=== PATIENT | male | born 1940 | race Caucasian/White ===

== ENCOUNTER → 2017-09-02 07:25 | Outpatient (CLI) | payer MEDICARE, BC, SELFPAY ==
[2017-09-02 09:20] LABS: Alanine Aminotransferase 19 U/L (12-78); Albumin Level 3.9 gm/dL (3.4-5.0); Albumin/Globulin Ratio 1.2 (1.1-1.8); Alkaline Phosphatase 86 U/L (46-116); Anion Gap 12.3 mEq/L (5-15); Aspartate Amino Transferase 23 U/L (15-37); Bilirubin,Total 0.6 mg/dL (0.2-1.0); Blood Urea Nitrogen 23 mg/dL (7-18); Calcium 9.6 mg/dL (8.5-10.1); Carbon Dioxide 28 mmol/L (21.0-32.0); Chloride 103 mmol/L (98-107); Chol/HDL Ratio 2.6 (1-3.5); Cholesterol 169 mg/dL (140-200); Creatinine,Serum 1.19 mg/dL (0.70-1.30); Estimated Glomerular Filt Rate 59 ml/min (>60); GFR (African American) 72 ML/MIN (>60); Globulin 3.2 gm/dl (1.3-3.2); Glucose 103 mg/dL (74-106); HDL Cholesterol 65 mg/dL (27-67); LDL Cholesterol 93 mg/dL (0-130); Potassium 4.3 mmoL/L (3.5-5.1); Prostate Specific Ag, Diagnost 3.02 ng/mL (0.0-4.0); Sodium 139 mmol/L (136-145); Thyroid Stimulating Hormone 2.19 uIU/ml (0.358-3.740); Total Protein,Serum 7.1 gm/dL (6.4-8.2); Triglycerides 56 mg/dL (30-200); VLDL Cholesterol 11 mg/dL (0-40)
== END ==
PROVIDERS: Visit Provider Family Medicine
DX: I10 Essential (primary) hypertension (principal); N40.0 Benign prostatic hyperplasia without lower urinary tract symptoms; E03.9 Hypothyroidism, unspecified; E78.2 Mixed hyperlipidemia; R97.20 Elevated prostate specific antigen [PSA]; Z86.79 Personal history of other diseases of the circulatory system
CPT/HCPCS: 36415; 80053; 80061; 84153; 84443

== ENCOUNTER → 2018-05-23 07:12 | Outpatient (CLI) | payer MEDICARE, BC, SELFPAY ==
--- NOTE | 2018-05-23 07:16 | NM_ITS ---
SPECT MYOCARDIAL PERFUSION SCAN, REST AND STRESS: EXERCISE STRESS: [facility] REVIEW QGS EF AND WALL MOTION EVALUATION: QPS - PERFUSION EVALUATION: HISTORY: Chest pain, HTN, CAD PROCEDURE: Rest imaging performed after administration of10.64 millicuries Tc MIBI. Dose administered at7:25 a.m., with imaging thereafter. Stress imaging was then performed following6 minutes of exercise stress. The patient achieved a heart ofav467 with projected heart rate of120 . Resting BP184/95 with stress 150/92. At maximum exercise stress,32.5 millicuries Tc MIBI administered at8:50 a.m. with [id number] minutes thereafter. FINDINGS: Perfusion Evaluation: The single slice spect images as well as the [facility] bull's-eye data summary were reviewed. Wall Motion and Ejection Fraction Evaluation: Gated SPECT review and analysis used to evaluate these features. There is a 46 % left ventricular ejection fraction. Stress test reveals decreased activity in the anterior apical wall while rest images reveal uniform myocardial activity. Gated images calculated ejection fraction of 46% with anterior apical hypokinesis. IMPRESSION: High risk abnormal stress test with severe reversible ischemia in the anterior wall accompanied by regional wall motion abnormality and reduced ejection fraction.
--- NOTE | 2018-05-23 08:18 | HMH.ITSHM ---
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 []ROSUVASTATIN FLUTICASONE OMEPRAZOLE LOSARTAN RESTASIS TAMSULOSIN LEVOTHYROXINE SILDENAFIL ASA NITRO FOLIC ACID NIACIN OMEGA 3 MULTIVITAMIN VITAMIN C
[2018-05-23 11:30] LABS: Alanine Aminotransferase 27 U/L (12-78); Albumin Level 4.1 gm/dL (3.4-5.0); Albumin/Globulin Ratio 1.2 (1.1-1.8); Alkaline Phosphatase 94 U/L (46-116); Anion Gap 13.3 mEq/L (5-15); Aspartate Amino Transferase 16 U/L (15-37); Bilirubin,Total 0.6 mg/dL (0.2-1.0); Blood Urea Nitrogen 18 mg/dL (7-18); Calcium 9.6 mg/dL (8.5-10.1); Carbon Dioxide 27 mmol/L (21.0-32.0); Chloride 98 mmol/L (98-107); Chol/HDL Ratio 2.6 (1-3.5); Cholesterol 178 mg/dL (140-200); Creatinine,Serum 1.33 mg/dL (0.70-1.30); Estimated Glomerular Filt Rate 52 ml/min (>60); GFR (African American) 63 ML/MIN (>60); Globulin 3.4 gm/dl (1.3-3.2); Glucose 108 mg/dL (74-106); HDL Cholesterol 69 mg/dL (27-67); LDL Cholesterol 92 mg/dL (0-130); Potassium 4.3 mmoL/L (3.5-5.1); Sodium 134 mmol/L (136-145); Thyroid Stimulating Hormone 1.55 uIU/ml (0.358-3.740); Total Protein,Serum 7.5 gm/dL (6.4-8.2); Triglycerides 83 mg/dL (30-200); VLDL Cholesterol 17 mg/dL (0-40)
== END ==
PROVIDERS: PCP Family Medicine; Visit Provider Family Medicine
DX: R07.2 Precordial pain (principal); E03.9 Hypothyroidism, unspecified; I10 Essential (primary) hypertension; E78.5 Hyperlipidemia, unspecified; Z86.79 Personal history of other diseases of the circulatory system
CPT/HCPCS: 36415; 78451; 80053; 80061; 84443; 93017; A9502

== ENCOUNTER 2018-07-18 08:21 | Outpatient (RCR) | payer MEDICARE, BC, SELFPAY | END 2018-09-27 15:45 | disposition home or self-care (01) | LOC: CR 08:21 | PROVIDERS: Referring Provider Urology; Visit Provider Urology | DX: Z95.1 Presence of aortocoronary bypass graft (principal); I11.9 Hypertensive heart disease without heart failure; E78.5 Hyperlipidemia, unspecified | CPT/HCPCS: 93798 ==

== ENCOUNTER → 2018-07-18 09:31 | Outpatient (CLI) | payer MEDICARE, BC, SELFPAY ==
--- NOTE | 2018-07-18 09:32 | CA_ITS ---
PROCEDURE: 2-D M-mode and color Doppler study INDICATIONS FOR THE TEST: Chest pain COPD Heart Murmur Tobacco Smoking Palpitations Fatigue Syncope Edema Hypertension+Diabetes Mellitus Rheumatic Fever SOB [place]OTT Obesity Hyperlipidemia+ Family History HD Additional History CABG PATIENT INFORMATION HEIGHT:71 WEIGHT:180 GENDER: Male B/P:127/63 2-D/M-MODE INTERPRETATION: 2-D MEASUREMENTS OBSERVED VALUES IN CMS Right Ventricular Dimension (RVDd) 2.8 Interventricular Septum (Thickness)(IVsd) 1.6 Left Ventricular Internal Dimensions(LVIDd) 5.3 Left Ventricular Posterior Wall (Thickness)(LVPWd) 1.0 Aortic Root 3.3 Aortic Cusp Separation 2.0 Left Atrial Dimensions (LAD) 4.4 2D 1. Technically difficult study because of the patient's factor and poor acoustic windows, repeat study with definitely contrast is recommended. 2. Left atrium is moderately enlarged, left ventricle is normal size, there is mild concentric left ventricular hypertrophy, visually estimated ejection fraction approximately 40%, inferior inferobasal wall appears to be moderately hypokinetic, endocardial surface of poorly visualized, a repeat study with Definity contrast is recommended. 3. The right atrium and right ventricle are mildly enlarged with normal contractility. 4. The aortic valve is thickened and calcified leaflet continue to display good mobility. 5. The mitral and tricuspid valve leaflets are minimally thickened . 6. The pulmonic valve is poorly visualized. 7. No significant pericardial effusion noted. DOPPLER INTERROGATION: Doppler interrogation of the aortic, mitral and tricuspid presence of moderate mitral and mild tricuspid regurgitation, tricuspid regurgitation jet velocity is inadequate for calculation of the right ventricular systolic pressure, diastolic parameters are inconclusive. Tissue Doppler was not obtained. CONCLUSION: 1. Moderately enlarged left atrium, normal left ventricular size, mild concentric left ventricular hypertrophy, visually estimated ejection fraction of 40%, with segmental wall motion abnormality described above, repeat study with Definity contrast is recommended as endocardial surface of very poorly visualized. 2. Mildly enlarged right atrium and right ventricle, contractility of the right ventricle is normal. 3. Thickened and calcified aortic valve without Doppler evidence of aortic stenosis or aortic insufficiency. 4. Moderate mitral and mild tricuspid regurgitation 5. No significant pericardial effusion.
== END ==
PROVIDERS: PCP Family Medicine; Visit Provider Urology
DX: I25.10 Atherosclerotic heart disease of native coronary artery without angina pectoris (principal)
CPT/HCPCS: 93306

== ENCOUNTER → 2018-07-31 13:31 | Outpatient (CLI) | payer MEDICARE, BC, SELFPAY ==
--- NOTE | 2018-07-31 13:32 | CA_ITS ---
PROCEDURE: Definitely contrast study INDICATIONS FOR THE TEST: Chest pain COPD Heart Murmur Tobacco Smoking Palpitations Fatigue Syncope Edema Hypertension+Diabetes Mellitus Rheumatic Fever SOB PRESCOTT Obesity Hyperlipidemia+ Family History HD Additional History cabg DEFINITY ONLY PATIENT INFORMATION HEIGHT: 71 WEIGHT:180 GENDER: Male B/P:127/63 2-D/M-MODE INTERPRETATION: 2-D MEASUREMENTS OBSERVED VALUES IN CMS Right Ventricular Dimension (RVDd) Interventricular Septum (Thickness)(IVsd) Left Ventricular Internal Dimensions(LVIDd) Left Ventricular Posterior Wall (Thickness)(LVPWd) Aortic Root Aortic Cusp Separation Left Atrial Dimensions (LAD) 2D DOPPLER INTERROGATION: CONCLUSION: Doppler contrast was utilized to delineate endocardial surfaces, visually estimated ejection fraction approximately 45% with no regional wall motion abnormality.
== END ==
PROVIDERS: PCP Family Medicine; Visit Provider Internal Medicine
DX: E78.5 Hyperlipidemia, unspecified (principal); I11.9 Hypertensive heart disease without heart failure; I25.10 Atherosclerotic heart disease of native coronary artery without angina pectoris; R06.02 Shortness of breath
CPT/HCPCS: 93306

== ENCOUNTER → 2018-08-20 16:17 | Outpatient (CLI) | payer MEDICARE, BC, SELFPAY ==
--- NOTE | 2018-08-20 16:20 | XR_ITS ---
XR knee LT 3V Ordering Physician: Dale Pisano MD Patient Age: 78 years: Male HISTORY: . LEFT KNEE PAINpatient developed Knee pain 2 weeks ago after push mower yaRD TECHNIQUE: 3 views left knee nonweightbearing. COMPARISON :Right knee radiograph March 2013 FINDINGS . No fracture or acute findings. Mild narrowing medial compartment on this nonweightbearing film. Reflecting developing arthritic changes medial compartment. Sharpening early marginal osteophytes margins of medial and lateral compartment Marginal osteophytes are most evident about the margin of patella. I suspect a fragmented marginal osteophyte accounts appearance at the superior most margin of patella.. Noting a lucent line passes to the base of this marginal osteophyte. Tend to favor older feature rather than acute fracture but if point tenderness at superior margin patella this may require follow-up and further consideration. Upper normal slight increased joint effusion suprapatella bursa but not no prominent increase fluid up to support support acute fracture.. Hypertrophic features, bone at at superior patella from the quadriceps insertion noted. Similar appearance seen at the opposite knee back IN 2013. Prominent atherosclerotic calcification is seen at the SFA and popliteal artery. Also noted here on the left and previously seen on right 2013 radiograph IMPRESSION: . 1. Developing arthritic changes knee-most evident at medial compartment and patellofemoral joint. 2. Slight narrowing of the medial compartment.. . 3. Fragmented Marginal osteophytes at superior patella: . A lucent line passes through base the marginal osteophytes extending from the superior aspect patella. I suspect this may reflect a long-standing fragmented marginal osteophyte. More likely old feature but if point tenderness at the superior patellofemoral joint, cannot totally exclude a recent injury, or recent fracture at this marginal osteophyte. Clinical correlation required (Note. Would expect more prominent joint fluid at suprapatellar bursa if this was a recent fracture.)
== END ==
PROVIDERS: PCP Family Medicine; Visit Provider Family Medicine
DX: M25.562 Pain in left knee (principal)
CPT/HCPCS: 73562

== ENCOUNTER → 2018-09-07 13:03 | Outpatient (CLI) | payer MEDICARE, BC, SELFPAY ==
--- NOTE | 2018-09-07 13:08 | XR_ITS ---
XR knee LT 4V HISTORY: Chronic knee pain ITS.REASON: 4 VIEWS WB ORDERING PHYSICIAN: Senait Ma MD PATIENT AGE: 78 years COMPARISON: 08/20/2018 FINDINGS: Mild osteoarthritic changes involve all 3 compartments. No fracture or dislocation. No lytic or blastic change. There are vascular calcifications. A calcific density is present along the superior patella posteriorly unchanged and may be due to a fragmented osteophyte IMPRESSION: Osteoarthritis, no change with no acute finding
== END ==
PROVIDERS: PCP Family Medicine; Visit Provider Orthopaedic Surgery
DX: M25.562 Pain in left knee (principal)
CPT/HCPCS: 73564

== ENCOUNTER → 2018-09-28 10:11 | Outpatient (CLI) | payer MEDICARE, BC, SELFPAY ==
[2018-09-28 12:45] LABS: Prostate Specific Ag Screen 2.5 ng/mL (0.0-4.0)
== END ==
PROVIDERS: Visit Provider Urology
DX: R97.20 Elevated prostate specific antigen [PSA] (principal); Z12.5 Encounter for screening for malignant neoplasm of prostate
CPT/HCPCS: 36415; G0103

== ENCOUNTER 2018-09-29 09:00 | Emergency (ER) | payer MEDICARE, BC, SELFPAY ==
[2018-09-29 09:21] VITALS: BP 139/87; PULSE 65; RESP 18; TEMP 37; O2SAT 98; BMI 24.4
--- NOTE | 2018-09-29 09:33 | HMH.EDUTC ---
[facility] [place] Disposition Clinical Impression: Vomiting and diarrhea Disposition: Home, Self-Care Condition on Discharge: Good Instructions: Diarrhea (Alternative Therapy), Diarrhea (Alternative Therapy), Diarrhea, Norovirus Infection, DI for Vomiting -- Adult, Nausea and Vomiting-Adult Additional Instructions: ? Drink extra fluids with and between meals. If you have difficulty drinking, try very small amounts of water or suck on ice chips. You can drink things like gatoraid, pedialyte or oral replacement solutions, if you have problems finding them ask the pharmacy and they may be able to tell you what they have available ? Avoid fruit juices, as these do not replace minerals and can actually increase diarrhea. ? Children and adults can use sports drinks to replenish electrolytes. Younger children and infants should use products formulated for children, like oral rehydration solutions pedialyte. ? Eat food in small amounts and let your stomach recover. ? Get lots of rest. You may feel tired or weak. ? No greasy or fried foods for the next 24-48 hours BRAT diet Bananas Rice Apples and [place] ? Make sure to drink plenty of liquids ? Return if needed ? Straight to ER if any life threatening symptoms or signs and symptoms of dehydration such as dry skin, dry mucous membranes, Not peeing or having very dark yellow pee. Very dry skin. Feeling dizzy. Rapid heartbeat. Rapid breathing. Sunken eyes. Sleepiness, lack of energy, confusion or irritability. Fainting. ? Zofran as prescribed You was given order for diarrhea panel, collect specimen and bring back to outpatient lab, it takes several hours for this test, follow up with family doctor or [facility] Prescriptions: Ondansetron [Zofran 4mg ODT] 4 mg PO Q8HP PRN #20 tab.rapdis PRN Reason: Nausea Referrals: Dale Pisano MD [Primary Care Provider] - As needed Time of Disposition: 10:30 Medical Decision Making - Lopez Inquiry Pt receiving controlled substance: No Lopez was queried for this patient: No Vital Signs: 09/29/18 09:21 Temperature 98.6 F Temperature Source Oral Pulse Rate [Right Brachial] 65 Respiratory Rate 18 Blood Pressure [Right Arm] 139/87 Blood Pressure Mean [Right Arm] 104 Blood Pressure Source [Right Arm] Automatic Cuff Blood Pressure Position [Right Arm] Sitting 02 Sat by Pulse Oximetry 98 Oxygen Delivery Method Room Air Orders (Tests/Meds): ED MEDICATIONS Generic Name Dose Route Start Last Admin Trade Name Freq PRN Reason Stop Dose Admin Sodium Chloride 500 mls @ 999 mls/hr 09/29/18 10:00 Sod Chlor 0.9% 1000ml Bag IV 09/29/18 10:30 .Q31M ALICIA Discontinued Medications Generic Name Dose Route Start Last Admin Trade Name Freq PRN Reason Stop Dose Admin Sodium Chloride 1,000 mls @ 999 mls/hr 09/29/18 10:00 09/29/18 09:53 Sod Chlor 0.9% 1000ml Bag IV 09/29/18 11:00 999 mls/hr .Q1H1M ALICIA Administration Ondansetron HCl 4 mg 09/29/18 09:49 09/29/18 09:53 Zofran 4mg/2ml Vial IV 09/29/18 09:50 4 mg ONCE ONE Administration - Reevaluation(s) Time: 10:29 Reevaluation #1: Patient fluid bolus almost complete patient state that his mouth no longer feels dry and he is feeling better after zofran no longer having nausea Patient to be dc'd home and advised to make sure that he is drinking plenty of fluids and collect diarrhea specimen and bring back to lab for testing [facility] [place] HPI - General Stated complaint: mehran Virus Time Seen by Provider: 09/29/18 09:33 Mode of Arrival: Family Vehicle Source of Information: Patient Limitations: No Limitations Description of Symptoms (Recalled from Triage Doc. by RN): c/o possible norovirus. spent 3 days in [facility] with norovirus and was released yesterday. c/o vomiting and diarrhea since last pm. Recently traveled to [place] HEENT Symptoms (Recalled from RN notes): No Resp Symptoms (Recalled from RN notes): No Skin Symptoms (Recalled from RN notes): No MS
--- NOTE | 2018-09-29 09:36 | ED_ITS ---
[facility] [place] Clinical Impression: Vomiting and diarrhea Disposition: Home, Self-Care Condition on Discharge: Good Instructions: Diarrhea (Alternative Therapy), Diarrhea (Alternative Therapy), Diarrhea, Norovirus Infection, DI for Vomiting -- Adult, Nausea and Vomiting- Adult Additional Instructions: ? Drink extra fluids with and between meals. If you have difficulty drinking, try very small amounts of water or suck on ice chips. You can drink things like gatoraid, pedialyte or oral replacement solutions, if you have problems finding them ask the pharmacy and they may be able to tell you what they have available ? Avoid fruit juices, as these do not replace minerals and can actually increase diarrhea. ? Children and adults can use sports drinks to replenish electrolytes. Younger children and infants should use products formulated for children, like oral rehydration solutions pedialyte. ? Eat food in small amounts and let your stomach recover. ? Get lots of rest. You may feel tired or weak. ? No greasy or fried foods for the next 24-48 hours BRAT diet Bananas Rice Apples and [place] ? Make sure to drink plenty of liquids ? Return if needed ? Straight to ER if any life threatening symptoms or signs and symptoms of de hydration such as dry skin, dry mucous membranes, Not peeing or having very dark yellow pee. Very dry skin. Feeling dizzy. Rapid heartbeat. Rapid breathing. Sunken eyes. Sleepiness, lack of energy, confusion or irritability. Fainting. ? Zofran as prescribed You was given order for diarrhea panel, collect specimen and bring back to outpatient lab, it takes several hours for this test, follow up with family doctor or call back to [facility] for results Prescriptions: Ondansetron [Zofran 4mg ODT] 4 mg PO Q8HP PRN #20 tab.rapdis PRN Reason: Nausea Referrals: Dale Pisano MD [Primary Care Provider] - As needed Time of Disposition: 10:30 Medical Decision Making - Lopez Inquiry Pt receiving controlled substance: No Lopez was queried for this patient: No Vital Signs: 09/29/18 09:21 Temperature 98.6 F Temperature Source Oral Pulse Rate [Right Brachial] 65 Respiratory Rate 18 Blood Pressure [Right Arm] 139/87 Blood Pressure Mean [Right Arm] 104 Blood Pressure Source [Right Arm] Automatic Cuff Blood Pressure Position [Right Arm] Sitting 02 Sat by Pulse Oximetry 98 Oxygen Delivery Method Room Air Orders (Tests/Meds): ED MEDICATIONS Generic Name Dose Route Start Last Admin Trade Name Freq PRN Reason Stop Dose Admin Sodium Chloride 500 mls @ 999 mls/hr 09/29/18 10:00 Sod Chlor 0.9% 1000ml Bag IV 09/29/18 10:30 .Q31M ALICIA Discontinued Medications Generic Name Dose Route Start Last Admin Trade Name Freq PRN Reason Stop Dose Admin Sodium Chloride 1,000 mls @ 999 mls/hr 09/29/18 10:00 09/29/18 09:53 Sod Chlor 0.9% 1000ml Bag IV 09/29/18 11:00 999 mls/hr .Q1H1M ALICIA Administration Ondansetron HCl 4 mg 09/29/18 09:49 09/29/18 09:53 Zofran 4mg/2ml Vial IV 09/29/18 09:50 4 mg ONCE ONE Administration - Reevaluation(s) Time: 10:29 Reevaluation #1: Patient fluid bolus almost complete patient state that his mouth no longer feels dry and he is feeling better after zofran no longer having nausea Patient to be dc'd home and advised
[2018-09-29 10:43] VITALS: BP 139/87; PULSE 65; RESP 18; TEMP 37; O2SAT 98
== END 2018-09-29 10:45 | disposition home or self-care (01) ==
PROVIDERS: Emergency Provider Nurse Practitioner; PCP Family Medicine
DX: R11.2 Nausea with vomiting, unspecified (principal); R19.7 Diarrhea, unspecified; A08.11 Acute gastroenteropathy due to Norwalk agent; I25.10 Atherosclerotic heart disease of native coronary artery without angina pectoris; E78.5 Hyperlipidemia, unspecified; I10 Essential (primary) hypertension; E03.9 Hypothyroidism, unspecified; D64.9 Anemia, unspecified; Z87.891 Personal history of nicotine dependence; Z79.899 Other long term (current) drug therapy
CPT/HCPCS: G0463; 87506; 87507; 96365; 96375; 99201; J2405

== ENCOUNTER → 2018-09-29 19:15 | Outpatient (CLI) | payer MEDICARE, BC, SELFPAY ==
[2018-09-29 20:20] LABS: Adenovirus F 40/41, stool Not Detected (NotDetected); Astrovirus Not Detected (NotDetected); Campylobacter Not Detected (NotDetected); Clostridium Difficile A/B, PCR Not Detected (NotDetected); Cryptosporidium Not Detected (NotDetected); Cyclospora Cayetanesis Not Detected (NotDetected); Entamoeba histolytica Not Detected (NotDetected); Enteroaggregative E coli Not Detected (NotDetected); Enteropathogenic E coli Not Detected (NotDetected); Enterotoxigenic E coli Not Detected (NotDetected); Giardia lamblia Not Detected (NotDetected); Plesimonas Shigalloides, PCR Not Detected (NotDetected); Rotavirus A Not Detected (NotDetected); Salmonella, PCR Not Detected (NotDetected); Sapovirus Not Detected (NotDetected); Shiga-like toxin E coli Not Detected (NotDetected); Shigella Enterovasive E coli Not Detected (NotDetected); Vibrio Cholerae Not Detected (NotDetected); Vibrio, PCR Not Detected (NotDetected); Yersinia Entercolitica, PCR Not Detected (NotDetected)
[2018-09-29 22:44] LABS: Norovirus Detected (NotDetected)
== END ==
PROVIDERS: PCP Family Medicine; Visit Provider Nurse Practitioner
DX: R19.7 Diarrhea, unspecified (principal)
CPT/HCPCS: 87506; 87507; 96365; 96375; 99201; J2405

== ENCOUNTER 2019-04-17 11:45 | Observation (INO) ==
--- NOTE | 2019-04-17 12:26 | History & Physical Report ---
*Admission Date: 04/17/19 *Chief complaint: Syncope *History of present illness: Mr. Loomis is 79-year-old white male who presented to the office of [facility] today after having 2 syncopal episodes. His is with him and contributes to the history. He states that while at a republican breakfast this morning when eating he actually passed out. Friends and family were able to get him to a chair. They state he was out for about 2 minutes. He then relayed that he felt fine after which he again passed out for about a minute. He had no loss of bowel or bladder function. EMS was called. They did physically assess him and vital signs were stable. Patient denies having chest pain, palpitati ons, nausea, and shortness of breath,. He does state that about 20 minutes prior to the first episode that he felt a little drunk. His then brought him to the office of [facility] for evaluation. They did climb 4 flights of stairs without any incident. With assessment in the office he again denied chest pain and shortness of breath, palpitations, nausea, dizziness, and neuro deficits. He did have cardiac pass surgery in May 2018 and has a history of hyperlipidemia, hypertension, esophageal reflux, BPH, laryngeal cancer, hypothyroid, ASCVD status post stents and CABG. [facility]. He was told that he had a bradycardia at that time. He is followed by his geoscience technician Dr. Boogie. Consulted with Dr. Jovel who advised admission to [facility] for monitoring and cardiac work-up. Thus he was admitted [facility] History Medical History: Reports:: Atherosclerotic Heart Disease, Cancer, Coronary Artery Disease, Dementia, Gastroesophageal Reflux Disease(GERD), Hiatal Hernia, Hyperlipidemia, Hypertension, Myocardial Infarction *Have you ever received a pneumonia vaccine?: Yes *Have you received a flu vaccine this season?: Yes Other Medical History: Reports: Anemia, Hoarseness, Hypothyroidism, Radiation Therapy, Thyroid Disease Comment:: BPH Laterality Cases: Bilateral: Arthroscopy Knee, Tonsillectomy Other Surgeries: Yes: No Previous Surgery, Angioplasty, CABG, Cancer Surgery, Colonoscopy, Coronary Stent, Hernia Repair, Open Heart Surgery Amputation: No Fractures: No - *Social History Educational Level: Completed College Smoking Status: Former smoker #Yrs smoked (if former smoker): 30 Alcohol Intake: never Substance Use Type: denies use *Occupational Status:: retired Housing: house Household Members: spouse *Travel in the last 8 weeks: None Family Hx:: Coronary Artery Disease, Heart Attack, Hypertension Review of Systems - Constitutional Denies fatigue, Denies fever(s) - Eyes Denies change in vision - ENT Denies ear pain, Denies headache(s), Denies sore throat - *Cardiovascular Reports lightheadedness, Denies chest pain, Denies shortness of breath, Denies irregular heart rhythm, Denies leg swelling - *Respiratory Denies chest congestion, Denies cough, Denies shortness of breath - *Gastrointestinal Denies abdominal pain, Denies change in bowel habits, Denies heartburn, Denies nausea, Denies vomiting - *Genitourinary Denies difficulty urinating - *Musculoskeletal Denies abnormal walking, Denies muscle weakness, Denies body aches - *Neurologic Reports fainting, Denies abnormal walking, Denies abnormal movements, Denies abnormal speech, Denies behavioral changes, Denies confusion, Denies seizure- like activity, Denies unsteadiness, Denies dizziness, Denies lack of coordination, Denies seizure-like activity Meds Home Medications Medication Instructions Recorded Confirmed Type aspirin 81 mg tablet,delayed 81 mg PO ONCE 09/12/17 10/30/18 History release fluticasone propionate 50 1 spray INTRANASAL BID PRN 09/12/17 10/30/18 History mcg/actuation nasal spray,suspension folic acid 800 mcg tablet 0.8 mg PO ONCE 09/12/17 10/30/18 History levothyroxine 88 mcg capsule 88 mcg PO ONCE 09/12/17 10/30/18 History multivitamin,ho-iwva-lbpsquuc 1 tab PO QAM 09/12/17 10/30/18 History nitroglycerin 0.4 mg sublingual 0.4 mg SUBLINGUAL Q5M PRN 09/12/17 10/30/18 History tablet omega-3 fatty acids 1,000 mg 1,000 mg PO ONCE 09/12/17 04/17/19 History capsule rosuvastatin 20 mg tablet 20 mg PO ONCE 09/12/17 04/17/19 History sildenafil 100 mg tablet 100 mg PO ONCE PRN 09/12/17 04/17/19 History tamsulosin 0.4 mg capsule 0.4 mg PO ONCE 09/12/17 04/17/19 History ascorbic acid (vitamin C) 1,000 mg 1 g PO DAILY tab 05/23/18 10/30/18 History tablet cyclosporine 0.05 % eye drops in a 1 drp OPHTHALMIC Q12H 05/23/18 10/30/18 History dropperette omeprazole 20 mg capsule,delayed 20 mg PO DAILY 09/10/18 04/17/19 History release losartan 25 mg tablet 25 mg PO DAILY #30 tab 10/16/18 10/30/18 Rx metoprolol succinate 25 mg 25 mg PO DAILY #30 tab 10/16/18 10/30/18 Rx tablet,extended release 24 hr niacin 500 mg tablet 500 mg PO DAILY tab 01/29/19 History Allergies Allergy/AdvReac Type Severity Reaction Status Date / Time codeine [CODEINE] Allergy Mild NA-NAUSEA/V Verified 01/29/19 08:49 OMITING Exam Vital signs and Labs for Last 24 Hours: Temp Pulse Resp BP Pulse Ox 97.7 F 61 20 160/76 H 97 04/17/19 12:13 04/17/19 12:13 04/17/19 12:13 04/17/19 12:13 04/17/19 12:13 I & O for Last 24 hours: Intake & Output 04/15/19 04/16/19 04/17/19 04/18/19 11:59 11:59 11:59 11:59 Weight 175 lb 5 oz - Constitutional no acute distress Comments: walked up 4 flight of stairs without difficulty to office appt - *Routine HEENT Exam Head: Present: normocephalic, atraumatic Eye: Present: EOMI, PERRL. Absent: conjunctival icterus, scleral injection ENT: Present: mucous membranes moist, oropharynx clear, TM's clear bilaterally - *Routine Neck Exam Present: supple. Absent: carotid bruit, lymphadenopathy, thyromegaly - *Routine Respiratory Exam Present: CTA bilaterally (A&P) - *Routine Cardiovascular Exam Present: RRR (no ectopy noted) - *Routine Abdominal Exam Present: soft, normoactive bowel sounds. Absent: tenderness - *Routine Extremities Exam Absent: edema Comments: diminished right radial pulse - *Routine Neurological Exam Present: alert, oriented X3, CN II-XII intact, moving all extremities. Absent: sensory deficit, motor deficit, altered mental status Assessment and Plan (1) Syncope Current visit: Yes Status: Acute Category: Medical Code(s): R55 - Syncope and collapse (2) H/O coronary artery bypass surgery Current visit: No Status: Chronic Category: Surgical Code(s): Z95.1 - Presence of aortocoronary bypass graft (3) HHD (hypertensive heart disease) Current visit: No Status: Chronic Qualifiers: Heart failure presence: without heart failure Qualified Code(s): I11.9 - Hypertensive heart disease without heart failure Category: Medical Code(s): I11.9 - Hypertensive heart disease without heart failure (4) HLD (hyperlipidemia) Current visit: No Status: Chronic Qualifiers: Hyperlipidemia type: mixed hyperlipidemia Qualified Code(s): E78.2 - Mixed hyperlipidemia Category: Medical Code(s): E78.5 - Hyperlipidemia, unspecified - Assessment and plan all Dx Assessment and Plan for all problems:: Admitted for cardiac work-up. Will have a cardiology consult. Also will have echocardiogram and carotid ultrasound. Will be on the environmental monitoring specialist. Will restart most of home meds to include metoprolol while monitoring his rhythm.
[2019-04-17 12:49] LABS: Basophils % 0.3 % (0.1-2.0); Eosinophils # 0.2 K/mm3 (0.0-0.4); Eosinophils % 1.9 % (0.1-12.0); Hematocrit 41.1 % (42.0-52.0); Hemoglobin 13.2 g/dL (14.1-18.0); Lymphocytes # 1.4 K/mm3 (0.7-4.5); Mean Corpuscular HGB Conc 32.2 g/dL (31.8-35.4); Mean Corpuscular Volume 97.1 fl (80-94); Monocytes # 0.5 K/mm3 (0.1-1.0); Monocytes % 4.3 % (1.7-9.3); Neutrophils # 8.5 K/mm3 (1.8-7.8); Neutrophils % 80.6 % (37.0-80.0); Platelet Count 233 K/mm3 (142-424); Red Blood Count 4.24 M/mm3 (4.60-6.20); White Blood Count 10.5 K/mm3 (4.8-10.8)
[2019-04-17 12:56] LABS: Albumin Level 4.1 gm/dL (3.4-5.0); Albumin/Globulin Ratio 1.1 (1.1-1.8); Anion Gap 12.4 mEq/L (5-15); Bilirubin,Total 0.5 mg/dL (0.2-1.0); Calcium 9.2 mg/dL (8.5-10.1); Globulin 3.7 gm/dl (1.3-3.2); Total Protein,Serum 7.8 gm/dL (6.4-8.2)
--- NOTE | 2019-04-17 13:14 | Consult Report ---
History of Present Illness Consult date: 04/17/19 Requesting physician: Jeremias Jovel Chief complaint: syncope Additional Medical History:: 1. Coronary artery disease status post one-vessel CABG 2. Hypertension 3. Hyperlipidemia 4. Sinus bradycardia 5. History of syncope History of present illness: This is an 79-year-old white male who presented to his primary care provider's office today after 2 episodes of syncope. The patient and his were at a friend's house having breakfast this morning when he had his first syncopal episode. The patient states that he had drank some orange juice about 30 minutes prior to this happening. He states that he started to feel sluggish and as if someone spiked his orange juice. The patient states that he was sitting when he had a sudden episode of syncope. His friends and are able to get him up to a chair. He had passed out for about 2 minutes. Following this episode he felt fine and then he passed out again a few minutes later and this time the patient was passed out for about a minute. The patient does not recall these episodes but his is able to give the history on his syncopal episodes. He had no loss of bowel or bladder control. EMS was called and the patient was assessed and everything was normal. The patient then went to see his primary care provider and was subsequently admitted to the hospital due to his 2 syncopal episodes. He denies any chest pain, pressure, shortness of breath or edema. He denies any fever, chills, nausea, vomiting, diarrhea, PND or orthopnea. The patient does have a history of coronary artery disease and is status post coronary artery bypass grafting x1 vessel in May 2018. Earlier this year he did have an episode of syncope at [facility] and Dr. Haque was present. The patient was bradycardic and his metoprolol was decreased. He was also bradycardic in the outpatient cardiology office following this and his metoprolol was decreased once again. The patient states since that time he has been fine up until today. He states following the syncope today he wanted to go home but his family encouraged him to go to to Dr. Jovel's office. [facility] History I have reviewed the patient's past medical history: Yes Medical History: Reports:: Atherosclerotic Heart Disease, Cancer, Coronary Artery Disease, Dementia, Gastroesophageal Reflux Disease(GERD), Hiatal Hernia, Hyperlipidemia, Hypertension, Myocardial Infarction *Have you ever received a pneumonia vaccine?: Yes *Have you received a flu vaccine this season?: Yes Other Medical History: Reports: Anemia, Hoarseness, Hypothyroidism, Radiation Therapy, Thyroid Disease Laterality Cases: Bilateral: Arthroscopy Knee, Tonsillectomy Other Surgeries: Yes: No Previous Surgery, Angioplasty, CABG, Cancer Surgery, Colonoscopy, Coronary Stent, Hernia Repair, Open Heart Surgery Amputation: No Fractures: No - *Social History Educational Level: Completed College Smoking Status: Former smoker #Yrs smoked (if former smoker): 30 Alcohol Intake: current Alcohol Intake Frequency:: holidays/special occasions only Substance Use Type: denies use *Occupational Status:: retired Housing: house Household Members: spouse *Travel in the last 8 weeks: None Family Hx:: Coronary Artery Disease, Heart Attack, Hypertension Meds Home Medications Medication Instructions Recorded Confirmed Type aspirin 81 mg tablet,delayed 81 mg PO ONCE 09/12/17 04/17/19 History release fluticasone propionate 50 1 spray INTRANASAL BID PRN 09/12/17 10/30/18 History mcg/actuation nasal spray,suspension folic acid 800 mcg tablet 0.8 mg PO ONCE 09/12/17 10/30/18 History levothyroxine 88 mcg capsule 88 mcg PO DAILY 09/12/17 04/17/19 History multivitamin,gs-ywak-wnexzpkh 1 tab PO QAM 09/12/17 10/30/18 History nitroglycerin 0.4 mg sublingual 0.4 mg SUBLINGUAL Q5M PRN 09/12/17 10/30/18 History tablet omega-3 fatty acids 1,000 mg 1,000 mg PO ONCE 09/12/17 04/17/19 History capsule rosuvastatin 20 mg tablet 20 mg PO ONCE 09/12/17 04/17/19 History tamsulosin 0.4 mg capsule 0.4 mg PO ONCE 09/12/17 04/17/19 History ascorbic acid (vitamin C) 1,000 mg 1 g PO DAILY tab 05/23/18 10/30/18 History tablet cyclosporine 0.05 % eye drops in a 1 drp OPHTHALMIC Q12H 05/23/18 04/17/19 History dropperette omeprazole 20 mg capsule,delayed 20 mg PO DAILY 09/10/18 04/17/19 History release losartan 25 mg tablet 25 mg PO DAILY #30 tab 10/16/18 04/17/19 Rx niacin 500 mg tablet 500 mg PO DAILY tab 01/29/19 04/17/19 History Metoprolol Tartrate [Lopressor 25 mg PO DAILY 04/17/19 04/17/19 History 25mg tablet] Sildenafil Citrate [Sildenafil] 20 mg PO DIRECTED 04/17/19 04/17/19 History Allergies Allergy/AdvReac Type Severity Reaction Status Date / Time codeine [CODEINE] Allergy Mild NA-NAUSEA/V Verified 01/29/19 08:49 OMITING Review of Systems - Review of Systems Review of systems:: pertinent systems reviewed and negative unless documented be low - Constitutional Reports fatigue - *Cardiovascular Denies chest pain, Denies shortness of breath - *Respiratory Denies shortness of breath - *Neurologic Reports fainting, Denies abnormal walking, Denies abnormal movements, Denies abnormal speech, Denies behavioral changes, Denies confusion, Denies seizure- like activity, Denies unsteadiness, Denies dizziness, Denies headache(s), Denies lack of coordination, Denies seizure-like activity Exam Vital signs and Labs for Last 24 Hours: Temp Pulse Resp BP Pulse Ox 97.7 F 61 20 160/76 H 97 04/17/19 12:13 04/17/19 12:13 04/17/19 12:13 04/17/19 12:13 04/17/19 12:13 Laboratory Results - last 24 hr 04/17/19 12:30: WBC 10.5, RBC 4.24 L, Hgb 13.2 L, Hct 41.1 L, MCV 97.1 H, MCH 31.3 H, MCHC 32.2, RDW 13.0, Plt Count 233, MPV 9.0, Neut % (Auto) 80.6 H, Lymph % (Auto) 13.0, [place] % (Auto) 4.3, Eos % (Auto) 1.9, Baso % (Auto) 0.3, Neut # (Auto) 8.5 H, Lymph # (Auto) 1.4, [place] # (Auto) 0.5, Eos # (Auto) 0.2, Baso # (Auto) 0.0 04/17/19 12:30: Sodium 138, Potassium 4.4, Chloride 101, Carbon Dioxide 29, Anion Gap 12.4, BUN 20 H, Creatinine 1.49 H, Estimated Creat Clear 44, Estimated GFR 45 L, Est GFR ( Amer) 55 L, Glucose 87, Calcium 9.2, Magnesium 1.9, Total Bilirubin 0.5, AST 19, ALT 19, Alkaline Phosphatase 93, Total Protein 7.8, Albumin 4.1, Globulin 3.7 H, Albumin/Globulin Ratio 1.1 04/17/19 12:30: Troponin I < 0.02 I & O for Last 24 hours: Intake & Output 04/14/19 04/15/19 04/16/19 04/17/19 23:59 23:59 23:59 23:59 Weight 175 lb 5 oz - Constitutional no acute distress, average body habitus - *Routine HEENT Exam Head: Present: normocephalic, atraumatic Eye: Present: EOMI, PERRL ENT: Present: mucous membranes moist - *Routine Neck Exam Present: supple, full ROM, normal carotid upstroke. Absent: JVD, carotid bruit, lymphadenopathy - *Routine Respiratory Exam Present: CTA bilaterally - *Routine Cardiovascular Exam Present: RRR, Normal S1, Normal S2. Absent: murmur - *Routine Abdominal Exam Present: soft, normoactive bowel sounds. Absent: tenderness, distended - *Routine Extremities Exam Present: full ROM, pulses intact, normal capillary refill. Absent: cyanosis, clubbing, edema - *Routine Skin Exam Present: intact, warm. Absent: erythema, rash - *Routine Neurological Exam Present: alert, oriented X3, CN II-XII intact. Absent: sensory deficit, motor deficit - Routine Psychiatric Exam Present: normal affect, normal thought process - Detailed Eye Exam Eyelids: Left normal inspection Assessment and Plan (1) Syncope Current visit: Yes Status: Acute Category: Medical Code(s): R55 - Syncope and collapse (2) H/O coronary artery bypass surgery Current visit: No Status: Chronic Category: Surgical Code(s): Z95.1 - Presence of aortocoronary bypass graft (3) HHD (hypertensive heart disease) Current visit: No Status: Chronic Qualifiers: Heart failure presence: without heart failure Qualified Code(s): I11.9 - Hypertensive heart disease without heart failure Category: Medical Code(s): I11.9 - Hypertensive heart disease without heart failure (4) HLD (hyperlipidemia) Current visit: No Status: Chronic Qualifiers: Hyperlipidemia type: mixed hyperlipidemia Qualified Code(s): E78.2 - Mixed hyperlipidemia Category: Medical Code(s): E78.5 - Hyperlipidemia, unspecified (5) CAD (coronary artery disease) Current visit: No Status: Chronic Qualifiers: Coronary Disease-Associated Artery/Lesion type: bypass graft [place] vs. transplanted heart: [place] heart Associated angina: without angina Qualified Code(s): I25.810 - Atherosclerosis of coronary artery bypass graft(s) without angina pectoris Category: Medical Code(s): I25.10 - Atherosclerotic heart disease of [place] coronary artery without angina pectoris - Assessment and plan all Dx Assessment and Plan for all problems:: Plan: 1. The patient was admitted to the hospital after 2 episodes of syncope today. The patient has had syncope in the past at which time he was bradycardic. The patient did pass out in [facility] once and Dr. Haque was present and palpated the patient's pulse in the 40s and his metoprolol was decreased. Following this episode he was bradycardic in the office but was asymptomatic and his metoprolol was then further decreased at that time. The patient had 2 syncopal episodes today. There are no reports that the patient was bradycardic at that time per the patient's report. However given his history of bradycardia we will go ahead and stop his metoprolol at this time. 2. We will get an echocardiogram to evaluate his LV function. He is status post coronary artery bypass grafting in May and has not had a repeat echo cardiogram at this time. We need to reevaluate his LV function. 3. We will get a carotid ultrasound to rule out carotid artery stenosis as the cause of his syncope. 4. His blood pressure is a little elevated. We will continue to follow this and make adjustments to his blood pressure medications if needed. 5. The patient denies any chest pain or pressure. We will get a troponin. No plans for invasive cardiac testing at this time. 6. His LDL goal is less than 55. 7. EKG now. 8. 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 9. Obtain TSH and free t4. 10. If no significant bradycardiac over night, proceed with loop recorder placement tomorrow. However, if pt does have symptomatic bradycardia on telemetry, consider PPM placement tomorrow. 11. Further recommendations will be made pending the patient's response to treatment and the results of his echocardiogram and carotid ultrasound today. Thank you for the opportunity to help participate in the care of this patient.
--- NOTE | 2019-04-17 13:32 | Pharmacy Consult Notes ---
[facility] Pharmacy VTE Monitoring - Patient Demographics Admission date: 04/17/19 Report Date: 04/17/19 Time: 13:32 Allergies/Adverse Reactions: Patient Allergies codeine [CODEINE] Allergy (Mild, Verified 01/29/19 08:49) NA-NAUSEA/VOMITING Height: 1.8 m Weight: 79.52 kg Patient Problems: Current Active Problems Syncope (Acute) - VTE Risk Labs: VTE Related Lab Results Hgb 13.2 g/dL (14.1-18.0) L 04/17/19 12:30 Hct 41.1 % (42.0-52.0) L 04/17/19 12:30 Plt Count 233 K/mm3 (142-424) 04/17/19 12:30 BUN 20 mg/dL (7-18) H 04/17/19 12:30 Creatinine 1.49 mg/dL (0.70-1.30) H 04/17/19 12:30 Estimated Creat Clear 44 mL/min (50-200) 04/17/19 12:30 VTE Score: 2 - Prophylaxis VTE Prophylaxis Ordered?: Yes Types of VTE Prophylaxis: TEDS Knee High Location of Applied Device: Bilateral Lower Extremeties - VTE Diagnosis Confirmed Treatment or plan recommended: Continue Current Treatment
[2019-04-17 15:41] LABS: Free T4 (Free Thyroxine) 1.21 ng/dl (0.76-1.46); Thyroid Stimulating Hormone 1.48 uIU/ml (0.358-3.740)
--- NOTE | 2019-04-17 18:57 | Progress Note ---
Internal Medicine - PN: Subj *Date: 04/17/19 *Time: 18:53 Interval history: Mr. Loomis has remained quite stable during hospitalization today. The cardiology note is reviewed. It seems very reasonable to discontinue metoprolol which could be contributing to bradycardia. The patient states that he has a past tendency toward syncope anyway. The monitor has shown some mild sinus dysrhythmia but nothing dramatic as far as sustained pauses. A loop recorder seems a likely option. Exam Vital signs and Labs for Last 24 Hours: Temp Pulse Resp BP Pulse Ox 97.8 F 57 L 18 163/68 H 100 04/17/19 16:00 04/17/19 16:00 04/17/19 16:00 04/17/19 16:00 04/17/19 16:00 Laboratory Results - last 24 hr 04/17/19 12:30: WBC 10.5, RBC 4.24 L, Hgb 13.2 L, Hct 41.1 L, MCV 97.1 H, MCH 31.3 H, MCHC 32.2, RDW 13.0, Plt Count 233, MPV 9.0, Neut % (Auto) 80.6 H, Lymph % (Auto) 13.0, [place] % (Auto) 4.3, Eos % (Auto) 1.9, Baso % (Auto) 0.3, Neut # (Auto) 8.5 H, Lymph # (Auto) 1.4, [place] # (Auto) 0.5, Eos # (Auto) 0.2, Baso # (Auto) 0.0 04/17/19 12:30: Sodium 138, Potassium 4.4, Chloride 101, Carbon Dioxide 29, Anion Gap 12.4, BUN 20 H, Creatinine 1.49 H, Estimated Creat Clear 44, Estimated GFR 45 L, Est GFR ( Amer) 55 L, Glucose 87, Calcium 9.2, Magnesium 1.9, Total Bilirubin 0.5, AST 19, ALT 19, Alkaline Phosphatase 93, Total Protein 7.8, Albumin 4.1, Globulin 3.7 H, Albumin/Globulin Ratio 1.1 04/17/19 12:30: Troponin I < 0.02 04/17/19 12:30: TSH 1.48, Free T4 1.21 I & O for Last 24 hours: Intake & Output 12/1604/16/19 04/17/19 04/18/19 11:59 11:59 11:59 11:59 Intake Total 480 / 480 Balance 480 / 480 Weight 175 lb 5 oz - Constitutional no acute distress - *Routine Respiratory Exam Present: wheezes (Some wheezes on the right.) - *Routine Cardiovascular Exam Present: bradycardia (Sinus at 50) - *Routine Extremities Exam Absent: edema Assessment and Plan (1) Syncope Current visit: Yes Status: Acute Category: Medical Code(s): R55 - Syncope and collapse (2) Sinus bradycardia Current visit: Yes Status: Acute Category: Medical Code(s): R00.1 - Bradycardia, unspecified (3) H/O coronary artery bypass surgery Current visit: No Status: Chronic Category: Surgical Code(s): Z95.1 - Presence of aortocoronary bypass graft (4) HHD (hypertensive heart disease) Current visit: No Status: Chronic Qualifiers: Heart failure presence: without heart failure Qualified Code(s): I11.9 - Hypertensive heart disease without heart failure Category: Medical Code(s): I11.9 - Hypertensive heart disease without heart failure (5) HLD (hyperlipidemia) Current visit: No Status: Chronic Qualifiers: Hyperlipidemia type: mixed hyperlipidemia Qualified Code(s): E78.2 - Mixed hyperlipidemia Category: Medical Code(s): E78.5 - Hyperlipidemia, unspecified (6) CAD (coronary artery disease) Current visit: No Status: Chronic Qualifiers: Coronary Disease-Associated Artery/Lesion type: bypass graft [place] vs. transplanted heart: [place] heart Associated angina: without angina Qualified Code(s): I25.810 - Atherosclerosis of coronary artery bypass graft(s) without angina pectoris Category: Medical Code(s): I25.10 - Atherosclerotic heart disease of [place] coronary artery without angina pectoris - Assessment and plan all Dx Assessment and Plan for all problems:: Cardiology decision making will determine disposition.
--- NOTE | 2019-04-18 08:28 | Progress Note ---
<Jerilyn Rg - Last Filed: 04/18/19 08:27> Internal Medicine - PN: Subj *Date: 04/18/19 *Time: 08:27 Interval history: Patient states he is feeling well this morning. He has had no further syncopal episodes. He denies any chest pain or shortness of breath. He slept well and ate well this morning and is anxious to go home. Exam Vital signs and Labs for Last 24 Hours: Temp Pulse Resp BP Pulse Ox 97.9 F 60 18 143/81 H 98 04/18/19 08:00 04/18/19 08:00 04/18/19 08:00 04/18/19 08:00 04/18/19 08:00 Laboratory Results - last 24 hr 04/17/19 12:30: WBC 10.5, RBC 4.24 L, Hgb 13.2 L, Hct 41.1 L, MCV 97.1 H, MCH 31.3 H, MCHC 32.2, RDW 13.0, Plt Count 233, MPV 9.0, Neut % (Auto) 80.6 H, Lymph % (Auto) 13.0, [place] % (Auto) 4.3, Eos % (Auto) 1.9, Baso % (Auto) 0.3, Neut # (Auto) 8.5 H, Lymph # (Auto) 1.4, [place] # (Auto) 0.5, Eos # (Auto) 0.2, Baso # (Auto) 0.0 04/17/19 12:30: Sodium 138, Potassium 4.4, Chloride 101, Carbon Dioxide 29, Anion Gap 12.4, BUN 20 H, Creatinine 1.49 H, Estimated Creat Clear 44, Estimated GFR 45 L, Est GFR ( Amer) 55 L, Glucose 87, Calcium 9.2, Magnesium 1.9, Total Bilirubin 0.5, AST 19, ALT 19, Alkaline Phosphatase 93, Total Protein 7.8, Albumin 4.1, Globulin 3.7 H, Albumin/Globulin Ratio 1.1 04/17/19 12:30: Troponin I < 0.02 04/17/19 12:30: TSH 1.48, Free T4 1.21 I & O for Last 24 hours: Intake & Output 04/15/19 04/16/19 04/17/19 04/18/19 11:59 11:59 11:59 11:59 Intake Total 960 / 960 Balance 960 / 960 Weight 174 lb 4 oz - Constitutional no acute distress - *Routine Respiratory Exam Present: CTA bilaterally - *Routine Cardiovascular Exam Present: bradycardia - *Routine Abdominal Exam Present: soft, normoactive bowel sounds. Absent: tenderness - *Routine Extremities Exam Absent: cyanosis, clubbing, edema - *Routine Skin Exam Present: warm. Absent: rash - *Routine Neurological Exam Present: alert, oriented X3 Assessment and Plan (1) Syncope Status: Acute Category: Medical Code(s): R55 - Syncope and collapse (2) Sinus bradycardia Status: Acute Category: Medical Code(s): R00.1 - Bradycardia, unspecified (3) H/O coronary artery bypass surgery Status: Chronic Category: Surgical Code(s): Z95.1 - Presence of aortocoronary bypass graft (4) HHD (hypertensive heart disease) Status: Chronic Qualifiers: Heart failure presence: without heart failure Qualified Code(s): I11.9 - Hypertensive heart disease without heart failure Category: Medical Code(s): I11.9 - Hypertensive heart disease without heart failure (5) HLD (hyperlipidemia) Status: Chronic Qualifiers: Hyperlipidemia type: mixed hyperlipidemia Qualified Code(s): E78.2 - Mixed hyperlipidemia Category: Medical Code(s): E78.5 - Hyperlipidemia, unspecified (6) CAD (coronary artery disease) Status: Chronic Qualifiers: Coronary Disease-Associated Artery/Lesion type: bypass graft [place] vs. transplanted heart: [place] heart Associated angina: without angina Qualified Code(s): I25.810 - Atherosclerosis of coronary artery bypass graft(s) without angina pectoris Category: Medical Code(s): I25.10 - Atherosclerotic heart disease of [place] coronary artery without angina pectoris - Assessment and plan all Dx Assessment and Plan for all problems:: Cardiology will see patient today. Will await echo and carotid ultrasound. <Dale Pisano - Last Filed: 04/20/19 08:53> Internal Medicine - PN: Subj *Date: 04/20/19 *Time: 08:52 Exam Vital signs and Labs for Last 24 Hours: Temp Pulse Resp BP Pulse Ox 97.7 F 62 17 166/79 H 99 04/18/19 15:10 04/18/19 18:30 04/18/19 18:30 04/18/19 18:30 04/18/19 18:30 I & O for Last 24 hours: Intake & Output 04/17/19 04/18/19 04/19/19 04/20/19 11:59 11:59 11:59 11:59 Intake Total 960 / 960 0 / 0 Balance 960 / 960 0 / 0 Weight 174 lb 4 oz Assessment and Plan (1) Syncope Status: Acute Category: Medical Code(s): R55 - Syncope and collapse (2) Sinus bradycardia Status: Acute Category: Medical Code(s): R00.1 - Bradycardia, unspecified (3) H/O coronary artery bypass surgery Status: Chronic Category: Surgical Code(s): Z95.1 - Presence of aortocoronary bypass graft (4) HHD (hypertensive heart disease) Status: Chronic Qualifiers: Heart failure presence: without heart failure Qualified Code(s): I11.9 - Hypertensive heart disease without heart failure Category: Medical Code(s): I11.9 - Hypertensive heart disease without heart failure (5) HLD (hyperlipidemia) Status: Chronic Qualifiers: Hyperlipidemia type: mixed hyperlipidemia Qualified Code(s): E78.2 - Mixed hyperlipidemia Category: Medical Code(s): E78.5 - Hyperlipidemia, unspecified (6) CAD (coronary artery disease) Status: Chronic Qualifiers: Coronary Disease-Associated Artery/Lesion type: bypass graft [place] vs. transplanted heart: [place] heart Associated angina: without angina Qualified Code(s): I25.810 - Atherosclerosis of coronary artery bypass graft(s) without angina pectoris Category: Medical Code(s): I25.10 - Atherosclerotic heart disease of [place] coronary artery without angina pectoris - Assessment and plan all Dx Assessment and Plan for all problems:: Patient seen and examined this AM. Concur with plan as outlined above.
--- NOTE | 2019-04-18 08:45 | Progress Note ---
Subjective Date: 04/18/19 Time: 08:43 Principal diagnosis: syncope Interval history: 79-year-old white male in bed in no acute distress. No further episodes of syncope since admission. Telemetry shows sinus rhythm to sinus bradycardia with no high-grade arrhythmias. Echo shows normal LVEF. Dr. SAMUELS talked with patient and feels he needs cardiac cath to rule out CAD as source of syncope. Pt understands and is agreeable to proceed. Exam Vital signs and Labs for Last 24 Hours: Temp Pulse Resp BP Pulse Ox 97.9 F 60 18 143/81 H 98 04/18/19 08:00 04/18/19 08:00 04/18/19 08:00 04/18/19 08:00 04/18/19 08:00 Laboratory Results - last 24 hr 04/17/19 12:30: WBC 10.5, RBC 4.24 L, Hgb 13.2 L, Hct 41.1 L, MCV 97.1 H, MCH 31.3 H, MCHC 32.2, RDW 13.0, Plt Count 233, MPV 9.0, Neut % (Auto) 80.6 H, Lymph % (Auto) 13.0, [place] % (Auto) 4.3, Eos % (Auto) 1.9, Baso % (Auto) 0.3, Neut # (Auto) 8.5 H, Lymph # (Auto) 1.4, [place] # (Auto) 0.5, Eos # (Auto) 0.2, Baso # (Auto) 0.0 04/17/19 12:30: Sodium 138, Potassium 4.4, Chloride 101, Carbon Dioxide 29, Anion Gap 12.4, BUN 20 H, Creatinine 1.49 H, Estimated Creat Clear 44, Estimated GFR 45 L, Est GFR ( Amer) 55 L, Glucose 87, Calcium 9.2, Magnesium 1.9, Total Bilirubin 0.5, AST 19, ALT 19, Alkaline Phosphatase 93, Total Protein 7.8, Albumin 4.1, Globulin 3.7 H, Albumin/Globulin Ratio 1.1 04/17/19 12:30: Troponin I < 0.02 04/17/19 12:30: TSH 1.48, Free T4 1.21 I & O for Last 24 hours: Intake & Output 04/15/19 04/16/19 04/17/19 04/18/19 11:59 11:59 11:59 11:59 Intake Total 960 / 960 Balance 960 / 960 Weight 174 lb 4 oz - *Routine Respiratory Exam Present: CTA bilaterally. Absent: accessory muscle use, rales, rhonchi, wheezes - *Routine Cardiovascular Exam Present: RRR. Absent: murmur, gallop, rubs - *Routine Extremities Exam Absent: edema, calf tenderness Progress Note: A&P (1) Syncope Status: Acute Current Visit: Yes (2) Sinus bradycardia Status: Acute Current Visit: Yes (3) H/O coronary artery bypass surgery Status: Chronic Current Visit: No (4) HHD (hypertensive heart disease) Status: Chronic Current Visit: No (5) HLD (hyperlipidemia) Status: Chronic Current Visit: No (6) CAD (coronary artery disease) Status: Chronic Current Visit: No Assessment and Plan for All Diagnoses:: 1. With recurrent syncope in a patient with known coronary artery disease and sinus bradycardia with no high-grade arrhythmias, would recommend proceeding with cardiac cath and if no reason for syncope then place implantable loop recorder. Procedure discussed with the patient including risk and benefits and he agrees to proceed. We will plan to do this prior to discharge today. 2. Continue to hold metoprolol. 3. Likely home this PM after above [facility] +/- ILR.
--- NOTE | 2019-04-18 09:16 | Electrocardiograph Report ---
APPROVED REPORT Exam: Resting ECG HR:57 bpm ECG Measurements Heart Rate 57 AXES AL 174 P 51 QRSd 92 QRS -14 QT 436 T33 QTc 424 <Conclusion> Sinus bradycardia Otherwise normal ECG Electronically signed by : Wilfred Ramirez, 04/18/2019 09:16:02
--- NOTE | 2019-04-18 12:49 | Cardiology Report ---
APPROVED REPORT EXAM: Comprehensive 2D, Doppler, and color-flow Echocardiogram Respiratory Therapy Assistant: Myranda Gross RVT Ht: 5 ft 11 in Wt: 175lbs BSA: 1.99 BP: 129/58 mmHg Indications: Syncope, CAD, Hyperlipidemia, Hypertension,Ex smoker,CABG, EF of 45% on07/31/18 2D Dimensions LVOT 1.94 cm (M/F) 1.5-2.5 M-Mode Dimensions RVDd 2.74 cm (0.9-2.6)LA Diam 4.30 cm (1.9-4.0) LVDd 3.85 cm (3.5-5.7)Ao Diam 2.90 cm (2.0-3.7) LVDs 2.55 cm (3.5-5.7)AV Cusp 2.20 cm (1.5-2.6) IVSd 1.72 cm (0.6-1.1)PWd 1.37 cm (0.6-1.1) EF (Teich) 63.40% FS 33.80% EDV (Teich) 63.90 mLESV (Teich) 23.40 mL LV Diastology E/A Ratio 1.00 Mitral Valve MV A Velocity 51.00 (40-130 cm/s) Left Ventricle Left atrium is mildly enlarged, left ventricle is normal size, mild concentric left ventricular hypertrophy visually estimated ejection fraction 55% with no regional wall motion abnormality, grade 1 diastolic dysfunction seen without tissue Doppler evidence of raise left atrial pressure. Right Ventricle Right atrium and right ventricular mildly enlarged with normal contractility. Aortic Valve Aortic valve is thickened and calcified leaflet continue to display good mobility, there is no aortic stenosis or aortic insufficiency. Mitral Valve Mild mitral valve is minimally thickened, there is no mitral stenosis, there is mild mitral regurgitation. Tricuspid Valve Tricuspid valve is grossly normal, there is mild tricuspid regurgitation, tricuspid regurgitation jet velocity is inadequate for calculation of the right ventricular systolic pressure. Pulmonic Valve Pulmonic valve is poorly visualized. Great Vessels Aortic root is normal size. Pericardium No significant pericardial effusion noted. Conclusion 1. Mild biatrial enlargement, normal left ventricular size, mild concentric left ventricular hypertrophy, visually estimated ejection fraction 55% with no regional wall motion abnormality, grade 1 diastolic dysfunction seen without tissue Doppler evidence of raise left atrial pressure. 2. Mildly enlarged right ventricle with normal contractility 3. Mild mitral and tricuspid regurgitation. 4. No significant pericardial effusion noted. Electronically signed by : Reji Salazar, 04/18/2019 12:49:28
--- NOTE | 2019-04-18 15:26 | Procedure Note ---
[facility] Loop Recorder Date: 04/18/19 Time: 15:25 Procedure Performed:: Implantable loop recorder Indication:: Recurrent syncope Technique:: Patient was brought to the cardiac Hr Representative. After informed consent obtained, 1% lidocaine with epinephrine was used to anesthetize the site along the left anterior aspect of the chest near the sternal border. Using the preformed scalpel, an incision was made and using the supplied preloaded apparatus, the loop recorder was placed subcutaneously without difficulty. Following the deployment of the loop recorder interrogation of the device was performed to ensure appropriate voltage was being detected. Once this was verified, Steri- Strips were placed over the incision and the patient was prepped to discharge home. Patient tolerated the procedure well with minimal discomfort. Impression:: Successful implantation of loop recorder Serial Number:: [id number] Plan:: Routine postop care
--- NOTE | 2019-04-19 17:14 | Cardiology Report ---
APPROVED REPORT Hand Inspector: Myranda Gross RVT Laterality: Bilateral Study Quality: Good Indications: syncope Risk Factors Hypertension: Hyperlipidemia Doppler Spectral Velocity Analysis ECA (R) 157.70/13.70 cm/sECA (L) 122.60/12.50 cm/s dICA (R) 83.20/19.20 cm/sdICA (L) 69.40/18.30 cm/s Shantanu (R) 80.60/18.10 cm/smICA (L) 72.60/18.70 cm/s pICA (R) 97.00/24.40 cm/spICA (L) 81.50/20.50 cm/s dCCA (R) 91.80/13.50 cm/sdCCA (L) 106.30/19.30 cm/s pCCA (R) 107.20/14.80 cm/spCCA (L) 107.70/15.00 cm/s Vert (R) 44.90/7.00 cm/sVert (L) 60.40/12.10 cm/s ICA/CCA 1.06 ICA/CCA 0.77 Findings Study suggests no evidence of stenosis in the right internal cartoid artery. Study suggests less than 20% stenosis of the left internal cartoid artery. Antegrade flow seen bilateral vertebral arteries. Conclusion No increased velocities to suggest hemodynamically significant stenosis in either internal carotid artery. Electronically signed by : Sanford Love MD 04/19/2019 17:13:58
--- NOTE | 2019-04-23 10:40 | Discharge Summary ---
General - General Admission date:: 04/17/19 Discharge date: 04/18/19 HPI HPI: Mr. Loomis is 79-year-old white male who presented to the office of [facility] after having 2 syncopal episodes. His was with him and contributed to the history. He stated that while at a constitution party breakfast, when eating, he actually passed out. Friends and family were able to get him to a chair. They stated he was out for about 2 minutes. He then relayed that he felt fine after which he again passed out for about a minute. He had no loss of bowel or bladder function. EMS was called. They did physically assess him and vital signs were stable. Patient denied having chest pain, palpitations, nausea, and shortness of breath. He did state that about 20 minutes prior to the first episode that he felt a little drunk. His then brought him to the office of [facility] for evaluation. They did climb 4 flights of stairs without any incident. With assessment in the office he again denied chest pain and shortness of breath, palpitations, nausea, dizziness, and neuro deficits. He did have cardiac bypass surgery in May 2018 and has a history of hyperlipidemia, hypertension, esophageal reflux, BPH, laryngeal cancer, hypothyr oid, ASCVD status post stents and CABG. He had a syncopal episode last winter at [employer] with a physician present. He was told that he had a bradycardia at that time. He is followed by his washcloth folder Dr. Boogie. Consulted with Dr. Jovel who advised admission to [facility] for monitoring and cardiac work-up. Thus he was admitted. Hospital Course Hospital Course: The patient had a chest x-ray showing COPD but nothing acute. He had an echo showing mild left ventricular hypertrophy with an EF of 55% and grade 1 diastolic dysfunction. He had a carotid duplex showing no evidence of stenosis in the right internal carotid artery and less than 20% in the left. He was kept on telemetry and most of his home medications were restarted. Cardiology did see the patient and, due to his history of bradycardia, they stopped his metoprolol. Cardiac enzymes were ordered and he was kept on telemetry. They felt if there was no significant bradycardia overnight, they would proceed with loop recorder placement. The patient felt much better after admission and had no further syncopal episodes. His monitor did show some mild sinus dysrhythmia but nothing dramatic as far as sustained pauses. Dr. Jovel was in agreement with loop recorder placement. Cardiology did want to do a cardiac cath to rule out a coronary artery disease as the source of his syncope. The patient was in agreement. He had a heart cath and it showed adequate revascularization and a normal LVEF. A loop recorder was placed and the patient tolerated the procedure well. He was stable to be discharged home and will follow-up on an outpatient basis with both cardiology and Dr. Pisano. Objective Vital signs: Temp Pulse Resp BP Pulse Ox 97.7 F 62 17 166/79 H 99 04/18/19 15:10 04/18/19 18:30 04/18/19 18:30 04/18/19 18:30 04/18/19 18:30 Narrative: - Constitutional no acute distress - *Routine Respiratory Exam Present: CTA bilaterally - *Routine Cardiovascular Exam Present: bradycardia - *Routine Abdominal Exam Present: soft, normoactive bowel sounds. Absent: tenderness - *Routine Extremities Exam Absent: cyanosis, clubbing, edema - *Routine Skin Exam Present: warm. Absent: rash - *Routine Neurological Exam Present: alert, oriented X3 DS: Diagnosis - Discharge Diagnosis (1) Syncope Status: Acute (2) Sinus bradycardia Status: Acute (3) H/O coronary artery bypass surgery Status: Chronic (4) HHD (hypertensive heart disease) Status: Chronic (5) HLD (hyperlipidemia) Status: Chronic (6) CAD (coronary artery disease) Status: Chronic Discharge Plan - Patient Discharge Instructions ACTIVITY: Continue current activity DIET: continue same diet Patient Instructions: DI for Syncope in Adults (Fainting), Hypertension (Alternative Therapy) - Follow up Plan Follow up with: Dale Pisano MD [Primary Care Provider] - 04/22/19 2:00 pm Sven Boogie MD [Staff Physician] - 05/03/19 11:40 am Disposition: Home, Self-Retirement Medications: Home Medications Medication Instructions Recorded Confirmed Type aspirin 81 mg tablet,delayed 81 mg PO DAILY 09/12/17 04/18/19 History release fluticasone propionate 50 1 spray INTRANASAL BID PRN 09/12/17 04/17/19 History mcg/actuation nasal spray,suspension folic acid 800 mcg tablet 800 mcg PO DAILY 09/12/17 04/18/19 History levothyroxine 88 mcg capsule 88 mcg PO DAILY 09/12/17 04/17/19 History multivitamin,na-xjud-azfjstph 1 tab PO DAILY 09/12/17 04/17/19 History omega-3 fatty acids 1,000 mg 1,000 mg PO DAILY 09/12/17 04/18/19 History capsule ascorbic acid (vitamin C) 1,000 mg 1,000 mg PO DAILY tab 05/23/18 04/18/19 History tablet cyclosporine 0.05 % eye drops in a 1 drp OPHTHALMIC Q12H 05/23/18 04/17/19 History dropperette omeprazole 20 mg capsule,delayed 20 mg PO DAILY 09/10/18 04/17/19 History release losartan 25 mg tablet 25 mg PO DAILY #30 tab 10/16/18 04/17/19 Rx niacin 500 mg tablet 500 mg PO DAILY tab 01/29/19 04/17/19 History Sildenafil Citrate 20 mg PO DIRECTED 04/17/19 04/17/19 History Rosuvastatin Calcium 20 mg PO HS 04/18/19 04/18/19 History Tamsulosin HCl 0.4 mg PO DAILY 04/18/19 04/18/19 History Prescriptions/Medication Reconciliation: Continued fluticasone propionate 50 mcg/actuation nasal spray,suspension 1 spray INTRANASAL BID PRN PRN Reason: allergies multivitamin,is-hoda-shuioaro 1 tab PO DAILY aspirin 81 mg tablet,delayed release 81 mg PO DAILY folic acid 800 mcg tablet 800 mcg PO DAILY omega-3 fatty acids 1,000 mg capsule 1,000 mg PO DAILY ascorbic acid (vitamin C) 1,000 mg tablet 1,000 mg PO DAILY tab cyclosporine 0.05 % eye drops in a dropperette 1 drp OPHTHALMIC Q12H losartan 25 mg tablet 25 mg PO DAILY #30 tab niacin 500 mg tablet 500 mg PO DAILY tab levothyroxine 88 mcg capsule 88 mcg PO DAILY omeprazole 20 mg capsule,delayed release 20 mg PO DAILY Sildenafil Citrate 20 mg PO DIRECTED Rosuvastatin Calcium 20 mg PO HS Tamsulosin HCl 0.4 mg PO DAILY Discontinued Metoprolol Tartrate [Lopressor 25mg tablet] 25 mg PO DAILY - Problem Reconciliation Problems Reviewed?: Yes
== END 2019-04-18 18:35 | disposition home or self-care (01) ==
LOC: 2ND
PROVIDERS: ADMIT Family Medicine; ATTEND Family Medicine
CPT/HCPCS: 33282; 33285; 71020; 71046; 80053; 83735; 84439; 84443; 84484; 85025; 93005; 93306; 93459; 93880; 99152; 99153; C1725; C1764; C1769; C1894; G0168; G0378; J1644

== ENCOUNTER → 2019-07-08 09:27 | Outpatient (CLI) | payer MEDICARE, BC, SELFPAY ==
[2019-07-08 12:44] LABS: Alanine Aminotransferase 12 U/L (12-78); Albumin Level 4.3 g/dl (3.5-5.0); Alkaline Phosphatase 67 U/L (38-126); Aspartate Amino Transferase 26 U/L (17-59); Bilirubin,Indirect 0.6 mg/dL (0.0-0.9); Bilirubin,Total 0.6 mg/dl (0.2-1.3); Bilirubin,Unconjugated 0.6 mg/dL (0.0-1.1); Chol/HDL Ratio 3.5 (1-3.5); Cholesterol 204 mg/dl (140-200); Creatine Kinase 55 U/L (55-170); HDL Cholesterol 58 mg/dl (40-60); Triglycerides 83 mg/dl (30-150); VLDL Cholesterol 17 mg/dL (0-40)
[2019-07-08 12:56] LABS: Direct LDL Cholesterol 115.46 mg/dL (100-129)
== END ==
PROVIDERS: Visit Provider Physician Assistant
DX: E78.2 Mixed hyperlipidemia (principal); I25.10 Atherosclerotic heart disease of native coronary artery without angina pectoris; M62.81 Muscle weakness (generalized)
CPT/HCPCS: 36415; 80061; 80076; 82550

== ENCOUNTER → 2019-12-26 08:06 | Outpatient (CLI) | payer MEDICARE, BC, SELFPAY ==
[2019-12-26 09:18] LABS: Alanine Aminotransferase 15 U/L (12-78); Albumin Level 4.3 g/dl (3.5-5.0); Albumin/Globulin Ratio 1.5 (1.1-1.8); Alkaline Phosphatase 88 U/L (38-126); Anion Gap 11.8 mEq/L (5-15); Aspartate Amino Transferase 29 U/L (17-59); Bilirubin,Total 0.8 mg/dl (0.2-1.3); Blood Urea Nitrogen 24 mg/dl (9-20); Calcium 9.6 mg/dl (8.4-10.2); Carbon Dioxide 31 mmol/L (22.0-30.0); Chloride 98 mmol/L (98-107); Chol/HDL Ratio 2.5 (1-3.5); Cholesterol 165 mg/dl (140-200); Estimated Glomerular Filt Rate 58 ml/min (>60); GFR (African American) 70 ML/MIN (>60); Globulin 2.8 g/dL (1.3-3.2); Glucose 112 mg/dl (74-100); HDL Cholesterol 67 mg/dl (40-60); Potassium 4.8 mmoL/L (3.5-5.1); Sodium 136 mmol/L (136-145); Total Protein,Serum 7.1 g/dl (6.3-8.2); Triglycerides 79 mg/dl (30-150); VLDL Cholesterol 16 mg/dL (0-40)
[2019-12-26 09:29] LABS: Direct LDL Cholesterol 75.11 mg/dL (100-129)
[2019-12-26 09:48] LABS: Thyroid Stimulating Hormone 2.33 uIU/mL (0.465-4.68)
== END ==
PROVIDERS: Visit Provider Family Medicine
DX: E78.5 Hyperlipidemia, unspecified (principal); E03.9 Hypothyroidism, unspecified; I10 Essential (primary) hypertension
CPT/HCPCS: 36415; 80053; 80061; 84436; 84443

== ENCOUNTER → 2020-02-27 07:44 | Outpatient (CLI) | payer MEDICARE, BC, SELFPAY ==
[2020-02-27 08:46] LABS: Basophils # 0.1 K/mm3 (0-0.2); Basophils % 0.7 % (0.1-2.0); Eosinophils # 0.5 K/mm3 (0.0-0.4); Eosinophils % 6.9 % (0.1-12.0); Hemoglobin 13.2 g/dL (14.1-18.0); Lymphocytes % 29.3 % (10-50); Mean Corpuscular HGB Conc 33.8 g/dL (31.8-35.4); Mean Corpuscular Hemoglobin 31.8 pg (27.0-31.2); Mean Corpuscular Volume 94.1 fl (80-94); Mean Platelet Volume 8.4 fl (7.4-10.4); Monocytes # 0.4 K/mm3 (0.1-1.0); Monocytes % 6.1 % (1.7-9.3); Platelet Count 226 K/mm3 (142-424); Red Blood Count 4.15 M/mm3 (4.60-6.20); Red Cell Distribution Width 13.3 % (11.5-17.5); White Blood Count 6.9 K/mm3 (4.8-10.8)
[2020-02-27 11:00] LABS: Alanine Aminotransferase 16 U/L (12-78); Albumin Level 4.2 g/dl (3.5-5.0); Alkaline Phosphatase 82 U/L (38-126); Anion Gap 10.2 mEq/L (5-15); Aspartate Amino Transferase 28 U/L (17-59); Bilirubin,Direct 0.2 mg/dl (0.0-0.4); Bilirubin,Indirect 0.4 mg/dL (0.0-0.9); Bilirubin,Total 0.6 mg/dl (0.2-1.3); Bilirubin,Unconjugated 0.4 mg/dL (0.0-1.1); Blood Urea Nitrogen 18 mg/dl (9-20); Calcium 9.6 mg/dl (8.4-10.2); Carbon Dioxide 31 mmol/L (22.0-30.0); Chloride 100 mmol/L (98-107); Chol/HDL Ratio 2.5 (1-3.5); Cholesterol 166 mg/dl (140-200); Estimated Glomerular Filt Rate 58 ml/min (>60); GFR (African American) 70 ML/MIN (>60); Glucose 107 mg/dl (74-100); HDL Cholesterol 66 mg/dl (40-60); Potassium 4.2 mmoL/L (3.5-5.1); Sodium 137 mmol/L (136-145); Total Protein,Serum 6.9 g/dl (6.3-8.2); Triglycerides 84 mg/dl (30-150); VLDL Cholesterol 17 mg/dL (0-40)
[2020-02-27 11:10] LABS: Direct LDL Cholesterol 76.78 mg/dL (100-129)
[2020-02-27 11:16] LABS: Free T4 (Free Thyroxine) 1.46 ng/dl (0.78-2.19)
[2020-02-27 11:30] LABS: Prostate Specific Ag Screen 2.8 ng/ml (0.0-4.0)
== END ==
PROVIDERS: Visit Provider Internal Medicine
DX: E78.2 Mixed hyperlipidemia (principal); I11.9 Hypertensive heart disease without heart failure; I25.10 Atherosclerotic heart disease of native coronary artery without angina pectoris; R00.1 Bradycardia, unspecified; R42 Dizziness and giddiness; R55 Syncope and collapse; Z95.1 Presence of aortocoronary bypass graft; N42.9 Disorder of prostate, unspecified; Z12.5 Encounter for screening for malignant neoplasm of prostate
CPT/HCPCS: 36415; 80048; 80061; 80076; 84439; 84443; 85025; G0103

== ENCOUNTER → 2020-03-02 12:43 | Outpatient (CLI) | payer MEDICARE, BC, SELFPAY ==
--- NOTE | 2020-03-02 12:43 | US_ITS ---
PROCEDURE: US URINARY BLADDER CLINICAL INDICATION: VASOVAGAL SYNCOPE/PROSTATE Evaluate postvoid residual the full bladder COMPARISON: None FINDINGS: Full bladder volume is calculated to be 322 mL. Large amount of postvoid residual urine is noted at 312 mL. There is nodularity at the base of the bladder which may be related to enlarged prostate. Please correlate with physical exam. Cannot exclude a nodule within the bladder. Cystoscopy may provide further evaluation. IMPRESSION: 1. Large amount of postvoid residual urine 2. Nodularity at the base of the bladder possibly due to enlarged prostate versus intrinsic bladder nodule. Cystoscopy may provide further evaluation. Dictated by: Sanford Love MD 03/02/2020 18:16 Sanford Love MD in [place] 03/02/2020 18:16
--- NOTE | 2020-03-02 12:43 | US_ITS ---
PROCEDURE: US KIDNEY CLINICAL INDICATION: I25.10 - Atherosclerotic heart disease of [place] coronary artery without angina pectoris Vasovagal response, evaluate postvoid residual COMPARISON: No exams were available for comparison FINDINGS: The right kidney is [id number]. No hydronephrosis, cortical thinning, or renal mass or perinephric fluid collection is evident. The left kidney is [id number]. No hydronephrosis, cortical thinning, or renal mass or perinephric fluid collection is evident. IMPRESSION: Unremarkable bilateral renal ultrasound Dictated by: Sanford Love MD 03/02/2020 18:15 Sanford Love MD in [place] 03/02/2020 18:15
== END ==
PROVIDERS: PCP Family Medicine; Visit Provider Internal Medicine
DX: E78.2 Mixed hyperlipidemia (principal); I11.9 Hypertensive heart disease without heart failure; I25.10 Atherosclerotic heart disease of native coronary artery without angina pectoris; R00.1 Bradycardia, unspecified; R42 Dizziness and giddiness; R55 Syncope and collapse; Z95.1 Presence of aortocoronary bypass graft; N42.9 Disorder of prostate, unspecified
CPT/HCPCS: 76770; 76857

== ENCOUNTER → 2020-06-22 09:33 | Outpatient (CLI) | payer MEDICARE, BC, SELFPAY ==
[2020-06-22 10:20] LABS: Chloride 100 mmol/L (98-107); Potassium 4.5 mmoL/L (3.5-5.1); Sodium 135 mmol/L (136-145)
[2020-06-22 10:22] LABS: Basophils # 0.1 K/mm3 (0-0.2); Basophils % 0.7 % (0.1-2.0); Eosinophils # 0.4 K/mm3 (0.0-0.4); Eosinophils % 5.6 % (0.1-12.0); Hematocrit 38.3 % (42.0-52.0); Hemoglobin 12.5 g/dL (14.1-18.0); Lymphocytes # 1.7 K/mm3 (0.7-4.5); Lymphocytes % 26.4 % (10-50); Mean Corpuscular HGB Conc 32.6 g/dL (31.8-35.4); Mean Corpuscular Hemoglobin 31.3 pg (27.0-31.2); Mean Corpuscular Volume 96.1 fl (80-94); Mean Platelet Volume 8.4 fl (7.4-10.4); Monocytes # 0.4 K/mm3 (0.1-1.0); Monocytes % 6.6 % (1.7-9.3); Neutrophils % 60.6 % (37.0-80.0); Platelet Count 229 K/mm3 (142-424); Red Blood Count 3.99 M/mm3 (4.60-6.20); Red Cell Distribution Width 13.1 % (11.5-17.5); White Blood Count 6.5 K/mm3 (4.8-10.8)
[2020-06-22 10:23] LABS: Blood Urea Nitrogen 22 mg/dl (9-20); Estimated Glomerular Filt Rate 45 ml/min (>60); GFR (African American) 54 ML/MIN (>60)
[2020-06-22 10:24] LABS: Anion Gap 10.5 mEq/L (5-15); Calcium 9.9 mg/dl (8.4-10.2); Carbon Dioxide 29 mmol/L (22.0-30.0); Glucose 99 mg/dl (74-100)
[2020-06-22 10:37] LABS: Coronavirus 19 IgG Antibody Positive (Negative); Coronavirus 19 IgM Antibody Negative (Negative)
== END ==
PROVIDERS: Visit Provider Physician Assistant
DX: E78.2 Mixed hyperlipidemia (principal); I11.9 Hypertensive heart disease without heart failure; I25.10 Atherosclerotic heart disease of native coronary artery without angina pectoris; R00.1 Bradycardia, unspecified; R42 Dizziness and giddiness; R55 Syncope and collapse; Z95.1 Presence of aortocoronary bypass graft; Z01.818 Encounter for other preprocedural examination; Z20.822 Contact with and (suspected) exposure to COVID-19; Z86.16 Personal history of COVID-19
CPT/HCPCS: 36415; 80048; 85025; 86328

== ENCOUNTER 2020-06-24 09:49 | Day surgery (SDC) | payer MEDICARE, BC, SELFPAY ==
[2020-06-24] VITALS (9 sets, daily range): BP systolic 168–194; BP diastolic 65–93; PULSE 63–83; RESP 17–20; O2SAT 95–98; BMI 24.5
--- NOTE | 2020-06-24 | IR_ITS ---
APPROVED REPORT Patient Location: Outpatient Steam Setter: MARILYN Espino RT (R) PROCEDURES 1. Pocket formation for AICD. 2. Placement of atrial sensing and pacing coil into the right atrial appendage. 3. Placement of a ventricular sensing, pacing and shocking coil in the right ventricular apex. 4. Permanent AICD placement. INDICATION Monomorphic VT, Syncope, Presumed symptomatic ventricular tachycardia accompanied by syncope, Informed consent was obtained prior to the procedure. COMPLICATIONS None Estimated Blood Loss: Less than 10 mls TECHNIQUE 1% Lidocaine with epinephrine used to anesthetized the left anterior aspect of the chest. Scalpel was used to make the initial cutaneous incision while electrocautery was used to dissect down tinto the fascia. The fascia was lifted off the pectoralis muscle and digitally manipulated creating a pocket for the defibrillator. The patient was then placed in Trendelenburg position and the subclavian vein was accessed 3 times via the Selinger technique. A 8 [place] sheath was placed under fluoroscopic guidance into the subclavian vein. The dilator was removed from the sheath. Using fluoroscopic guidance, the ventricular lead was placed into the right ventricular apex, screwed and secured into place. Electronic interrogation proved acceptable thresholds and voltage within the lead. Using 3-0 silk, the ventricular lead was then secured into place and sheath peeled away. A 6 [place] danish sheath and dilator was placed over the existing wire. Using fluoroscopic guidance, the atrial lead was then placed into the right atrial appendage and screwed and secured in place. Electrical interrogation demonstrated acceptable thresholds and voltage number. The atrial lead was then secured into place using 3-0 silk and sheath peeled away. 1 gram of Ancef was used to flush the pocket. Leads were connected to generator and tested via computer. The defibrillator then secured to the fascia. Monocryl was used to close the subcutaneous layers while radha were used to close the cutaneous layer. A pressure dressing was placed and the patient was transferred to the postop holding area in stable condition for postoperative care. INTERROGATION Generator Model number: LEXKERA ICD DF4-DR, D233 Generator Serial number: [id number] Atrial lead model number: INGEVITY+ IS-1, 7841 Atrial lead serial number: [id number] P-wave: 6.0mV Impedence: 500 ohms Threshold: 1.0V@0.4ms Right Ventricular lead model number: NIDA 4-FRONT, 0675 Right Ventricular lead serial number: [id number] R-wave: 8.5mV Impedence: 550 ohms Threshold: 1.0V@0.4ms Pacing Parameters: Mode: DDD Base/Max Track: 55/130PPM ICD Rate Cutoffs: VF: 220 bpm VT: 170 bpm VT-1: 160 bpm No diaphragmatic stimulation at 10 volts. IMPRESSION 1. Successful Pocket formation for AICD. 2. Successful Placement of atrial sensing and pacing coil into the right atrial appendage. 3. Successful Placement of a ventricular sensing, pacing and shocking coil in the right ventricular apex. 4. Successful Permanent AICD placement. PLAN 1. Follow up office visit, post op wound care. Electronically signed by : Sven Boogie, 06/26/2020 10:27:39
--- NOTE | 2020-06-24 10:06 | XR_ITS ---
PROCEDURE: XR CHEST PORTABLE CLINICAL HISTORY: Confirm pacemaker/AID placement COMPARISON: CR XR CHEST 2V from 04/17/2019 CR XR CHEST PORTABLE from 05/25/2019 FINDINGS: S/p bipolar pacemaker present from left subclavian approach. Right atrial and right ventricular leads are present and appear to be in good position. There is no evidence of pneumothorax. No lobar consolidation or collapse. Faint increased density is present in the right lower lung zone centrally nonspecific and may be due to overlying soft tissue attenuation. IMPRESSION: Status post pacemaker insertion as described above Dictated by: Sanford Love MD 06/24/2020 15:49 Sanford Love MD in [place] 06/24/2020 15:49
== END 2020-06-24 15:55 | disposition home or self-care (01) ==
LOC: CATHLAB 09:52
PROVIDERS: PCP Family Medicine; Visit Provider Internal Medicine
PROC: 0JH608Z Insertion of Defibrillator Generator into Chest Subcutaneous Tissue and Fascia, Open Approach (ICD-10-PCS; CPT 33249; principal; 2020-06-24 09:00)
DX: I47.2 Ventricular tachycardia (principal); I25.10 Atherosclerotic heart disease of native coronary artery without angina pectoris; I10 Essential (primary) hypertension; I25.2 Old myocardial infarction; Z87.891 Personal history of nicotine dependence; Z79.899 Other long term (current) drug therapy
CPT/HCPCS: 33249; 71045; C1721; C1895; C1898

== ENCOUNTER 2021-01-21 08:35 | Emergency (ER) | payer MEDICARE, BC, SELFPAY ==
--- NOTE | 2021-01-21 08:31 | ECG_ITS ---
APPROVED REPORT Exam: Resting ECG HR:55 bpm ECG Measurements Heart Rate 55 AXES IL 184 P 46 QRSd 104 QRS 2 QT 482 T 53 QTc 461 Conclusion Electronic atrial pacemaker Electronically signed by : Wilfred Ramirez MD 01/22/2021 17:39:42
[2021-01-21 08:33] VITALS: BP 150/64; PULSE 55; RESP 16; TEMP 36.4; O2SAT 97; BMI 24.4
[2021-01-21 08:38] VITALS: BMI 24.4
[2021-01-21 08:46] LABS: Basophils % 0.3 % (0.1-2.0); Eosinophils # 0.2 K/mm3 (0.0-0.4); Eosinophils % 1.4 % (0.1-12.0); Hematocrit 35.7 % (42.0-52.0); Hemoglobin 11.6 g/dL (14.1-18.0); Lymphocytes # 1.6 K/mm3 (0.7-4.5); Lymphocytes % 14.6 % (10-50); Mean Corpuscular HGB Conc 32.5 g/dL (31.8-35.4); Mean Corpuscular Hemoglobin 31.7 pg (27.0-31.2); Mean Corpuscular Volume 97.8 fl (80-94); Mean Platelet Volume 8.4 fl (7.4-10.4); Monocytes # 0.4 K/mm3 (0.1-1.0); Monocytes % 3.8 % (1.7-9.3); Platelet Count 261 K/mm3 (142-424); Red Blood Count 3.65 M/mm3 (4.60-6.20); Red Cell Distribution Width 13.7 % (11.5-17.5); White Blood Count 11.3 K/mm3 (4.8-10.8)
[2021-01-21 08:48] LABS: Chloride 100 mmol/L (98-107); Potassium 3.9 mmoL/L (3.5-5.1); Sodium 134 mmol/L (136-145)
[2021-01-21 08:51] LABS: Alanine Aminotransferase 16 U/L (12-78); Albumin Level 3.6 g/dl (3.5-5.0); Albumin/Globulin Ratio 1.2 (1.1-1.8); Alkaline Phosphatase 95 U/L (38-126); Anion Gap 12.9 mEq/L (5-15); Aspartate Amino Transferase 29 U/L (17-59); Bilirubin,Total 0.7 mg/dl (0.2-1.3); Blood Urea Nitrogen 17 mg/dl (9-20); Carbon Dioxide 25 mmol/L (22.0-30.0); Creatinine Clearance Estimated 53 mL/min (50-200); Estimated Glomerular Filt Rate 58 ml/min (>60); GFR (African American) 70 ML/MIN (>60); Globulin 2.9 g/dL (1.3-3.2); Total Protein,Serum 6.5 g/dl (6.3-8.2)
[2021-01-21 08:52] LABS: Calcium 8.7 mg/dl (8.4-10.2); Glucose 154 mg/dl (74-100)
--- NOTE | 2021-01-21 09:02 | INFXCTL.NOTE ---
RT AT BEDSIDE WITH BIPAP. PT CURRENTLY 83% ON NRB @ 15L
[2021-01-21 09:03] LABS: Troponin I < 0.01 ng/ml (0.00-0.034)
--- NOTE | 2021-01-21 09:18 | HMH.EDGENADL ---
ED Disposition Clinical Impression: Syncope and collapse Disposition: Home, Self-Care Condition on Discharge: Good Instructions: DI for Syncope in Adults (Fainting) Additional Instructions: Rest and drink plenty of fluids today. Tylenol or ibuprofen as needed for soreness. Follow-up with primary care doctor tomorrow if symptoms return. Referrals: Dale Pisano MD [Primary Care Provider] - - Critical Care Critical Care Time: No Attestation: On 01/21/21, the high probability of a clinically significant, sudden or life threatening deterioration of the following system(s) required my full and direct attention, intervention and personal management. The time I documented below is in addition to time spent performing reported procedures but includes the following listed in this critical care notation. Medical Decision Making - Lopez Inquiry Pt receiving controlled substance: No Vital Signs: 01/21/21 08:33 Temperature 97.5 F L Temperature Source Oral Pulse Rate [Right] 55 L Respiratory Rate 16 Blood Pressure [Right Arm] 150/64 H Blood Pressure Mean [Right Arm] 92 02 Sat by Pulse Oximetry 97 Oxygen Delivery Method Room Air - Lab Data Lab Results 01/21/21 08:30: WBC 11.3 H, RBC 3.65 L, Hgb 11.6 L, Hct 35.7 L, MCV 97.8 H, MCH 31.7 H, MCHC 32.5, RDW 13.7, Plt Count 261, MPV 8.4, Neut % (Auto) 80.0, Lymph % (Auto) 14.6, [place] % (Auto) 3.8, Eos % (Auto) 1.4, Baso % (Auto) 0.3, Neut # (Auto) 9.0 H, Lymph # (Auto) 1.6, [place] # (Auto) 0.4, Eos # (Auto) 0.2, Baso # (Auto) 0.0 01/21/21 08:30: Sodium 134 L, Potassium 3.9, Chloride 100, Carbon Dioxide 25, Anion Gap 12.9, BUN 17, Creatinine 1.20, Estimated Creat Clear 53, Estimated GFR 58 L, Est GFR ( Amer) 70, Glucose 154 H, Calcium 8.7, Total Bilirubin 0.7, AST 29, ALT 16, Alkaline Phosphatase 95, Troponin I < 0.01, Total Protein 6.5, Albumin 3.6, Globulin 2.9, Albumin/Globulin Ratio 1.2 Result diagrams: 01/21/21 08:30 01/21/21 08:30 Orders (Tests/Meds): ED MEDICATIONS Discontinued Medications Generic Name Dose Route Start Last Admin Trade Name Keron PRN Reason Stop Dose Admin Sodium Chloride 1,000 mls @ 999 mls/hr 01/21/21 09:15 01/21/21 09:15 Sod Chlor 0.9% 1000ml Bag IV 01/21/21 10:15 999 mls/hr .Q1H1M ALICIA Administration ORDERS Category Date Time Status Troponin I Q3H Lab 01/21/21 11:45 Ordered Troponin I Q3H Lab 01/21/21 14:45 Ordered - ECG Data Tracing #1 EKG interpreted by Donnell Senior MD: Rhythm: Electronic atrial pacemaker Rate: 55 [place]: normal Ectopy: none Conduction: normal ST Segment Changes: none T Wave Changes: none Q Waves: none No evidence of acute ischemia or injury - Reevaluation(s) Time: 11:12 Reevaluation #1: Nurse reports patient did well ambulating, stated that he felt well. Medical Decision Narrative: Low risk per Penrose syncope rule. Symptoms likely secondary to side effect of Covid vaccine. General Adult HPI - General Chief complaint: Weakness Stated complaint: weakness Time Seen by Provider: 01/21/21 09:19 Mode of Arrival: EMS Limitations: No Limitations Description of Symptoms (Recalled from ER Triage Doc. by RN): PT VIA [facility] FROM HOME. PT RECEIVED MODERNA BOOSTER SHOT YESTERDAY, WOKE UP THIS MORNING WITH EXTREME WEAKNESS & HAD A SYNCOPAL EPISODE. DENIES HEADSTRIKE/INJURY FROM FALL. - History of Present Illness HPI narrative: Arrives by ambulance. States that he got a Moderna booster vaccine [facility] 9 [facility] He felt fine all day. This morning he says that he felt weak and lightheaded and he thinks he might of passed out. Denies injury. He says that he has some retching and dry heaves but no vomiting or diarrhea. No chest pain or shortness of breath. No headache. No fever or chills. He has some soreness in his right deltoid area where he received his vaccine, denying pain otherwise. States he has
--- NOTE | 2021-01-21 11:11 | PC.NURSE ---
PT AMBULATORY AROUND ROOM WITHOUT DIFFICULTIES, DENIES DIZZINESS. STATES HE FEELS MUCH BETTER. DR MILAN NOTIFIED.
[2021-01-21 11:15] VITALS: BP 167/81; PULSE 57; RESP 20; TEMP 36.8; O2SAT 99
== END 2021-01-21 11:15 | disposition home or self-care (01) ==
PROVIDERS: Emergency Provider Emergency Medicine; PCP Family Medicine
DX: R55 Syncope and collapse (principal)
CPT/HCPCS: 80053; 84484; 85025; 93005; 99283

== ENCOUNTER → 2021-04-14 11:30 | Outpatient (CLI) | payer MEDICARE, BC, SELFPAY ==
[2021-04-14 11:35] LABS: Adenovirus F 40/41, stool Not Detected (NotDetected); Astrovirus Not Detected (NotDetected); Campylobacter Not Detected (NotDetected); Clostridium Difficile A/B, PCR Not Detected (NotDetected); Cryptosporidium Not Detected (NotDetected); Cyclospora Cayetanesis Not Detected (NotDetected); Entamoeba histolytica Not Detected (NotDetected); Enteroaggregative E coli Not Detected (NotDetected); Enteropathogenic E coli Not Detected (NotDetected); Enterotoxigenic E coli Not Detected (NotDetected); Giardia lamblia Not Detected (NotDetected); Norovirus Not Detected (NotDetected); Plesimonas Shigalloides, PCR Not Detected (NotDetected); Rotavirus A Not Detected (NotDetected); Salmonella, PCR Not Detected (NotDetected); Sapovirus Not Detected (NotDetected); Shiga-like toxin E coli Not Detected (NotDetected); Shigella Enterovasive E coli Not Detected (NotDetected); Vibrio Cholerae Not Detected (NotDetected); Vibrio, PCR Not Detected (NotDetected); Yersinia Entercolitica, PCR Not Detected (NotDetected)
== END ==
PROVIDERS: Visit Provider Nurse Practitioner Family
DX: R19.7 Diarrhea, unspecified (principal)
CPT/HCPCS: 87506

== ENCOUNTER → 2021-05-01 08:21 | Outpatient (CLI) | payer MEDICARE, BC, SELFPAY ==
[2021-05-01 09:59] LABS: Alanine Aminotransferase 19 U/L (12-78); Albumin Level 3.9 g/dl (3.5-5.0); Albumin/Globulin Ratio 1.5 (1.1-1.8); Alkaline Phosphatase 78 U/L (38-126); Anion Gap 10.1 mEq/L (5-15); Aspartate Amino Transferase 43 U/L (17-59); Bilirubin,Total 0.4 mg/dl (0.2-1.3); Blood Urea Nitrogen 20 mg/dl (9-20); Calcium 9.3 mg/dl (8.4-10.2); Carbon Dioxide 28 mmol/L (22.0-30.0); Chloride 100 mmol/L (98-107); Chol/HDL Ratio 2.5 (1-3.5); Cholesterol 142 mg/dl (140-200); Estimated Glomerular Filt Rate 53 ml/min (>60); GFR (African American) 64 ML/MIN (>60); Globulin 2.6 g/dL (1.3-3.2); Glucose 105 mg/dl (74-100); HDL Cholesterol 56 mg/dl (40-60); Potassium 4.1 mmoL/L (3.5-5.1); Sodium 134 mmol/L (136-145); Total Protein,Serum 6.5 g/dl (6.3-8.2); Triglycerides 64 mg/dl (30-150); VLDL Cholesterol 13 mg/dL (0-40)
[2021-05-01 10:11] LABS: Direct LDL Cholesterol 59.19 mg/dL (100-129)
[2021-05-01 10:16] LABS: Free T4 (Free Thyroxine) 1.44 ng/dl (0.78-2.19)
[2021-05-01 10:28] LABS: Thyroid Stimulating Hormone 1.24 uIU/mL (0.465-4.68)
== END ==
PROVIDERS: Visit Provider Nurse Practitioner Family
DX: R79.89 Other specified abnormal findings of blood chemistry (principal); Z79.899 Other long term (current) drug therapy
CPT/HCPCS: 36415; 80053; 80061; 84439; 84443

== ENCOUNTER → 2021-10-12 07:44 | Outpatient (CLI) | payer MEDICARE, BC, SELFPAY ==
--- NOTE | 2021-10-12 07:46 | CA_ITS ---
APPROVED REPORT EXAM: Comprehensive 2D, Doppler, and color-flow Echocardiogram Surgeon/President: RITA Ceja, RVS Ht: 5 ft 11 in Wt: 180lbs BSA: 2.02 BP: 142/65 mmHg Indications: cad, cabg, aicd, htn,hld 2D Dimensions IVSd 1.29 cm LVEF (Visual) 47.30 % PWd 0.97 cm LA Volume 76.80 mL LVDd 5.08 cm LA Volume Index 38.00 mL/m2 (M/F) 16-34 LVDs 3.87 cm Aortic Root 3.10 cm Left Atrium 3.32 cm LVOT 1.86 cm (M/F) 1.5-2.5 M-Mode Dimensions RVDd 3.42 cm (0.9-2.6) LA Diam 3.91 cm (1.9-4.0) LVDd 4.78 cm (3.5-5.7) Ao Diam 3.49 cm (2.0-3.7) LVDs 3.42 cm (3.5-5.7) IVSd 1.37 cm (0.6-1.1) PWd 1.02 cm (0.6-1.1) EF (Teich) 54.80% EPSs 0.76 cm FS 28.50% EDV (Teich) 106.50 mL TAPSE 1.45 (<1.7) ESV (Teich) 48.10 mL LV Diastology E Decel Time 300.00 (160-240 msec) E/A Ratio 0.82 MED E' 7.50 (< 7 cm/sec) MED A' 11.00 cm/s E'/MED E' Ratio 7.77 (>14) LAT E' 11.40 (<10 cm/sec) LAT A' 8.40 cm/s E/LAT E' Ratio 5.11 (>14) Pulm Vein s 36.00 cm/sec Aortic Valve LVOT Max 79.00 (70-110 cm/s) LVOT VTI 16.27 cm AO Peak GR. 8.00 mmHg Mitral Valve MV A Velocity 72.00 (40-130 cm/s) E/A Ratio 0.82 MV Decel. Time 300.00 (160-240 ms) MV PHT 80.00 ms Pulmonary Valve PV Peak Velocity 123.00 (50-150 cm/s) VT End VMAX 191.00 cm/s Tricuspid Valve TR P. Velocity 291.00 cm/s RAP Estimate 10.00 mmHg RVSP 43.80 mmHg Left Ventricle Left atrium is mildly enlarged, left ventricle is normal size, mild concentric left hypertrophy, estimated ejection fraction 55% with no regional wall motion abnormality, grade 1 diastolic dysfunction seen without tissue Doppler evidence of raise left atrial pressure. Right Ventricle Right atrium and right ventricle are mildly enlarged with normal contractility, pacemaker lead seen in right ventricle. Aortic Valve Aortic valve is minimally thickened and fibrosed there is no aortic stenosis or aortic insufficiency. Mitral Valve Mitral valve leaflets are minimally thickened, there is mild mitral regurgitation. Tricuspid Valve Tricuspid grossly normal, there is mild tricuspid regurgitation, calculated right ventricular systolic pressure is 44 mmHg. Pulmonic Valve Pulmonic valve is poorly visualized. Great Vessels Aortic root is normal size. Inferior vena cava normal size with normal inspiratory collapse. Pericardium No significant pericardial effusion noted. Conclusion 1. Mild biatrial enlargement, normal left ventricular size, mild concentric left ventricular hypertrophy, estimated ejection fraction 55% with no regional wall motion abnormality, grade 1 diastolic dysfunction seen without tissue Doppler evidence of left atrial pressure. 2. Mildly enlarged right ventricle with normal contractility. 3. Mild mitral and tricuspid regurgitation, calculated right ventricular systolic pressure is 44 mmHg. 4. Inferior vena cava normal size and normal inspiratory collapse. 5. No significant pericardial effusion noted. Electronically signed by : Reji Salazar MD 10/12/2021 19:42:00
== END ==
PROVIDERS: PCP Family Medicine; Visit Provider Nurse Practitioner Family
DX: E78.2 Mixed hyperlipidemia (principal); I11.9 Hypertensive heart disease without heart failure; I25.10 Atherosclerotic heart disease of native coronary artery without angina pectoris; R42 Dizziness and giddiness; R55 Syncope and collapse; Z95.0 Presence of cardiac pacemaker; Z95.1 Presence of aortocoronary bypass graft
CPT/HCPCS: 93306

== ENCOUNTER → 2022-05-26 16:27 | Outpatient (CLI) | payer MEDICARE, BC, SELFPAY ==
--- NOTE | 2022-05-26 | XR_ITS ---
PROCEDURE INFORMATION: Exam: XR Right Knee Exam date and time: 05/26/2022 4:43 PM Age: 82 years old Clinical indication: Pain; Knee; Right; Additional info: Right knee pain - to injury TECHNIQUE: Imaging protocol: Radiologic exam of the Right knee. Views: 3 views. COMPARISON: CR (KNEE LAT STANDING, KNEE, KNEE LAT STANDING) 09/07/2018 1:09 PM FINDINGS: Bones/joints: There are mild degenerative changes involving the medial knee compartment with mild joint space narrowing and subchondral sclerosis. Remaining joint surfaces are preserved. There is a small traction spur arising from the superior pole of patella. There is no fracture or malalignment. Soft tissues: Vascular calcifications above the knee joint. There is no joint effusion. IMPRESSION: Mild degenerative changes medial knee compartment. No acute bony abnormalities.
== END ==
PROVIDERS: PCP Family Medicine; Visit Provider Family Medicine
DX: M25.561 Pain in right knee (principal)
CPT/HCPCS: 73562

== ENCOUNTER 2022-07-24 20:17 | Emergency (ER) | payer MEDICARE, BC, SELFPAY ==
[2022-07-24 20:17] VITALS: BP 190/89; PULSE 62; RESP 18; TEMP 36.8; O2SAT 98; BMI 23.7
[2022-07-24 20:30] VITALS: BP 161/79; PULSE 61; O2SAT 96
--- NOTE | 2022-07-24 20:41 | CT_ITS ---
PROCEDURE INFORMATION: Exam: CT Head Without Contrast Exam date and time: 07/24/2022 8:51 PM Age: 82 years old Clinical indication: Pain; Other: Lac to back of head; Additional info: Fall TECHNIQUE: Imaging protocol: Computed tomography of the head without contrast. Radiation optimization: All CT scans at this facility use at least one of these dose optimization techniques: automated exposure control; mA and/or kV adjustment per patient size (includes targeted exams where dose is matched to clinical indication); or iterative reconstruction. REPORTING DATA: Count of CT and Cardiac NM exams in prior 12 months: This patient has received [address] and 0 known cardiac nuclear medicine studies in the 12 months prior to the current study. COMPARISON: US CA CAROTID DUPLEX BI 17/04/2019 13:21 FINDINGS: Brain: Moderate chronic brain volume loss and chronic small vessel ischemic changes. Cerebral ventricles: No ventriculomegaly. Paranasal sinuses: Mild mucosal thickening in the paranasal sinuses. Mastoid air cells: Small right mastoid effusion. Bones/joints: Unremarkable. No acute fracture. Soft tissues: Mild scalp edema overlying the left parietal bone. IMPRESSION: No acute intracranial findings.
--- NOTE | 2022-07-24 20:41 | CT_ITS ---
PROCEDURE INFORMATION: Exam: CT Cervical Spine Without Contrast Exam date and time: 07/24/2022 8:53 PM Age: 82 years old Clinical indication: Pain; Additional info: Fall TECHNIQUE: Imaging protocol: Computed tomography of the cervical spine without contrast. Radiation optimization: All CT scans at this facility use at least one of these dose optimization techniques: automated exposure control; mA and/or kV adjustment per patient size (includes targeted exams where dose is matched to clinical indication); or iterative reconstruction. REPORTING DATA: Count of CT and Cardiac NM exams in prior 12 months: This patient has received [address] and 0 known cardiac nuclear medicine studies in the 12 months prior to the current study. COMPARISON: CT HEAD/BRAIN WO CON 24/07/2022 20:51 FINDINGS: Bones/joints: No acute fracture. Normal alignment. No significant disc bulge or herniation. No severe spinal canal stenosis. No significant neural foraminal narrowing. Lungs: Bilateral apical scarring. Soft tissues: Unremarkable. IMPRESSION: No acute fracture or malalignment of the cervical spine.
--- NOTE | 2022-07-24 20:48 | HMH.EDWNDL ---
Discharge Plan Disposition Patient Disposition: Home, Self-Care Chief Complaint: Wound/Laceration Prescriptions Prescriptions: No Action fluticasone propionate [Flonase Allergy Relief] 50 mcg/actuation spray,suspension 1 spray INTRANASAL BID PRN (Reason: allergies) multivitamin,[id number] [Complete Multivitamin] tablet 1 tab PO DAILY aspirin 81 mg tablet,delayed release (DR/EC) 81 mg PO DAILY omega-3 fatty acids 1,000 mg capsule 1,000 mg PO DAILY levothyroxine 88 mcg capsule 88 mcg PO DAILY ascorbic acid (vitamin C) 1,000 mg tablet 1,000 mg PO DAILY Restasis 0.05 % dropperette 1 drp OPHTHALMIC Q12H omeprazole 20 mg capsule,delayed release(DR/EC) 20 mg PO DAILY coenzyme Q10 [Co Q-10] 100 mg capsule 100 mg PO DAILY niacin 500 mg tablet 500 mg PO DAILY docusate sodium 100 mg capsule 100 mg PO BID diphenhydramine HCl [Benadryl] 25 mg capsule 25 mg PO HS furosemide [Lasix] 20 mg tablet 20 mg PO DAILY PRN (Reason: weight gain) Qty: 30 5RF losartan 25 mg tablet See Rx Instructions .ROUTE .COMPLEX Qty: 90 3RF Dose Instruction: TAKE ONE TABLET BY MOUTH EVERY DAY Rx Instructions: TAKE ONE TABLET BY MOUTH EVERY DAY sertraline 25 mg tablet See Rx Instructions .ROUTE .COMPLEX Qty: 90 3RF Dose Instruction: TAKE ONE TABLET BY MOUTH EVERY DAY FOR vasovagal passing OUT Rx Instructions: TAKE ONE TABLET BY MOUTH EVERY DAY FOR vasovagal passing OUT sildenafil (pulm.hypertension) 20 MG tablet 20 mg PO DIRECTED tamsulosin 0.4 MG capsule 0.4 mg PO DAILY Label Comments: TAKE ONE CAPSULE BY MOUTH EVERY DAY rosuvastatin 20 MG tablet 20 mg PO HS Label Comments: TAKE ONE TABLET BY MOUTH EVERY DAY AT BEDTIME Referrals Follow up/Referrals: Provider,Referral, MD [Primary Care Provider] - See instructions Clinical Impressions Clinical Impression: Fall, Laceration of scalp, Contusion of head Instructions Patient Instructions: DI for Laceration Repair Discharge ED Provider: Anisha (ED)Vel Wound/Laceration HPI General Chief Complaint: Wound/Laceration Stated Complaint: fall Time Seen by Provider: 07/24/22 20:35 Mode of Arrival: Ambulatory Source of Information: Patient, Spouse and Medical Record Limitations: No Limitations Description of Symptoms (Recalled from ER Triage Doc. by RN): pt states was putting foot in trash can to push down trash and lost footing. pt has laceration to back of head History of Present Illness HPI narrative: trip type fall with head lac but no loc Onset (ago): hour(s) Location: scalp Place: home Patient tetanus UTD: Yes Context: fall Associated symptoms: none Related Data Home Medications Medication Instructions Recorded Confirmed aspirin 81 mg tablet,delayed 81 mg PO DAILY HEART HEALTH 09/12/17 06/21/22 release fluticasone propionate 50 1 spray intranasal BID PRN 09/12/17 06/21/22 mcg/actuation nasal allergies spray,suspension (Flonase Allergy Relief) levothyroxine 88 mcg capsule 88 mcg PO DAILY THYROID 09/12/17 06/21/22 multivitamin,qv-jysm-akhxlbxe 1 tab PO DAILY Supplement 09/12/17 06/21/22 (Complete Multivitamin tablet) omega-3 fatty acids 1,000 mg 1,000 mg PO DAILY Supplement 09/12/17 06/21/22 capsule ascorbic acid (vitamin C) 1,000 mg 1,000 mg PO DAILY supplement 05/23/18 06/21/22 tablet cyclosporine 0.05 % eye drops in a 1 drp ophthalmic (eye) Q12H dry 05/23/18 06/21/22 dropperette (Restasis) eyes omeprazole 20 mg capsule,delayed 20 mg PO DAILY Heartburn 09/10/18 06/21/22 release sildenafil (pulm.hypertension) 20 20 mg PO DIRECTED ED 04/17/19 06/21/22 mg tablet rosuvastatin 20 mg tablet 20 mg PO HS Cholesterol 04/18/19 06/21/22 tamsulosin 0.4 mg capsule 0.4 mg PO DAILY BLADDER 04/18/19 06/21/22 coenzyme Q10 100 mg capsule (Co 100 mg PO DAILY Supplement 09/09/19 06/21/22 Q-10) diphenhy
[2022-07-24 21:00] VITALS: BP 153/82; PULSE 60; O2SAT 98
[2022-07-24 21:30] VITALS: BP 159/89; PULSE 58; O2SAT 98
[2022-07-24 21:48] VITALS: BP 159/89; PULSE 69; RESP 18; TEMP 36.8; O2SAT 98
== END 2022-07-24 21:52 | disposition home or self-care (01) ==
PROVIDERS: Emergency Provider Emergency Medicine
DX: S01.01XA Laceration without foreign body of scalp, initial encounter (principal); S00.93XA Contusion of unspecified part of head, initial encounter; W19.XXXA Unspecified fall, initial encounter
CPT/HCPCS: 12002; 70450; 72125; 99283

== ENCOUNTER → 2022-10-10 12:21 | Outpatient (CLI) | payer MEDICARE, BC, SELFPAY ==
--- NOTE | 2022-10-10 12:27 | XR_ITS ---
FINAL REPORT CLINICAL HISTORY: LET LEG PAIN x 3 weeks FINDINGS: LEFT HIP: Two views of the left hip demonstrate no acute fracture or dislocation. Moderate degenerative changes are present The visualized bony structures are well aligned. Vascular calcifications are noted. IMPRESSION: No acute bony abnormality. Reviewed, Interpreted and Dictated by Jensen Ring III, MD Transcribed by Karen Sands Authenticated and [facility]
== END ==
PROVIDERS: PCP Family Medicine; Visit Provider Nurse Practitioner Family
DX: M25.552 Pain in left hip (principal); M79.605 Pain in left leg
CPT/HCPCS: 73502

== ENCOUNTER 2022-10-16 09:46 | Observation (INO) | payer MEDICARE, BC, SELFPAY ==
[2022-10-16] VITALS (14 sets, daily range): BP systolic 153–192; BP diastolic 77–113; PULSE 60–67; RESP 16–18; TEMP 36.4–37; O2SAT 96–100; BMI 24.4; BMI 24.5
--- NOTE | 2022-10-16 09:51 | XR_ITS ---
PROCEDURE INFORMATION: Exam: XR Chest Exam date and time: 10/16/2022 10:21 AM Age: 82 years old Clinical indication: Other: Rapid palpitations TECHNIQUE: Imaging protocol: Radiologic exam of the chest. Views: 1 view. COMPARISON: CR XR CHEST PORTABLE 06/24/2020 2:47 PM FINDINGS: Lungs: Small indistinct retrocardiac density projecting over the left lung base on the current study likely representing either subsegmental atelectasis or small infiltrate. Remaining lung horner are clear. Pleural spaces: Unremarkable. No pleural effusion. No pneumothorax. Heart/Mediastinum: Heart appears borderline enlarged on this portable chest. There is a dual electrode pacemaker projecting within the right atrium and right ventricle unchanged. Bones/joints: Evidence of prior median sternotomy. IMPRESSION: Borderline cardiomegaly with small consolidation left lung base as discussed above.
--- NOTE | 2022-10-16 09:51 | HMH.EDGENADL ---
Discharge Plan Disposition Patient Disposition: Admitted Condition: Fair Chief Complaint: Syncope Clinical Impressions Clinical Impression: Syncope, Pacemaker, Cardiomyopathy Discharge ED Provider: Diane Olmstead Adult HPI General Chief complaint: Syncope Stated complaint: syncope Time Seen by Provider: 10/16/22 09:51 Mode of Arrival: Ambulatory Source of Information: Patient Limitations: No Limitations History of Present Illness HPI narrative: 82-year-old male presenting to the emergency department after a near syncopal episode. He arrives with EMS. Patient members being at [facility]. He does not member exactly what happened. His says that he was complaining of being lightheaded, weak. She was able to get him to sit down and into a wheelchair. He seemed confused. Someone at [facility] took his blood pressure and said it was 90 systolic. He had a second episode with EMS. Said he started to feel unwell, sweaty. They noticed tremor of his arms. Lasted for less than a minute and then resolved. He has had episodes like this before, before having his pacemaker 3 years ago. Says he had a normal day yesterday, slept overnight, ate breakfast this morning. He does not exactly recall the events. No postictal phase. Currently denies headache, chest pain, palpitations. No numbness, weakness, tingling in his arms or legs. Related Data Home Medications Medication Instructions Recorded Confirmed aspirin 81 mg tablet,delayed 81 mg PO DAILY HEART HEALTH 09/12/17 10/16/22 release fluticasone propionate 50 1 spray intranasal BID PRN 09/12/17 10/16/22 mcg/actuation nasal allergies spray,suspension (Flonase Allergy Relief) levothyroxine 88 mcg capsule 88 mcg PO DAILY THYROID 09/12/17 10/16/22 multivitamin,er-fall-cetjeqeq 1 tab PO DAILY Supplement 09/12/17 10/16/22 (Complete Multivitamin tablet) omega-3 fatty acids 1,000 mg 1,000 mg PO DAILY Supplement 09/12/17 10/16/22 capsule ascorbic acid (vitamin C) 1,000 mg 1,000 mg PO DAILY supplement 05/23/18 10/16/22 tablet omeprazole 20 mg capsule,delayed 20 mg PO DAILY Heartburn 09/10/18 10/16/22 release sildenafil (pulm.hypertension) 20 20 mg PO DIRECTED ED 04/17/19 10/16/22 mg tablet rosuvastatin 20 mg tablet 20 mg PO HS Cholesterol 04/18/19 10/16/22 tamsulosin 0.4 mg capsule 0.4 mg PO DAILY BLADDER 04/18/19 10/16/22 coenzyme Q10 100 mg capsule (Co 100 mg PO DAILY Supplement 09/09/19 10/16/22 Q-10) diphenhydramine HCl 25 mg capsule 25 mg PO HS Allergy symptoms 02/26/20 10/16/22 (Benadryl) docusate sodium 100 mg capsule 100 mg PO BID Supplement 02/26/20 10/16/22 niacin 500 mg tablet 500 mg PO DAILY CAD 02/26/20 10/16/22 cyclosporine 0.05 % eye drops in a 2 drp ophthalmic (eye) Q12H dry 08/29/22 10/16/22 dropperette (Restasis) eyes levothyroxine 88 mcg tablet 88 mcg PO DAILY THYROID 08/29/22 10/16/22 losartan 25 mg tablet See Rx Instructions .Route 10/16/22 10/16/22 .COMPLEX High blood pressure memantine 5 mg tablet (Namenda) 5 mg PO BID MEMORY 10/16/22 10/16/22 sertraline 25 mg tablet See Rx Instructions .Route .COMPLEX 10/16/22 10/16/22 Allergies Allergy/AdvReac Type Severity Reaction Status Date / Time codeine [CODEINE] Allergy Mild NA-NAUSEA/V Verified 08/29/22 13:02 OMITING PFSH PFSH Disclaimer: The information contained in this section may have been updated after the patient was seen, as this information can be updated by other users. Medical History Bradycardia CAD (coronary artery disease) Cardiac pacemaker in situ Dizziness HHD (hypertensive heart disease) HLD (hyperlipidemia) Near syncope Symptomatic bradycardia Throat cancer Surgical History H/O coronary artery bypass surgery Family History (Updated 10/16/22 @ 11:59 by Carolyne Greer RN) Other No significant family history Social History
[2022-10-16 10:04] LABS: Basophils % 0.3 % (0.1-2.0); Eosinophils # 0.1 K/mm3 (0.0-0.4); Eosinophils % 2.3 % (0.1-12.0); Hematocrit 36.3 % (42.0-52.0); Lymphocytes # 1.7 K/mm3 (0.7-4.5); Lymphocytes % 29.9 % (10-50); Mean Corpuscular Hemoglobin 31.5 pg (27.0-31.2); Mean Corpuscular Volume 95.3 fl (80-94); Mean Platelet Volume 8.4 fl (7.4-10.4); Monocytes # 0.4 K/mm3 (0.1-1.0); Monocytes % 6.6 % (1.7-9.3); Neutrophils # 3.4 K/mm3 (1.8-7.8); Neutrophils % 60.8 % (37.0-80.0); Platelet Count 229 K/mm3 (142-424); Red Blood Count 3.81 M/mm3 (4.60-6.20); Red Cell Distribution Width 13.6 % (11.5-17.5); White Blood Count 5.6 K/mm3 (4.8-10.8)
--- NOTE | 2022-10-16 10:10 | ECG_ITS ---
APPROVED REPORT Exam: Resting ECG HR:60 bpm ECG Measurements Heart Rate 60 AXES WA 211 P 112 QRSd 101 QRS 3 QT 429 T 55 QTc 429 Conclusion ELECTRONIC ATRIAL PACEMAKER POSSIBLE RIGHT VENTRICULAR CONDUCTION DELAY [RSR (QR) IN V1/V2] ABNORMAL RHYTHM ECG UNCONFIRMED REPORT Electronically signed by : Wilfred Ramirez MD 10/16/2022 13:50:44
[2022-10-16 10:12] LABS: Alanine Aminotransferase 21 U/L (12-78); Albumin Level 3.9 g/dl (3.5-5.0); Albumin/Globulin Ratio 1.3 (1.1-1.8); Alkaline Phosphatase 63 U/L (38-126); Anion Gap 12.3 mEq/L (5-15); Aspartate Amino Transferase 30 U/L (17-59); Bilirubin,Total 0.4 mg/dl (0.2-1.3); Blood Urea Nitrogen 24 mg/dl (9-20); Calcium 9.1 mg/dl (8.4-10.2); Carbon Dioxide 29 mmol/L (22.0-30.0); Chloride 97 mmol/L (98-107); Estimated Glomerular Filt Rate 58 ml/min (>60); GFR (African American) 70 ML/MIN (>60); Globulin 2.9 g/dL (1.3-3.2); Glucose 113 mg/dl (74-100); Magnesium 1.9 mg/dl (1.6-2.3); Potassium 4.3 mmoL/L (3.5-5.1); Sodium 134 mmol/L (136-145); Total Protein,Serum 6.8 g/dl (6.3-8.2)
[2022-10-16 10:27] LABS: Troponin I < 0.01 ng/ml (0.00-0.034)
--- NOTE | 2022-10-16 10:59 | PC.NURSE ---
ROUNDED ON PT, RESTING. NO NEEDS AT THIS TIME. AT BEDSIDE
--- NOTE | 2022-10-16 11:03 | PC.NURSE ---
patient resting, at bedside, no needs at this time
--- NOTE | 2022-10-16 11:45 | PC.NURSE ---
patient assisted with urinal, urine collected sent to lab
--- NOTE | 2022-10-16 11:52 | PC.NURSE ---
ED MD AT BEDSIDE TO UPDATE PT AND FAMILY ON POC
[2022-10-16 11:53] LABS: Microscopic, Urine URINE MICROSCOPIC (MICROSCOPIC)
--- NOTE | 2022-10-16 11:58 | PC.NURSE ---
MICHELLE CHOW SPEAKING WITH DR ARAGON
[2022-10-16 11:59] LABS: Appearance,Urine CLEAR (Clear); Bilirubin,Urine Negative (Negative); Blood, Urine Negative (Negative); Color,Urine YELLOW (Yellow); Glucose,Urine (UA) Negative (Negative); Ketones,Urine Negative (Negative); Leukocyte Esterase,Urine Negative (Negative); Nitrate,Urine Negative (Negative); Protein,Urine Negative (Negative); Specific Gravity, Urine 1.015 (1.005-1.030)
[2022-10-16 12:07] LABS: Coronavirus 19, PCR Not Detected (NotDetected); Influenza A, PCR Not Detected (NotDetected); Influenza B, PCR Not Detected (NotDetected)
[2022-10-16 12:10] LABS: Bacteria,Urine Trace /lpf; Squamous Epithelial Cell,Urine Occasional #/hpf (0-5)
--- NOTE | 2022-10-16 12:13 | PC.NURSE ---
REPORT GIVEN TO ECONN, RN
--- NOTE | 2022-10-16 13:40 | PC.NURSE ---
I spoke with pt and his regarding his admission. Pt was sitting down during the service this morning @ [facility] when his looked over at him and he was slumped over. she said he was able to be arroused but shortly after that lost consciousness again. Members of the [facility] assisted pt and he was brought to [facility]. pt has a history of memory issues and was a fairly poor historian regarding medical issues or history. I spoke with his who was able to give more detailed information. She states he normally walks daily but for the last three weeks has had increasing weakness,dizziness, and been requiring the use of a cane for balance. Denies any actual falls. States he has been to the doctor 2-3 times over the last few weeks but he continues to worsen. pt placed on telemetry. Bed alarm in place for pt safety. lungs are cta. HR was regular. no edema.
[2022-10-16 13:44] LABS: Troponin I < 0.01 ng/ml (0.00-0.034)
--- NOTE | 2022-10-16 14:06 | EXP.HP ---
History of Present Illness *History of present illness: 82-year-old male presented to the emergency department after a near syncopal episode at [facility].? He arrives with EMS.? Patient members being at [facility].? He does not remember exactly what happened.? According to his he complained of being lightheaded, weak.? She was able to get him to sit down and into a wheelchair.? He seemed confused.? Someone at [facility] took his blood pressure and said it was 90 systolic.? He had a second episode in the presence of EMS.? Said he started to feel unwell, sweaty.? EMS noticed tremor of his arms.? Lasted for less than a minute and then resolved.? He had a pacemaker placed in 2020 for sick sinus syndrome, with episodic syncope. He reports that he had a normal day yesterday, slept overnight, ate breakfast this morning.? He does not exactly recall the events that led to today's presentation.? No definite postictal phase.? Currently denies headache, chest pain, palpitations.? No numbness, weakness, tingling in his arms or legs. Meds noted pertinent to history of syncope: Losartan, niacin, sildenafil, tamsulosin, and Benadryl. [facility] Disclaimer: The information contained in this section may have been updated after the patient was seen, as this information can be updated by other users. Medical History Bradycardia CAD (coronary artery disease) Cardiac pacemaker in situ Dizziness HHD (hypertensive heart disease) HLD (hyperlipidemia) Near syncope Symptomatic bradycardia Throat cancer Surgical History H/O coronary artery bypass surgery Family History No significant family history Social History (Updated 10/16/22 @ 13:39 by Radha Martinez RN) Smoking Status: Former smoker pack-years: 30 alcohol intake: never substance use type: denies use current occupational status: retired Travel in the last 8 weeks: Inside the [place] household members: spouse housing: house current occupational exposures/hazards: No caffeine: Yes physical activity: walking frequency: 5-6 times per week duration: 45-60 minutes/day Review of Systems Constitutional Constitutional: Reports system reviewed and no additional complaints, except as documented, Denies fever(s), Denies headache(s) and Denies poor appetite Eyes Eyes: Denies loss of vision ENT Ears, Nose, Mouth, and Throat: Reports dizziness and Denies headache(s) *Cardiovascular Cardiovascular: Reports as per HPI, Denies chest pain and Denies dyspnea *Respiratory Respiratory: Denies dyspnea *Gastrointestinal Gastrointestinal: Reports system reviewed and no additional complaints, except as documented, Denies bloating and Denies change in bowel habits *Genitourinary Genitourinary: Reports system reviewed and no additional complaints, except as documented *Musculoskeletal Musculoskeletal: Reports system reviewed and no additional complaints, except as documented and Denies numbness Integumentary/Breasts Skin/Breast: Reports system reviewed and no additional complaints, except as documented *Neurologic Neurologic: Denies abnormal speech, Reports confusion, Reports dizziness, Denies headache(s), Denies loss of vision, Reports memory loss, Denies numbness and Reports tremor(s) Psychiatric Psychiatric: Reports confusion and Reports memory loss Endocrine Endocrine: Reports system reviewed and no additional complaints, except as documented and Denies flushing Hematologic/Lymphatic Hematologic/Lymphatic: Reports system reviewed and no additional complaints, except as documented Allergic/Immunologic Allergic/Immunologic: Reports system reviewed and no additional complaints, except as documented Meds Home Medications and Allergies Home Medications Medication Instructions Recorded Confirmed Type aspirin 81 mg tablet,delayed 81 mg PO DAILY HEART HE
[2022-10-16 16:47] LABS: Troponin I < 0.01 ng/ml (0.00-0.034)
--- NOTE | 2022-10-16 20:53 | PC.NURSE ---
2049 DR ARAGON PAGED RE HIGH BP.
--- NOTE | 2022-10-16 20:58 | PC.NURSE ---
2054 DR ARAGON RETURNED PAGE. TO ORDER MEDICINR FOR BP.
--- NOTE | 2022-10-16 22:43 | PC.NURSE ---
patient received avapro 75 mg po at 2130. bp at 2230 is 202/90. has come down some. dr rosas notified at 2240. order to monitor.
[2022-10-17] VITALS (16 sets, daily range): BP systolic 138–188; BP diastolic 69–97; PULSE 56–79; RESP 16–20; TEMP 36.4–36.6; O2SAT 96–100; BMI 24.5
[2022-10-17 06:19] LABS: Basophils % 0.2 % (0.1-2.0); Eosinophils # 0.2 K/mm3 (0.0-0.4); Eosinophils % 2.9 % (0.1-12.0); Hematocrit 36.4 % (42.0-52.0); Hemoglobin 12.1 g/dL (14.1-18.0); Lymphocytes # 1.5 K/mm3 (0.7-4.5); Lymphocytes % 23.3 % (10-50); Mean Corpuscular HGB Conc 33.1 g/dL (31.8-35.4); Mean Corpuscular Volume 93.7 fl (80-94); Mean Platelet Volume 8.7 fl (7.4-10.4); Monocytes # 0.4 K/mm3 (0.1-1.0); Monocytes % 5.6 % (1.7-9.3); Neutrophils # 4.5 K/mm3 (1.8-7.8); Platelet Count 211 K/mm3 (142-424); Red Blood Count 3.89 M/mm3 (4.60-6.20); Red Cell Distribution Width 13.5 % (11.5-17.5); White Blood Count 6.6 K/mm3 (4.8-10.8)
[2022-10-17 06:20] LABS: Chloride 98 mmol/L (98-107); Potassium 3.9 mmoL/L (3.5-5.1); Sodium 135 mmol/L (136-145)
[2022-10-17 06:23] LABS: Anion Gap 12.9 mEq/L (5-15); Blood Urea Nitrogen 20 mg/dl (9-20); Calcium 8.7 mg/dl (8.4-10.2); Carbon Dioxide 28 mmol/L (22.0-30.0); Creatinine Clearance Estimated 63 mL/min (50-200); Estimated Glomerular Filt Rate 71 ml/min (>60); GFR (African American) 86 ML/MIN (>60); Glucose 101 mg/dl (74-100)
--- NOTE | 2022-10-17 07:42 | HMH.PHAINT1 ---
Pharmacy Intervention Comments: MEDICATION RECONCILIATION COMPLETED ON PATIENT USING EXTERNAL FILL HISTORY FROM PHARMACY. -ELI LITTLEJOHN, KARAND
--- NOTE | 2022-10-17 08:19 | EXP.ACUTE.PN ---
Subjective *Date: 10/17/22 *Time: 08:45 Interval history: Patient states he feels fine. He went to sleep about 2 AM. He has been able to eat and drink without difficulty. He has not been out of bed. He denies chest pain, shortness of breath, and palpitations. He does remember some of yesterday. Blood pressure has been elevated since admission. Monitor has shown sinus rhythm with some paced beats. Medical Exam Vital signs and Labs for Last 24 Hours: Vital Signs Temp Pulse Pulse Resp BP BP Pulse Ox 10/17/22 04:00 97.7 F 63 20 159/93 H 97 10/17/22 04:00 60 10/17/22 00:00 97.8 F 63 18 158/86 H 96 10/17/22 00:00 62 10/16/22 20:00 97.9 F 60 18 188/93 H 97 10/16/22 20:00 97 10/16/22 20:00 60 10/16/22 16:00 66 10/16/22 14:56 97.6 F 60 16 173/80 H 98 10/16/22 13:45 67 10/16/22 12:59 98.6 F 60 16 186/97 H 96 10/16/22 12:45 97.8 F 60 16 186/97 H 10/16/22 12:00 63 18 190/94 H 96 10/16/22 11:55 60 192/98 H 98 10/16/22 11:44 61 192/101 H 96 10/16/22 11:42 60 179/113 H 98 10/16/22 11:00 60 18 183/93 H 100 10/16/22 10:31 60 18 169/86 H 98 10/16/22 10:00 61 18 153/82 H 98 10/16/22 09:47 97.9 F 60 17 154/77 H 97 Intake and Output 10/16/22 10/17/22 10/17/22 19:59 03:59 11:59 Intake Total 360 / 360 240 / 600 200 / 800 Output Total 1200 / 1200 1000 / 2200 600 / 2800 Balance -840 / -840 -760 / -1600 -400 / -2000 Intake: Intake, Oral Amount 360 / 360 240 / 600 200 / 800 Output: Output, Urine Amount 1200 / 1200 1000 / 2200 600 / 2800 Other: Number of Unmeasured Voids 0 0 0 Weight 175 lb 8 oz 175 lb 7 oz Patient Weight 10/17/22 11:59 Weight 175 lb 7 oz Laboratory Results - last 24 hr 10/16/22 09:54: WBC 5.6, RBC 3.81 L, Hgb 12.0 L, Hct 36.3 L, MCV 95.3 H, MCH 31.5 H, MCHC 33.0, RDW 13.6, Plt Count 229, MPV 8.4, Neut % (Auto) 60.8, Lymph % (Auto) 29.9, [place] % (Auto) 6.6, Eos % (Auto) 2.3, Baso % (Auto) 0.3, Neut # (Auto) 3.4, Lymph # (Auto) 1.7, [place] # (Auto) 0.4, Eos # (Auto) 0.1, Baso # (Auto) 0.0 10/16/22 09:54: Sodium 134 L, Potassium 4.3, Chloride 97 L, Carbon Dioxide 29, Anion Gap 12.3, BUN 24 H, Creatinine 1.20, Estimated GFR 58 L, Est GFR ( Amer) 70, Glucose 113 H, Calcium 9.1, Magnesium 1.9, Total Bilirubin 0.4, AST 30, ALT 21, Alkaline Phosphatase 63, Troponin I < 0.01, Total Protein 6.8, Albumin 3.9, Globulin 2.9, Albumin/Globulin Ratio 1.3 10/16/22 11:40: Urine Color Yellow, Urine Appearance Clear, Urine pH 7.0, Ur Specific [place] 1.015, Urine Protein Negative, Urine Glucose (UA) Negative, Urine Ketones Negative, Urine Blood Negative, Urine Nitrate Negative, Urine Bilirubin Negative, Urine Urobilinogen 1.0, Ur Leukocyte Esterase Negative, Urine RBC None, Urine WBC None, Ur Squamous Epith Cells Occasional, Urine Bacteria Trace 10/16/22 11:50: SARS-CoV-2 (PCR) Not detected, Influenza A Untype (PCR) Not detected, Influenza Type B (PCR) Not detected 10/16/22 13:03: Troponin I < 0.01 10/16/22 15:50: Troponin I < 0.01 10/17/22 05:45: WBC 6.6, RBC 3.89 L, Hgb 12.1 L, Hct 36.4 L, MCV 93.7, MCH 31.0, MCHC 33.1, RDW 13.5, Plt Count 211, MPV 8.7, Neut % (Auto) 68.0, Lymph % (Auto) 23.3, [place] % (Auto) 5.6, Eos % (Auto) 2.9, Baso % (Auto) 0.2, Neut # (Auto) 4.5, Lymph # (Auto) 1.5, [place] # (Auto) 0.4, Eos # (Auto) 0.2, Baso # (Auto) 0.0 10/17/22 05:45: Sodium 135 L, Potassium 3.9, Chloride 98, Carbon Dioxide 28, Anion Gap 12.9, BUN 20, Creatinine 1.00, Estimated Creat Clear 63, Estimated GFR 71, Est GFR ( Amer) 86 D, Glucose 101 H, Calcium 8.7 I & O for Labs for Last 24 Hours: Intake & Output 10/14/22 10/15/22 10/16/22 10/17/22 11:59 11:59 11:59 11:59 Intake Total 800 / 800 Output Total 2800 / 2800 Balance -1999 / Weight 175 lb 175 lb 7 oz Constitutional: Present no acute distress Comment:: Sitting up in bed laughing and talking
--- NOTE | 2022-10-17 08:23 | EXP.CARD.CON ---
History of Present Illness History of Present Illness Consult date: 10/17/22 Requesting physician: Dave Medley Chief complaint: Syncope Additional Medical History:: 1.? Coronary artery disease, status post one-vessel CABG (NANCE to LAD) A. [facility], 2018, Patent NANCE to LAD, mild to moderate nonflow limiting disease in RCA, mild nonflow limiting disease and large circumflex. Normal EF, normal LVEDP. 2.? Hypertension A. Echocardiogram, 10/12/2021, mild biatrial enlargement, normal LV size, mild concentric LVH, EF 55% with no regional WMA. Grade 1 DD. Mild RV enlargement with normal contractility. Mild MR/TR. RVSP 44 mmHg. 3.? Hyperlipidemia 4.? History of fall with head trauma A. Head CT, 07/24/2022, no acute findings. Moderate chronic brain volume loss and chronic small vessel ischemic changes noted. 5.? History of syncope A. Symptomatic bradycardia with monomorphic VT noted on loop recorder, 06/13/2020 B. [employer] dual-chamber AICD implanted 06/24/2020 C. EEG, 09/20, borderline abnormal with presence of intermittent bihemispheric slowing seen throughout the recording suggesting of global cerebral dysfunction or mild encephalopathy. No evidence of significant focal slowing or true epileptiform activity seen during the recording 6. Carotid ultrasound, 03/2019, no stenosis of R ICA, less than 20% stenosis of LICA. History of present illness: 82-year-old white male admitted through the ER for recurrent syncope. Patient was [facility] yesterday sitting he suddenly was noted to be slumped over. His and members of the worship were able to get him to a wheelchair and check his blood pressure with systolic reading reportedly of 90 mmHg. Patient did apparently wake back up and was able to converse briefly before passing out 2 more times per the . There was some notice of shaking of an arm and eyes rolling back. Patient denies any presyncopal symptoms of palpitations, nausea, vomiting or diaphoresis. Telemetry shows no arrhythmias overnight. Troponins have been normal overnight. The EKG shows no acute ST segment changes. Preliminary echocardiogram this morning shows preserved ejection fraction around 50% which is consistent with prior tracings. Patient denies any chest pain, pressure or tightness and states he has felt well even since being in the ER. No recent fever, chills or illness. Despite having a pacemaker implanted 2 years ago, patient has had recurrent episodes of syncope without etiology. His mild anemia and hyponatremia are stable. No significant evidence of dehydration and no evidence of UTI. He is negative for influenza a, B and COVID. Recent EEG last month is borderline abnormal with presence of intermittent bihemispheric slowing seen throughout the recording suggestive of global cerebral dysfunction or mild encephalopathy. No evidence of significant focal slowing or truly epileptiform activity seen during the recording. [facility] Disclaimer: The information contained in this section may have been updated after the patient was seen, as this information can be updated by other users. Medical History (Updated 10/17/22 @ 08:26 by Ketty Michelle APRN) Bradycardia CAD (coronary artery disease) Cardiac pacemaker in situ Dizziness HHD (hypertensive heart disease) HLD (hyperlipidemia) Near syncope Symptomatic bradycardia Throat cancer Surgical History (Updated 10/17/22 @ 08:48 by MARYA Aguilera) H/O coronary artery bypass surgery Family History No significant family history Social History (Updated 10/16/22 @ 13:39 by Radha Martinez RN) Smoking Status: Former smoker pack-years: 30 alcohol intake: never substance use type: denies use current occupational status: retired Travel in the last 8 weeks: Inside the [place] household members: spouse housing: house current occupational exposures/hazards: No caffeine: Yes physical activity:
--- NOTE | 2022-10-17 11:26 | IR_ITS ---
APPROVED REPORT Patient Location: Inpatient Pipe Processor: MARILYN Van RT (R) PROCEDURES Left heart catheterization Left ventriculogram Selective coronary angiogram Selective engagement left internal mammary artery Drug-eluting stent deployment to the left internal mammary artery anastomosing into the LAD Drug-eluting stent deployment to the proximal mid and distal right coronary artery Bilateral selective renal angiography INDICATION Coronary artery disease, Recurrent syncope, History of coronary bypass surgery, Malignant hypertension Informed consent was obtained prior to the procedure. COMPLICATIONS None Estimated Blood Loss: Less than 10 mls TECHNIQUE One percent lidocaine used to anesthetize the right groin. The right femoral artery was accessed via the Seldinger technique and a 5 Stateless sheath was placed in the right femoral artery. A JL 4, JR4 catheter were used to perform left heart catheterization, left ventriculogram selective coronary angiography as well as selective engagement of the left internal mammary artery. The left subclavian artery was difficult to cannulate therefore an exchange length wire was placed in the left subclavian artery and it was decided to not lose left subclavian access given intervention of the NANCE to the LAD anastomosis was required. At this point the 5 Stateless sheath and JR4 catheter were exchanged for a 6 Stateless sheath and a 6 Stateless left internal mammary artery catheter. Therapeutic heparin was administered given therapeutic ACT and the guide catheter was placed in the left internal mammary artery followed by Choice PT extra-support wire being placed distally. A 2.5 x 12 mm Marcus frontier stent was deployed in the distal left internal mammary graft extending beyond the anastomosis and into the LAD and deployed at 20 mann. Excellent angiographic results were obtained with ANNETTE-3 flow being present before and after the procedure. Following this the NANCE catheter was used to perform left heart catheterization left ventriculogram as well as selective engagement of the right internal mammary artery. A Choice PT wire was placed distally into the right coronary artery and a 2 mm balloon was used to predilate the stenosis after primary stenting could not be performed. Following this a 2.25 x 38 mm [place] frontier stent was placed distally and deployed at 20 mann. An additional 2.75 x 22 mm Marcus frontier stent was placed proximal to the for stent yet still overlapping it and deployed at 20 mann. The balloon was advanced on 2 occasions and deployed at 20 and then 18 mann to post dilate. ANNETTE-3 flow was present before and after the procedure. Following this the catheter was used to perform bilateral selective renal angiography. At the end of the procedure the apparatus was removed the groin was reprepped gloves were changed sheath was removed hemostasis was attempted using Perclose device however due to the calcification the device would not capture therefore good hemostasis was achieved using Angio-Seal device and the patient was transferred to the postop putting in stable condition ANGIOGRAPHIC RESULTS The left main artery Normal The left anterior descending artery Has proximal 70 and mid vessel 70% stenoses and then subtotally occluded at midportion with evidence of competitive flow from the left internal mammary artery graft. A small to medium sized first diagonal artery has an ostial 80% stenosis The circumflex artery Is a dominant vessel and has proximal 40% stenosis with mid vessel 50% stenoses with additional 50% stenosis in a large second obtuse marginal artery. The right coronary artery Is a nondominant yet still large vessel and has mid vessel and dist
--- NOTE | 2022-10-17 11:33 | PC.NURSE ---
COURTESY ROUND PATIENT AWAKE AND SITTING UP IN BED . ICE WATER REFILLED AND TRASH EMPTIED. PATIENT HAS NO REQUEST OR NEEDS AT THIS TIME. CALL LIGHT WITHIN REACH.
[2022-10-17 14:05] LABS: CATHL Activated Clotting Time 272 SEC (74-125)
--- NOTE | 2022-10-17 16:50 | PC.NURSE ---
A&OX4. PT HAS TOLERATED RA WELL THROUGHOUT SHIFT. RESPIRATIONS REGULAR AND UNLABORED. LUNG SOUNDS CLEAR THROUGHOUT. NO COUGH NOTED. NO EDEMA NOTED. +2 PULSES NOTED THROUGHOUT. HAND TOE FORMER EQUAL. ACTIVE BOWEL SOUNDS HEARD IN ALL 4 QUADRANS. SOFT AND NONTENDER. NO BM REPORTED THUS FAR. VOIDS PER BATHROOM INDEPENDENTLY WITH STEADY GAIT NOTED. HAS VISITED THROUGHOUT SHIFT. PT RECEIVED HEART CATH THIS SHIFT AND TOLERATED WELL. R FEMORAL CATH SITE NOTED WITH DRESSING CDI. NO REPORTS OF NAUSEA OR PAIN THUS FAR. PT HAS REMAINED ON TELE THROUGHOUT SHIFT. NO REPORTS OF CHEST PAIN OR SOB THUS FAR. BED IN LOWEST POSITION. CALL LIGHT WITHIN REACH. VSS. WILL CONTINUE TO MONITOR.
--- NOTE | 2022-10-17 21:18 | PC.NURSE ---
courtesy note: asked pt about bath, requested to take one in the morning, he just wanted to rest tonight. Nurse is aware.
[2022-10-18] VITALS: PULSE 70
[2022-10-18 04:00] VITALS: BP 141/77; PULSE 81; PULSE 90; RESP 18; TEMP 36.9; O2SAT 96; BMI 25.0
[2022-10-18 08:00] VITALS: BP 119/50; PULSE 77; RESP 18; TEMP 36.4; O2SAT 96
--- NOTE | 2022-10-18 08:32 | EXP.ACUTE.PN ---
Subjective *Date: 10/18/22 *Time: 08:47 Interval history: Upon entering patient's room he is have sitting in the bed and a half out of the bed and states he is going home. He is fully dressed and is taking his monitoring leads off. He states Berta is picking them up at 9 AM. After speaking with him and discussing visits by his physicians he agreed to get back in the bed and try some breakfast. He denies any chest pain, dizziness and shortness of breath. He feels he slept well. Patient did have a cardiac cath yesterday with multiple findings below is the report. IMPRESSION Severe disease in the NANCE graft anastomosing into the LAD as described above Successful stenting of the NANCE graft into the LAD severe disease reduced to 0% 1 drug-eluting stent Severe to critical disease throughout the right coronary as described above Successful reconstruction of the proximal mid and distal right coronary severe disease reduced to 0% with 2 contiguous drug-eluting stents Persistent severe stenosis in a 2.25 mm posterior lateral branch Hyperdynamic ventricle Low LVEDP Nonflow limiting renal artery stenosis PLAN 1. Patient's syncope may be secondary to the hyperdynamic ventricle and intravascular depletion.? Recommend avoiding afterload reducing medicines at this time and maximize diltiazem and beta-blockers 2. Avoid diuretics 3. Better control of hypertension 4. LDL less than 55 to be achieved with high intensity statin 5. Avoidance of tobacco products Medical Exam Vital signs and Labs for Last 24 Hours: Vital Signs Temp Pulse Pulse Resp BP Pulse Ox 10/18/22 08:00 97.6 F 77 18 119/50 L 96 10/18/22 04:00 90 10/18/22 00:00 70 10/17/22 20:00 60 10/18/22 04:00 98.5 F 81 18 141/77 H 96 10/17/22 23:48 97.8 F 56 L 20 144/69 H 98 10/17/22 19:00 64 18 169/77 H 100 10/17/22 18:00 63 18 141/83 H 100 10/17/22 17:00 60 16 181/97 H 99 10/17/22 16:00 60 10/17/22 12:00 61 10/17/22 16:30 62 18 186/97 H 100 10/17/22 16:00 59 L 18 188/92 H 100 10/17/22 15:30 66 18 175/86 H 98 10/17/22 15:00 63 16 180/78 H 99 10/17/22 14:45 71 16 164/92 H 96 10/17/22 14:30 70 16 172/73 H 99 10/17/22 14:15 97.6 F 79 18 168/85 H 97 10/17/22 12:00 97.8 F 60 18 166/79 H 99 Intake and Output 10/17/22 10/18/22 10/18/22 19:59 03:59 11:59 Intake Total 120 / 120 0 / 120 Output Total 400 / 400 500 / 900 150 / 1050 Balance -280 / -280 -500 / -780 -150 / -930 Intake: Intake, Oral Amount 120 / 120 0 / 120 Output: Output, Urine Amount 400 / 400 500 / 900 150 / 1050 Other: Number of Unmeasured Voids 2 1 Number of Bowel Movements 1 Weight 178 lb 14.4 oz Patient Weight 10/18/22 11:59 Weight 178 lb 14.4 oz Laboratory Results - last 24 hr 10/17/22 13:23: Activated Clotting Time 272 H* I & O for Labs for Last 24 Hours: Intake & Output 10/15/22 10/16/22 10/17/22 10/18/22 11:59 11:59 11:59 11:59 Intake Total 1160 / 1160 120 / 120 Output Total 3250 / 3250 1050 / 1050 Balance -2090 / -2090 -930 / -930 Weight 175 lb 175 lb 4.28 oz 178 lb 14.4 oz Constitutional: Present no acute distress Comment:: Appears comfortable Respiratory: Present CTA bilaterally (Anteriorly and posteriorly) Cardiac: Present Reg Rate and Rhythm GI: Present soft and normal bowel sounds; Absent distention or tenderness Extremities: Absent edema Neuro: Present alert; Absent oriented x 3 Assessment and Plan *Assessment and plan (1) Syncope: Status: Chronic Category: Medical Code(s): R55 - Syncope and collapse (2) CAD (coronary artery disease): Status: Chronic Qualifiers: Associated angina: without angina Coronary Disease-Associated Artery/Lesion type: [place] artery [place] vs. transplanted heart: [place] heart Qualified Code(s): I25.10 - Atherosclerotic heart disease of [place]
--- NOTE | 2022-10-18 08:46 | EXP.CARD.PN ---
Subjective Subjective Date: 10/18/22 Time: 08:47 Principal diagnosis: Syncope Interval history: 82-year-old white male in bed eating breakfast in no acute distress. Some confusion noted during conversation regarding the procedure yesterday but patient reorients quickly. Exam Data for Last 24 hours Vital signs and Labs for Last 24 Hours: Temp Pulse Resp BP Pulse Ox 97.6 F 77 18 119/50 L 96 10/18/22 08:00 10/18/22 08:00 10/18/22 08:00 10/18/22 08:00 10/18/22 08:00 Laboratory Results - last 24 hr 10/17/22 13:23: Activated Clotting Time 272 H* I & O for Last 24 hours: Intake & Output 10/15/22 10/16/22 10/17/22 10/18/22 11:59 11:59 11:59 11:59 Intake Total 1160 / 1160 120 / 120 Output Total 3250 / 3250 1050 / 1050 Balance -2090 / -2090 -930 / -930 Weight 175 lb 175 lb 4.28 oz 178 lb 14.4 oz Constitutional Constitutional: no acute distress *Routine Respiratory Exam Respiratory: Present CTA bilaterally *Routine Cardiovascular Exam Cardiovascular: Present RRR *Routine Extremities Exam Extremities: Absent edema Progress Note: A&P Assessment and plan (1) Syncope: Status: Chronic (2) CAD (coronary artery disease): Status: Chronic (3) HHD (hypertensive heart disease): Status: Chronic (4) HLD (hyperlipidemia): Status: Chronic (5) H/O coronary artery bypass surgery: Status: Chronic (6) AICD (automatic cardioverter/defibrillator) present: Status: Acute (7) Disorientation: Status: Acute Assessment and Plan Assessment and Plan for All Diagnoses:: 1.? Recurrent syncope Troponins normal x3 AICD interrogated, no arrhythmias noted to account for syncope.? Battery life 12 years.? No evidence of CHF. Preliminary echocardiogram unchanged from previous tracing LESLI to NANCE graft and [place] RCA. DAPT therapy with aspirin and Brilinta 2.? Coronary artery disease with history of single-vessel bypass Troponins normal x3 3.? Labile blood pressure No significant renal artery stenosis by angiogram yesterday Irbesartan discontinued Diltiazem 180 mg daily started Encouraged patient to increase fluid intake 4.? History of monomorphic VT and bradycardia, status post [employer] AICD implantation, 2020 Device interrogated. Last arrhythmias noted in June of this year (atrial tachycardia) Stable from a cardiac standpoint for discharge home. Follow-up in our office in 1 to 2 weeks. Home medication recommendations Aspirin 81 mg daily Atorvastatin 40 mg daily Brilinta 90 mg twice daily Diltiazem 180 mg extended release daily Discontinue irbesartan
--- NOTE | 2022-10-18 10:24 | HMH.PHACL ---
PHA Lead Clinical Research Coordinator Discharge Med Hot Head Machine Operator: Jensen Loomis has received discharge medication counseling on the following medications: ASPIRIN 81 MG DAILY DILTIAZEM 180 MG DAILY ROSUVASTATIN 20 MG HS BRILINTA 90 MG BID HOLDING OFF ON STARTING BETA SANDRA UNTIL SEEN IN OFFICE AND STOPPING LOSARTAN AT THIS TIME UNTIL AT LEAST FOLLOW UP POST STENTING.
--- NOTE | 2022-10-20 13:11 | CARE MANAGER ---
Contacted patient related to hospital discharge. He feels foggy headed but has had no passing out episodes . He has medications and is aware of follow up appointments. ABIGAIL Harris
--- NOTE | 2022-10-24 23:10 | EXP.DC.SUM ---
General Admission date:: 10/16/22 Discharge date: 10/18/22 HPI HPI HPI: 82-year-old male presented to the emergency department after a near syncopal episode at [facility].? He arrives with EMS.? Patient members being at [facility].? He does not remember exactly what happened.? According to his he complained of being lightheaded, weak.? She was able to get him to sit down and into a wheelchair.? He seemed confused.? Someone at [facility] took his blood pressure and said it was 90 systolic.? He had a second episode in the presence of EMS.? Said he started to feel unwell, sweaty.? EMS noticed tremor of his arms.? Lasted for less than a minute and then resolved.? ?He had a pacemaker placed in 2020 for sick sinus syndrome, with episodic syncope.? He reports that he had a normal day yesterday, slept overnight, ate breakfast this morning.? He does not exactly recall the events that led to today's presentation.? No definite postictal phase.? Currently denies headache, chest pain, palpitations.? No numbness, weakness, tingling in his arms or legs. Meds noted pertinent to history of syncope: Losartan, niacin, sildenafil, tamsulosin, and Benadryl. Hospital Course Hospital Course Hospital Course: The patient was admitted for overnight observation and monitoring. By 10/17/2022, he was feeling better. He was able to eat and drink without difficulty and denied any chest pain, shortness of breath, or palpitations. He did remember some of the previous day. His blood pressure had been elevated and his monitor showed sinus rhythm with some paced beats. His blood pressure did normalize and he was evaluated by cardiology. His AICD was interrogated and showed no arrhythmias to account for his syncope. They wanted to proceed with a left heart cath and renal angiogram in light of his labile blood pressure. His heart cath showed severe disease in the NANCE graft anastomosing into the LAD. This was successfully stented. He also had severe to critical disease throughout the right coronary and this was stented with 2 drug-eluting stents. He had persistent severe stenosis in a 2.25 mm posterior lateral branch, a hyperdynamic left ventricle, low LVEDP, and nonflow limiting renal artery stenosis. It was felt his syncope was secondary to the hyperdynamic ventricle and intravascular depletion. Cardiology recommended avoiding afterload reducing medicines and maximizing diltiazem and beta-blockers. They also recommended avoiding diuretics. By 10/18/2022 the patient was getting out of the bed and stated he was going home. He was fully dressed and taking off his monitor leads. After speaking with him and discussing visits by his physicians, he agreed to get back in the bed and try some breakfast. He denied any chest pain, dizziness, or shortness of breath. He did reorient easily and it was felt he was stable to be discharged home and would need to follow-up with cardiology. Exam Data for Last 24 hours Vital signs and Labs for Last 24 Hours: Temp Pulse Resp BP Pulse Ox 97.6 F 77 18 119/50 L 96 10/18/22 08:00 10/18/22 08:00 10/18/22 08:00 10/18/22 08:00 10/18/22 08:00 Narrative: Constitutional Constitutional: no acute distress *Routine HEENT Exam Head: Present normocephalic Eye: Present EOMI and PERRL ENT: Present mucous membranes moist *Routine Neck Exam Neck: Present supple and full ROM; Absent carotid bruit Routine Chest/Breast/Axilla Exam Chest wall: Present pacemaker; Absent tenderness *Routine Respiratory Exam Respiratory: Present CTA bilaterally and rales (Few bibasilar fibrotic) *Routine Cardiovascular Exam Cardiovascular: Present RRR (60) and S4; Absent ectopic *Routine Abdominal Exam Abdominal: Present soft; Absent tenderness or distended *Routine Rectal Exam Rectal:: deferred *Routine Genitalia Exam Genitalia:: deferred *Routine Extremities Exam Extremities: Present full ROM; Absent cyanosis, clubbing or edema Routine Back/Spine/Pelvis Exam Annia
== END 2022-10-18 10:34 | disposition home or self-care (01) ==
LOC: ER 11:43 → 2ND 12:19
PROVIDERS: Internal Medicine; Admitting Provider Family Medicine; Emergency Provider Emergency Medicine; PCP Family Medicine; Visit Provider Family Medicine
DX: R55 Syncope and collapse (principal); Z95.1 Presence of aortocoronary bypass graft; I95.9 Hypotension, unspecified; I11.9 Hypertensive heart disease without heart failure; I25.10 Atherosclerotic heart disease of native coronary artery without angina pectoris; E78.2 Mixed hyperlipidemia; Z95.810 Presence of automatic (implantable) cardiac defibrillator; Z95.5 Presence of coronary angioplasty implant and graft; Z79.899 Other long term (current) drug therapy; I49.5 Sick sinus syndrome; E03.9 Hypothyroidism, unspecified; I70.1 Atherosclerosis of renal artery
CPT/HCPCS: G0378; 36252; 36415; 71045; 80048; 80053; 81001; 83735; 84484; 85025; 85347; 87635; 87636; 92928; 92937; 93005; 93306; 93459; 99152; 99153; 99285; C1725; C1760; C1769; C1876; C1894; C9600; C9604; C9803; J1644; Q9967; U0003; U0005

== ENCOUNTER → 2022-10-21 12:48 | Outpatient (CLI) | payer MEDICARE, BC, SELFPAY | PROVIDERS: PCP Family Medicine; Visit Provider Specialist | DX: C14.0 Malignant neoplasm of pharynx, unspecified (principal); G93.40 Encephalopathy, unspecified; R41.3 Other amnesia | CPT/HCPCS: 94762 ==

== ENCOUNTER 2022-10-26 10:14 | Emergency (ER) | payer MEDICARE, BC, SELFPAY ==
[2022-10-26] VITALS (10 sets, daily range): BP systolic 128–212; BP diastolic 61–134; PULSE 60–73; RESP 20; TEMP 36.4–36.5; O2SAT 96–100; BMI 24.4
--- NOTE | 2022-10-26 10:35 | EXP.UTC ---
Discharge Plan Disposition Patient Disposition: Still a Patient Condition: Fair Prescriptions Prescriptions: New diltiazem HCl [DILT-XR] 180 mg capsule,ext.rel 24h degradable 180 mg PO BID 30 Days Qty: 60 0RF bisoprolol fumarate 5 mg tablet 5 mg PO DAILY 30 Days Qty: 30 0RF No Action fluticasone propionate [Flonase Allergy Relief] 50 mcg/actuation spray,suspension 1 spray INTRANASAL BIDP PRN (Reason: allergies) aspirin 81 mg tablet,delayed release (DR/EC) 81 mg PO DAILY omega-3 fatty acids 1,000 mg capsule 1,000 mg PO DAILY ascorbic acid (vitamin C) 1,000 mg tablet 1,000 mg PO DAILY Restasis 0.05 % dropperette 2 drp OPHTHALMIC Q12H omeprazole 20 mg capsule,delayed release(DR/EC) 20 mg PO DAILY coenzyme Q10 [Co Q-10] 100 mg capsule 100 mg PO DAILY docusate sodium 100 mg capsule 100 mg PO BID levothyroxine 88 mcg tablet 88 mcg PO DAILY Label Comments: TAKE ONE TABLET BY MOUTH EVERY DAY tamsulosin 0.4 MG capsule 0.4 mg PO DAILY Label Comments: TAKE ONE CAPSULE BY MOUTH EVERY DAY rosuvastatin 20 MG tablet 20 mg PO HS Label Comments: TAKE ONE TABLET BY MOUTH EVERY DAY AT BEDTIME sertraline 25 mg tablet 25 mg PO DAILY memantine [Namenda] 5 mg tablet 5 mg PO BID diltiazem HCl 180 mg Capsule,Extended Release 24hr 180 mg PO DAILY Qty: 30 0RF Brilinta 90 mg Tablet 90 mg PO BID Qty: 60 0RF Referrals Follow up/Referrals: Dave Medley MD [Primary Care Provider] - See instructions Activity Restrictions/Add. Instructions Additional Instructions/Restrictions: Lease follow-up with Dr. Boogie on Monday as instructed by him. Clinical Impressions Clinical Impression: Syncope Instructions Patient Instructions: DI for Syncope in Adults (Fainting), DI for Syncope in Children (Fainting) Discharge ED Provider: Abdias Aldrich [facility] General Chief complaint: Syncope Stated complaint: Lightheaded, vomiting Time Seen by Provider: 10/26/22 11:16 History of Present Illness Provider Complaint: Patient states was recently discharged from hospital after he had 3 stents placed last week and had been doing ok states that he was getting around well yesterday but today when he woke up he was feeling weak, dizzy and light headed States that he had finished his yogurt and was sitting in chair and thinks he may have passed out States that he woke up to vomit all over his shirt but doesnt recall vomiting so he yelled for his States that he feels foggy and just doesnt feel well Related Data Home Medications Medication Instructions Recorded Confirmed aspirin 81 mg tablet,delayed 81 mg PO DAILY HEART HEALTH 09/12/17 10/16/22 release fluticasone propionate 50 1 spray intranasal BIDP PRN 09/12/17 10/17/22 mcg/actuation nasal allergies spray,suspension (Flonase Allergy Relief) omega-3 fatty acids 1,000 mg 1,000 mg PO DAILY Supplement 09/12/17 10/16/22 capsule ascorbic acid (vitamin C) 1,000 mg 1,000 mg PO DAILY supplement 05/23/18 10/16/22 tablet omeprazole 20 mg capsule,delayed 20 mg PO DAILY Acid reflux 09/10/18 10/16/22 release rosuvastatin 20 mg tablet 20 mg PO HS Cholesterol 04/18/19 10/16/22 tamsulosin 0.4 mg capsule 0.4 mg PO DAILY PROSTATE 04/18/19 10/16/22 coenzyme Q10 100 mg capsule (Co 100 mg PO DAILY Supplement 09/09/19 10/16/22 Q-10) docusate sodium 100 mg capsule 100 mg PO BID CONSTIPATION 02/26/20 10/16/22 cyclosporine 0.05 % eye drops in a 2 drp ophthalmic (eye) Q12H dry 08/29/22 10/16/22 dropperette (Restasis) eyes levothyroxine 88 mcg tablet 88 mcg PO DAILY THYROID 08/29/22 10/16/22 memantine 5 mg tablet (Namenda) 5 mg PO BID MEMORY 10/16/22 10/16/22 sertraline 25 mg tablet 25 mg PO DAILY VASOVAGAL PASSING 10/16/22 10/16/22 OUT Previous Rx's Medication Instructions Recorded diltiazem HCl 180 mg 180 mg PO DAILY #30 caps 10/18/22 capsule,ex
--- NOTE | 2022-10-26 10:43 | ECG_ITS ---
APPROVED REPORT Exam: Resting ECG HR:63 bpm ECG Measurements Heart Rate 63 AXES HI 184 P 90 QRSd 110 QRS 33 QT 415 T 64 QTc 422 Conclusion ELECTRONIC ATRIAL PACEMAKER INCOMPLETE RIGHT BUNDLE BRANCH BLOCK [90+ ms QRS DURATION, TERMINAL R IN V1/V2, 40+ ms S IN I/aVL/V4/V5/V6] ABNORMAL RHYTHM ECG UNCONFIRMED REPORT Electronically signed by : Wilfred Ramirez MD 10/27/2022 09:50:55
--- NOTE | 2022-10-26 11:15 | HMH.EDGENADL ---
Discharge Plan Disposition Patient Disposition: Still a Patient Condition: Fair Prescriptions Prescriptions: New diltiazem HCl [DILT-XR] 180 mg capsule,ext.rel 24h degradable 180 mg PO BID 30 Days Qty: 60 0RF bisoprolol fumarate 5 mg tablet 5 mg PO DAILY 30 Days Qty: 30 0RF No Action fluticasone propionate [Flonase Allergy Relief] 50 mcg/actuation spray,suspension 1 spray INTRANASAL BIDP PRN (Reason: allergies) aspirin 81 mg tablet,delayed release (DR/EC) 81 mg PO DAILY omega-3 fatty acids 1,000 mg capsule 1,000 mg PO DAILY ascorbic acid (vitamin C) 1,000 mg tablet 1,000 mg PO DAILY Restasis 0.05 % dropperette 2 drp OPHTHALMIC Q12H omeprazole 20 mg capsule,delayed release(DR/EC) 20 mg PO DAILY coenzyme Q10 [Co Q-10] 100 mg capsule 100 mg PO DAILY docusate sodium 100 mg capsule 100 mg PO BID levothyroxine 88 mcg tablet 88 mcg PO DAILY Label Comments: TAKE ONE TABLET BY MOUTH EVERY DAY tamsulosin 0.4 MG capsule 0.4 mg PO DAILY Label Comments: TAKE ONE CAPSULE BY MOUTH EVERY DAY rosuvastatin 20 MG tablet 20 mg PO HS Label Comments: TAKE ONE TABLET BY MOUTH EVERY DAY AT BEDTIME sertraline 25 mg tablet 25 mg PO DAILY memantine [Namenda] 5 mg tablet 5 mg PO BID diltiazem HCl 180 mg Capsule,Extended Release 24hr 180 mg PO DAILY Qty: 30 0RF Brilinta 90 mg Tablet 90 mg PO BID Qty: 60 0RF Referrals Follow up/Referrals: Dave Medley MD [Primary Care Provider] - See instructions Activity Restrictions/Add. Instructions Additional Instructions/Restrictions: Lease follow-up with Dr. Boogie on Monday as instructed by him. Clinical Impressions Clinical Impression: Syncope Instructions Patient Instructions: DI for Syncope in Adults (Fainting), DI for Syncope in Children (Fainting) Discharge ED Provider: Abdias Aldrich General Adult HPI General Chief complaint: Syncope Stated complaint: Lightheaded, vomiting Time Seen by Provider: 10/26/22 11:16 Mode of Arrival: Wheelchair Source of Information: Patient and Spouse Limitations: No Limitations Description of Symptoms (Recalled from ER Triage Doc. by RN): pt to ed c/o near syncope/vomiting. pt's at the bedside states he was eating breakfast, nodded off and vomited all over himself. reports pt was recently d/c from [facility] last monday after receiving 2 stents. pt denies and cp or SOA today. History of Present Illness HPI narrative: Patient is an 82-year-old male with a history of coronary disease, one-vessel CABG, recently admitted for syncope where he had a left heart cath demonstrating multiple vessel disease receiving 3 stents is currently on dual antiplatelet therapy he presented today with feeling like shit . He states that this morning he woke up and just felt foggy and that he lost consciousness. States this happened a week ago at [facility] and has had similar symptoms today. His work-up at that time including an echo was unremarkable no abnormalities were found for his coronary vessels. He states he never had any chest pain or any shortness of breath or any chest pressure. No exertional symptoms preceding this. He does have a [employer] defibrillator in place since 2020 and this was interrogated on recent admission which did not show any abnormalities. He states he has not been shocked today that he is aware. He denies any chest pain shortness of breath fevers chills abdominal pain or any other symptoms. He has been compliant with his medications. Related Data Home Medications Medication Instructions Recorded Confirmed aspirin 81 mg tablet,delayed 81 mg PO DAILY [facility] 09/12/17 10/16/22 release fluticasone propionate 50 1 spray intranasal BIDP PRN 09/12/17 10/17/22 mcg/actuation nasal allergies spray,suspension (Flonase Allergy Relief) omega-3 fatty acids 1,000 mg 1,000 mg PO DAILY Supplement
--- NOTE | 2022-10-26 11:16 | PC.NURSE ---
TIESHA CHOW at for patient eval
--- NOTE | 2022-10-26 11:25 | XR_ITS ---
FINAL REPORT CLINICAL HISTORY: syncope COMPARISON: 10/16/2022 FINDINGS: TWO-VIEW CHEST The heart size is normal. The patient is status post median sternotomy. Left subclavian ICD is present. There are right base opacities, may represent atelectasis or pneumonia. There is no pneumothorax. IMPRESSION: Right base atelectasis or pneumonia. Reviewed, Interpreted and Dictated by Jensen Ring III, MD Transcribed by Ketty Rosario Authenticated and [facility]
[2022-10-26 11:36] LABS: Basophils % 0.2 % (0.1-2.0); Eosinophils # 0.1 K/mm3 (0.0-0.4); Eosinophils % 0.9 % (0.1-12.0); Hematocrit 36.8 % (42.0-52.0); Hemoglobin 11.9 g/dL (14.1-18.0); Lymphocytes # 0.9 K/mm3 (0.7-4.5); Mean Corpuscular HGB Conc 32.4 g/dL (31.8-35.4); Mean Corpuscular Hemoglobin 31.5 pg (27.0-31.2); Mean Corpuscular Volume 97.4 fl (80-94); Mean Platelet Volume 8.6 fl (7.4-10.4); Monocytes # 0.4 K/mm3 (0.1-1.0); Monocytes % 4.7 % (1.7-9.3); Neutrophils # 6.8 K/mm3 (1.8-7.8); Neutrophils % 83.1 % (37.0-80.0); Platelet Count 300 K/mm3 (142-424); Red Blood Count 3.78 M/mm3 (4.60-6.20); Red Cell Distribution Width 13.6 % (11.5-17.5); White Blood Count 8.2 K/mm3 (4.8-10.8)
[2022-10-26 11:41] LABS: Blood Urea Nitrogen 19 mg/dl (9-20); Calcium 9.3 mg/dl (8.4-10.2); Carbon Dioxide 28 mmol/L (22.0-30.0); Chloride 96 mmol/L (98-107); Creatinine Clearance Estimated 57 mL/min (50-200); Estimated Glomerular Filt Rate 64 ml/min (>60); GFR (African American) 77 ML/MIN (>60); Glucose 118 mg/dl (74-100); Sodium 135 mmol/L (136-145)
--- NOTE | 2022-10-26 11:48 | PC.NURSE ---
cardiology at the bedside to interrogate pacemaker
[2022-10-26 11:54] LABS: Troponin I < 0.01 ng/ml (0.00-0.034)
[2022-10-26 11:58] LABS: Magnesium 1.8 mg/dl (1.6-2.3)
--- NOTE | 2022-10-26 12:25 | PC.NURSE ---
paging supervisor [employer] services to speak with
--- NOTE | 2022-10-26 12:27 | PC.NURSE ---
DR. HODGES AT BS
--- NOTE | 2022-10-26 12:32 | PC.NURSE ---
spoke with kei in pharmacy who states he will change mag order to 1G and mix medication.
--- NOTE | 2022-10-26 12:48 | PC.NURSE ---
ROUNDED ON PT HE RECEIVED A GLASS OF WATER, RENA CALLED AND ORDERED A CARDIAC TRAY FOR PT AND A GUEST TRAY FOR , NURSE GAVE THE OKAY TO EAT CALL LIGHT AT BS
--- NOTE | 2022-10-26 13:05 | PC.NURSE ---
Dr. Boogei at BS for patient eval
[2022-10-26 13:32] LABS: Thyroid Stimulating Hormone 1.38 uIU/mL (0.465-4.68)
--- NOTE | 2022-10-26 14:34 | EXP.CARD.CON ---
History of Present Illness History of Present Illness Consult date: 10/26/22 Requesting physician: Abdias Aldrich Chief complaint: near synope, vomiting History of present illness: 82-year-old white male with past medical history of coronary artery disease status post CABG, monomorphic VT status post AICD placement, hypertension and hyperlipidemia presented to emergency department this morning for evaluation of near syncope and vomiting. ER physician note: History of Present Illness HPI narrative: Patient is an 82-year-old male with a history of coronary disease, one-vessel CABG, recently admitted for syncope where he had a left heart cath demonstrating multiple vessel disease receiving 3 stents is currently on dual antiplatelet therapy he presented today with feeling like shit .? He states that this morning he woke up and just felt foggy and that he lost consciousness.? States this happened a week ago at [facility] and has had similar symptoms today.? His work-up at that time including an echo was unremarkable no abnormalities were found for his coronary vessels.? He states he never had any chest pain or any shortness of breath or any chest pressure.? No exertional symptoms preceding this.? He does have a [employer] defibrillator in place since 2020 and this was interrogated on recent admission which did not show any abnormalities.? He states he has not been shocked today that he is aware.? He denies any chest pain shortness of breath fevers chills abdominal pain or any other symptoms.? He has been compliant with his medications Cardiology note Patient and endorse the above story. Of note blood pressure was 145 systolic upon arrival to ED and trending up to 200 systolic. Patient denies chest pain or shortness of breath. EKG on arrival to ED showed an atrial pacemaker with a rate of 60, incomplete right bundle branch block. Labs reviewed and are as follow: WBC 8.2, hemoglobin 11.9, sodium 135, potassium 4.0, creatinine 1.10, magnesium 1.8, troponin negative, TSH 1.38. Chest x-ray showed a right base atelectasis versus pneumonia. ICD was evaluated in department and was negative for any acute events. Of note patient underwent left heart catheterization 09/2022 resulting in stenting of the NANCE and reconstruction and stenting of the RCA. LHC also showed patient to have a hyperdynamic ventricle which may be contributing to syncope. See left heart cath assessment below: Left heart cath 09/2022 IMPRESSION Severe disease in the NANCE graft anastomosing into the LAD as described above Successful stenting of the NANCE graft into the LAD severe disease reduced to 0% 1 drug-eluting stent Severe to critical disease throughout the right coronary as described above Successful reconstruction of the proximal mid and distal right coronary severe disease reduced to 0% with 2 contiguous drug-eluting stents Persistent severe stenosis in a 2.25 mm posterior lateral branch Hyperdynamic ventricle Low LVEDP Nonflow limiting renal artery stenosis PLAN 1. Patient's syncope may be secondary to the hyperdynamic ventricle and intravascular depletion.? Recommend avoiding afterload reducing medicines at this time and maximize diltiazem and beta-blockers 2. Avoid diuretics 3. Better control of hypertension 4. LDL less than 55 to be achieved with high intensity statin 5. Avoidance of tobacco products [facility] Disclaimer: The information contained in this section may have been updated after the patient was seen, as this information can be updated by other users. Medical History (Updated 10/26/22 @ 15:08 by Mary Gandara APRN) Bradycardia CAD (coronary artery disease) Cardiac pacemaker in situ Dizziness HHD (hypertensive heart disease) HLD (hyperlipidemia) Near syncope Symptomatic bradycardia Throat cancer Surgical History (Updated 10/18/22 @ 08:48 by Dave Medley MD) H/O coronary artery bypass surgery Family History (Reviewed 10/16/22 @
== END 2022-10-26 13:46 | disposition still patient (30) ==
LOC: UTC 10:17 → ER 10:39
PROVIDERS: Emergency Provider Student in an Organized Health Care Education/Training Program; PCP Family Medicine
DX: R55 Syncope and collapse (principal); R11.2 Nausea with vomiting, unspecified; I25.10 Atherosclerotic heart disease of native coronary artery without angina pectoris; I11.9 Hypertensive heart disease without heart failure; E78.2 Mixed hyperlipidemia; I47.20 Ventricular tachycardia, unspecified; Z95.1 Presence of aortocoronary bypass graft; Z95.810 Presence of automatic (implantable) cardiac defibrillator
CPT/HCPCS: 71046; 80048; 83735; 84443; 84484; 85025; 93005; 96365; 99285

== ENCOUNTER → 2022-11-07 13:39 | Outpatient (CLI) | payer MEDICARE, BC, SELFPAY ==
[2022-11-07 15:03] LABS: Alanine Aminotransferase 26 U/L (12-78); Albumin Level 3.8 g/dl (3.5-5.0); Albumin/Globulin Ratio 1.5 (1.1-1.8); Alkaline Phosphatase 88 U/L (38-126); Aspartate Amino Transferase 31 U/L (17-59); Bilirubin,Total 0.4 mg/dl (0.2-1.3); Blood Urea Nitrogen 24 mg/dl (9-20); Calcium 9.1 mg/dl (8.4-10.2); Carbon Dioxide 26 mmol/L (22.0-30.0); Estimated Glomerular Filt Rate 53 ml/min (>60); GFR (African American) 64 ML/MIN (>60); Globulin 2.6 g/dL (1.3-3.2); Glucose 218 mg/dl (74-100); Potassium 3.9 mmoL/L (3.5-5.1); Sodium 134 mmol/L (136-145); Total Protein,Serum 6.4 g/dl (6.3-8.2)
[2022-11-07 15:08] LABS: Erythrocyte Sedimentation Rate 17 mm/hr (0-20)
[2022-11-07 15:09] LABS: C-Reactive Protein 1.6 mg/L (0-4)
[2022-11-07 16:09] LABS: Vitamin B12 939 pg/mL (239-931)
[2022-11-07 16:22] LABS: Folate > 20.00 ng/mL
[2022-11-07 16:51] LABS: Anion Gap 13.9 mEq/L (5-15); Chloride 98 mmol/L (98-107)
[2022-11-09 11:17] LABS: Rapid Plasma Reagin Ab Titer Non Reactive (NonRea<1:1)
[2022-12-14 08:03] LABS: Antinuclear Antibodies (ANA) Negative
== END ==
PROVIDERS: PCP Family Medicine; Visit Provider Specialist
DX: G93.40 Encephalopathy, unspecified (principal); R41.3 Other amnesia
CPT/HCPCS: 36415; 80053; 82607; 82746; 85651; 86038; 86140; 86225; 86235; 86593

== ENCOUNTER → 2022-11-10 12:40 | Outpatient (CLI) | payer MEDICARE, BC, SELFPAY ==
[2022-11-11 12:13] LABS: Rapid Plasma Reagin Ab Titer Non Reactive (NonRea<1:1)
[2022-12-10 11:06] LABS: Antinuclear Antibodies (ANA) NEGATIVE
== END ==
PROVIDERS: PCP Family Medicine; Visit Provider Specialist
DX: G93.40 Encephalopathy, unspecified (principal); R41.3 Other amnesia
CPT/HCPCS: 36415; 86038; 86225; 86235; 86593

== ENCOUNTER → 2022-11-28 15:09 | Outpatient (CLI) | payer MEDICARE, BC, SELFPAY ==
[2022-11-28 16:31] LABS: Alanine Aminotransferase 26 U/L (12-78); Albumin Level 4.1 g/dl (3.5-5.0); Alkaline Phosphatase 93 U/L (38-126); Anion Gap 9.8 mEq/L (5-15); Aspartate Amino Transferase 30 U/L (17-59); Bilirubin,Indirect 0.3 mg/dL (0.0-0.9); Bilirubin,Total 0.3 mg/dl (0.2-1.3); Bilirubin,Unconjugated 0.5 mg/dL (0.0-1.1); Blood Urea Nitrogen 20 mg/dl (9-20); Calcium 9.1 mg/dl (8.4-10.2); Carbon Dioxide 29 mmol/L (22.0-30.0); Chloride 99 mmol/L (98-107); Cholesterol 153 mg/dl (140-200); Estimated Glomerular Filt Rate 53 ml/min (>60); GFR (African American) 64 ML/MIN (>60); Glucose 100 mg/dl (74-100); HDL Cholesterol 75 mg/dl (40-60); Potassium 3.8 mmoL/L (3.5-5.1); Sodium 134 mmol/L (136-145); Total Protein,Serum 6.7 g/dl (6.3-8.2); Triglycerides 117 mg/dl (30-150); VLDL Cholesterol 23 mg/dL (0-40)
[2022-11-28 16:42] LABS: Direct LDL Cholesterol 50.67 mg/dL (100-129)
== END ==
PROVIDERS: PCP Family Medicine; Visit Provider Internal Medicine
DX: E11.9 Type 2 diabetes mellitus without complications (principal); E78.5 Hyperlipidemia, unspecified; I11.9 Hypertensive heart disease without heart failure; I25.10 Atherosclerotic heart disease of native coronary artery without angina pectoris; Z95.1 Presence of aortocoronary bypass graft; Z95.5 Presence of coronary angioplasty implant and graft; Z95.810 Presence of automatic (implantable) cardiac defibrillator; I42.8 Other cardiomyopathies
CPT/HCPCS: 80048; 80061; 80076

== ENCOUNTER 2022-11-29 10:00 | Outpatient (RCR) | payer MEDICARE, BC, SELFPAY ==
--- NOTE | 2022-11-08 17:27 | HMH.PTOPEV ---
PT Outpatient Evaluation Rehab PT Outpatient Evaluation Start: 11/08/22 15:06 Freq: Status: Active Protocol: Document 11/08/22 15:06 HALNeda (Rec: 11/08/22 17:27 EN [id number]) E-signed By Shana Gaston, PT Outpatient Therapy Subjective History Subjective History Pt is an 82 y/o male who reports 5-6 weeks ago he woke up one morning and had pain in his left posterolateral hip. Pt denies falls or trauma. Pt reports he walked 45 minutes the day before the injury but had been doing this 3x/week until the injury. Pt reports he was having a constant dull pain unchanged with activities or rest; however, this improved ~1 week ago. Pt reports he has intermittent dull aches of the hip now. Pt denies further comorbidities to report. Chief Complaint Pain Symptom Type Ache,Dull Prior Functional Limitations None Current Functional Limitations Walking Symptom Description Constant but Variable Level of pain today (0-10) 1 Pain scale - at its best (0-10) 1 Pain scale - at its worst (0-10) 3 Hip/Knee Eval Gait Observation General Gait Pattern Observation Shuffling Step Assistive Device Assistive Devices None / NA Palpation Tenderness left Knee Palpation Overall Comment Piriformis and glute med/min Hip Palpation Findings Tenderness ROM right Hip Flexion w/Knee Flexed Active Range 110 of Motion (degrees) Hip External Rotation Active Range of 35 Motion (degrees) Hip Internal Rotation Active Range of 35 Motion (degrees) left Hip Flexion w/Knee Flexed Active Range 110 of Motion (degrees) Hip External Rotation Active Range of 35 Motion (degrees) Hip Internal Rotation Active Range of 35 Motion (degrees) Outpatient Therapy Assessment Impairments Problems/Impairmments Palpation Tenderness,Impaired Strength,Impaired Walking, Subjective C/O Pain,Impaired Self Care/Self Management Prognosis Rehab Potential Good Clinical Impression Consistent with Diagnosis Yes Physicist Nuclear Goals Number of Weeks 3-4 Decreased Palpation Tenderness Yes: Mild-no TTP of L piriformis and gluteal mm
== END 2022-11-29 11:00 | disposition home or self-care (01) ==
LOC: PT 10:00
PROVIDERS: PCP Family Medicine; Visit Provider Orthopaedic Surgery
DX: M76.02 Gluteal tendinitis, left hip (principal)
CPT/HCPCS: 97110; 97163; 97535

== ENCOUNTER 2023-03-15 12:07 | Observation (INO) | payer MEDICARE, BC, SELFPAY ==
[2023-03-15] VITALS (21 sets, daily range): BP systolic 142–201; BP diastolic 52–108; PULSE 60–66; RESP 16–20; TEMP 36.6–37; O2SAT 92–98; BMI 25.7; BMI 25.5
--- NOTE | 2023-03-15 07:09 | IR_ITS ---
APPROVED REPORT Patient Location: Outpatient Riding Teacher: AMRILYN Van RT (R) PROCEDURES Left heart catheterization Left ventriculogram Selective coronary angiogram Selective engagement of the left internal mammary artery to the LAD Intra vascular/coronary lithotripsy to the posterior lateral ventricular branch Drug-eluting stent deployment to the posterior lateral ventricular branch INDICATION Coronary artery disease, History of coronary artery bypass surgery, Syncope Informed consent was obtained prior to the procedure. COMPLICATIONS None Estimated Blood Loss: Less than 10 ML TECHNIQUE One percent lidocaine used to anesthetize the right groin. The right femoral artery was accessed via the Seldinger technique and a 5 [place] sheath was placed in the right femoral artery. A JL 4, JR4 catheter were used to perform left heart catheterization, left ventriculogram selective coronary angiography and selective engagement of the left internal mammary artery. At the end the diagnostic angiogram therapeutic heparin was administered giving a therapeutic ACT 5 [place] sheath was exchanged for a 6 [place] sheath and a NANCE guide catheter was used to perform left internal mammary angiography. The guide catheter was then placed into the right coronary artery where a Choice PT extra-support wire was placed into the posterolateral ventricular branch. A 2.5 x 12 mm shockwave balloon was deployed at 4 mann and 80 pulsations were delivered which significantly reduced the extensive and severe calcification of the vessel. Following this a 2.5 x 26 mm [place] frontier stent was deployed at 18 mann reducing the critical stenosis to 0%. ANNETTE-3 flow was present before and after the procedure. At the end the procedure the apparatus was removed the groin was reprepped gloves were changed sheath was removed and hemostasis was achieved using Perclose device patient was transferred to the postop holding in stable condition ANGIOGRAPHIC RESULTS The left main artery Has an ostial 10 to 20% stenosis and normal distally The left anterior descending artery Has proximal 60% calcified stenoses with proximal to mid vessel calcified 70% stenosis with additional mid vessel 60 and 70% stenoses. There is competitive flow from the left internal mammary artery distally The circumflex artery Is a large vessel giving rise to multiple medium sized obtuse marginal arteries. Proximally there is a concentric 40 to 50% smooth calcified stenosis. All of the obtuse marginal arteries are patent with ANNETTE-3 flow The right coronary artery Is a dominant vessel and has stents in the proximal to mid segment which are all widely patent. A large posterior lateral ventricular branch has a mid vessel concentric heavily calcified 90% stenosis. Distally in the vessels less than 1 mm there is 70% stenosis The MANUEL ventriculogram reveals Normal 60% The left ventricular end-diastolic pressure 10 mmHg NANCE to LAD is widely patent. There is a stent at the anastomosis which is widely patent distally as the LAD wraps the apex there is a concentric 70 to 80% stenosis however the vessel was less than 1 mm in diameter IMPRESSION Coronary disease as described above most notably with a severe calcified stenosis in a large posterior lateral ventricular branch Successful intravascular lithotripsy to the posterior lateral ventricular branch followed by drug-eluting stent deployment reducing the critical disease to 0% Patent NANCE to LAD Persistent moderate stenosis in a large proximal circumflex artery which is unlikely to be flow-limiting Normal ejection fraction Normal left ventricular end-diastolic pressure PLAN 1. Dual antiplatelet therapy 2. LDL less than 55 to be achieved with high intensity statin 3. Avoidance of tobacco
[2023-03-15 08:57] LABS: Hemoglobin 12.4 g/dL (14.1-18.0); Red Blood Count 3.65 M/mm3 (4.60-6.20); White Blood Count 7.6 K/mm3 (4.8-10.8)
[2023-03-15 08:58] LABS: Basophils % 0.4 % (0.1-2.0); Eosinophils # 0.4 K/mm3 (0.0-0.4); Eosinophils % 4.6 % (0.1-12.0); Lymphocytes # 1.6 K/mm3 (0.7-4.5); Lymphocytes % 20.8 % (10-50); Mean Corpuscular HGB Conc 35.4 g/dL (31.8-35.4); Mean Corpuscular Volume 95.9 fl (80-94); Mean Platelet Volume 8.7 fl (7.4-10.4); Monocytes # 0.5 K/mm3 (0.1-1.0); Monocytes % 6.3 % (1.7-9.3); Neutrophils # 5.2 K/mm3 (1.8-7.8); Neutrophils % 67.9 % (37.0-80.0); Platelet Count 235 K/mm3 (142-424); Red Cell Distribution Width 13.3 % (11.5-17.5)
[2023-03-15 09:08] LABS: Anion Gap 10.9 mEq/L (5-15); Blood Urea Nitrogen 24 mg/dl (9-20); Calcium 9.3 mg/dl (8.4-10.2); Carbon Dioxide 28 mmol/L (22.0-30.0); Chloride 99 mmol/L (98-107); Creatinine Clearance Estimated 47 mL/min (50-200); Estimated Glomerular Filt Rate 48 ml/min (>60); GFR (African American) 58 ML/MIN (>60); Glucose 106 mg/dl (74-100); Potassium 3.9 mmoL/L (3.5-5.1); Sodium 134 mmol/L (136-145)
--- NOTE | 2023-03-15 11:17 | HMH.PHAINT1 ---
Pharmacy Intervention Comments: Med reconciliation completed using external fill history
[2023-03-15 11:28] LABS: CATHL Activated Clotting Time 303 SEC (74-125)
--- NOTE | 2023-03-15 12:40 | PC.NURSE ---
arrived by brandier from [facility]
--- NOTE | 2023-03-15 13:06 | EXP.HP ---
History of Present Illness *Admission Date: 03/15/23 *Reason for visit:: S/P stent placement *History of present illness: Mr. Loomis is an 83-year-old male who had a heart cath this morning. 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 Cardiology felt due to his renal insufficiency, the amount of contrast he had to receive, and poorly controlled hypertension, it would be beneficial to keep him for IV fluids and hypertension control as he is at risk for contrast nephropathy. The patient denies any pain at this time. [facility] Disclaimer: The information contained in this section may have been updated after the patient was seen, as this information can be updated by other users. Medical History (Updated 03/15/23 @ 18:19 by Dave Medley MD) Atypical angina Bradycardia CAD (coronary artery disease) Cardiac pacemaker in situ Cardiomyopathy Dizziness HHD (hypertensive heart disease) HLD (hyperlipidemia) Near syncope Osteoarthritis of right knee Renal insufficiency Short-term memory loss Status post placement of implantable loop recorder Symptomatic bradycardia Syncope Tear of meniscus of knee Throat cancer Surgical History (Updated 03/15/23 @ 13:42 by MARYA Burns) AICD (automatic cardioverter/defibrillator) present H/O coronary artery bypass surgery History of colonoscopy History of hernia repair History of tonsillectomy Family History (Updated 03/15/23 @ 13:38 by MARYA Burns) Coronary artery disease Hypertension Social History Smoking Status: Never smoker alcohol intake: never substance use type: denies use current occupational status: retired Travel in the last 8 weeks: Inside the [place] household members: spouse housing: house current occupational exposures/hazards: No caffeine: Yes physical activity: walking frequency: 5-6 times per week duration: 45-60 minutes/day Review of Systems Constitutional Constitutional: Denies body ache(s), Denies chills, Denies fatigue, Denies fever(s), Reports frequent falls, Denies headache(s) and Reports weakness Eyes Eyes: Denies blurry vision and Denies diplopia ENT Ears, Nose, Mouth, and Throat: Denies headache(s) and Reports vertigo *Cardiovascular Cardiovascular: Denies chest pain, Denies dyspnea and Denies leg edema *Respiratory Respiratory: Denies cough and Denies dyspnea *Gastrointestinal Gastrointestinal: Denies abdominal pain, Denies loose stools, Denies nausea and Denies vomiting *Genitourinary Genitourinary: Denies difficulty urinating and Denies dysuria *Musculoskeletal Musculoskeletal: Denies arthralgias and Denies myalgias *Neurologic Neurologic: Reports frequent falls, Denies headache(s), Reports vertigo and Reports weakness Endocrine Endocrine: Denies fatigue Meds Home Medications and Allergies Home Medications Medication Instructions Recorded Confirmed Type aspirin 81 mg tablet,delayed 81 mg PO DAILY HEART HEALTH 09/12/17 03/15/23 History release fluticasone propionate 50 1 spray intranasal BIDP PRN 09/12/17 03/15/23 History mcg/actuation nasal allergies spray,suspension (Flonase Allergy Relief) omega-3 fatty acids 1,000 mg 1,000 mg PO DAILY Supplement 09/12/17 03/15/23 History capsule ascorbic acid (vitamin C) 1,000 mg 1,000 mg PO DAILY supplement 05/23/18 03/15/23 History tablet omeprazole 20 mg capsule,delayed 20 mg PO DAILY Acid reflux 09/10/18 03/15/23 History release rosuvastatin 20 mg tablet 20 mg PO HS Cholesterol 04/18/19 03/15/23 History tamsulosin 0.4 mg capsule 0.4 mg PO DAILY PROSTATE 04/18/19 03/15/23 History coenzyme Q10 100 mg capsule (Co 100 mg PO DAILY Supplement 09/09/19 03/15/23 History Q-10) docusate sodium 100 mg capsule 100 mg PO BID
--- NOTE | 2023-03-15 19:02 | PC.NURSE ---
A&OX4. TOLERATING RA WELL. PT HAS HAD NO NEEDS OR C/O SINCE ARRIVAL TO FLOOR. R GROIN ACCESS SITE CDI. PT UP WITH STANDBY ASSIST TO BATHROOM. NO NEEDS OR C/O, BP IS BETTER CONTROLLED. VSS.
[2023-03-16 04:00] VITALS: BP 145/79; PULSE 60; RESP 15; TEMP 36.8; O2SAT 96; BMI 25.2
[2023-03-16 05:52] LABS: Basophils % 0.3 % (0.1-2.0); Eosinophils # 0.4 K/mm3 (0.0-0.4); Eosinophils % 4.2 % (0.1-12.0); Hematocrit 32.7 % (42.0-52.0); Hemoglobin 11.4 g/dL (14.1-18.0); Lymphocytes # 1.6 K/mm3 (0.7-4.5); Lymphocytes % 18.7 % (10-50); Mean Corpuscular HGB Conc 34.8 g/dL (31.8-35.4); Mean Corpuscular Hemoglobin 33.3 pg (27.0-31.2); Mean Corpuscular Volume 95.7 fl (80-94); Mean Platelet Volume 8.6 fl (7.4-10.4); Monocytes # 0.6 K/mm3 (0.1-1.0); Monocytes % 7.4 % (1.7-9.3); Neutrophils # 5.9 K/mm3 (1.8-7.8); Neutrophils % 69.4 % (37.0-80.0); Platelet Count 199 K/mm3 (142-424); Red Blood Count 3.42 M/mm3 (4.60-6.20); Red Cell Distribution Width 13.4 % (11.5-17.5); White Blood Count 8.5 K/mm3 (4.8-10.8)
[2023-03-16 06:01] LABS: Blood Urea Nitrogen 23 mg/dl (9-20); Calcium 8.8 mg/dl (8.4-10.2); Carbon Dioxide 25 mmol/L (22.0-30.0); Chloride 100 mmol/L (98-107); Creatinine Clearance Estimated 58 mL/min (50-200); Estimated Glomerular Filt Rate 64 ml/min (>60); GFR (African American) 77 ML/MIN (>60); Glucose 110 mg/dl (74-100); Sodium 132 mmol/L (136-145)
--- NOTE | 2023-03-16 06:43 | PC.NURSE ---
Patient LCTA, VSS, Cath site in groin dressing c/d/i. Patient rested most of shift; recvd 600mL fluids. Call light within reach; bed at lowest level for safety.
[2023-03-16 08:00] VITALS: BP 129/67; PULSE 60; RESP 17; TEMP 36.8; O2SAT 96; O2SAT 98
--- NOTE | 2023-03-16 08:25 | EXP.ACUTE.PN ---
Subjective *Date: 03/16/23 *Time: 08:57 Interval history: Patient is feeling well this am. He denies any chest pain or SOA. He slept well and ate a small amount of breakfast this am. Medical Exam Vital signs and Labs for Last 24 Hours: Vital Signs Temp Pulse Pulse Resp BP BP Pulse Ox 03/16/23 08:00 98.2 F 60 17 129/67 96 03/16/23 06:38 03/16/23 05:00 03/16/23 04:00 98.2 F 60 15 145/79 H 96 03/16/23 03:00 03/16/23 01:00 03/15/23 23:00 03/15/23 21:00 03/15/23 20:00 95 03/15/23 20:00 97.9 F 60 17 142/75 H 96 03/15/23 18:49 03/15/23 18:05 63 17 159/62 H 97 03/15/23 17:05 63 17 159/52 H 96 03/15/23 16:39 03/15/23 16:05 60 16 155/81 H 98 03/15/23 15:05 61 16 144/75 H 96 03/15/23 15:00 03/15/23 14:05 60 17 191/97 H 97 03/15/23 13:35 60 17 185/100 H 96 03/15/23 13:05 60 17 193/97 H 95 03/15/23 12:35 60 17 190/98 H 96 03/15/23 13:00 03/15/23 12:48 185/100 H 03/15/23 13:16 03/15/23 11:35 61 20 196/108 H 92 L 03/15/23 11:50 66 20 198/95 H 93 L 03/15/23 12:00 60 20 196/100 H 92 L 03/15/23 12:18 190/100 H 03/15/23 11:20 60 18 201/98 H 92 L 03/15/23 11:05 60 17 195/95 H 95 03/15/23 11:00 63 18 191/85 H 95 03/15/23 10:55 60 03/15/23 10:53 60 18 192/93 H 98 03/15/23 08:55 98.6 F 60 18 193/96 H 96 03/15/23 08:52 60 O2 Del Method O2 Del Method 03/16/23 08:00 Room Air 03/16/23 06:38 Room Air 03/16/23 05:00 Room Air 03/16/23 04:00 03/16/23 03:00 Room Air 03/16/23 01:00 Room Air 03/15/23 23:00 Room Air 03/15/23 21:00 Room Air 03/15/23 20:00 Room Air 03/15/23 20:00 Room Air 03/15/23 18:49 Room Air 03/15/23 18:05 Room Air 03/15/23 17:05 Room Air 03/15/23 16:39 Room Air 03/15/23 16:05 Room Air 03/15/23 15:05 Room Air 03/15/23 15:00 Room Air 03/15/23 14:05 Room Air 03/15/23 13:35 Room Air 03/15/23 13:05 Room Air 03/15/23 12:35 Room Air 03/15/23 13:00 Room Air 03/15/23 12:48 03/15/23 13:16 Room Air 03/15/23 11:35 Room Air 03/15/23 11:50 Room Air 03/15/23 12:00 Room Air 03/15/23 12:18 03/15/23 11:20 Room Air 03/15/23 11:05 03/15/23 11:00 03/15/23 10:55 03/15/23 10:53 Room Air 03/15/23 08:55 Room Air Room Air 03/15/23 08:52 Intake and Output 03/15/23 03/16/23 03/16/23 19:59 03:59 11:59 Intake Total 1123 / 2193 1070 / 2193 Output Total 0 / 0 Balance 1123 / 2193 1070 / 2193 Intake: Intake, Oral Amount 510 / 980 470 / 980 Intake, Total IV Amount 613 / 1213 600 / 1213 0.9 % Sodium Chloride 1000ML 1, 613 / 1213 600 / 1213 000 ml @ 150 mls/hr IV .Q6H40M [facility] Rx#:[id number] Output: Output, Urine Amount 0 / 0 Other: Number of Unmeasured Voids 1 2 Number of Bowel Movements 1 Weight 183 lb 2 oz 180 lb 4 oz Patient Weight 03/16/23 11:59 Weight 180 lb 4 oz Laboratory Results - last 24 hr 03/15/23 08:40: WBC 7.6, RBC 3.65 L, Hgb 12.4 L, Hct 35.0 L, MCV 95.9 H, MCH 34.0 H, MCHC 35.4, RDW 13.3, Plt Count 235, MPV 8.7, Neut % (Auto) 67.9, Lymph % (Auto) 20.8, [place] % (Auto) 6.3, Eos % (Auto) 4.6, Baso % (Auto) 0.4, Neut # (Auto) 5.2, Lymph # (Auto) 1.6, [place] # (Auto) 0.5, Eos # (Auto) 0.4, Baso # (Auto) 0.0, Sodium 134 L, Potassium 3.9, Chloride 99, Carbon Dioxide 28, Anion Gap 10.9, BUN 24 H, Creatinine 1.40 H, Estimated Creat Clear 47, Estimated GFR 48 L, Est GFR ( Amer) 58 L, Glucose 106 H, Calcium 9.3 03/15/23 11:25: Activated Clotting Time 303 H* 03/16/23 05:36: WBC 8.5, RBC 3.42 L, Hgb 11.4 L, Hct 32.7 L, MCV 95.7 H, MCH 33.3 H, MCHC 34.8, RDW 13.4, Plt Count 199, MPV 8.6, Neut % (Auto) 69.4, Lymph % (Auto) 18.7, [place] % (Auto) 7.4, Eos % (Auto) 4.2, Baso % (Auto) 0.3, Neut # (Auto) 5.9, Lymph # (Auto) 1.6, [place] # (Auto) 0
--- NOTE | 2023-03-17 16:12 | CARE MANAGER ---
Called and spoke with patient's regarding recent discharge. She stated that he is doing well, no concerns at time of call. Aware of scheduled f/u appts.
--- NOTE | 2023-03-21 14:00 | EXP.DC.SUM ---
General Admission date:: 03/15/23 Discharge date: 03/16/23 HPI HPI HPI: Mr. Loomis is an 83-year-old male who had a heart cath this morning. 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 Cardiology felt due to his renal insufficiency, the amount of contrast he had to receive, and poorly controlled hypertension, it would be beneficial to keep him for IV fluids and hypertension control as he is at risk for contrast nephropathy. The patient denies any pain at this time. Hospital Course Hospital Course Hospital Course: The patient was started on dual antiplatelet therapy and was kept overnight for monitoring due to the copious amounts of contrast he received and the risk for contrast nephropathy. He was started on IV fluids and blood pressure medication as his blood pressure was elevated. By 03/16/2023, he was feeling well and denied any chest pain or shortness of air. He was able to eat. His kidney function was normal and his blood pressure improved. He was stable to be discharged home. Exam Data for Last 24 hours Vital signs and Labs for Last 24 Hours: Temp Pulse Resp BP Pulse Ox O2 Del Method 98.2 F 60 17 129/67 98 Room Air 03/16/23 08:00 03/16/23 08:00 03/16/23 08:00 03/16/23 08:00 03/16/23 08:00 03/16/23 09:00 Narrative: Constitutional Constitutional: no acute distress *Routine HEENT Exam Head: Present normocephalic and atraumatic Eye: Present EOMI and PERRL ENT: Present mucous membranes moist *Routine Neck Exam Neck: Present supple and full ROM *Routine Respiratory Exam Respiratory: Present CTA bilaterally *Routine Cardiovascular Exam Cardiovascular: Present RRR *Routine Abdominal Exam Abdominal: Present soft and normoactive bowel sounds; Absent tenderness *Routine Rectal Exam Rectal:: deferred *Routine Genitalia Exam Genitalia:: deferred *Routine Extremities Exam Extremities: Absent cyanosis, clubbing or edema *Routine Skin Exam Skin: Present intact (dressing in the right groin clean and dry); Absent erythema *Routine Neurological Exam Neurological: Present alert and oriented X3 DS: Diagnosis Discharge Diagnosis (1) Stented coronary artery: Status: Acute Code(s): Z95.5 - Presence of coronary angioplasty implant and graft (2) Syncope: Status: Chronic Code(s): R55 - Syncope and collapse Qualifiers: Encounter type: sequela (3) 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 Code(s): Z95.810 - Presence of automatic (implantable) cardiac defibrillator (4) Cardiomyopathy: Status: Chronic Code(s): I42.9 - Cardiomyopathy, unspecified Qualifiers: Cardiomyopathy type: unspecified Qualified Code(s): I42.9 - Cardiomyopathy, unspecified (5) Short-term memory loss: Status: Chronic Code(s): R41.3 - Other amnesia Problem details: Short-term memory impairment associated with cognitive decline. 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 Neurocognitive testing inconsistent with clinical correlation. He has multiple risk factors for cardiovascular events therefore vascular dementia is high on the differential diagnosis. (6) Hypertension: Status: Chronic Code(s): I10 - Essential (primary) hypertension Qualifiers: Hypertension type: unspecified Qualified Code(s): I10 - Essential (primary) hypertension (7) Throat cancer: Status: Chronic Code(s): C14.0 - Malignant neoplasm of pharynx, unspecified (8) H/O coronary artery bypass surgery: Status: Chronic Code(s): Z95.1 - Presence of aortocoronary bypass graft (9) HLD (hyperlipidemia): Status: Chronic Code(s): E78.5 - Hyperlipi
== END 2023-03-16 11:32 | disposition home or self-care (01) ==
LOC: 2ND 12:08
PROVIDERS: Internal Medicine; Admitting Provider Family Medicine; PCP Family Medicine; Visit Provider Family Medicine
DX: I25.10 Atherosclerotic heart disease of native coronary artery without angina pectoris; I42.9 Cardiomyopathy, unspecified; Z95.5 Presence of coronary angioplasty implant and graft; R55 Syncope and collapse; Z95.810 Presence of automatic (implantable) cardiac defibrillator; R41.3 Other amnesia; C14.0 Malignant neoplasm of pharynx, unspecified; Z95.1 Presence of aortocoronary bypass graft; E78.2 Mixed hyperlipidemia; I11.9 Hypertensive heart disease without heart failure; N28.9 Disorder of kidney and ureter, unspecified
CPT/HCPCS: 0715T; 36415; 80048; 85025; 85347; 92928; 93459; 99152; 99153; C1725; C1760; C1761; C1769; C1876; C1894; C9600; G0378; J1644; Q9967

== ENCOUNTER 2023-05-02 16:08 | Outpatient (CLI) | payer MEDICARE, BC, SELFPAY ==
[2023-05-02 17:04] LABS: Basophils % 0.4 % (0.1-2.0); Eosinophils # 0.2 K/mm3 (0.0-0.4); Eosinophils % 1.9 % (0.1-12.0); Hematocrit 37.3 % (42.0-52.0); Hemoglobin 12.1 g/dL (14.1-18.0); Lymphocytes # 2.1 K/mm3 (0.7-4.5); Lymphocytes % 24.5 % (10-50); Mean Corpuscular HGB Conc 32.3 g/dL (31.8-35.4); Mean Corpuscular Hemoglobin 31.8 pg (27.0-31.2); Mean Corpuscular Volume 98.5 fl (80-94); Mean Platelet Volume 8.4 fl (7.4-10.4); Monocytes # 0.5 K/mm3 (0.1-1.0); Monocytes % 5.3 % (1.7-9.3); Neutrophils # 5.8 K/mm3 (1.8-7.8); Neutrophils % 67.8 % (37.0-80.0); Platelet Count 231 K/mm3 (142-424); Red Blood Count 3.79 M/mm3 (4.60-6.20); Red Cell Distribution Width 13.7 % (11.5-17.5); White Blood Count 8.6 K/mm3 (4.8-10.8)
[2023-05-02 17:29] LABS: Alanine Aminotransferase 17 U/L (12-78); Albumin Level 4.3 g/dl (3.5-5.0); Alkaline Phosphatase 85 U/L (38-126); Anion Gap 11.5 mEq/L (5-15); Aspartate Amino Transferase 38 U/L (17-59); Bilirubin,Direct 0.2 mg/dl (0.0-0.4); Bilirubin,Indirect 0.4 mg/dL (0.0-0.9); Bilirubin,Total 0.6 mg/dl (0.2-1.3); Bilirubin,Unconjugated 0.4 mg/dL (0.0-1.1); Blood Urea Nitrogen 26 mg/dl (9-20); Calcium 8.8 mg/dl (8.4-10.2); Carbon Dioxide 23 mmol/L (22.0-30.0); Chloride 102 mmol/L (98-107); Chol/HDL Ratio 3.6 (1-3.5); Cholesterol 193 mg/dl (140-200); Estimated Glomerular Filt Rate 48 ml/min (>60); GFR (African American) 58 ML/MIN (>60); Glucose 164 mg/dl (74-100); HDL Cholesterol 53 mg/dl (40-60); Magnesium 1.9 mg/dl (1.6-2.3); Potassium 4.5 mmoL/L (3.5-5.1); Sodium 132 mmol/L (136-145); Triglycerides 99 mg/dl (30-150); VLDL Cholesterol 20 mg/dL (0-40)
[2023-05-02 17:42] LABS: Direct LDL Cholesterol 103.79 mg/dL (100-129)
[2023-05-02 17:43] LABS: Troponin I < 0.01 ng/ml (0.00-0.034)
[2023-05-02 17:48] LABS: Free T4 (Free Thyroxine) 1.59 ng/dl (0.78-2.19)
[2023-05-02 18:00] LABS: Thyroid Stimulating Hormone 2.08 uIU/mL (0.465-4.68)
== END 2023-05-02 23:59 ==
PROVIDERS: PCP Family Medicine; Visit Provider Internal Medicine
DX: E78.5 Hyperlipidemia, unspecified (principal); I11.9 Hypertensive heart disease without heart failure; I25.10 Atherosclerotic heart disease of native coronary artery without angina pectoris; R55 Syncope and collapse; I42.9 Cardiomyopathy, unspecified; Z95.1 Presence of aortocoronary bypass graft; Z95.5 Presence of coronary angioplasty implant and graft
CPT/HCPCS: 36415; 80048; 80061; 80076; 83735; 84439; 84443; 84484; 85025

== ENCOUNTER 2023-05-08 11:02 | Outpatient (CLI) | payer MEDICARE, BC, SELFPAY ==
--- NOTE | 2023-05-08 11:09 | XR_ITS ---
FINAL REPORT CLINICAL HISTORY: RT KNEE PAIN COMPARISON: None FINDINGS: Three views of the right knee reveal no evidence of fracture or dislocation. The bony alignment is normal. There is moderate degenerative change. A moderate joint effusion is noted. There are vascular calcifications. IMPRESSION: Moderate degenerative changes with moderate joint effusion, but no acute abnormality identified. Reviewed, Interpreted and Dictated by Jensen Ring III, MD Transcribed by Destini Stroud Authenticated and [facility]
== END 2023-05-08 23:59 ==
LOC: RAD 11:04
PROVIDERS: PCP Family Medicine; Visit Provider Family Medicine
DX: M17.11 Unilateral primary osteoarthritis, right knee (principal); M25.561 Pain in right knee
CPT/HCPCS: 73562

== ENCOUNTER 2023-05-10 10:00 | Outpatient (RCR) | payer MEDICARE, BC, SELFPAY ==
--- NOTE | 2023-03-09 10:57 | HMH.PTOPEV ---
PT Outpatient Evaluation Rehab PT Outpatient Evaluation Start: 03/09/23 10:08 Freq: Status: Active Protocol: Document 03/09/23 10:46 ALIDA (Rec: 03/09/23 10:57 KEIRADANYELL [id number]) E-signed By Wesley Vega, PT Outpatient Therapy Subjective History Subjective History Patient is an 83 year old male presenting to outpatient PT with reports of R knee pain of insidious onset starting approx 1 month ago. Main complaint is pain with end range knee flexion. No recent imaging to report Comorbidities include hx of HTN and OA. New diagnosis of cancer in past 12 No months? Chief Complaint Pain,Stiff,Gives out/Unstable, Weakness Symptom Type Ache,Dull Symptoms Relieved By Rest/Positioning Symptoms Aggravated By Standing,Physical Activity, Walking Prior Functional Limitations None Current Functional Limitations Housework,Standing,Recreation Activity,Walking,Stairs, Balance Symptom Description Intermittent Level of pain today (0-10) 0 Pain scale - at its best (0-10) 0 Pain scale - at its worst (0-10) 3 Hip/Knee Eval Gait Observation General Gait Pattern Observation Antalgic Gait,Decrease Weight Bear (R) Palpation Tenderness right Knee Palpation Finding Tenderness Knee Palpation Overall Comment lateral joint line 2/4, patellar tendon 2/4 MMT Hip Flexion Strength Grade 4- Good- Hip Abduction Strength Grade 4- Good- Hip Adduction Strength Grade 4- Good- Hip Extension Strength Grade 3+ Fair+ Hip External Rotation Strength Grade 4- Good- Hip Internal Rotation Strength Grade 3+ Fair+ Knee Extension Strength Grade 3+ Fair+ Knee Flexion Strength Grade 4- Good- ROM Hip ROM Reason Not Measured Within Functional Limits Knee Extension Active Range of Motion ( 114 degrees) Knee Flexion Active Range of Motion ( -4 degrees) Special Tests Knee Anterior Vladimir Test Negative Right Knee Valgus Stress Test Negative Right Knee Varus Stress Test Negative Right Knee Basil Test Negative Right Lower Extremity Functional Index Activities Today, do you or would you have any difficulty at all with: a.Any of your usual work, housework or Moderate difficulty school activities b. Your usual hobbies, recreational or Moderate difficulty sporting activities c. Getting into or out of the bath Moderate difficulty d. Walking between rooms A little bit of difficulty e. Putting on your shoes or socks No difficulty f. Squatting A little bit of difficulty g. Lifting an object, like a bag of A little bit of difficulty groceries from the floor h. Performing light activities around A little bit of difficulty your home i. Performing heavy activities around Quite a bit of difficulty your home j. Getting into or out of a car A little bit of difficulty k. Walking 2 blocks Moderate difficulty l. Walking a mile Extreme difficulty or unable to perform activity m. Going up or down 10 stairs (about 1 Quite a bit of difficulty flight of stairs) n. Standing for 1 hour Quite a bit of difficulty o. Sitting for 1 hour A little bit of difficulty p. Running on even ground Extreme difficulty or unable to perform activity q. Running on uneven ground Extreme difficulty or unable to perform activity r. Making sharp turns while running fast Extreme difficulty or unable to perform activity s. Hopping Extreme difficulty or unable to perform activity t. Rolling over in bed No difficulty LEFI Score Lower Extremity Functional Index Score 37 Outpatient Therapy Assessment Impairments Problems/Impairmments Palpation Tenderness,Impaired Range of Motion,Impaired Strength,Impaired Walking, Impaired Standing,Impaired Household Care,Impaired Stair Climbing,Impaired Incline Stepping,Impaired Stepping on Uneven Surface,Impaired Squatting,Impaired Recreational Activities, Impaired Balance,Subjective C/ O Pain Prognosis Rehab Potential Good Clinical Impression Consistent with Diagnosis Yes Short Term Goals Number of Weeks 2 Decrease Subjective C/O Pain Yes: 2/10 at worst Patient to be Ind w/ HEP Yes Environmental Associate Goals Number of Weeks 4-6 Decreased Palpation Tenderness Yes: 1/4 Increase Range of Motion Yes: 0-120 Increase Strength Yes: RLE 5/5 Increase Ability to Walk Yes: 30 min without difficulty Increase Ability to Stand Yes: Improve Ability For Household Care Yes Improve Ability to Climb Stairs Yes: 1 flight without difficulty Improve LEFI Score Yes: 50+ Outpatient Therapy Plan of Care Treatment Plan May Include Therapeutic Exercise Including Home Yes Exercise Program Manual Therapy Techniques Yes Neuromuscular Re-education Yes Therapeutic Activities to Return to Yes Previous Functional/Work Level Gait Training Yes ADL/Self Care Education Yes Dry Needling Yes Thermal Modalities Yes Electrical Stimulation Yes Ultrasound/Phonophoresis Yes Iontophoresis Yes Orthotics/Bracing/Splinting Yes Vasopneumatic Compression Pump Yes Massage Yes Manual Lymphatic Drainage Yes Eval/Re-Eval Yes Frequency Times per week 2 Duration Number of Weeks 4-6 Addendums This patient is a candidate for social No or vocational rehab? Patient/Guardian verbally acknowledges Yes understanding of treatment program and consents to further treatment? Patient/Guardian verbally acknowledges Yes understanding of diagnosis, prognosis and goals for treatment? Eval Complexity PT Charges 15002 - Moderate Complexity Shoulder/Elbow Eval Shoulder Objective Measurements Elbow Objective Measurements PHYSICIAN CERTIFICATION: I certify the specified therapy services for Jensen Loomis are required, authorized, and reviewed every 30 days.
--- NOTE | 2023-04-06 10:01 | HMH.RHREAS ---
Rehab Reassessment Rehab OP Re-assessment Start: 03/09/23 10:08 Freq: Status: Active Protocol: Document 04/06/23 09:33 ALIDA (Rec: 04/06/23 09:59 ALIDA [id number]) E-signed By Wesley Vega, PT Lower Extremity Functional Index Activities Today, do you or would you have any difficulty at all with: a.Any of your usual work, housework or Quite a bit of difficulty school activities b. Your usual hobbies, recreational or Quite a bit of difficulty sporting activities c. Getting into or out of the bath Moderate difficulty d. Walking between rooms Moderate difficulty e. Putting on your shoes or socks No difficulty f. Squatting Extreme difficulty or unable to perform activity g. Lifting an object, like a bag of Quite a bit of difficulty groceries from the floor h. Performing light activities around Extreme difficulty or unable your home to perform activity i. Performing heavy activities around Moderate difficulty your home j. Getting into or out of a car Moderate difficulty k. Walking 2 blocks Extreme difficulty or unable to perform activity l. Walking a mile Extreme difficulty or unable to perform activity m. Going up or down 10 stairs (about 1 A little bit of difficulty flight of stairs) n. Standing for 1 hour Quite a bit of difficulty o. Sitting for 1 hour No difficulty p. Running on even ground Extreme difficulty or unable to perform activity q. Running on uneven ground Extreme difficulty or unable to perform activity r. Making sharp turns while running fast Extreme difficulty or unable to perform activity s. Hopping Extreme difficulty or unable to perform activity t. Rolling over in bed No difficulty LEFI Score Lower Extremity Functional Index Score 27 Rehab Re-assessment Subjective Subjective Patient reports 30% improvement since start of care. Objective Objective Notes R knee AROM: -3-121 MMT: 4+/5 grossly R hip/thigh mm Neuro: WNL TTP: lateral joint line 2/4 Assessment Progress Assessment Progressing as Expected Assessment Notes Introduced neuro re-ed activities for safety today. Patient would benefit from continuing with skilled PT interventions in order to address functional limitations with all standing/ambulatory activities. Patient goals met STG 2 Goals Not Met All others Revised Goals NA Plan Plan Continue with current POC. Frequency of Therapy 2x/week Duration of therapy 4 weeks Time and Billing Re-Eval Time 14 Re-Eval Billing Units 1 PHYSICIAN CERTIFICATION: I certify the specified therapy services for Jensen Loomis are required, authorized, and reviewed every 30 days.
== END 2023-05-10 11:00 | disposition home or self-care (01) ==
LOC: PT 10:00
PROVIDERS: PCP Family Medicine; Visit Provider Family Medicine
DX: M79.604 Pain in right leg (principal)
CPT/HCPCS: 97110; 97112; 97116; 97163; 97164; 97530; 97535

== ENCOUNTER 2023-05-22 12:32 | Emergency (ER) | payer MEDICARE, BC, SELFPAY ==
[2023-05-22] VITALS (10 sets, daily range): BP systolic 90–143; BP diastolic 44–70; PULSE 60–63; RESP 11–21; TEMP 36.7–36.8; O2SAT 96–100; BMI 25.7
--- NOTE | 2023-05-22 12:36 | PC.NURSE ---
Dr. Camarena at BS
--- NOTE | 2023-05-22 12:40 | ECG_ITS ---
APPROVED REPORT Exam: Resting ECG HR:60 bpm ECG Measurements Heart Rate 60 AXES RI 200 P 106 QRSd 109 QRS 8 QT 442 T 55 QTc 442 Conclusion ELECTRONIC ATRIAL PACEMAKER INCOMPLETE RIGHT BUNDLE BRANCH BLOCK [90+ ms QRS DURATION, TERMINAL R IN V1/V2, 40+ ms S IN I/aVL/V4/V5/V6] ABNORMAL RHYTHM ECG UNCONFIRMED REPORT Electronically signed by : Wilfred Ramirez MD 05/26/2023 14:50:36
--- NOTE | 2023-05-22 12:41 | XR_ITS ---
FINAL REPORT CLINICAL HISTORY: syncope, pacer in place COMPARISON: 10/16/2022 FINDINGS: A single portable view of the chest was obtained. A left subclavian pacemaker remains present. The patient has undergone a prior midline sternotomy. There are chronic changes in the lung horner bilaterally that are stable when compared to the prior film of 2022. No evidence of pneumothorax is seen. The heart size and pulmonary vascularity are within normal limits. The mediastinum is within normal limits. No acute pulmonary abnormality is identified. The bony thorax is intact. IMPRESSION: Prior midline sternotomy, left subclavian pacemaker remains present. Stable chest x-ray when compared to the prior exam of 2022. Reviewed, Interpreted and Dictated by Davey Casillas MD Transcribed by Karen Sands Authenticated and [facility]
--- NOTE | 2023-05-22 12:42 | CA_ITS ---
APPROVED REPORT EXAM: Comprehensive 2D, Doppler, and color-flow Echocardiogram Transmitter Engineer In Charge: Myranda Gross RVT Ht: 5 ft 10 in Wt: 184lbs BSA: 2.02 BP: 130/62 mmHg Indications: SYNCOPE,AICD,BRADYCARDIA,CAD,CM,CABG,HTN,HLD M-Mode Dimensions RVDd 2.93 cm (0.9-2.6) LA Diam 2.47 cm (1.9-4.0) LVDd 4.03 cm (3.5-5.7) LVDs 2.63 cm (3.5-5.7) IVSd 1.40 cm (0.6-1.1) PWd 0.64 cm (0.6-1.1) EF (Teich) 64.50% FS 34.70% EDV (Teich) 71.30 mL ESV (Teich) 25.30 mL LV Diastology E Decel Time 173 (160-240 msec) E/A Ratio 0.9 Aortic Valve BAO Index 1.52 cm2/m2 AoV Peak Ricardo. 134.0 (50-130 cm/s) AO Peak GR. 7.20 mmHg AO Mean GR. 3.60 (<5 mmHg) AO VTI 30.0 (18-25 cm) BAO (VTI) 3.13 (2.5-4.5 cm2) Mitral Valve MV E Max Ricardo. 58.0 (40-130 cm/s) MV A Velocity 63.0 (40-130 cm/s) E/A Ratio 0.91 MV PHT 51.0 ms Pulmonary Valve PV Peak Velocity 89.0 (50-150 cm/s) Tricuspid Valve TR P. Velocity 298.00 cm/s RAP Estimate 10.00 mmHg RVSP 45.50 mmHg Left Ventricle The left ventricle is normal size. The left ventricular systolic function is normal. The left ventricular ejection fraction is within the normal range. There is increased LV wall thickness. There is moderate hypokinesis of the inferolateral LV wall. The left ventricular diastolic function is normal. LVEF is 55%. Right Ventricle The right ventricle is normal size. The right ventricular systolic function is normal. There is a device lead present in the right ventricle. Atria The left atrium size is normal. The right atrium size is normal. There is no Doppler evidence of interatrial shunt. Aortic Valve The aortic valve is mildly thickened. There is no aortic valvular stenosis. No aortic regurgitation is present. Mitral Valve The mitral valve leaflets are mildly thickened. No evidence of mitral valve stenosis. Trace mitral valve regurgitation. Tricuspid Valve The tricuspid valve leaflets are thin and pliable. Mild tricuspid regurgitation. RVSP is 30-35 mmHg. Pulmonic Valve The pulmonary valve is normal in structure. Mild pulmonic regurgitation. Great Vessels The aortic root is normal in size. The ascending aorta is normal in size. IVC is normal in size and collapses >50% with inspiration. Pericardium There is no pericardial effusion. Other Information Study Quality: Fair Conclusion Normal biventricular systolic function. Moderate hypokinesis of the inferolateral LV wall. Mild TR, mild PI. Electronically signed by : Poly Moore MD 05/23/2023 11:54:21
--- NOTE | 2023-05-22 12:43 | PC.NURSE ---
Called cardiology for consult at this time.
--- NOTE | 2023-05-22 12:45 | PC.NURSE ---
Dr. Plummer speaking with Priya Acosta.
[2023-05-22 12:55] LABS: Basophils % 0.2 % (0.1-2.0); Eosinophils # 0.2 K/mm3 (0.0-0.4); Eosinophils % 1.4 % (0.1-12.0); Hematocrit 35.8 % (42.0-52.0); Lymphocytes # 2.7 K/mm3 (0.7-4.5); Mean Corpuscular HGB Conc 33.7 g/dL (31.8-35.4); Mean Corpuscular Hemoglobin 32.1 pg (27.0-31.2); Mean Corpuscular Volume 95.4 fl (80-94); Mean Platelet Volume 8.6 fl (7.4-10.4); Monocytes # 0.7 K/mm3 (0.1-1.0); Neutrophils # 8.2 K/mm3 (1.8-7.8); Neutrophils % 69.3 % (37.0-80.0); Platelet Count 262 K/mm3 (142-424); Red Blood Count 3.75 M/mm3 (4.60-6.20); Red Cell Distribution Width 13.7 % (11.5-17.5); White Blood Count 11.8 K/mm3 (4.8-10.8)
--- NOTE | 2023-05-22 12:55 | ED_ITS ---
Discharge Plan Disposition Patient Disposition: Home, Self-Care Condition: Fair Prescriptions Prescriptions: New diltiazem HCl 90 mg capsule,extended release 12 hr 90 mg PO BID Qty: 60 0RF Discontinued diltiazem HCl 90 mg Capsule,Extended Release 12 Hr 90 mg PO BID No Action memantine [Namenda] 10 mg tablet 10 mg PO BID Qty: 60 11RF fluticasone propionate [Flonase Allergy Relief] 50 mcg/actuation spray,suspension 1 spray INTRANASAL BIDP PRN (Reason: allergies) aspirin 81 mg tablet,delayed release (DR/EC) 81 mg PO DAILY omega-3 fatty acids 1,000 mg capsule 1,000 mg PO DAILY ascorbic acid (vitamin C) 1,000 mg tablet 1,000 mg PO DAILY Restasis 0.05 % dropperette 1 drp Eye-Both Q12H omeprazole 20 mg capsule,delayed release(DR/EC) 20 mg PO DAILY coenzyme Q10 [Co Q-10] 100 mg capsule 100 mg PO DAILY levothyroxine 88 mcg tablet 88 mcg PO DAILY Patient Comments: TAKE ONE TABLET BY MOUTH EVERY DAY donepezil 5 mg tablet 5 mg PO HS Patient Comments: TAKE ONE TABLET BY MOUTH EVERY DAY AT BEDTIME clopidogrel 75 mg tablet 75 mg PO DAILY Patient Comments: TAKE ONE TABLET BY MOUTH ONCE DAILY sertraline 25 mg tablet 25 mg PO DAILY Patient Comments: TAKE ONE TABLET BY MOUTH EVERY DAY FOR vasovagal passing OUT bisoprolol fumarate 5 mg tablet 5 mg PO DAILY tamsulosin 0.4 MG capsule 0.4 mg PO DAILY Patient Comments: TAKE ONE CAPSULE BY MOUTH EVERY DAY rosuvastatin 20 MG tablet 20 mg PO HS Patient Comments: TAKE ONE TABLET BY MOUTH EVERY DAY AT BEDTIME Activity Restrictions/Add. Instructions Additional Instructions/Restrictions: You were evaluated in the emergency department today. Per cardiology recommendations, we are decreasing your blood pressure medications. Based on your medication list that we have, it looks like you take bisoprolol 5 mg daily as well as diltiazem 180 mg twice a day. We would recommend decreasing the di ltiazem to 90 mg twice a day. We sent in a prescription for this. Please follow up with cardiology as well as your primary care provider over the next 3 days. Make sure you are staying hydrated. Return to the Emergency Department for new or worsening symptoms. Clinical Impressions Clinical Impression: Syncope, Orthostatic hypotension Instructions Patient Instructions: DI for Syncope in Adults (Fainting) Discharge ED Provider: Shana Plummer General Adult HPI <Shana Plummer DO - Last Filed: 05/22/23 16:25> General Chief complaint: Syncope Stated complaint: Syncope Time Seen by Provider: 05/22/23 12:38 Mode of Arrival: EMS Source of Information: Patient and Spouse Limitations: No Limitations Description of Symptoms (Recalled from ER Triage Doc. by RN): Pt. arrived via EMS after a syncopal episode at [employer]. Pts spouse states he passed out while they were eating. He was unconscious for approx 1 min. She states he has had 5-6 episodes recently. He is currently alert and oriented and has no complaints. Pt. does have a pacemaker/ defibrillator. History of Present Illness HPI narrative: This patient is an 83-year-old male with extensive cardiac history including advanced heart failure with AICD in place, hypertension, hyperlipidemia, CAD status post stenting and CABG, hypertensive heart disease, and memory loss with multiple episodes of syncope in the past presenting to the emergency department following a syncopal episode. According to the patient and his , he was at [employer] eating. He had different his food when he passed out. He states that the episode came on very suddenly and he was feeling fine prior to this. He was unconscious for approximately 1 minute. He quickly returned to neurologic baseline upon waking, but he states that he feels generally weak. EMS brought the patient in, who noted that he was hemodynamically stable en route with a normal fingerstick blood glucose. According to the patient and his , he has had multiple syncopal episodes over the last several months. He had an AICD imp lanted in March, which is [employer]. He was admitted to an outside hospital May 01 for syncope, and he was subsequently seen in cardiology clinic. He notes he had extensive workup while admitted, but they could not find anything. He is awaiting an echocardiogram but has not gotten this yet because they are awaiting insurance approval. Patient states that he has been feeling fine as of late with no headaches, dizziness, chest pain, shortness of breath, abdominal pain, nausea, vomiting, fevers, cough, congestion, or other concerns. Related Data Home Medications Medication Instructions Recorded Confirmed aspirin 81 mg tablet,delayed 81 mg PO DAILY [facility] 09/12/17 05/22/23 release fluticasone propionate 50 1 spray intranasal BIDP PRN 09/12/17 05/22/23 mcg/actuation nasal allergies spray,suspension (Flonase Allergy Relief) omega-3 fatty acids 1,000 mg 1,000 mg PO DAILY Supplement 09/12/17 05/22/23 capsule ascorbic acid (vitamin C) 1,000 mg 1,000 mg PO DAILY supplement 05/23/18 05/22/23 tablet omeprazole 20 mg capsule,delayed 20 mg PO DAILY Acid reflux 09/10/18 05/22/23 release rosuvastatin 20 mg tablet 20 mg PO HS Cholesterol 04/18/19 05/22/23 tamsulosin 0.4 mg capsule 0.4 mg PO DAILY PROSTATE 04/18/19 05/22/23 coenzyme Q10 100 mg capsule (Co 100 mg PO DAILY Supplement 09/09/19 05/22/23 Q-10) cyclosporine 0.05 % eye drops in a 1 drp Eye-Both Q12H dry eyes 08/29/22 05/22/23 dropperette (Restasis) levothyroxine 88 mcg tablet 88 mcg PO DAILY 08/29/22 05/22/23 clopidogrel 75 mg tablet 75 mg PO DAILY 11/28/22 05/22/23 donepezil 5 mg tablet 5 mg PO HS 11/28/22 05/22/23 bisoprolol fumarate 5 mg tablet 5 mg PO DAILY High Blood Pressure 03/15/23 05/22/23 sertraline 25 mg tablet 25 mg PO DAILY 03/15/23 05/22/23 Previous Rx's Medication Instructions Recorded memantine 10 mg tablet (Namenda) 10 mg PO BID Memory loss #60 tabs 11/07/22 diltiazem HCl 90 mg 90 mg PO BID #60 caps 05/22/23 capsule,extended release 12 hr Allergies Allergy/AdvReac Type Severity Reaction Status Date / Time codeine [CODEINE] Allergy Mild NA-NAUSEA/V Verified 05/22/23 12:39 OMITING [facility] <Shana Plummer DO - Last Filed: 05/22/23 16:25> [facility] Disclaimer: The information contained in this section may have been updated after the patient was seen, as this information can be updated by other users. Medical History Atypical angina Bradycardia CAD (coronary artery disease) Cardiac pacemaker in situ Cardiomyopathy Dizziness HHD (hypertensive heart disease) HLD (hyperlipidemia) Near syncope Osteoarthritis of right knee Renal insufficiency Short-term memory loss Status post placement of implantable loop recorder Symptomatic bradycardia Syncope Tear of meniscus of knee Throat cancer Surgical History AICD (automatic cardioverter/defibrillator) present H/O coronary artery bypass surgery History of colonoscopy History of hernia repair History of tonsillectomy Family History Other Coronary artery disease Hypertension Social History Smoking Status: Never smoker alcohol intake: never substance use type: denies use current occupational status: retired Travel in the last 8 weeks: Inside the [place] household members: spouse housing: house current occupational exposures/hazards: No caffeine: Yes physical activity: walking frequency: 5-6 times per week duration: 45-60 minutes/day <Shana Plummer DO - Last Filed: 05/22/23 16:25> ROS Obtained: Yes All systems reviewed & no additional complaints except as documented Physical Exam <Shana Plummer DO - Last Filed: 05/22/23 16:25> General General appearance: alert and in no apparent distress Head Head exam: atraumatic and normocephalic Eye Eye exam: Present normal appearance, PERRL and EOMI ENT ENT exam: Present normal exam, normal oropharynx, mucous membranes moist and normal external ear exam Neck Neck exam: Present normal inspection, full ROM and trachea midline; Absent tenderness Chest Chest inspection: Present normal inspection and symmetric chest wall rise; Absent tenderness Respiratory Respiratory exam: Present normal lung sounds bilaterally; Absent respiratory distress, wheezes, stridor or accessory muscle use Cardiovascular Cardiovascular exam: Present regular rate and normal rhythm Abdominal Exam Abdominal exam: Present soft; Absent distention, tenderness or guarding Extremities Exam Extremities exam: Present normal inspection, full ROM and normal capillary refill; Absent tenderness or edema Back Exam Back exam: Present normal inspection and full ROM; Absent tenderness Neurological Exam Neurological exam: Present alert, oriented X3, CN II-XII intact and normal gait; Absent motor sensory deficit Psychiatric Psychiatric exam: Present normal affect and normal mood Skin Skin exam: Present warm and dry Medical Decision Making <Shana Plummer, DO - Last Filed: 05/22/23 16:25> Medical Records Medical records reviewed: Yes I reviewed the patient's medical records. Lopez Inquiry Pt receiving controlled substance: No Vital Signs: 05/22/23 12:40 05/22/23 12:41 05/22/23 13:34 Temperature 98.2 F Temperature Source Oral Pulse Rate Pulse Rate [Orthostatic Lying Left Brachial] 60 60 Pulse Rate [Orthostatic Sitting Left Brachial] 60 Pulse Rate [Orthostatic Standing Left Brachial] 60 Pulse Rate [Right Brachial] 60 Respiratory Rate 16 Blood Pressure Blood Pressure [Orthostatic Lying Left Arm] 127/55 L 127/55 L Blood Pressure [Orthostatic Sitting Left Arm] 115/54 L Blood Pressure [Orthostatic Standing Left Arm] 90/44 L Blood Pressure [Right Arm] 119/61 Blood Pressure Mean [Right Arm] 80 Blood Pressure Source Blood Pressure Source [Right Arm] Automatic Cuff Blood Pressure Position Blood Pressure Position [Right Arm] Sitting 02 Sat by Pulse Oximetry 98 Oxygen Delivery Method 05/22/23 12:42 05/22/23 13:28 05/22/23 14:01 Temperature Temperature Source Pulse Rate 63 60 60 Pulse Rate [Orthostatic Lying Left Brachial] Pulse Rate [Orthostatic Sitting Left Brachial] Pulse Rate [Orthostatic Standing Left Brachial] Pulse Rate [Right Brachial] Respiratory Rate 16 21 15 Blood Pressure 119/61 127/55 L 114/57 L Blood Pressure [Orthostatic Lying Left Arm] Blood Pressure [Orthostatic Sitting Left Arm] Blood Pressure [Orthostatic Standing Left Arm] Blood Pressure [Right Arm] Blood Pressure Mean [Right Arm] Blood Pressure Source Blood Pressure Source [Right Arm] Blood Pressure Position Blood Pressure Position [Right Arm] 02 Sat by Pulse Oximetry 98 99 100 Oxygen Delivery Method Room Air Room Air Room Air 05/22/23 14:43 05/22/23 14:31 05/22/23 15:00 Temperature Temperature Source Pulse Rate 60 60 60 Pulse Rate [Orthostatic Lying Left Brachial] Pulse Rate [Orthostatic Sitting Left Brachial] Pulse Rate [Orthostatic Standing Left Brachial] Pulse Rate [Right Brachial] Respiratory Rate 18 17 11 L Blood Pressure 135/64 135/64 143/62 H Blood Pressure [Orthostatic Lying Left Arm] Blood Pressure [Orthostatic Sitting Left Arm] Blood Pressure [Orthostatic Standing Left Arm] Blood Pressure [Right Arm] Blood Pressure Mean [Right Arm] Blood Pressure Source Automatic Cuff Blood Pressure Source [Right Arm] Blood Pressure Position Sitting Blood Pressure Position [Right Arm] 02 Sat by Pulse Oximetry 99 97 96 Oxygen Delivery Method Room Air Room Air Room Air 05/22/23 16:01 Temperature 98.0 F Temperature Source Oral Pulse Rate 60 Pulse Rate [Orthostatic Lying Left Brachial] Pulse Rate [Orthostatic Sitting Left Brachial] Pulse Rate [Orthostatic Standing Left Brachial] Pulse Rate [Right Brachial] Respiratory Rate 16 Blood Pressure 126/70 Blood Pressure [Orthostatic Lying Left Arm] Blood Pressure [Orthostatic Sitting Left Arm] Blood Pressure [Orthostatic Standing Left Arm] Blood Pressure [Right Arm] Blood Pressure Mean [Right Arm] Blood Pressure Source Automatic Cuff Blood Pressure Source [Right Arm] Blood Pressure Position Sitting Blood Pressure Position [Right Arm] 02 Sat by Pulse Oximetry Oxygen Delivery Method Room Air Lab Data Lab results reviewed: Yes I reviewed the patient's lab results. Lab Results 05/22/23 12:40: WBC 11.8 H, RBC 3.75 L, Hgb 12.0 L, Hct 35.8 L, MCV 95.4 H, MCH 32.1 H, MCHC 33.7, RDW 13.7, Plt Count 262, MPV 8.6, Neut % (Auto) 69.3, Lymph % (Auto) 23.0, Newberry % (Auto) 6.0, Eos % (Auto) 1.4, Baso % (Auto) 0.2, Neut # (Auto) 8.2 H, Lymph # (Auto) 2.7, Newberry # (Auto) 0.7, Eos # (Auto) 0.2, Baso # (Auto) 0.0, Sodium 131 L, Potassium 4.2, Chloride 98, Carbon Dioxide 26, Anion Gap 11.2, BUN 26 H, Creatinine 1.30 H, Estimated Creat Clear 50, Estimated GFR 53 L, Est GFR ( Amer) 64, Glucose 154 H, Calcium 8.5, Total Bilirubin 0.7, AST 31, ALT 33, Alkaline Phosphatase 102, Total Protein 6.5, Albumin 3.8, Globulin 2.7, Albumin/Globulin Ratio 1.4 05/22/23 12:40 05/22/23 12:40 Orders (Tests/Meds): ED MEDICATIONS Discontinued Medications Generic Name Dose Route Start Last Admin Trade Name Freq PRN Reason Stop Dose Admin Lactated Ringer's 1,000 mls @ 999 mls/hr 05/22/23 13:43 05/22/23 13:47 Lactated Ringer's 1000 Ml Bag IV 05/22/23 14:43 999 mls/hr .Q1H1M ONE Administration Sodium Chloride 10 ml 05/22/23 12:56 Sodium Chloride 0.9% 10ml Flush Syringe IV 06/21/23 12:55 NEEDED PRN Maintain IV Site ORDERS Category Date Time Status XR chest portable Stat Exams 05/22/23 12:41 Completed Complete Blood Count Auto Diff Stat Lab 05/22/23 12:40 Completed Comprehensive Metabolic Panel Stat Lab 05/22/23 12:40 Results T4 (Thyroxine) Stat Lab 05/22/23 12:40 Results Thyroid Stimulating Hormone Stat Lab 05/22/23 12:40 Results Troponin I Stat Lab 05/22/23 12:40 Results CA echo doppler complete Stat Y 05/22/23 12:42 Completed ECG Data Tracing #1: I reviewed this ECG and interpreted as documented below: Paced rhythm at [address] changes concerning for ischemia. Incomplete right bundle branch block noted. ECG initial impression date: 05/22/23 ECG initial impression time: 12:42 Medical Decision Narrative: In summary, this patient is a 83-year-old male presenting to the Emergency Department for evaluation of syncope. Differential diagnoses considered include but are not limited to cardiac dysrhythmia, ACS, vasovagal syncope, orthostatic hypotension. Ruling out the most morbid conditions drove assessment. It should be noted patient's history includes extensive cardiac history as per HPI which may or may not be at goal therapy. This complicates all aspects of care by increasing patient's risk for morbidity. I reviewed patient's past medical records and noted previous evaluations by cardiology, previous catheterization, and AICD implantation as per HPI. On exam, the patient is alert and neurologically intact. His vitals are reassuring on cardiac telemetry. Workup included CBC, CMP, troponin, TSH, T4, chest x-ray, EKG, and echocardiogram. I called and had an interactive discussion with cardiology given that they have been working him up for this as an outpatient. They would like to come see the patient. [employer] device interrogated without obvious event. I considered obtaining CT head without contrast to further assess, however I do not feel this is indicated given patie nt has had no associated neurologic symptoms and is currently neurologically intact. Orthostatic vital signs were obtained and did demonstrate that the patient is orthostatic with a drop in his systolics from the 120s while lying down to 90s while standing. He did not acutely become symptomatic with this, however. I had an interactive discussion with cardiology after their consultation, and they recommended having his medication for blood pressure. It appears that he is on 5 mg of bisoprolol daily as well as 180 mg of diltiazem twice a day. Given this, will decrease his diltiazem to 90 mg twice a day. Prescription for this was sent in. They did not advise admission for this as long as his workup comes back reassuring, as it has been ongoing, his ICD appears to be functioning normally per inquiry with no events, and he is currently asymptomatic with reassuring vital signs on cardiac telemetry. They did advise fluid resuscitation given his orthostatic hypotension. He was given a liter bolus of IV fluids. I independently interpreted XR and echo prior to the radiologist read and noted no acute focal consolidation, no pericardial effusion, and no other acute concerns at this time. Please see their read for final interpretation. Initial labs are reassuring with kidney function around the patient's baseline. He has mild leukocytosis, which is nonspecific. Troponin machines are malfunctioning, delaying workup. Otherwise, workup has been reassuring. Patient was placed in ED observation status at 1400 pending serial troponins and determination whether he would be appropriate for admission or discharge. <Rufino Camarena MD - Last Filed: 05/22/23 15:51> Vital Signs: 05/22/23 12:40 05/22/23 12:41 05/22/23 13:34 Temperature 98.2 F Temperature Source Oral Pulse Rate Pulse Rate [Orthostatic Lying Left Brachial] 60 60 Pulse Rate [Orthostatic Sitting Left Brachial] 60 Pulse Rate [Orthostatic Standing Left Brachial] 60 Pulse Rate [Right Brachial] 60 Respiratory Rate 16 Blood Pressure Blood Pressure [Orthostatic Lying Left Arm] 127/55 L 127/55 L Blood Pressure [Orthostatic Sitting Left Arm] 115/54 L Blood Pressure [Orthostatic Standing Left Arm] 90/44 L Blood Pressure [Right Arm] 119/61 Blood Pressure Mean [Right Arm] 80 Blood Pressure Source Blood Pressure Source [Right Arm] Automatic Cuff Blood Pressure Position Blood Pressure Position [Right Arm] Sitting 02 Sat by Pulse Oximetry 98 Oxygen Delivery Method 05/22/23 12:42 05/22/23 13:28 05/22/23 14:01 Temperature Temperature Source Pulse Rate 63 60 60 Pulse Rate [Orthostatic Lying Left Brachial] Pulse Rate [Orthostatic Sitting Left Brachial] Pulse Rate [Orthostatic Standing Left Brachial] Pulse Rate [Right Brachial] Respiratory Rate 16 21 15 Blood Pressure 119/61 127/55 L 114/57 L Blood Pressure [Orthostatic Lying Left Arm] Blood Pressure [Orthostatic Sitting Left Arm] Blood Pressure [Orthostatic Standing Left Arm] Blood Pressure [Right Arm] Blood Pressure Mean [Right Arm] Blood Pressure Source Blood Pressure Source [Right Arm] Blood Pressure Position Blood Pressure Position [Right Arm] 02 Sat by Pulse Oximetry 98 99 100 Oxygen Delivery Method Room Air Room Air Room Air 05/22/23 14:43 05/22/23 14:31 05/22/23 15:00 Temperature Temperature Source Pulse Rate 60 60 60 Pulse Rate [Orthostatic Lying Left Brachial] Pulse Rate [Orthostatic Sitting Left Brachial] Pulse Rate [Orthostatic Standing Left Brachial] Pulse Rate [Right Brachial] Respiratory Rate 18 17 11 L Blood Pressure 135/64 135/64 143/62 H Blood Pressure [Orthostatic Lying Left Arm] Blood Pressure [Orthostatic Sitting Left Arm] Blood Pressure [Orthostatic Standing Left Arm] Blood Pressure [Right Arm] Blood Pressure Mean [Right Arm] Blood Pressure Source Automatic Cuff Blood Pressure Source [Right Arm] Blood Pressure Position Sitting Blood Pressure Position [Right Arm] 02 Sat by Pulse Oximetry 99 97 96 Oxygen Delivery Method Room Air Room Air Room Air 05/22/23 16:01 Temperature 98.0 F Temperature Source Oral Pulse Rate 60 Pulse Rate [Orthostatic Lying Left Brachial] Pulse Rate [Orthostatic Sitting Left Brachial] Pulse Rate [Orthostatic Standing Left Brachial] Pulse Rate [Right Brachial] Respiratory Rate 16 Blood Pressure 126/70 Blood Pressure [Orthostatic Lying Left Arm] Blood Pressure [Orthostatic Sitting Left Arm] Blood Pressure [Orthostatic Standing Left Arm] Blood Pressure [Right Arm] Blood Pressure Mean [Right Arm] Blood Pressure Source Automatic Cuff Blood Pressure Source [Right Arm] Blood Pressure Position Sitting Blood Pressure Position [Right Arm] 02 Sat by Pulse Oximetry Oxygen Delivery Method Room Air Lab Data Lab Results 05/22/23 12:40: WBC 11.8 H, RBC 3.75 L, Hgb 12.0 L, Hct 35.8 L, MCV 95.4 H, MCH 32.1 H, MCHC 33.7, RDW 13.7, Plt Count 262, MPV 8.6, Neut % (Auto) 69.3, Lymph % (Auto) 23.0, Newberry % (Auto) 6.0, Eos % (Auto) 1.4, Baso % (Auto) 0.2, Neut # (Auto) 8.2 H, Lymph # (Auto) 2.7, [place] # (Auto) 0.7, Eos # (Auto) 0.2, Baso # (Auto) 0.0, Sodium 131 L, Potassium 4.2, Chloride 98, Carbon Dioxide 26, Anion Gap 11.2, BUN 26 H, Creatinine 1.30 H, Estimated Creat Clear 50, Estimated GFR 53 L, Est GFR ( Amer) 64, Glucose 154 H, Calcium 8.5, Total Bilirubin 0.7, AST 31, ALT 33, Alkaline Phosphatase 102, Total Protein 6.5, Albumin 3.8, Globulin 2.7, Albumin/Globulin Ratio 1.4 Orders (Tests/Meds): ED MEDICATIONS Discontinued Medications Generic Name Dose Route Start Last Admin Trade Name Freq PRN Reason Stop Dose Admin Lactated Ringer's 1,000 mls @ 999 mls/hr 05/22/23 13:43 05/22/23 13:47 Lactated Ringer's 1000 Ml Bag IV 05/22/23 14:43 999 mls/hr .Q1H1M ONE Administration Sodium Chloride 10 ml 05/22/23 12:56 Sodium Chloride 0.9% 10ml Flush Syringe IV 06/21/23 12:55 NEEDED PRN Maintain IV Site ORDERS Category Date Time Status XR chest portable Stat Exams 05/22/23 12:41 Completed Complete Blood Count Auto Diff Stat Lab 05/22/23 12:40 Completed Comprehensive Metabolic Panel Stat Lab 05/22/23 12:40 Results T4 (Thyroxine) Stat Lab 05/22/23 12:40 Results Thyroid Stimulating Hormone Stat Lab 05/22/23 12:40 Results Troponin I Stat Lab 05/22/23 12:40 Results CA echo doppler complete Stat Y 05/22/23 12:42 Completed Medical Decision Narrative: In summary, this patient is a 83-year-old male presenting to the Emergency Department for evaluation of syncope. Differential diagnoses considered include but are not limited to cardiac dysrhythmia, ACS, vasovagal syncope, orthostatic hypotension. Ruling out the most morbid conditions drove assessment. It should be noted patient's history includes extensive cardiac history as per HPI which may or may not be at goal therapy. This complicates all aspects of care by increasing patient's risk for morbidity. I reviewed patient's past medical records and noted previous evaluations by cardiology, previous catheterization, and AICD implantation as per HPI. On exam, the patient is alert and neurologically intact. His vitals are reassuring on cardiac telemetry. Workup included CBC, CMP, troponin, TSH, T4, chest x-ray, EKG, and echocardiogram. I called and had an interactive discussio n with cardiology given that they have been working him up for this as an outpatient. They would like to come see the patient. [employer] device interrogated without obvious event. I considered obtaining CT head without contrast to further assess, however I do not feel this is indicated given patient has had no associated neurologic symptoms and is currently neurologically intact. Orthostatic vital signs were obtained and did demonstrate that the patient is orthostatic with a drop in his systolics from the 120s while lying down to 90s while standing. He did not acutely become symptomatic with this, however. I had an interactive discussion with cardiology after their consultation, and they recommended having his medication for blood pressure. It appears that he is on 5 mg of bisoprolol daily as well as 180 mg of diltiazem twice a day. Given this, will decrease his diltiazem to 90 mg twice a day. Prescription for this was sent in. They did not advise admission for this as long as his workup comes back reassuring, as it has been ongoing, his ICD appears to be functioning normally per inquiry with no events, and he is currently asymptomatic with reassuring vital signs on cardiac telemetry. They did advise fluid resuscitation given his orthostatic hypotension. He was given a liter bolus of IV fluids. I independently interpreted XR and echo prior to the radiologist read and noted no acute focal consolidation, no pericardial effusion, and no other acute concerns at this time. Please see their read for final interpretation. Initial labs are reassuring with kidney function around the patient's baseline. He has mild leukocytosis, which is nonspecific. Troponin machines are malfunctioning, delaying workup. Otherwise, workup has been reassuring. Patient was placed in ED observation status at 1400 pending serial troponins and determination whether he would be appropriate for admission or discharge. Rufino Camarena: Upon assumption of care patient was hemodynamically stable. Workup thus far is reviewed by me, hematologic labs are nonactionable, chest x- ray informally interpreted by me, no acute lobar opacities or large pneumothorax. Upon my evaluation patient has no chest pain, has not had chest pain in the emergency department. Single troponin is pending at this time in the setting of machine malfunctioning however patient wishes to leave, I feel that this is reasonable and we will follow-up on single troponin and patient agrees to return if it is abnormal. Patient was ambulatory at bedside. Patient has been evaluated by cardiology prior to my assumption of care, medication adjustment has been conducted prior to my associated care patient will be discharged with a modified prescription. <Rufino Camarena MD - Last Filed: 05/22/23 15:51> Critical Care Time Critical Care Time: No
--- NOTE | 2023-05-22 13:01 | PC.NURSE ---
[employer] pacemaker interrogated, spoke with rep and report to come in 15 mins.
[2023-05-22 13:03] LABS: Alanine Aminotransferase 33 U/L (12-78); Albumin Level 3.8 g/dl (3.5-5.0); Albumin/Globulin Ratio 1.4 (1.1-1.8); Alkaline Phosphatase 102 U/L (38-126); Anion Gap 11.2 mEq/L (5-15); Aspartate Amino Transferase 31 U/L (17-59); Bilirubin,Total 0.7 mg/dl (0.2-1.3); Blood Urea Nitrogen 26 mg/dl (9-20); Calcium 8.5 mg/dl (8.4-10.2); Carbon Dioxide 26 mmol/L (22.0-30.0); Chloride 98 mmol/L (98-107); Creatinine Clearance Estimated 50 mL/min (50-200); Estimated Glomerular Filt Rate 53 ml/min (>60); GFR (African American) 64 ML/MIN (>60); Globulin 2.7 g/dL (1.3-3.2); Glucose 154 mg/dl (74-100); Potassium 4.2 mmoL/L (3.5-5.1); Sodium 131 mmol/L (136-145); Total Protein,Serum 6.5 g/dl (6.3-8.2)
--- NOTE | 2023-05-22 13:17 | PC.NURSE ---
pacemaker report given to Dr. Plummer.
--- NOTE | 2023-05-22 13:31 | PC.NURSE ---
Priya Acosta at bedside.
--- NOTE | 2023-05-22 13:46 | PC.NURSE ---
RAD at BS
[2023-05-22] MEDS: LACTATED RINGERS 1000ML 1,000 ML 999 ML IV (13:47)
--- NOTE | 2023-05-22 14:09 | EXP.CARD.CON ---
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 He has history of CAD status post CABG and PCI as well as ischemic cardiomyopathy with recovered EF status post ICD. Last seen in our office in March following stenting. He had been having episodes of syncope which resolved following stent placement. During the last office visit his mentioned his memory has been worsening recently and was due to follow-up with neurology for this. I am seeing patient in the ER today after patient presented with an additional episode of syncope. states they were seated and having lunch at [employer]. Patient put his head in his hands, said that he was sleepy, and then slowly lost consciousness and slipped under the table. Symptoms eventually resolved spontaneously, EMS was called and transported him here. She states he has had several episodes of sudden loss of consciousness which occur while seated in a resting position. Patient has no memory of the event and his memory overall has declind greatly in the past 6 motns. states he is very sleepy and has trouble remembering basic events. Pt has the same thing for breakfast daily but cannot recall for me what this is. During his episodes of transient LOC there is no witnessed tremor, no loss of bowel or bladder function, no tongue biting. They are unsure whether he had prior EEG. Orthostatic vital signs in the ER positive with 40 point drop in supine to standing. Pacemaker interrogation shows no events at the time of symptoms today. He is currently asymptomatic and has no complaints. [facility] Disclaimer: The information contained in this section may have been updated after the patient was seen, as this information can be updated by other users. Medical History Atypical angina Bradycardia CAD (coronary artery disease) Cardiac pacemaker in situ Cardiomyopathy Dizziness HHD (hypertensive heart disease) HLD (hyperlipidemia) Near syncope Osteoarthritis of right knee Renal insufficiency Short-term memory loss Status post placement of implantable loop recorder Symptomatic bradycardia Syncope Tear of meniscus of knee Throat cancer Surgical History AICD (automatic cardioverter/defibrillator) present H/O coronary artery bypass surgery History of colonoscopy History of hernia repair History of tonsillectomy Family History Other Coronary artery disease Hypertension Social History Smoking Status: Never smoker alcohol intake: never substance use type: denies use current occupational status: retired Travel in the last 8 weeks: Inside the [place] household members: spouse housing: house current occupational exposures/hazards: No caffeine: Yes physical activity: walking frequency: 5-6 times per week duration: 45-60 minutes/day Review of Systems Constitutional Constitutional: Denies fatigue and Reports weakness Eyes Eyes: Denies loss of vision ENT Ears, Nose, Mouth, and Throat: Denies hearing loss and Denies vertigo *Cardiovascular Cardiovascular: Denies chest pain, Denies dyspnea and Reports syncope *Respiratory Respiratory: Denies cough and Denies dyspnea *Gastrointestinal Gastrointestinal: Denies change in stool character, Denies nausea and Denies vomiting *Genitourinary Genitourinary: Denies difficulty urinating *Musculoskeletal Musculoskeletal: Denies muscle weakness Integumentary/Breasts Skin/Breast: Denies changing lesions *Neurologic Neurologic: Denies loss of vision, Reports syncope, Denies vertigo and Reports weakness Endocrine Endocrine: Denies fatigue Exam Data for Last 24 hours Vital signs and Labs for Last 24 Hours: Temp Pulse Resp BP Pulse Ox 98.2 F 60 16 127/55 L 98 05/22/23 12:40 05/22/23 13:34 05/22/23 12:40 05/22/23 13:34 05/22/23 12:40 Laboratory Results - last 24 hr 05/22/23 12:40: WBC 11.8 H, RBC 3.75 L, Hgb 12.0 L, Hct 35.8 L, MCV 95.4 H, MCH 32.1 H, MCHC 33.7, RDW 13.7, Plt Count 262, MPV 8.6, Neut % (Auto) 69.3, Lymph % (Auto) 23.0, [place] % (Auto) 6.0, Eos % (Auto) 1.4, Baso % (Auto) 0.2, Neut # (Auto) 8.2 H, Lymph # (Auto) 2.7, [place] # (Auto) 0.7, Eos # (Auto) 0.2, Baso # (Auto) 0.0, Sodium 131 L, Potassium 4.2, Chloride 98, Carbon Dioxide 26, Anion Gap 11.2, BUN 26 H, Creatinine 1.30 H, Estimated Creat Clear 50, Estimated GFR 53 L, Est GFR ( Amer) 64, Glucose 154 H, Calcium 8.5, Total Bilirubin 0.7, AST 31, ALT 33, Alkaline Phosphatase 102, Total Protein 6.5, Albumin 3.8, Globulin 2.7, Albumin/Globulin Ratio 1.4 I & O for Last 24 hours: Intake & Output 05/19/23 05/20/23 05/21/23 05/22/23 23:59 23:59 23:59 23:59 Weight 185 lb Constitutional Constitutional: no acute distress and cooperative *Routine HEENT Exam Eye: Present PERRL *Routine Respiratory Exam Respiratory: Present CTA bilaterally; Absent accessory muscle use, wheezes or crackles *Routine Cardiovascular Exam Cardiovascular: Present RRR, Normal S1 and Normal S2; Absent murmur, gallop or rubs *Routine Abdominal Exam Abdominal: Present soft; Absent tenderness *Routine Extremities Exam Extremities: Present pulses intact; Absent cyanosis or edema *Routine Skin Exam Skin: Present intact; Absent erythema or wounds *Routine Neurological Exam Neurological: Present alert and oriented X3 Comments: pleasant but poor historian Routine Psychiatric Exam Psychiatric: Present cooperative Meds Home Medications and Allergies Home Medications Medication Instructions Recorded Confirmed Type aspirin 81 mg tablet,delayed 81 mg PO DAILY Heart health 09/12/17 05/22/23 History release fluticasone propionate 50 1 spray intranasal BIDP PRN 09/12/17 05/22/23 History mcg/actuation nasal allergies spray,suspension (Flonase Allergy Relief) omega-3 fatty acids 1,000 mg 1,000 mg PO DAILY Supplement 09/12/17 05/22/23 History capsule ascorbic acid (vitamin C) 1,000 mg 1,000 mg PO DAILY supplement 05/23/18 05/22/23 History tablet omeprazole 20 mg capsule,delayed 20 mg PO DAILY Acid reflux 09/10/18 05/22/23 History release rosuvastatin 20 mg tablet 20 mg PO HS Cholesterol 04/18/19 05/22/23 History tamsulosin 0.4 mg capsule 0.4 mg PO DAILY PROSTATE 04/18/19 05/22/23 History coenzyme Q10 100 mg capsule (Co 100 mg PO DAILY Supplement 09/09/19 05/22/23 History Q-10) cyclosporine 0.05 % eye drops in a 1 drp Eye-Both Q12H dry eyes 08/29/22 05/22/23 History dropperette (Restasis) levothyroxine 88 mcg tablet 88 mcg PO DAILY 08/29/22 05/22/23 History memantine 10 mg tablet (Namenda) 10 mg PO BID Memory loss #60 tabs 11/07/22 05/22/23 Rx clopidogrel 75 mg tablet 75 mg PO DAILY 11/28/22 05/22/23 History donepezil 5 mg tablet 5 mg PO HS 11/28/22 05/22/23 History bisoprolol fumarate 5 mg tablet 5 mg PO DAILY High Blood Pressure 03/15/23 05/22/23 History sertraline 25 mg tablet 25 mg PO DAILY 03/15/23 05/22/23 History diltiazem HCl 90 mg 90 mg PO BID #60 caps 05/22/23 Rx capsule,extended release 12 hr New Prescriptions to Start Prescriptions: diltiazem HCl Shana Plummer Allergies Allergy/AdvReac Type Severity Reaction Status Date / Time codeine [CODEINE] Allergy Mild NA-NAUSEA/V Verified 05/22/23 12:39 OMITING Assessment and Plan *Assessment and plan (1) Recurrent syncope: Status: Acute Category: Medical Code(s): R55 - Syncope and collapse (2) Orthostatic hypotension: Status: Acute Category: Medical Code(s): I95.1 - Orthostatic hypotension (3) 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 Category: Surgical Code(s): Z95.810 - Presence of automatic (implantable) cardiac defibrillator (4) Cardiomyopathy: Status: Chronic Qualifiers: Cardiomyopathy type: unspecified Qualified Code(s): I42.9 - Cardiomyopathy, unspecified Category: Medical Code(s): I42.9 - Cardiomyopathy, unspecified Plan Recurrent Syncope - pt has transient episodes of LOC which occur at rest and are associated with worsening cognition and sleepiness - his symptoms are not exertional and not associated with positional change - his PPM check today shows no events - strongly suggestive of Neurologic etiology - from CV standpoint would recommend reduction of BB due to hypotension but again his symptoms are not associated with position change so I suspect are not the primary etiology of his LOC - recommend Neuro evaluation Orthostatic Hypotension - increase fluids (500mL NS bolus in ED and increased PO at home) - reduce Bisoprolol dose by half - discussed fall precaution and PO intake MV-CAD s/p CABG and PCI - CCS = 0 - Cont DAPT, BB, Statin HFimpEF s/p Bi-V ICD - NYHA = 2 baseline - no evidence of vol overload at this time - OP ECHO pending - meds limited due to hypotension Dementia - rapidly declining memory for >6 months per pt/ history - following with Neuro, Dr. Ferrara outpatient CV Summary 05/22: Pt's episodic LOC and memory loss are occuring >1 year. Strongly suspect Neuro etiology and recommend close f/u with them. No indication for further inpatient CV workup at this time. Recommend f/u in clinic 1-2 weeks.
--- NOTE | 2023-05-22 14:28 | PC.NURSE ---
Dr. Plummer at BS to update pt
--- NOTE | 2023-05-22 15:47 | PC.NURSE ---
Ambulated pt in the [facility]. Pt. denied weakness or dizziness.
[2023-05-22 17:56] LABS: T4 (Thyroxine) 9.8 ug/dl (5.53-11.0)
[2023-05-22 17:57] LABS: Thyroid Stimulating Hormone 5.04 uIU/mL (0.465-4.68)
== END 2023-05-22 16:03 | disposition home or self-care (01) ==
PROVIDERS: Emergency Provider Emergency Medicine; PCP Family Medicine
DX: R55 Syncope and collapse (principal); I95.1 Orthostatic hypotension; Z95.810 Presence of automatic (implantable) cardiac defibrillator; I42.9 Cardiomyopathy, unspecified; I11.0 Hypertensive heart disease with heart failure; I50.9 Heart failure, unspecified; I25.118 Atherosclerotic heart disease of native coronary artery with other forms of angina pectoris; E78.5 Hyperlipidemia, unspecified; I45.19 Other right bundle-branch block
CPT/HCPCS: 71045; 80053; 84436; 84443; 84484; 85025; 93005; 93306; 96360; 99285

== ENCOUNTER 2024-01-12 14:51 | Inpatient (IN) | payer MEDICARE, BC, SELFPAY ==
[2024-01-12] VITALS (8 sets, daily range): BP systolic 125–141; BP diastolic 64–76; PULSE 60–62; RESP 18–19; TEMP 36.7; O2SAT 96–99; BMI 24.4; BMI 25.4
--- NOTE | 2024-01-12 15:18 | XR_ITS ---
FINAL REPORT CLINICAL HISTORY: hip p ain, shortened, rotation COMPARISON: None FINDINGS: RIGHT HIP: Two views of the right hip demonstrate a new comminuted fracture of the proximal femoral intertrochanteric region, with a resultant coxa vara deformity. Moderate degenerative change of the hip is present. There are separate lesser and greater trochanteric fractures as well. No soft tissue abnormality is seen. IMPRESSION: New comminuted proximal femoral intertrochanteric fracture with resultant coxa vara deformity as described. Reviewed, Interpreted and Dictated by Jensen Ring III, MD Transcribed by Karen Sands Authenticated and [facility]
[2024-01-12 15:28] LABS: Albumin Level 3.7 g/dl (3.5-5.0); Chloride 103 mmol/L (98-107); Potassium 4.5 mmoL/L (3.5-5.1); Sodium 134 mmol/L (136-145)
[2024-01-12 15:30] LABS: Basophils % 0.5 % (0.1-2.0); Eosinophils # 0.2 K/mm3 (0.0-0.4); Eosinophils % 2.4 % (0.1-12.0); Hematocrit 36.5 % (42.0-52.0); Hemoglobin 11.8 g/dL (14.1-18.0); Lymphocytes # 1.3 K/mm3 (0.7-4.5); Lymphocytes % 18.5 % (10-50); Mean Corpuscular HGB Conc 32.2 g/dL (31.8-35.4); Mean Corpuscular Hemoglobin 32.9 pg (27.0-31.2); Mean Platelet Volume 8.7 fl (7.4-10.4); Monocytes # 0.4 K/mm3 (0.1-1.0); Monocytes % 5.3 % (1.7-9.3); Neutrophils # 5.3 K/mm3 (1.8-7.8); Neutrophils % 73.4 % (37.0-80.0); Platelet Count 223 K/mm3 (142-424); Red Blood Count 3.58 M/mm3 (4.60-6.20); Red Cell Distribution Width 13.5 % (11.5-17.5); White Blood Count 7.2 K/mm3 (4.8-10.8)
[2024-01-12 15:31] LABS: Alanine Aminotransferase 21 U/L (12-78); Albumin/Globulin Ratio 1.4 (1.1-1.8); Alkaline Phosphatase 86 U/L (38-126); Anion Gap 6.5 mEq/L (5-15); Aspartate Amino Transferase 31 U/L (17-59); Bilirubin,Total 0.6 mg/dl (0.2-1.3); Blood Urea Nitrogen 29 mg/dl (9-20); Calcium 8.7 mg/dl (8.4-10.2); Carbon Dioxide 29 mmol/L (22.0-30.0); Creatinine Clearance Estimated 43 mL/min (50-200); Estimated Glomerular Filt Rate 48 ml/min (>60); GFR (African American) 58 ML/MIN (>60); Globulin 2.7 g/dL (1.3-3.2); Glucose 140 mg/dl (74-100); Total Protein,Serum 6.4 g/dl (6.3-8.2)
[2024-01-12 15:32] LABS: INR 0.97 (0.9-1.1); Prothrombin Time 10.9 seconds (10.1-12.5)
--- NOTE | 2024-01-12 15:41 | CT_ITS ---
FINAL REPORT TECHNIQUE: Thin section axial CT images with coronal and sagittal reformats were performed. This study was performed with techniques to keep radiation doses as low as reasonably achievable (ALARA). Individualized dose reduction techniques using automated exposure control or adjustment of mA and/or kV according to the patient's size were employed. CLINICAL HISTORY: fall COMPARISON: None FINDINGS: CT RIGHT HIP WITHOUT CONTRAST: CT examination of the right hip was performed without intravenous contrast, with sagittal and coronal reconstructions. There is a comminuted intertrochanteric fracture of the proximal femur with a resultant coxa vara deformity. There are separate lesser and greater trochanteric fracture fragments present. Moderate degenerative change of the right hip is present. IMPRESSION: Comminuted intertrochanteric fracture of the proximal femur as described. Reviewed, Interpreted and Dictated by Jensen Ring III, MD Transcribed by Karen Sands Authenticated and [facility]
--- NOTE | 2024-01-12 15:54 | PC.NURSE ---
pt out of room with Rad for CT
--- NOTE | 2024-01-12 16:00 | CT_ITS ---
FINAL REPORT CLINICAL HISTORY: fall right hip COMPARISON: 07/24/2022 FINDINGS: Axial images of the head were obtained without contrast. Coronal and sagittal reformatted images were also obtained. This study was performed with techniques to keep radiation doses as low as reasonably achievable (ALARA). Individualized dose reduction techniques using automated exposure control or adjustment of mA and/or kV according to the patient's size were employed. There is generalized age-appropriate atrophy. Periventricular low-attenuation areas are seen consistent with moderate chronic ischemic changes. There is no evidence of intracranial hemorrhage or mass. There is no evidence of acute infarct. There is no evidence of shift of the midline structures. There is opacification of multiple right mastoid air cells, stable when compared to the prior CT. IMPRESSION: Atrophy and moderate periventricular chronic ischemic changes. No acute intracranial abnormality identified. Reviewed, Interpreted and Dictated by Jensen Ring III, MD Transcribed by Karen Sands Authenticated and [facility]
--- NOTE | 2024-01-12 16:00 | CT_ITS ---
FINAL REPORT CLINICAL HISTORY: fall right hip COMPARISON: None FINDINGS: Axial CT images of the cervical spine were obtained without contrast. Sagittal and coronal reformatted images were also obtained. This study was performed with techniques to keep radiation doses as low as reasonably achievable (ALARA). Individualized dose reduction techniques using automated exposure control or adjustment of mA and/or kV according to the patient's size were employed. There is no evidence of fracture or dislocation. The bony alignment is normal. Mild and moderate degenerative change is present. There is no evidence of canal stenosis. No paraspinous soft tissue abnormality is seen. Limited images of the upper thorax are unremarkable. IMPRESSION: No fracture or acute bony abnormality identified. Mild and moderate degenerative change. Reviewed, Interpreted and Dictated by Jensen Ring III, MD Transcribed by Karen Sands Authenticated and [facility]
--- NOTE | 2024-01-12 16:02 | ED_ITS ---
Discharge Plan Disposition Chief Complaint: Fall Prescriptions Prescriptions: No Action memantine [Namenda] 10 mg tablet 10 mg PO BID Qty: 60 11RF diltiazem HCl 90 mg capsule,extended release 12 hr 90 mg PO BID Qty: 60 5RF fluticasone propionate [Flonase Allergy Relief] 50 mcg/actuation spray,suspension 1 spray INTRANASAL BIDP PRN (Reason: allergies) aspirin 81 mg tablet,delayed release (DR/EC) 81 mg PO DAILY ascorbic acid (vitamin C) 1,000 mg tablet 1,000 mg PO DAILY Restasis 0.05 % dropperette 1 drp Eye-Both Q12H omeprazole 20 mg capsule,delayed release(DR/EC) 20 mg PO DAILY coenzyme Q10 [Co Q-10] 100 mg capsule 100 mg PO DAILY levothyroxine 88 mcg tablet 88 mcg PO DAILY Patient Comments: TAKE ONE TABLET BY MOUTH EVERY DAY donepezil 5 mg tablet 5 mg PO HS Patient Comments: TAKE ONE TABLET BY MOUTH EVERY DAY AT BEDTIME clopidogrel 75 mg tablet 75 mg PO DAILY Patient Comments: TAKE ONE TABLET BY MOUTH ONCE DAILY sertraline 25 mg tablet See Rx Instructions .ROUTE .COMPLEX Qty: 90 3RF Dose Instruction: TAKE ONE TABLET BY MOUTH EVERY DAY FOR vasovagal passing OUT Rx Instructions: TAKE ONE TABLET BY MOUTH EVERY DAY FOR vasovagal passing OUT bisoprolol fumarate 5 mg tablet 5 mg PO DAILY tamsulosin 0.4 MG capsule 0.4 mg PO DAILY Patient Comments: TAKE ONE CAPSULE BY MOUTH EVERY DAY rosuvastatin 20 MG tablet 20 mg PO HS Patient Comments: TAKE ONE TABLET BY MOUTH EVERY DAY AT BEDTIME Referrals Follow up/Referrals: Provider,Referral, MD [Primary Care Provider] - See instructions Clinical Impressions Clinical Impression: Subtrochanteric fracture of right femur, Fall, Minor head injury Print Language Print Language: Portuguese Discharge ED Provider: Jean Miguel Adult [facility] General Chief complaint: Fall Stated complaint: Fall/Hip pain Time Seen by Provider: 01/12/24 15:53 Mode of Arrival: EMS Source of Information: Patient Limitations: No Limitations Description of Symptoms (Recalled from ER Triage Doc. by RN): pt presents to ED with c/o fall in the garage. pt does have hx of dementia. pts reports they had just gotten home from running errands. went into house and up the stairs. pt was attempting to get into house and fell backwards. pt presents with c collar in place. pt with no complaints at time of assessment. no LOC, + blood thinners. right hip externally rotated, shortened, and obvious disformity. History of Present Illness HPI narrative: Patient is an 84-year-old male history of cardiomyopathy with an AICD ejection fraction 50% on dual antiplatelet therapy mild dementia presents after mechanical fall. Was getting out of his car fell questionably hit his head on a trash can no loss of consciousness no other neurologic complaints from historical standpoint. Only complains of right hip pain that brought in by EMS. Related Data Home Medications ?Medication ?Instructions ?Recorded ?Confirmed aspirin 81 mg tablet,delayed 81 mg PO DAILY Heart health 09/12/17 12/14/23 release fluticasone propionate 50 1 spray intranasal BIDP PRN 09/12/17 12/14/23 mcg/actuation nasal allergies spray,suspension (Flonase Allergy Relief) ascorbic acid (vitamin C) 1,000 mg 1,000 mg PO DAILY supplement 05/23/18 12/14/23 tablet omeprazole 20 mg capsule,delayed 20 mg PO DAILY Acid reflux 09/10/18 12/14/23 release rosuvastatin 20 mg tablet 20 mg PO HS Cholesterol 04/18/19 12/14/23 tamsulosin 0.4 mg capsule 0.4 mg PO DAILY PROSTATE 04/18/19 12/14/23 coenzyme Q10 100 mg capsule (Co 100 mg PO DAILY Supplement 09/09/19 12/14/23 Q-10) cyclosporine 0.05 % eye drops in a 1 drp Eye-Both Q12H dry eyes 08/29/22 12/14/23 dropperette (Restasis) levothyroxine 88 mcg tablet 88 mcg PO DAILY 08/29/22 12/14/23 clopidogrel 75 mg tablet 75 mg PO DAILY 11/28/22 12/14/23 donepezil 5 mg tablet 5 mg PO HS 11/28/22 12/14/23 bisoprolol fumarate 5 mg tablet 5 mg PO DAILY High Blood Pressure 03/15/23 12/14/23 Previous Rx's ?Medication ?Instructions ?Recorded memantine 10 mg tablet (Namenda) 10 mg PO BID Memory loss #60 tabs 11/07/22 diltiazem HCl 90 mg 90 mg PO BID #60 caps 09/27/23 capsule,extended release 12 hr sertraline 25 mg tablet See Rx Instructions .Route 12/11/23 .COMPLEX #90 tabs Allergies Allergy/AdvReac Type Severity Reaction Status Date / Time codeine [CODEINE] Allergy Mild NA-NAUSEA/V Verified 12/14/23 09:00 OMITING PFSH PFSH Disclaimer: The information contained in this section may have been updated after the patient was seen, as this information can be updated by other users. Medical History Renal insufficiency Tear of meniscus of knee Atypical angina Short-term memory loss Short-term memory impairment associated with cognitive decline. 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 Neurocognitive testing inconsistent with clinical correlation. He has multiple risk factors for cardiovascular events therefore vascular dementia is high on the differential diagnosis. Throat cancer Osteoarthritis of right knee Cardiomyopathy Cardiac pacemaker in situ Bradycardia Symptomatic bradycardia Near syncope Status post placement of implantable loop recorder Dizziness Syncope HLD (hyperlipidemia) HHD (hypertensive heart disease) CAD (coronary artery disease) Surgical History History of hernia repair History of colonoscopy History of tonsillectomy AICD (automatic cardioverter/defibrillator) present H/O coronary artery bypass surgery Family History Other Coronary artery disease Hypertension Social History Smoking Status: Never smoker alcohol intake: never substance use type: denies use current occupational status: retired Travel in the last 8 weeks: Inside the [place] household members: spouse housing: house current occupational exposures/hazards: No caffeine: Yes physical activity: walking frequency: 5-6 times per week duration: 45-60 minutes/day ROS Obtained: Yes All systems reviewed & no additional complaints except as documented Physical Exam General General appearance: alert and in no apparent distress Head Head exam: atraumatic and normocephalic Neck Neck exam: Present normal inspection and full ROM; Absent trachea midline Respiratory Respiratory exam: Present normal lung sounds bilaterally Cardiovascular Cardiovascular exam: Present regular rate Extremities Exam Extremities exam: Present other (right hip pain ); Absent full ROM or tenderness Neurological Exam Neurological exam: Present alert and oriented X3 Medical Decision Making Lopez Inquiry Pt receiving controlled substance: No Vital Signs: 01/12/24 14:51 01/12/24 15:00 Temperature 98.1 F Temperature Source Oral Pulse Rate 60 Pulse Rate [Left Radial] 60 Respiratory Rate 19 18 Blood Pressure 125/64 Blood Pressure [Right Arm] 125/64 Blood Pressure Mean 84 Blood Pressure Mean [Right Arm] 84 02 Sat by Pulse Oximetry 97 96 Oxygen Delivery Method Room Air Lab Data Lab results reviewed: Yes I reviewed the patient's lab results. Lab Results 01/12/24 15:01: WBC 7.2, RBC 3.58 L, Hgb 11.8 L, Hct 36.5 L, MCV 102.0 H, MCH 32.9 H, MCHC 32.2, RDW 13.5, Plt Count 223, MPV 8.7, Neut % (Auto) 73.4, Lymph % (Auto) 18.5, [place] % (Auto) 5.3, Eos % (Auto) 2.4, Baso % (Auto) 0.5, Neut # (Auto) 5.3, Lymph # (Auto) 1.3, [place] # (Auto) 0.4, Eos # (Auto) 0.2, Baso # (Auto) 0.0, PT 10.9, INR 0.97, Sodium 134 L, Potassium 4.5, Chloride 103, Carbon Dioxide 29, Anion Gap 6.5, BUN 29 H, Creatinine 1.40 H, Estimated Creat Clear 43, Estimated GFR 48 L, Est GFR ( Amer) 58 L, Glucose 140 H, Calcium 8.7, Total Bilirubin 0.6, AST 31, ALT 21, Alkaline Phosphatase 86, Total Protein 6.4, Albumin 3.7, Globulin 2.7, Albumin/Globulin Ratio 1.4 01/12/24 15:01 01/12/24 15:01 Orders (Tests/Meds): ORDERS Category Date Time Status CT cervical spine wo con Stat Cat Scan 01/12/24 16:[address] head/brain wo con Stat Cat Scan 01/12/24 16:[address] hip RT wo con Stat Cat Scan 01/12/24 15:41 Taken XR hip RT 2-3V w/pelvis Stat Exams 01/12/24 15:18 Taken Complete Blood Count Auto Diff Stat Lab 09/13/24 15:01 Completed Comprehensive Metabolic Panel Stat Lab 01/12/24 15:01 Completed Prothrombin Time INR Stat Lab 01/12/24 15:01 Completed Medical Decision Narrative: 84-year-old with history and physical. X-ray performed to person interpreted shows a subtrochanteric femur fracture on the right CT scan was performed in addition to this for operative planning. Additionally patient had a CT scan of the head and cervical spine which a person interpreted shows no intracranial abnormalities and no bony abnormalities in the cervical spine. Cervical follow- up was taken off patient was cleared from that standpoint. No other injuries from history physical standpoint. Dr. Soriano has been called and is at the bedside he is comfortable keeping the patient here assuming that primary care physician is also comfortable. Patient is a patient Dr. Medley's will discuss the case with them patient understands and his that they are very high risk from a operative standpoint given his cardiomyopathy and they accept those risks and understand and are willing to stay here for management. Critical Care Critical Care Time Critical Care Time: No
--- NOTE | 2024-01-12 16:34 | PC.NURSE ---
DR BALJIT MONDRAGON
--- NOTE | 2024-01-12 16:40 | PC.NURSE ---
house aware of admission
--- NOTE | 2024-01-12 16:47 | P.CONS_ITS ---
History of Present Illness *Admission Date: 01/12/24 *Reason for visit:: Right hip fracture *History of present illness: 84-year-old male who suffered a mechanical fall getting out of the car today. Landed on his right side. Was unable to bear weight with scooted up the steps however was unable to move and had significant pain in the right hip came to the emergency room for evaluation and is a long complicated history of cardiovascular disease. He is on dual antiplatelet therapy with Plavix and aspirin. Trauma workup revealed no intracranial pathology. Right hip fracture identified. Orthopedics consulted regarding treatment options [facility] Disclaimer: The information contained in this section may have been updated after the patient was seen, as this information can be updated by other users. Medical History Renal insufficiency Tear of meniscus of knee Atypical angina Short-term memory loss Short-term memory impairment associated with cognitive decline. 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 Neurocognitive testing inconsistent with clinical correlation. He has multiple risk factors for cardiovascular events therefore vascular dementia is high on the differential diagnosis. Throat cancer Osteoarthritis of right knee Cardiomyopathy Cardiac pacemaker in situ Bradycardia Symptomatic bradycardia Near syncope Status post placement of implantable loop recorder Dizziness Syncope HLD (hyperlipidemia) HHD (hypertensive heart disease) CAD (coronary artery disease) Surgical History History of hernia repair History of colonoscopy History of tonsillectomy AICD (automatic cardioverter/defibrillator) present H/O coronary artery bypass surgery Family History Other Coronary artery disease Hypertension Social History Smoking Status: Never smoker alcohol intake: never substance use type: denies use current occupational status: retired Travel in the last 8 weeks: Inside the [place] household members: spouse housing: house current occupational exposures/hazards: No caffeine: Yes physical activity: walking frequency: 5-6 times per week duration: 45-60 minutes/day Meds Home Medications and Allergies Home Medications ?Medication ?Instructions ?Recorded ?Confirmed ?Type aspirin 81 mg tablet,delayed 81 mg PO DAILY Heart health 09/12/17 01/12/24 History release fluticasone propionate 50 1 spray intranasal BIDP PRN 09/12/17 01/12/24 History mcg/actuation nasal allergies spray,suspension (Flonase Allergy Relief) ascorbic acid (vitamin C) 1,000 mg 1,000 mg PO DAILY supplement 05/23/18 01/12/24 History tablet omeprazole 20 mg capsule,delayed 20 mg PO DAILY Acid reflux 09/10/18 01/12/24 History release rosuvastatin 20 mg tablet 20 mg PO HS Cholesterol 04/18/19 01/12/24 History tamsulosin 0.4 mg capsule 0.4 mg PO DAILY PROSTATE 04/18/19 01/12/24 History coenzyme Q10 100 mg capsule (Co 100 mg PO DAILY Supplement 09/09/19 01/12/24 History Q-10) cyclosporine 0.05 % eye drops in a 1 drp Eye-Both Q12H dry eyes 08/29/22 01/12/24 History dropperette (Restasis) levothyroxine 88 mcg tablet 88 mcg PO DAILY 08/29/22 01/12/24 History memantine 10 mg tablet (Namenda) 10 mg PO BID Memory loss #60 tabs 11/07/22 01/12/24 Rx clopidogrel 75 mg tablet 75 mg PO DAILY 11/28/22 01/12/24 History donepezil 5 mg tablet 5 mg PO HS 11/28/22 01/12/24 History bisoprolol fumarate 5 mg tablet 5 mg PO DAILY High Blood Pressure 03/15/23 01/12/24 History diltiazem HCl 90 mg 90 mg PO BID #60 caps 09/27/23 01/12/24 Rx capsule,extended release 12 hr sertraline 25 mg tablet See Rx Instructions .Route 12/11/23 01/12/24 Rx .COMPLEX #90 tabs New Prescriptions to Start Prescriptions: Allergies Allergy/AdvReac Type Severity Reaction Status Date / Time codeine [CODEINE] Allergy Mild NA-NAUSEA/V Verified 12/14/23 09:00 OMITING Ortho Exam (Inpt) Vital signs and Labs for Last 24 Hours: Temp Pulse Resp BP Pulse Ox O2 Del Method 98.1 F 61 18 132/71 99 Room Air 01/12/24 14:51 01/12/24 16:33 01/12/24 16:33 01/12/24 16:33 01/12/24 16:33 01/12/24 14:51 Laboratory Results - last 24 hr 01/12/24 15:01: WBC 7.2, RBC 3.58 L, Hgb 11.8 L, Hct 36.5 L, MCV 102.0 H, MCH 32.9 H, MCHC 32.2, RDW 13.5, Plt Count 223, MPV 8.7, Neut % (Auto) 73.4, Lymph % (Auto) 18.5, [place] % (Auto) 5.3, Eos % (Auto) 2.4, Baso % (Auto) 0.5, Neut # (Auto) 5.3, Lymph # (Auto) 1.3, [place] # (Auto) 0.4, Eos # (Auto) 0.2, Baso # (Auto) 0.0, PT 10.9, INR 0.97, Sodium 134 L, Potassium 4.5, Chloride 103, Carbon Dioxide 29, Anion Gap 6.5, BUN 29 H, Creatinine 1.40 H, Estimated Creat Clear 43, Estimated GFR 48 L, Est GFR ( Amer) 58 L, Glucose 140 H, Calcium 8.7, Total Bilirubin 0.6, AST 31, ALT 21, Alkaline Phosphatase 86, Total Protein 6.4, Albumin 3.7, Globulin 2.7, Albumin/Globulin Ratio 1.4 I & O for Labs for Last 24 Hours: Intake & Output 01/09/24 01/10/24 01/11/24 01/12/24 23:59 23:59 23:59 23:59 Weight 175 lb Head: Present normocephalic and atraumatic Additional findings:: Right hip: Externally rotated and shortened. Unable to lift leg. Sensation is intact. Compartments are soft. Mild swelling around the hip joint. X-rays right hip show intertrochanteric hip fracture with subtrochanteric extension. Results Labs 01/12/24 15:01 01/12/24 15:01 Labs: Abnormal lab results 01/12/24 Range/Units 15:01 RBC 3.58 L (4.60-6.20) M/mm3 Hgb 11.8 L (14.1-18.0) g/dL Hct 36.5 L (42.0-52.0) % MCV 102.0 H (80-94) fl MCH 32.9 H (27.0-31.2) pg Sodium 134 L (136-145) mmol/L BUN 29 H (9-20) mg/dl Creatinine 1.40 H (0.66-1.25) mg/dl Estimated GFR 48 L (>60) ml/min Est GFR ( Amer) 58 L (>60) ML/MIN Glucose 140 H (74-100) mg/dl H & H 01/12/24 Range/Units 15:01 Hgb 11.8 L (14.1-18.0) g/dL Hct 36.5 L (42.0-52.0) % Coagulation 01/12/24 Range/Units 15:01 INR 0.97 (0.9-1.1) All other labs normal. Assessment and Plan *Assessment and plan (1) Subtrochanteric fracture of right femur: Status: Acute Qualifiers: Encounter type: initial encounter Fracture type: closed Fracture alignment: displaced Qualified Code(s): S72.21XA - Displaced subtrochanteric fracture of right femur, initial encounter for closed fracture Category: Medical Code(s): S72.21XA - Displaced subtrochanteric fracture of right femur, initial encounter for closed fracture Plan I had a discussion with the patient and his . He is at high risk of perioperative complications given his history of cardiomyopathy and cardiac history. He is on dual antiplatelet treatment currently. This will need to be held for 48 to 72 hours given the nature of the needed surgery. His surgery would require cephalomedullary nailing of the proximal femur. He is a patient of Dr. Jasmyne Miller consulted in regards to admission and accepted admission. Operative plan would be to hold aspirin and Plavix currently and anticipate surgical intervention on Monday. Plan surgical intervention cephalomedullary nailing right proximal femur. PROPOSED SURGERY: Cephalomedullary nailing right proximal femur. The risks and benefits of the proposed surgery were discussed in depth with the patient. Potential complications including inherent risk of anesthesia, infection, neurovascular damage, DVT, and rare but real potential loss of limb or life were all reviewed. Patient voices understanding and seems to understand to my satisfaction and wishes to proceed with surgery. I gave them adequate time to ask any questions they have pertaining to this surgery and answered all of them to the best of my ability. I gave them no guarantees in regards to outcomes of this surgery.
--- NOTE | 2024-01-12 17:01 | PC.NURSE ---
called report to [facility]
[2024-01-12] MEDS: ONDANSETRON 4MG/2ML VIAL 4 MG IV (18:47)
[2024-01-12] MEDS: 0.9 % SODIUM CHLORIDE 1000ML 1,000 ML 25 ML IV (18:47)
[2024-01-12] MEDS: MORPHINE 2MG/ML SYRINGE 2 MG IV (18:48)
[2024-01-12] MEDS: FAMOTIDINE 20MG/2ML VIAL 20 MG IV (20:18)
[2024-01-12] MEDS: ATORVASTATIN 40MG TABLET 40 MG PO (20:18)
[2024-01-12] MEDS: TAMSULOSIN 0.4MG CAPSULE 0.4 MG PO (20:18)
[2024-01-12] MEDS: DONEPEZIL 5MG TAB 5 MG PO (20:18)
[2024-01-12] MEDS: FLUTICASONE PROP 50MCG NASAL SPRAY 16GM 1 SPRAY NS (20:19)
[2024-01-13] VITALS (8 sets, daily range): BP systolic 123–158; BP diastolic 48–73; PULSE 6–77; RESP 18–19; TEMP 36.4–37.1; O2SAT 94–98; BMI 25.7
--- NOTE | 2024-01-13 06:12 | PC.NURSE ---
Alert and oriented. Intermittent mild confusion. Uses urinal. Patient has had no complaints of pain throughout the shift and has rested throughout the night. Remains on room air. Bed alarm on. Call light in reach.
--- NOTE | 2024-01-13 09:29 | PC.NURSE ---
told nurse about high b/p
[2024-01-13] MEDS: FAMOTIDINE 20MG/2ML VIAL 20 MG IV ×2 (10:26→20:49)
--- NOTE | 2024-01-13 11:04 | P.HP_ITS ---
History of Present Illness *Admission Date: 01/12/24 *Reason for visit:: Hip pain after a fall *History of present illness: Mr. 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 Patient states he felt fine yesterday prior to falling. He typically uses a walker or a cane to assit with ambulation. He is unsure why he fell exiting the car. He has a long standing history of syncope and has extensive cardiac and neurologic work ups. He has had fewer problems recently after his antihypertensive medication doses were decreased. Evaluation in the ER showed a right hip fracture. Dr. Soriano in Orthopedics was consulted and saw patient in the ER. His not has been reviewed and he is planning for surgery in a few days, with plans to hold patient's aspirin and plavix until after surgery. [facility] Disclaimer: The information contained in this section may have been updated after the patient was seen, as this information can be updated by other users. Medical History (Updated 01/13/24 @ 11:12 by Dave Medley MD) GERD (gastroesophageal reflux disease) BPH (benign prostatic hyperplasia) MCI (mild cognitive impairment) Renal insufficiency Tear of meniscus of knee Atypical angina Short-term memory loss Throat cancer Osteoarthritis of right knee Cardiomyopathy Cardiac pacemaker in situ Bradycardia Symptomatic bradycardia Near syncope Status post placement of implantable loop recorder Dizziness Syncope HLD (hyperlipidemia) HHD (hypertensive heart disease) CAD (coronary artery disease) Surgical History History of hernia repair History of colonoscopy History of tonsillectomy AICD (automatic cardioverter/defibrillator) present H/O coronary artery bypass surgery Family History Other Coronary artery disease Hypertension Social History Smoking Status: Never smoker alcohol intake: never substance use type: denies use current occupational status: retired Travel in the last 8 weeks: [place] the [place] household members: spouse housing: house current occupational exposures/hazards: No caffeine: Yes physical activity: walking frequency: 5-6 times per week duration: 45-60 minutes/day Review of Systems Constitutional Constitutional: Denies chills and Denies fever(s) ENT Ears, Nose, Mouth, and Throat: Denies dizziness and Denies dysphagia *Cardiovascular Cardiovascular: Denies chest pain and Denies dyspnea *Respiratory Respiratory: Denies cough and Denies dyspnea *Gastrointestinal Gastrointestinal: Denies dysphagia *Genitourinary Genitourinary: Denies difficulty urinating *Musculoskeletal Musculoskeletal: Reports as per HPI and Reports arthralgias (right hip) *Neurologic Neurologic: Denies dizziness Meds Home Medications and Allergies Home Medications ?Medication ?Instructions ?Recorded ?Confirmed ?Type aspirin 81 mg tablet,delayed 81 mg PO DAILY Heart health 09/12/17 01/12/24 History release fluticasone propionate 50 1 spray intranasal BIDP PRN 09/12/17 01/12/24 History mcg/actuation nasal allergies spray,suspension (Flonase Allergy Relief) ascorbic acid (vitamin C) 1,000 mg 1,000 mg PO DAILY supplement 05/23/18 01/12/24 History tablet omeprazole 20 mg capsule,delayed 20 mg PO DAILY Acid reflux 09/10/18 01/12/24 History release rosuvastatin 20 mg tablet 20 mg PO HS Cholesterol 04/18/19 01/12/24 History tamsulosin 0.4 mg capsule 0.4 mg PO DAILY PROSTATE 04/18/19 01/12/24 History coenzyme Q10 100 mg capsule (Co 100 mg PO DAILY Supplement 09/09/19 01/12/24 History Q-10) cyclosporine 0.05 % eye drops in a 1 drp Eye-Both Q12H dry eyes 08/29/22 01/12/24 History dropperette (Restasis) levothyroxine 88 mcg tablet 88 mcg PO DAILY 08/29/22 01/12/24 History memantine 10 mg tablet (Namenda) 10 mg PO BID Memory loss #60 tabs 11/07/22 01/12/24 Rx clopidogrel 75 mg tablet 75 mg PO DAILY 11/28/22 01/12/24 History donepezil 5 mg tablet 5 mg PO HS 11/28/22 01/12/24 History bisoprolol fumarate 5 mg tablet 5 mg PO DAILY High Blood Pressure 03/15/23 01/12/24 History diltiazem HCl 90 mg 90 mg PO BID #60 caps 09/27/23 01/12/24 Rx capsule,extended release 12 hr sertraline 25 mg tablet See Rx Instructions .Route 12/11/23 01/12/24 Rx .COMPLEX #90 tabs New Prescriptions to Start Prescriptions: Allergies Allergy/AdvReac Type Severity Reaction Status Date / Time codeine [CODEINE] Allergy Mild NA-NAUSEA/V Verified 12/14/23 09:00 OMITING Exam Data for Last 24 hours Vital signs and Labs for Last 24 Hours: Temp Pulse Resp BP Pulse Ox O2 Del Method 98.7 F 60 18 154/69 H 94 L Room Air 01/13/24 08:00 01/13/24 08:00 01/13/24 08:00 01/13/24 08:00 01/13/24 08:00 01/13/24 09:00 Laboratory Results - last 24 hr 01/12/24 15:01: WBC 7.2, RBC 3.58 L, Hgb 11.8 L, Hct 36.5 L, MCV 102.0 H, MCH 32.9 H, MCHC 32.2, RDW 13.5, Plt Count 223, MPV 8.7, Neut % (Auto) 73.4, Lymph % (Auto) 18.5, [place] % (Auto) 5.3, Eos % (Auto) 2.4, Baso % (Auto) 0.5, Neut # (Auto) 5.3, Lymph # (Auto) 1.3, [place] # (Auto) 0.4, Eos # (Auto) 0.2, Baso # (Auto) 0.0, PT 10.9, INR 0.97, Sodium 134 L, Potassium 4.5, Chloride 103, Carbon Dioxide 29, Anion Gap 6.5, BUN 29 H, Creatinine 1.40 H, Estimated Creat Clear 43, Estimated GFR 48 L, Est GFR ( Amer) 58 L, Glucose 140 H, Calcium 8.7, Total Bilirubin 0.6, AST 31, ALT 21, Alkaline Phosphatase 86, Total Protein 6.4, Albumin 3.7, Globulin 2.7, Albumin/Globulin Ratio 1.4 I & O for Last 24 hours: Intake & Output 01/10/24 01/11/24 01/12/24 01/13/24 23:59 23:59 23:59 23:59 Intake Total 300 / 300 350 / 350 Output Total 400 / 400 Balance 300 / 200 -50 / -50 Weight 182 lb 2 oz 184 lb 4.015 oz Constitutional Constitutional: no acute distress *Routine HEENT Exam Head: Present normocephalic Eye: Present EOMI and PERRL ENT: Present mucous membranes moist *Routine Neck Exam Neck: Present supple; Absent lymphadenopathy *Routine Respiratory Exam Respiratory: Present CTA bilaterally *Routine Cardiovascular Exam Cardiovascular: Present RRR *Routine Abdominal Exam Abdominal: Present soft and normoactive bowel sounds; Absent tenderness *Routine Rectal Exam Rectal:: deferred *Routine Genitalia Exam Genitalia:: deferred *Routine Extremities Exam Extremities: Absent cyanosis, clubbing or edema Comments: tenderness to palpation along the proximal right femur, right lower extremity externally rotated, normal ROM at ankle *Routine Skin Exam Skin: Present warm; Absent rash *Routine Neurological Exam Neurological: Present alert and oriented X3 Assessment and Plan *Assessment and plan (1) Fall: Status: Acute Category: Medical Code(s): W19.XXXA - Unspecified fall, initial encounter (2) Subtrochanteric fracture of right femur: Status: Acute Qualifiers: Encounter type: initial encounter Fracture alignment: displaced Fracture type: closed Qualified Code(s): S72.21XA - Displaced subtrochanteric fracture of right femur, initial encounter for closed fracture Category: Medical Code(s): S72.21XA - Displaced subtrochanteric fracture of right femur, initial encounter for closed fracture (3) 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 Category: Surgical Code(s): Z95.810 - Presence of automatic (implantable) cardiac defibrillator (4) Cardiomyopathy: Status: Chronic Qualifiers: Cardiomyopathy type: unspecified Qualified Code(s): I42.9 - Cardiomyopathy, unspecified Category: Medical Code(s): I42.9 - Cardiomyopathy, unspecified (5) Recurrent syncope: Status: Acute Category: Medical Code(s): R55 - Syncope and collapse (6) Hypertension: Status: Chronic Qualifiers: Hypertension type: unspecified Qualified Code(s): I10 - Essential (primary) hypertension Category: Medical Code(s): I10 - Essential (primary) hypertension (7) CAD (coronary artery disease): Status: Chronic Qualifiers: Coronary Disease-Associated Artery/Lesion type: [place] artery [place] vs. transplanted heart: [place] heart Associated angina: without angina Qualified Code(s): I25.10 - Atherosclerotic heart disease of [place] coronary artery without angina pectoris Category: Medical Code(s): I25.10 - Atherosclerotic heart disease of [place] coronary artery without angina pectoris (8) HLD (hyperlipidemia): Status: Chronic Qualifiers: Hyperlipidemia type: mixed hyperlipidemia Qualified Code(s): E78.2 - Mixed hyperlipidemia Category: Medical Code(s): E78.5 - Hyperlipidemia, unspecified (9) H/O coronary artery bypass surgery: Status: Chronic Category: Surgical Code(s): Z95.1 - Presence of aortocoronary bypass graft Plan See orders, plan for surgery in 2 days.
[2024-01-13] MEDS: BISOPROLOL 5MG TABLET 5 MG PO (13:43)
[2024-01-13] MEDS: LEVOTHYROXINE 88MCG (0.088MG) TAB 88 MCG PO (13:43)
[2024-01-13] MEDS: MORPHINE 2MG/ML SYRINGE 2 MG IV (13:47)
[2024-01-13] MEDS: ATORVASTATIN 40MG TABLET 40 MG PO (20:49)
[2024-01-13] MEDS: DONEPEZIL 5MG TAB 5 MG PO (20:49)
[2024-01-13] MEDS: MEMANTINE 10MG TABLET 10 MG PO (20:50)
[2024-01-13] MEDS: PANTOPRAZOLE 40MG TABLET 40 MG PO (20:50)
[2024-01-13] MEDS: FLUTICASONE PROP 50MCG NASAL SPRAY 16GM 1 SPRAY NS (20:50)
[2024-01-13] MEDS: TAMSULOSIN 0.4MG CAPSULE 0.4 MG PO (20:50)
[2024-01-14] VITALS: BP 91/45; PULSE 63; PULSE 66; RESP 16; TEMP 37.2; O2SAT 91
[2024-01-14 04:00] VITALS: PULSE 60; BMI 27.6
--- NOTE | 2024-01-14 05:37 | PC.NURSE ---
Pt is alert and oriented with a few episodes of mild confusion. He has remained on room air. He has not complained of any pain this shift. No complaints at this time, call light within reach.
--- NOTE | 2024-01-14 07:06 | EXP.ACUTE.PN ---
Subjective *Date: 01/14/24 *Time: 07:06 Interval history: Patient with no new complaints today. Medical Exam Vital signs and Labs for Last 24 Hours: Vital Signs Temp Pulse Pulse Resp BP Pulse Ox O2 Del Method 01/14/24 06:45 Room Air 01/14/24 05:00 Room Air 01/14/24 04:00 60 01/14/24 03:00 Room Air 01/14/24 01:00 Room Air 01/14/24 00:00 99.0 F 63 16 91/45 L 91 L Room Air 01/14/24 00:00 66 01/13/24 23:00 Room Air 01/13/24 21:00 Room Air 01/13/24 20:00 Room Air 01/13/24 20:00 77 01/13/24 18:22 Room Air 01/13/24 17:00 Room Air 01/13/24 16:00 61 01/13/24 16:00 97.6 F 62 19 123/48 L 97 Room Air 01/13/24 15:00 Room Air 01/13/24 13:00 Room Air 01/13/24 12:01 98.2 F 60 19 158/71 H 98 01/13/24 12:00 60 01/13/24 11:00 Room Air 01/13/24 09:00 Room Air 01/13/24 08:00 70 01/13/24 08:00 Room Air 01/13/24 08:00 98.7 F 60 18 154/69 H 94 L Intake and Output 01/13/24 01/13/24 01/14/24 15:59 23:59 07:59 Intake Total 590 / 1060 270 / 1060 200 / 200 Output Total 125 / 400 0 / 0 Balance 465 / 660 270 / 660 200 / 200 Intake: Intake, Oral Amount 590 / 1060 270 / 1060 200 / 200 Output: Output, Urine Amount 125 / 400 0 / 0 Other: Number of Unmeasured Voids 0 100 Weight 197 lb 3.2 oz Patient Weight 01/14/24 23:59 Weight 197 lb 3.2 oz I & O for Labs for Last 24 Hours: Intake & Output 01/11/24 01/12/24 01/13/24 01/14/24 23:59 23:59 23:59 23:59 Intake Total 300 / 300 860 / 1060 200 / 200 Output Total 400 / 400 0 / 0 Balance 300 / 200 460 / 660 200 / 200 Weight 182 lb 2 oz 184 lb 4.015 oz 197 lb 3.2 oz Constitutional: Present no acute distress Respiratory: Present normal respiratory effort Cardiac: Present Reg Rate and Rhythm GI: Present normal bowel sounds; Absent tenderness Skin: Present intact; Absent erythema Neuro: Present Grossly Intact, alert and awake (conversant) Assessment and Plan *Assessment and plan (1) Fall: Status: Acute Category: Medical Code(s): W19.XXXA - Unspecified fall, initial encounter (2) Subtrochanteric fracture of right femur: Status: Acute Qualifiers: Encounter type: initial encounter Fracture alignment: displaced Fracture type: closed Qualified Code(s): S72.21XA - Displaced subtrochanteric fracture of right femur, initial encounter for closed fracture Category: Medical Code(s): S72.21XA - Displaced subtrochanteric fracture of right femur, initial encounter for closed fracture (3) 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 Category: Surgical Code(s): Z95.810 - Presence of automatic (implantable) cardiac defibrillator (4) Cardiomyopathy: Status: Chronic Qualifiers: Cardiomyopathy type: unspecified Qualified Code(s): I42.9 - Cardiomyopathy, unspecified Category: Medical Code(s): I42.9 - Cardiomyopathy, unspecified (5) Recurrent syncope: Status: Acute Category: Medical Code(s): R55 - Syncope and collapse (6) Hypertension: Status: Chronic Qualifiers: Hypertension type: unspecified Qualified Code(s): I10 - Essential (primary) hypertension Category: Medical Code(s): I10 - Essential (primary) hypertension (7) CAD (coronary artery disease): Status: Chronic Qualifiers: Coronary Disease-Associated Artery/Lesion type: [place] artery [place] vs. transplanted heart: [place] heart Associated angina: without angina Qualified Code(s): I25.10 - Atherosclerotic heart disease of [place] coronary artery without angina pectoris Category: Medical Code(s): I25.10 - Atherosclerotic heart disease of [place] coronary artery without angina pectoris (8) HLD (hyperlipidemia): Status: Chronic Qualifiers: Hyperlipidemia type: mixed hyperlipidemia Qualified Code(s): E78.2 - Mixed hyperlipidemia Category: Medical Code(s): E78.5 - Hyperlipidemia, unspecified (9) H/O coronary artery bypass surgery: Status: Chronic Category: Surgical Code(s): Z95.1 - Presence of aortocoronary bypass graft Plan No change in treatment, plan for surgery on right hip fracture tomorrow. NPO after midnight tonight.
[2024-01-14 07:54] LABS: Chloride 103 mmol/L (98-107)
[2024-01-14 07:55] LABS: Basophils % 0.3 % (0.1-2.0); Eosinophils % 0.4 % (0.1-12.0); Hematocrit 30.7 % (42.0-52.0); Hemoglobin 9.9 g/dL (14.1-18.0); Lymphocytes # 1.4 K/mm3 (0.7-4.5); Mean Corpuscular HGB Conc 32.2 g/dL (31.8-35.4); Mean Corpuscular Hemoglobin 32.2 pg (27.0-31.2); Mean Corpuscular Volume 100.1 fl (80-94); Mean Platelet Volume 9.1 fl (7.4-10.4); Monocytes # 0.8 K/mm3 (0.1-1.0); Monocytes % 7.6 % (1.7-9.3); Neutrophils # 7.7 K/mm3 (1.8-7.8); Neutrophils % 77.8 % (37.0-80.0); Platelet Count 180 K/mm3 (142-424); Potassium 3.8 mmoL/L (3.5-5.1); Red Blood Count 3.07 M/mm3 (4.60-6.20); Red Cell Distribution Width 13.8 % (11.5-17.5); Sodium 131 mmol/L (136-145); White Blood Count 9.9 K/mm3 (4.8-10.8)
[2024-01-14 07:58] LABS: Anion Gap 4.8 mEq/L (5-15); Blood Urea Nitrogen 24 mg/dl (9-20); Calcium 8.3 mg/dl (8.4-10.2); Carbon Dioxide 27 mmol/L (22.0-30.0); Creatinine Clearance Estimated 68 mL/min (50-200); Estimated Glomerular Filt Rate 71 ml/min (>60); GFR (African American) 86 ML/MIN (>60); Glucose 114 mg/dl (74-100)
[2024-01-14 08:00] VITALS: BP 109/52; PULSE 64; PULSE 66; RESP 18; TEMP 36.8; O2SAT 94
[2024-01-14] MEDS: FAMOTIDINE 20MG/2ML VIAL 20 MG IV (08:32)
[2024-01-14] MEDS: LEVOTHYROXINE 88MCG (0.088MG) TAB 88 MCG PO (08:32)
[2024-01-14] MEDS: ACETAMINOPHEN 325MG TAB 650 MG PO (08:32)
[2024-01-14] MEDS: MEMANTINE 10MG TABLET 10 MG PO ×2 (08:32→21:29)
[2024-01-14] MEDS: BISOPROLOL 5MG TABLET 5 MG PO (08:32)
[2024-01-14] MEDS: FLUTICASONE PROP 50MCG NASAL SPRAY 16GM 1 SPRAY NS ×2 (08:47→21:29)
[2024-01-14 11:44] VITALS: BP 123/61; PULSE 60; RESP 18; TEMP 36.6; O2SAT 95
[2024-01-14 12:00] VITALS: PULSE 60
[2024-01-14 16:00] VITALS: BP 140/73; PULSE 60; RESP 18; TEMP 37.3; O2SAT 98
[2024-01-14] MEDS: MORPHINE 2MG/ML SYRINGE 2 MG IV (16:40)
[2024-01-14] MEDS: 0.9 % SODIUM CHLORIDE 1000ML 1,000 ML 25 ML IV (21:28)
[2024-01-14] MEDS: ATORVASTATIN 40MG TABLET 40 MG PO (21:29)
[2024-01-14] MEDS: FAMOTIDINE 20MG TABLET 20 MG PO (21:29)
[2024-01-14] MEDS: PANTOPRAZOLE 40MG TABLET 40 MG PO (21:29)
[2024-01-14] MEDS: DONEPEZIL 5MG TAB 5 MG PO (21:29)
[2024-01-14] MEDS: TAMSULOSIN 0.4MG CAPSULE 0.4 MG PO (21:30)
[2024-01-15] VITALS (19 sets, daily range): BP systolic 102–165; BP diastolic 54–93; PULSE 56–64; RESP 12–18; TEMP 36.4–37.7; O2SAT 91–98; BMI 27.1
--- NOTE | 2024-01-15 04:51 | PC.NURSE ---
Pts wedding ring locked in bedside drawer.
[2024-01-15] MEDS: LEVOTHYROXINE 88MCG (0.088MG) TAB 88 MCG PO (06:23)
--- NOTE | 2024-01-15 07:46 | EXP.ACUTE.PN ---
Subjective *Date: 01/15/24 *Time: 08:58 Interval history: Patient has no complaints this morning. He states he slept well. He denies chest pain and shortness of breath. His leg does not hurt unless he moves it. He is n.p.o. for surgery this morning. Medical Exam Vital signs and Labs for Last 24 Hours: Vital Signs Temp Pulse Pulse Resp BP Pulse Ox O2 Del Method 01/15/24 07:00 Room Air 01/15/24 05:59 98.3 F 61 18 148/67 H 95 Room Air 01/15/24 05:00 Room Air 01/15/24 03:00 Room Air 01/15/24 01:00 Room Air 01/15/24 00:00 98.9 F 56 L 16 117/54 L 93 L Room Air 01/14/24 23:00 Room Air 01/14/24 21:00 Room Air 01/14/24 20:00 Room Air 01/14/24 19:00 Room Air 01/14/24 17:00 Room Air 01/14/24 16:00 60 01/14/24 16:00 99.2 F 60 18 140/73 98 Room Air 01/14/24 15:00 Room Air 01/14/24 13:00 Room Air 01/14/24 12:00 60 01/14/24 11:44 98 F 60 18 123/61 95 01/14/24 11:00 Room Air 01/14/24 09:00 Room Air 01/14/24 08:00 66 01/14/24 08:00 Room Air 01/14/24 08:00 98.2 F 64 18 109/52 L 94 L Room Air Intake and Output 01/14/24 01/15/24 01/15/24 19:59 03:59 11:59 Intake Total 480 / 480 325 / 805 Output Total 200 / 200 Balance 480 / 480 325 / 805 -200 / 605 Intake: Intake, Oral Amount 480 / 480 200 / 680 Intake, Total IV Amount 125 / 125 0.9 % Sodium Chloride 1000ML 1, 125 / 125 000 ml @ 25 mls/hr IV .Q24H [facility] Rx#:[id number] Output: Output, Urine Amount 200 / 200 Other: Number of Unmeasured Voids 1 Weight 194 lb 3.2 oz Patient Weight 01/15/24 11:59 Weight 194 lb 3.2 oz Laboratory Results - last 24 hr 01/14/24 06:29: WBC 9.9 D, RBC 3.07 L, Hgb 9.9 L, Hct 30.7 L, MCV 100.1 H, MCH 32.2 H, MCHC 32.2, RDW 13.8, Plt Count 180, MPV 9.1, Neut % (Auto) 77.8, Lymph % (Auto) 14.0, [place] % (Auto) 7.6, Eos % (Auto) 0.4, Baso % (Auto) 0.3, Neut # (Auto) 7.7, Lymph # (Auto) 1.4, [place] # (Auto) 0.8, Eos # (Auto) 0.0, Baso # (Auto) 0.0, Sodium 131 L, Potassium 3.8, Chloride 103, Carbon Dioxide 27, Anion Gap 4.8 L, BUN 24 H, Creatinine 1.00 D, Estimated Creat Clear 68, Estimated GFR 71, Est GFR ( Amer) 86 D, Glucose 114 H, Calcium 8.3 L I & O for Labs for Last 24 Hours: Intake & Output 01/12/24 01/13/24 01/14/24 01/15/24 11:59 11:59 11:59 11:59 Intake Total 650 / 650 1190 / 1190 805 / 805 Output Total 400 / 400 0 / 0 200 / 200 Balance 250 / 250 1190 / 1190 605 / 605 Weight 184 lb 4.015 oz 197 lb 3.2 oz 194 lb 3.2 oz Constitutional: Present no acute distress Comment:: Awake and alert visiting with daughter and . Awaiting surgery. He appears most comfortable. Respiratory: Present CTA bilaterally Cardiac: Present Reg Rate and Rhythm GI: Present soft; Absent distention, tenderness or guarding Extremities: Absent calf tenderness Comment:: Edema of the right leg. Good bilateral pedal pulses. Left leg without edema. Neuro: Present alert, awake and oriented x 3 Assessment and Plan *Assessment and plan (1) Fall: Status: Acute Category: Medical Code(s): W19.XXXA - Unspecified fall, initial encounter (2) Subtrochanteric fracture of right femur: Status: Acute Qualifiers: Encounter type: initial encounter Fracture alignment: displaced Fracture type: closed Qualified Code(s): S72.21XA - Displaced subtrochanteric fracture of right femur, initial encounter for closed fracture Category: Medical Code(s): S72.21XA - Displaced subtrochanteric fracture of right femur, initial encounter for closed fracture (3) 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 Category: Surgical Code(s): Z95.810 - Presence of automatic (implantable) cardiac defibrillator (4) Cardiomyopathy: Status: Chronic Qualifiers: Cardiomyopathy type: unspecified Qualified Code(s): I42.9 - Cardiomyopathy, unspecified Category: Medical Code(s): I42.9 - Cardiomyopathy, unspecified (5) Recurrent syncope: Status: Acute Category: Medical Code(s): R55 - Syncope and collapse (6) Hypertension: Status: Chronic Qualifiers: Hypertension type: unspecified Qualified Code(s): I10 - Essential (primary) hypertension Category: Medical Code(s): I10 - Essential (primary) hypertension (7) CAD (coronary artery disease): Status: Chronic Qualifiers: Associated angina: without angina Coronary Disease-Associated Artery/Lesion type: [place] artery [place] vs. transplanted heart: [place] heart Qualified Code(s): I25.10 - Atherosclerotic heart disease of [place] coronary artery without angina pectoris Category: Medical Code(s): I25.10 - Atherosclerotic heart disease of [place] coronary artery without angina pectoris (8) HLD (hyperlipidemia): Status: Chronic Qualifiers: Hyperlipidemia type: mixed hyperlipidemia Qualified Code(s): E78.2 - Mixed hyperlipidemia Category: Medical Code(s): E78.5 - Hyperlipidemia, unspecified (9) H/O coronary artery bypass surgery: Status: Chronic Category: Surgical Code(s): Z95.1 - Presence of aortocoronary bypass graft (10) Anemia: Status: Acute Category: Medical Code(s): D64.9 - Anemia, unspecified (11) Hyponatremia: Status: Acute Category: Medical Code(s): E87.1 - Hypo-osmolality and hyponatremia Plan For right hip surgery today. Dr. Medley entry - Saw patient, agree with above note.
[2024-01-15] MEDS: BISOPROLOL 5MG TABLET 5 MG PO (09:13)
[2024-01-15] MEDS: FAMOTIDINE 20MG TABLET 20 MG PO ×2 (09:14→20:03)
[2024-01-15] MEDS: MEMANTINE 10MG TABLET 10 MG PO ×2 (09:14→20:03)
[2024-01-15] MEDS: FLUTICASONE PROP 50MCG NASAL SPRAY 16GM 1 SPRAY NS ×2 (09:14→20:03)
--- NOTE | 2024-01-15 15:00 | PC.NURSE ---
pt to OR
--- NOTE | 2024-01-15 17:50 | XR_ITS ---
FINAL REPORT CLINICAL HISTORY: RT HIP FX SURGERY 2.4 ricardo 0.00 mGy/ricardo 31.51 mGy COMPARISON: None FINDINGS: FLUOROSCOPY LESS THAN 1 HOUR HISTORY: FINDINGS: Fluoroscopic guidance was provided for ORIF right hip. 6 spot films were obtained. 2.4 minutes of fluoroscopy time were used. Dosage calculated at 31.51 mGy. IMPRESSION: As above. Reviewed, Interpreted and Dictated by Davey Casillas MD Transcribed by Karen Sands Authenticated and [facility]
--- NOTE | 2024-01-15 18:02 | P.OP_ITS ---
Date of procedure: 01/15/24 Pre-op Diagnosis:: Right intertrochanteric hip fracture with subtrochanteric extension Post-op Diagnosis:: Same Procedure performed:: Cephalomedullary nailing right proximal femur Surgeon:: Layton Soriano DO Protective Signal Repairer Helper(s):: Tono VELIZ CORN DETASSELER MACHINE OPERATOR:: Mykel Alexander Anesthesia: GETA Estimated blood loss (mL): 100 Clinical Note:: Implants Synthes TFN long nail dynamically locked Operative findings:: See dictation Operative note:: Patient is identified preoperatively. Right hip marked with yes and my init ials. Then taken the operating room. Given spinal anesthesia. Then placed supine on the fracture table. His nonoperative leg was placed in the semilithotomy position out of the way of the x-ray. His right hip was then placed inline traction with the fracture table. X-ray was brought into identify the fracture pattern and use the bed for reduction of the fracture. Traction was placed on the fracture internal rotation of the foot gave reduction in line of the intertrochanteric hip fracture with subtrochanteric extension Once adequate reduction was obtained on the x-ray there is a hip was prepped and draped in normal sterile fashion. Once prepped and draped final operative timeout performed to identify proper patient procedure and extremity. Everyone involved in the case agreed. There were no counter indications to beginning. He did receive preoperative antibiotics Marking pen was used to carlos plan incision 2 fingerbreadths above the greater trochanter. Skin knife was used incise through skin down through the IT band starting guidewire was placed on the tip of the greater trochanter and advanced down into the canal which was seen both on the AP and lateral views. Opening reamer was selected. This was followed by a long ball-tipped wire which was placed down towards the knee. This ball-tipped wire was placed in the canal down to the knee and measured the size 400 nail was selected. Reamers were selected starting from an 8.5 and reaming up to a 12.5 that allowed for easy placement of the size 11 long TFN nail. The nail was selected and placed on the health occupations teacher and placed over the guidewire under direct visualization on the x-ray. It was impacted into place. AP and lateral views and the x-rays were taken. The skin was then cut to allow for placement of the helical blade. The guidewire was placed with the guide and seen on the x-ray and the center center position of the neck. It measured to size 110 and the lateral opening cortex reamer was used followed by the helical blade reamer up to a 110. And then a size 110 screw was selected and impacted into place with a helical blade. This was then locked at the top part of the nail. Flame Cutting Machine Operator Helper was then removed. Attention was brought distally to the distal aspect of the nail x-ray was brought in for perfect circles and they dynamic locking screw was placed in the distal aspect of the nail. This is viewed on the AP and lateral views to found to be in good position. Irrigation of wound performed. IT band closed with 0 Vicryl stitch in each incision subcutaneous with 2-0 Vicryl surgical clips in the skin for closure sterile hip dressing placed. Patient waken anesthesia taken recovery stable condition. Condition: stable Disposition: PACU Complications:: None apparent
--- NOTE | 2024-01-15 18:06 | EXP.ANES.CKL ---
[facility] Disclaimer: The information contained in this section may have been updated after the patient was seen, as this information can be updated by other users. Medical History (Updated 01/15/24 @ 08:58 by Dave Medley MD) GERD (gastroesophageal reflux disease) BPH (benign prostatic hyperplasia) MCI (mild cognitive impairment) Renal insufficiency Tear of meniscus of knee Atypical angina Short-term memory loss Throat cancer Osteoarthritis of right knee Cardiomyopathy Cardiac pacemaker in situ Bradycardia Symptomatic bradycardia Near syncope Status post placement of implantable loop recorder Dizziness Syncope HLD (hyperlipidemia) HHD (hypertensive heart disease) CAD (coronary artery disease) Surgical History History of hernia repair History of colonoscopy History of tonsillectomy AICD (automatic cardioverter/defibrillator) present H/O coronary artery bypass surgery Family History Other Coronary artery disease Hypertension Social History Smoking Status: Never smoker alcohol intake: never substance use type: denies use current occupational status: retired Travel in the last 8 weeks: Inside the [place] household members: spouse housing: house current occupational exposures/hazards: No caffeine: Yes physical activity: walking frequency: 5-6 times per week duration: 45-60 minutes/day [facility] Anesthesia Checklist Patient Identification Patient Identification: Family and Verbal (Name & ) Structural Data Admitted From: Inpatient Planned Operative Procedure/s: orif r hip Consent for Planned Operative Procedure(s) Verified: Yes NPO Status Verified Time NPO: 00:00 Airway Assessment Mallampati Score:: Class II C-Spine Mobility Assessed: Yes TMJ Mobility Assessed: Yes Dentition: Good Dentition Neurological Assessment Level of Consciousness: Awake, Alert and Inappropriate Anesthesia Plan Anesthesia Risk discussed: Yes Anesthesia Plan: Verified ASA Class: III Anesthesia Type: Spinal
--- NOTE | 2024-01-15 18:07 | EXP.ANES.I ---
[facility] Anesthesia Record Part I Anesthesia Record I Intake, IV Amount: 2,400 Hydration: Adequate Estimated blood loss (mL): 150 Urine output (mL): 300 Blood Pressure: 130/85 SaO2: 93 Pulse Rate: 60 Airway Patency: Patent Respiratory Rate: 12 Temperature: 97.9 F Patient is:: Awake and Stable Stable to PACU at:: 18:00
--- NOTE | 2024-01-15 18:19 | SUR.OPER ---
catheter dc'd tomorrow morning by med surg nurse
[2024-01-15] MEDS: TAMSULOSIN 0.4MG CAPSULE 0.4 MG PO (20:03)
[2024-01-15] MEDS: DONEPEZIL 5MG TAB 5 MG PO (20:03)
[2024-01-15] MEDS: PANTOPRAZOLE 40MG TABLET 40 MG PO (20:03)
[2024-01-15] MEDS: ATORVASTATIN 40MG TABLET 40 MG PO (20:03)
[2024-01-15 20:12] LABS: Microscopic,Cath URINE MICROSCOPIC (MICROSCOPIC)
--- NOTE | 2024-01-15 20:22 | PC.NURSE ---
patient was given an IS and educated on how to use it hourly while awake - patient demonstrated proper use. knee high SCD on left leg. BA on for safety.
[2024-01-15 20:44] LABS: Appearance,Urine/Cath CLEAR (Clear); Bilirubin,Cath Negative (Negative); Blood, Urine/Cath 2+ (Negative); Color,Urine/Cath YELLOW (Yellow); Glucose,Urine/Cath (UA) Negative (Negative); Ketones,Urine/Cath Negative (Negative); Leukocyte Esterase,Cath Negative (Negative); Nitrate,Cath Negative (Negative); PH,Urine/Cath 6.5 (5.0-8.5); Protein,Urine/Cath TRACE (Negative)
[2024-01-15 20:52] LABS: Bacteria,Urine/Cath 1+ /lpf; RBC,Urine/Cath 20-50 # /hpf (0-3); Squamous Epithelial Ur./Cath Occasional #/hpf (0-5)
[2024-01-16] VITALS (7 sets, daily range): BP systolic 125–185; BP diastolic 54–68; PULSE 60–66; RESP 12–20; TEMP 36.4–37.2; O2SAT 93–96; BMI 26.6
[2024-01-16] MEDS: CEFAZOLIN SODIUM 1 GM in 0.9 % SODIUM CHLORIDE 50 ML IV (00:32)
--- NOTE | 2024-01-16 02:56 | PC.NURSE ---
Pt pulled out their huitron catheter. Small amount of blood noted around urethra and leg. Some bruising around the shaft of the penis, but no swelling at this time. Will monitor for swelling and urine output.
[2024-01-16] MEDS: LEVOTHYROXINE 88MCG (0.088MG) TAB 88 MCG PO (06:16)
[2024-01-16] MEDS: HYDROCODONE/APAP 5/325 MG TABLET 2 TAB PO (07:09)
--- NOTE | 2024-01-16 07:46 | EXP.ANES.I ---
[facility] Anesthesia Record Part I Anesthesia Record I Intake, IV Amount: 2,500 Hydration: Adequate Estimated blood loss (mL): 150 Urine output (mL): 300 Blood Pressure: 155/65 SaO2: 93 Pulse Rate: 60 Airway Patency: Patent Respiratory Rate: 12 Temperature: 97.9 F Patient is:: Awake and Stable Stable to PACU at:: 18:00
[2024-01-16 08:07] LABS: Basophils % 0.1 % (0.1-2.0); Eosinophils % 0.2 % (0.1-12.0); Hematocrit 25.1 % (42.0-52.0); Hemoglobin 8.2 g/dL (14.1-18.0); Lymphocytes # 1.1 K/mm3 (0.7-4.5); Mean Corpuscular HGB Conc 32.6 g/dL (31.8-35.4); Mean Corpuscular Hemoglobin 32.3 pg (27.0-31.2); Mean Corpuscular Volume 99.1 fl (80-94); Mean Platelet Volume 8.9 fl (7.4-10.4); Monocytes # 0.6 K/mm3 (0.1-1.0); Monocytes % 6.1 % (1.7-9.3); Neutrophils # 8.3 K/mm3 (1.8-7.8); Neutrophils % 82.5 % (37.0-80.0); Platelet Count 190 K/mm3 (142-424); Red Blood Count 2.53 M/mm3 (4.60-6.20); Red Cell Distribution Width 13.5 % (11.5-17.5); White Blood Count 10.1 K/mm3 (4.8-10.8)
[2024-01-16 08:17] LABS: Alanine Aminotransferase 20 U/L (12-78); Albumin Level 2.9 g/dl (3.5-5.0); Albumin/Globulin Ratio 1.2 (1.1-1.8); Alkaline Phosphatase 64 U/L (38-126); Anion Gap 5.8 mEq/L (5-15); Aspartate Amino Transferase 40 U/L (17-59); Bilirubin,Total 1.1 mg/dl (0.2-1.3); Blood Urea Nitrogen 21 mg/dl (9-20); Calcium 8.2 mg/dl (8.4-10.2); Carbon Dioxide 27 mmol/L (22.0-30.0); Chloride 101 mmol/L (98-107); Creatinine Clearance Estimated 66 mL/min (50-200); Estimated Glomerular Filt Rate 80 ml/min (>60); GFR (African American) 97 ML/MIN (>60); Globulin 2.4 g/dL (1.3-3.2); Glucose 118 mg/dl (74-100); Potassium 3.8 mmoL/L (3.5-5.1); Sodium 130 mmol/L (136-145); Total Protein,Serum 5.3 g/dl (6.3-8.2)
--- NOTE | 2024-01-16 08:30 | P.PN_ITS ---
Subjective *Date: 01/16/24 *Time: 09:13 Interval history: Patient lethargic this a.m. He did have surgery late in the afternoon yesterday. He has difficulty with keeping his eyes open. He does answer questions if he can stay awake. Nurses reported that he pulled his Xiao catheter out last night and there was some trauma and blood noted. Patient does not recall this. He has not voided as yet. Hemoglobin is 8.2 today. Blood chemistries show normal potassium with a sodium of 130. Renal function is satisfactory. Medical Exam Vital signs and Labs for Last 24 Hours: Vital Signs Temp Pulse Pulse Resp BP BP Pulse Ox 01/16/24 07:47 97.9 F 60 12 155/65 H 01/16/24 06:39 01/16/24 05:00 01/16/24 04:00 99.0 F 66 18 146/65 H 94 L 01/16/24 03:00 01/16/24 01:30 65 18 185/68 H 93 L 01/16/24 01:00 01/16/24 00:30 64 14 173/68 H 95 01/15/24 23:30 99.9 F H 62 14 165/74 H 94 L 01/15/24 22:30 62 16 165/63 H 95 01/15/24 21:30 59 L 16 154/93 H 94 L 01/15/24 21:00 60 16 159/59 H 95 01/15/24 21:00 01/15/24 20:30 64 16 143/80 H 91 L 01/15/24 20:00 91 L 01/15/24 20:00 61 16 146/74 H 91 L 01/15/24 19:30 60 16 155/70 H 92 L 01/15/24 19:15 97.6 F 60 16 127/75 93 L 01/15/24 19:00 97.6 F 60 16 151/55 H 91 L 01/15/24 18:50 01/15/24 18:45 97.7 F 60 16 102/55 L 91 L 01/15/24 18:30 64 15 148/72 H 98 01/15/24 18:20 60 14 153/69 H 96 01/15/24 18:10 60 15 135/60 95 01/15/24 18:08 97.9 F 60 12 130/85 01/15/24 18:00 97.9 F 60 15 155/65 H 93 L 01/15/24 13:00 01/15/24 11:57 98.5 F 62 18 148/83 H 94 L 01/15/24 11:00 01/15/24 09:00 O2 Del Method 01/16/24 07:47 01/16/24 06:39 Room Air 01/16/24 05:00 Room Air 01/16/24 04:00 Room Air 01/16/24 03:00 Room Air 01/16/24 01:30 01/16/24 01:00 Room Air 01/16/24 00:30 01/15/24 23:30 01/15/24 22:30 Room Air 01/15/24 21:30 Room Air 01/15/24 21:00 Room Air 01/15/24 21:00 Room Air 01/15/24 20:30 Room Air 01/15/24 20:00 Room Air 01/15/24 20:00 Room Air 01/15/24 19:30 Room Air 01/15/24 19:15 Room Air 01/15/24 19:00 Room Air 01/15/24 18:50 Room Air 01/15/24 18:45 Room Air 01/15/24 18:30 Room Air 01/15/24 18:20 Room Air 01/15/24 18:10 Room Air 01/15/24 18:08 01/15/24 18:00 Room Air 01/15/24 13:00 Room Air 01/15/24 11:57 Room Air 01/15/24 11:00 Room Air 01/15/24 09:00 Room Air Intake and Output 01/15/24 01/16/24 01/16/24 19:59 03:59 11:59 Intake Total 2400 / 2400 2500 / 4900 Output Total 200 / 200 Balance 2200 / 2200 2500 / 4700 Intake: Intake, Oral Amount 0 / 0 Intake, Total IV Amount 2400 / 2400 2500 / 4900 Output: Output, Urine Amount 200 / 200 Other: Number of Unmeasured Voids 1 Weight 190 lb 4 oz Patient Weight 01/16/24 11:59 Weight 190 lb 4 oz Laboratory Results - last 24 hr 01/15/24 20:00: Urine Color Yellow, Urine Appearance Clear, Urine pH 6.5, Ur Specific [place] 1.020, Urine Protein Trace, Urine Glucose (UA) Negative, Urine Ketones Negative, Urine Blood 2+, Urine Nitrate Negative, Urine Bilirubin Negative, Urine Urobilinogen 2.0, Ur Leukocyte Esterase Negative, Urine RBC 20- 50, Urine WBC 3-5, Ur Squamous Epith Cells Occasional, Urine Bacteria 1+ 01/16/24 06:45: WBC 10.1, RBC 2.53 L, Hgb 8.2 L, Hct 25.1 L, MCV 99.1 H, MCH 32.3 H, MCHC 32.6, RDW 13.5, Plt Count 190, MPV 8.9, Neut % (Auto) 82.5 H, Lymph % (Auto) 11.0, [place] % (Auto) 6.1, Eos % (Auto) 0.2, Baso % (Auto) 0.1, Neut # (Auto) 8.3 H, Lymph # (Auto) 1.1, [place] # (Auto) 0.6, Eos # (Auto) 0.0, Baso # (Auto) 0.0, Sodium 130 L, Potassium 3.8, Chloride 101, Carbon Dioxide 27, Anion Gap 5.8, BUN 21 H, Creatinine 0.90, Estimated Creat Clear 66, Estimated GFR 80, Est GFR ( Amer) 97, Glucose 118 H, Calcium 8.2 L, Total Bilirubin 1.1, AST 40, ALT 20, Alkaline Phosphatase 64, Total Protein 5.3 L, Albumin 2.9 L, Globulin 2.4, Albumin/Globulin Ratio 1.2 I & O for Labs for Last 24 Hours: Intake & Output 01/13/24 01/14/24 01/15/24 01/16/24 11:59 11:59 11:59 11:59 Intake Total 650 / 650 1190 / 1190 805 / 805 4900 / 4900 Output Total 400 / 400 0 / 0 200 / 200 200 / 200 Balance 250 / 250 1190 / 1190 605 / 605 4700 / 4700 Weight 184 lb 4.015 oz 197 lb 3.2 oz 194 lb 0.108 oz 190 lb 4 oz Constitutional: Present no acute distress and somnolent (Easily aroused) Respiratory: Present CTA bilaterally and diminished air movement (Bilateral bases posteriorly) Cardiac: Present Reg Rate and Rhythm GI: Present soft; Absent distention or tenderness Extremities: Present edema (Right leg); Absent calf tenderness (SCIDS in place) Comment:: Right outer postoperative hip dressing is clean and dry Skin: Present pallor Neuro: Present alert (Easily awakened and seems alert); Absent oriented x 3 Comment:: Speech is somewhat garbled Assessment and Plan *Assessment and plan (1) Fall: Status: Acute Category: Medical Code(s): W19.XXXA - Unspecified fall, initial encounter (2) Subtrochanteric fracture of right femur: Status: Acute Qualifiers: Encounter type: initial encounter Fracture alignment: displaced Fracture type: closed Qualified Code(s): S72.21XA - Displaced subtrochanteric fracture of right femur, initial encounter for closed fracture Category: Medical Code(s): S72.21XA - Displaced subtrochanteric fracture of right femur, initial encounter for closed fracture (3) 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 Category: Surgical Code(s): Z95.810 - Presence of automatic (implantable) cardiac defibrillator (4) Cardiomyopathy: Status: Chronic Qualifiers: Cardiomyopathy type: unspecified Qualified Code(s): I42.9 - Cardiomyopathy, unspecified Category: Medical Code(s): I42.9 - Cardiomyopathy, unspecified (5) Recurrent syncope: Status: Acute Category: Medical Code(s): R55 - Syncope and collapse (6) Hypertension: Status: Chronic Qualifiers: Hypertension type: unspecified Qualified Code(s): I10 - Essential (primary) hypertension Category: Medical Code(s): I10 - Essential (primary) hypertension (7) CAD (coronary artery disease): Status: Chronic Qualifiers: Associated angina: without angina Coronary Disease-Associated Artery/Lesion type: [place] artery [place] vs. transplanted heart: [place] heart Qualified Code(s): I25.10 - Atherosclerotic heart disease of [place] coronary artery without angina pectoris Category: Medical Code(s): I25.10 - Atherosclerotic heart disease of [place] coronary artery without angina pectoris (8) HLD (hyperlipidemia): Status: Chronic Qualifiers: Hyperlipidemia type: mixed hyperlipidemia Qualified Code(s): E78.2 - Mixed hyperlipidemia Category: Medical Code(s): E78.5 - Hyperlipidemia, unspecified (9) H/O coronary artery bypass surgery: Status: Chronic Category: Surgical Code(s): Z95.1 - Presence of aortocoronary bypass graft (10) Anemia: Status: Acute Category: Medical Code(s): D64.9 - Anemia, unspecified (11) Hyponatremia: Status: Acute Category: Medical Code(s): E87.1 - Hypo-osmolality and hyponatremia (12) Postoperative care for cataract of right eye: Status: Acute Category: Medical Code(s): Z48.810 - Encounter for surgical aftercare following surgery on the sense organs; Z98.41 - Cataract extraction status, right eye Plan Physical therapy is present to start evaluation and activity. He will need good pulmonary hygiene. Dr. Medley entry - Saw patient, agree with above note.
[2024-01-16] MEDS: FAMOTIDINE 20MG TABLET 20 MG PO ×2 (08:58→21:10)
[2024-01-16] MEDS: MEMANTINE 10MG TABLET 10 MG PO ×2 (08:58→21:11)
[2024-01-16] MEDS: BISOPROLOL 5MG TABLET 5 MG PO (08:58)
[2024-01-16] MEDS: FLUTICASONE PROP 50MCG NASAL SPRAY 16GM 1 SPRAY NS ×2 (08:59→21:10)
[2024-01-16] MEDS: SERTRALINE 50MG TABLET 25 MG PO (09:00)
--- NOTE | 2024-01-16 09:34 | HMH.PTEV ---
Physical Therapy Evaluation Rehab PT IP Evaluation Start: 01/15/24 18:11 Freq: ONCE Status: Active Protocol: Document 01/16/24 09:22 DAVON (Rec: 01/16/24 09:30 DAVON [id number]) Subjective/History History History Per H&P: Mr. 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 ER yesterday due to right hip pain and inability to walk after falling while getting out of a car. Patient states he felt fine yesterday prior to falling. He typically uses a walker or a cane to assit with ambulation. He is unsure why he fell exiting the car. He has a long standing history of syncope and has extensive cardiac and neurologic work ups. He has had fewer problems recently after his antihypertensive medication doses were decreased. Evaluation in the ER showed a right hip fracture . Dr. Soriano in Orthopedics was consulted and saw patient in the ER. His not has been reviewed and he is planning for surgery in a few days, with plans to hold patient's aspirin and plavix until after surgery. Subjective Subjective Pt is lethargic but oriented to self and situation. Pt demo 'd impaired command following with one step commands. Pt reports he lives with his in a single story home with 4 RYAN and HR. Pt usually uses a RW for ambulation. Pt reports 2 falls in past month. Pt's usually assists with mobility as needed but pt reports he was able to ambulate short distances independently. Pt still driving prior. New diagnosis of cancer in past 12 No months? Rehab PT IP Eval Objective Appearance Patient Behavior Appropriate,Cooperative Patient Orientation Person,Situation Difficulty following instructions mild Speech Pattern Mumbled Ambulation Patient Able to Ambulate No Balance Ability to Arise Unable Sitting Balance Leans or slides in chair Transfers Bed Transfer Ability Maximum x 2 (75% assist) Rehab PT IP prob,goals,plan Problems Date of Evaluation: 01/16/24 PT IP Problems Bed Mobility,Transfers,Gait, Balance,Self care,Safety Rehab Potential Rehab Potential Good Equipment Needs Assistive Devices Wheelchair Plan PT Intervention Plan Bed Mobility,Transfers,Gait, Balance,Safety,Therapeutic Exercise Other Intervention Plan 1-2 times PT Plan Frequency Daily Duration LOS Discharge Goals Bed Transfer Ability Moderate x 2 (50% assist) Discharge Plan PT Discharge Plan Initial physical therapy evaluation performed. Patient presents below baseline at this time in functional mobility, transfers, and strength. Pt not safe to return home at this time d/t current level of functional mobility. PT recommending short-term rehabilitation stay upon d/c from [facility]. Pt would benefit from skilled PT while at [facility] to prevent further functional decline and maximize safety with mobility. Eval Complexity Eval Charge Codes 56629 - Moderate Complexity PHYSICIAN CERTIFICATION: I certify the specified therapy services for Jensen Loomis are required, authorized, and reviewed every 30 days.
--- NOTE | 2024-01-16 09:44 | SW/DCPLANNER ---
Addendum entered by [facility] 01/18/24 10:47: I have updated Ebonie Malagon that patient will discharge today. Addendum entered by [facility] 01/18/24 07:44: Updated patient information faxed to Ebonie Malagon. Addendum entered by [facility] 01/16/24 14:12: Ebonie Malagon stated that she can accept this patient once medically stable for discharge. Addendum entered by [facility] 01/16/24 10:20: Ebonie Malagon will be onsite to evaluate patient and speak w/ family this AM. Original Note: Due to patient not being able to answer questions appropriately this AM I called and spoke w/ his (Berta) regarding discharge plans. Berta stated that patient is agreeable to placement and they prefer [place]. Ebonie Malagon stated that a male bed is available. Patient information will be faxed to Ebonie this AM. Discharge date is unknown at this time.
--- NOTE | 2024-01-16 10:13 | EXP.SURG.PN ---
Subjective Narrative: Patient seen laying comfortably in bed. Denies complaints of chest pain, shortness of breath, paresthesias in operative leg. Nursing states patient had traumatic Xiao removal overnight, and is complaining of some pain in his penis, for which he is given pain medications with good effect. Exam Data for Last 24 hours Vital signs and Labs for Last 24 Hours: Temp Pulse Resp BP Pulse Ox O2 Del Method 97.9 F 63 20 125/54 L 94 L Room Air 01/16/24 08:00 01/16/24 08:00 01/16/24 08:00 01/16/24 08:00 01/16/24 08:00 01/16/24 09:00 Laboratory Results - last 24 hr 01/15/24 20:00: Urine Color Yellow, Urine Appearance Clear, Urine pH 6.5, Ur Specific [place] 1.020, Urine Protein Trace, Urine Glucose (UA) Negative, Urine Ketones Negative, Urine Blood 2+, Urine Nitrate Negative, Urine Bilirubin Negative, Urine Urobilinogen 2.0, Ur Leukocyte Esterase Negative, Urine RBC 20-50, Urine WBC 3-5, Ur Squamous Epith Cells Occasional, Urine Bacteria 1+ 01/16/24 06:45: WBC 10.1, RBC 2.53 L, Hgb 8.2 L, Hct 25.1 L, MCV 99.1 H, MCH 32.3 H, MCHC 32.6, RDW 13.5, Plt Count 190, MPV 8.9, Neut % (Auto) 82.5 H, Lymph % (Auto) 11.0, [place] % (Auto) 6.1, Eos % (Auto) 0.2, Baso % (Auto) 0.1, Neut # (Auto) 8.3 H, Lymph # (Auto) 1.1, [place] # (Auto) 0.6, Eos # (Auto) 0.0, Baso # (Auto) 0.0, Sodium 130 L, Potassium 3.8, Chloride 101, Carbon Dioxide 27, Anion Gap 5.8, BUN 21 H, Creatinine 0.90, Estimated Creat Clear 66, Estimated GFR 80, Est GFR ( Amer) 97, Glucose 118 H, Calcium 8.2 L, Total Bilirubin 1.1, AST 40, ALT 20, Alkaline Phosphatase 64, Total Protein 5.3 L, Albumin 2.9 L, Globulin 2.4, Albumin/Globulin Ratio 1.2 I & O for Last 24 hours: Intake & Output 01/13/24 01/14/24 01/15/24 01/16/24 23:59 23:59 23:59 23:59 Intake Total 860 / 1060 1160 / 1485 2725 / 2725 2920 / 2920 Output Total 400 / 400 0 / 0 400 / 400 0 / 0 Balance 460 / 660 1160 / 1485 2325 / 2325 2920 / 2920 Weight 83.575 kg 89.448 kg 88 kg 86.296 kg Detailed Lower Extremity Exam Comments: Right hip: Dressing clean dry and intact. Thigh soft, compressible. Calves soft, compressible nontender. Sensation intact to light touch at first dorsal webspace/plantar aspect equal bilaterally, motor function intact to EHL/FHL/GS/TA. +2 DP. Progress Note: A&P Assessment and plan (1) Fall: Status: Acute (2) Subtrochanteric fracture of right femur: Status: Acute Assessment and plan: Weightbearing as tolerated to right lower extremity. Encourage ambulation with physical therapy with ambulatory devices as needed. Ice, elevation, pain medication as needed for swelling or pain. DVT prophylaxis with aspirin 81 mg twice daily, Plavix as per home medication per medical team. Sodium 130: Encourage p.o. intake, further intervention per primary team. Postop antibiotics complete. Nursing to reinforce dressing as needed. Stable orthopedically. Will continue to follow. 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
--- NOTE | 2024-01-16 10:21 | HMH.OTEV ---
OT Inpatient Evaluation Rehab OT IP Evaluation Start: 01/15/24 18:11 Freq: ONCE Status: Active Protocol: Document 01/16/24 10:15 [facility] (Rec: 01/16/24 10:21 [facility] [id number]) Rehab OT IP Assessment Subjective History Pt oriented x 2 on arrival. Pt very lethargic and needed max verbal cues to stay awake. Nursing reports he is lethargic from pain medication . Pt admitted on 01/12/24 due to a fall with right hip fx. Pt required a right Cephalomedullary nailing right proximal femu on 01/15/24. Per H&P: Mr. 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 Patient states he felt fine yesterday prior to falling. He typically uses a walker or a cane to assit with ambulation. He is unsure why he fell exiting the car. He has a long standing history of syncope and has extensive cardiac and neurologic work ups. He has had fewer problems recently after his antihypertensive medication doses were decreased. Evaluation in the ER showed a right hip fracture . Dr. Soriano in Orthopedics was consulted and saw patient in the ER. His not has been reviewed and he is planning for surgery in a few days, with plans to hold patient's aspirin and plavix until after surgery. [ End ] Subjective What is going on here? Pt reports he lives with his in a single story home with 4 RYAN and HR. Pt usually uses a RW for ambulation. Pt reports 2 falls in past month. Pt's usually assists with mobility as needed but pt reports he was able to ambulate short distances independently. Pt still driving prior. Pt also claims he is normally independent with all ADLs, but is dependent upon for completion of all IADLs. Some information provided may not be trustworthy due to patient' s continued lethargy. Objective Patient Orientation Person,Birthday Right Upper Extremity Gross ROM Min Limitation <25% Left Upper Extremity Gross ROM Min Limitation <25% Shoulder ROM Limitations Muscle Weakness Elbow ROM Limitations Muscle Weakness Wrist Limitations of Range of Motion Muscle Weakness Bed Mobility bed mobility-scooting,bed mobility - supine/sit Assist Level Maximum x 2 (75% assist) Rehab OT IP prob,goals,plan Problems Date of Evaluation: 01/16/24 OT IP Problems Bed Mobility,Transfers,Balance ,Self care,Safety Rehab Potential Rehab Potential Good Equipment Needs Assistive Devices Rolling / Wheeled Walker Plan OT intervention Plan Bed Mobility,Transfers,Balance ,Self care,Safety,Therapeutic Exercise OT Plan Frequency Daily Duration LOS Discharge Goals Bed Mobility Ability Assistance x1 Sit to Stand Chair Transfer Ability Moderate x 2 (50% assist) Chair Transfer Ability Moderate x 2 (50% assist) Chair Transfer Technique Stand Step Pivot Chair Transfer Assistive Devices Rolling Walker Feeding Ability Assist with Tray Set Up Lower Body Dressing Ability Moderate Assistance Upper Body Dressing Ability Minimal Assistance Bathing Ability Maximum Assistance Performing Toilet Hygiene Ability Moderate Assistance Overall Commode/Toilet Transfer Ability Moderate Assistance Commode/Toilet Transfer Technique Sit to/from Ambulatory Commode/Toilet Transfer Assistive Grab Bars Devices Oral Care Assist Minimal Assistance Discharge Plan OT Discharge Plan Pt will continue to be seen for OT services while at [facility]. Pt would benefit most from short term rehab at SNF following hospital stay. Continued skilled therapy is important in order for patient to improve strength, safety, endurance, ADL independence, and functional transfers to reach PLOF. Eval Complexity Eval Charge Codes 84602 - Moderate Complexity PHYSICIAN CERTIFICATION: I certify the specified therapy services for Jensen Loomis are required, authorized, and reviewed every 30 days.
--- NOTE | 2024-01-16 18:24 | PC.NURSE ---
late entry: pt still unable to void 8 hrs after pulling out his own catheter. penile swelling and minimum bloody discharge t/o the day, bruising to shaft. bladder scan showed 280ml. contacted mulberry around 1400 due to no uop. mulberry off for the day and was sent to dr. rosas. per ANTONELLA rosas to insert huitron. huitron inserted around 1630 with no issues. pt tolerated well, dark clear urine with some blood in urinary drainage bag. pt sat up in chair at bs for a few hrs today. currently in bed resting with no complaints of pain. dsg to rt hip cdi with no drainage. cb within reach and bed alarm on for pt safety.
[2024-01-16 21:03] LABS: Microscopic, Urine URINE MICROSCOPIC (MICROSCOPIC)
[2024-01-16] MEDS: DONEPEZIL 5MG TAB 5 MG PO (21:10)
[2024-01-16] MEDS: ATORVASTATIN 40MG TABLET 40 MG PO (21:10)
[2024-01-16] MEDS: PANTOPRAZOLE 40MG TABLET 40 MG PO (21:11)
[2024-01-16] MEDS: TAMSULOSIN 0.4MG CAPSULE 0.4 MG PO (21:11)
[2024-01-16 21:21] LABS: Appearance,Urine CLEAR (Clear); Bilirubin,Urine Negative (Negative); Blood, Urine 2+ (Negative); Color,Urine YELLOW (Yellow); Glucose,Urine (UA) Negative (Negative); Ketones,Urine TRACE (Negative); Leukocyte Esterase,Urine Negative (Negative); Nitrate,Urine Negative (Negative); Protein,Urine 1+ (Negative); Specific Gravity, Urine 1.025 (1.005-1.030)
[2024-01-16 21:52] LABS: Bacteria,Urine Trace /lpf; Hyaline Casts,Urine OCC #/lpf (0); Squamous Epithelial Cell,Urine Occasional #/hpf (0-5); Transitional Epi Cells,Urine OCC #/lpf (0-3); WBC,Urine Occasional #/hpf (0-3)
[2024-01-17 04:00] VITALS: BP 146/60; PULSE 61; RESP 16; TEMP 36.9; O2SAT 95; BMI 26.8
--- NOTE | 2024-01-17 05:39 | PC.NURSE ---
Pt has remained pleasantly confused. He has tolerated room air and vss. Xiao catheter has remained in place draining clear yellow urine. He is currently asleep and has done so the majority of the shift. No complaints at this time, call light within reach.
[2024-01-17] MEDS: LEVOTHYROXINE 88MCG (0.088MG) TAB 88 MCG PO (06:09)
--- NOTE | 2024-01-17 07:05 | EXP.SURG.PN ---
Subjective Narrative: Patient seen sitting comfortably in chair. No new complaints. No events overnight. Exam Data for Last 24 hours Vital signs and Labs for Last 24 Hours: Temp Pulse Resp BP Pulse Ox O2 Del Method 98.5 F 61 16 146/60 H 95 Room Air 01/17/24 04:00 01/17/24 04:00 01/17/24 04:00 01/17/24 04:00 01/17/24 04:00 01/17/24 06:36 Laboratory Results - last 24 hr 01/16/24 06:45: WBC 10.1, RBC 2.53 L, Hgb 8.2 L, Hct 25.1 L, MCV 99.1 H, MCH 32.3 H, MCHC 32.6, RDW 13.5, Plt Count 190, MPV 8.9, Neut % (Auto) 82.5 H, Lymph % (Auto) 11.0, [place] % (Auto) 6.1, Eos % (Auto) 0.2, Baso % (Auto) 0.1, Neut # (Auto) 8.3 H, Lymph # (Auto) 1.1, [place] # (Auto) 0.6, Eos # (Auto) 0.0, Baso # (Auto) 0.0, Sodium 130 L, Potassium 3.8, Chloride 101, Carbon Dioxide 27, Anion Gap 5.8, BUN 21 H, Creatinine 0.90, Estimated Creat Clear 66, Estimated GFR 80, Est GFR ( Amer) 97, Glucose 118 H, Calcium 8.2 L, Total Bilirubin 1.1, AST 40, ALT 20, Alkaline Phosphatase 64, Total Protein 5.3 L, Albumin 2.9 L, Globulin 2.4, Albumin/Globulin Ratio 1.2 01/16/24 16:35: Urine Color Yellow, Urine Appearance Clear, Urine pH 6.0, Ur Specific [place] 1.025, Urine Protein 1+ A, Urine Glucose (UA) Negative, Urine Ketones Trace, Urine Blood 2+ A, Urine Nitrate Negative, Urine Bilirubin Negative, Urine Urobilinogen 1.0, Ur Leukocyte Esterase Negative, Urine RBC 10-20, Urine WBC Occasional, Ur Squamous Epith Cells Occasional, Ur Transition Epith Cell Occ, Urine Bacteria Trace, Hyaline Casts Occ I & O for Last 24 hours: Intake & Output 01/14/24 01/15/24 01/16/24 01/17/24 23:59 23:59 23:59 23:59 Intake Total 1160 / 1485 2725 / 2725 3400 / 3550 150 / 150 Output Total 0 / 0 400 / 400 425 / 425 275 / 275 Balance 1160 / 1485 2325 / 2325 2975 / 3125 -125 / -125 Weight 89.448 kg 88 kg 86.296 kg 86.954 kg Detailed Lower Extremity Exam Comments: Right hip: Dressing changed with DSDs. Incision C/D/I with edges well approximated with radha, no signs of infection. Thigh soft, compressible. Calves soft, compressible nontender. Sensation intact to light touch at first dorsal webspace/plantar aspect equal bilaterally, motor function intact to EHL/FHL/GS/TA. +2 DP. Progress Note: A&P Assessment and plan (1) Fall: Status: Acute (2) Subtrochanteric fracture of right femur: Status: Acute Assessment and plan: Weightbearing as tolerated to right lower extremity. Encourage ambulation with physical therapy with ambulatory devices as needed. Ice, elevation, pain medication as needed for swelling or pain. Consider DC'ing IV pain medication pod#2 DVT prophylaxis with aspirin 81 mg twice daily for 4 weeks, Plavix home medication per medical team. Labs pending Nursing to change dressing daily, or more often if saturated, until 24 hours without any exudate on dressing. Stable orthopedically. Follow up in office in 2 weeks for staple removal and wound check. 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
[2024-01-17 07:53] VITALS: BP 115/39; PULSE 64; RESP 17; TEMP 36.6; O2SAT 95
[2024-01-17] MEDS: FLUTICASONE PROP 50MCG NASAL SPRAY 16GM 1 SPRAY NS ×2 (08:32→20:21)
[2024-01-17] MEDS: FAMOTIDINE 20MG TABLET 20 MG PO ×2 (08:33→20:21)
[2024-01-17] MEDS: SERTRALINE 50MG TABLET 25 MG PO (08:33)
[2024-01-17] MEDS: BISOPROLOL 5MG TABLET 5 MG PO (08:33)
[2024-01-17] MEDS: MEMANTINE 10MG TABLET 10 MG PO ×2 (08:33→20:22)
--- NOTE | 2024-01-17 08:33 | EXP.ACUTE.PN ---
Subjective *Date: 01/17/24 *Time: 08:57 Interval history: Patient denies any pain this am. He says he is very tired. He did sleep last night and ate a good breakfast. He has not been up moving. Medical Exam Vital signs and Labs for Last 24 Hours: Vital Signs Temp Pulse Resp BP Pulse Ox O2 Del Method 01/17/24 07:53 98 F 64 17 115/39 L 95 Room Air 01/17/24 07:41 Room Air 01/17/24 06:36 Room Air 01/17/24 05:00 Room Air 01/17/24 04:00 98.5 F 61 16 146/60 H 95 Room Air 01/17/24 03:00 Room Air 01/17/24 01:00 Room Air 01/16/24 23:00 Room Air 01/16/24 21:00 Room Air 01/16/24 20:00 Room Air 01/16/24 20:00 97.5 F L 61 16 128/54 L 96 Room Air 01/16/24 18:34 Room Air 01/16/24 17:00 Room Air 01/16/24 16:00 98.1 F 63 18 152/65 H 95 Room Air 01/16/24 15:00 Room Air 01/16/24 13:00 Room Air 01/16/24 11:00 Room Air 01/16/24 09:00 Room Air Intake and Output 01/16/24 01/17/24 01/17/24 19:59 03:59 11:59 Intake Total 480 / 870 150 / 870 240 / 870 Output Total 0 / 700 425 / 700 275 / 700 Balance 480 / 170 -275 / 170 -35 / 170 Intake: Intake, Oral Amount 480 / 870 150 / 870 240 / 870 Output: Output, Urine Amount 0 / 700 425 / 700 275 / 700 Other: Number of Voids 0 Number of Unmeasured Voids 0 0 Weight 191 lb 11.2 oz Patient Weight 01/17/24 11:59 Weight 191 lb 11.2 oz Laboratory Results - last 24 hr 01/16/24 16:35: Urine Color Yellow, Urine Appearance Clear, Urine pH 6.0, Ur Specific [place] 1.025, Urine Protein 1+ A, Urine Glucose (UA) Negative, Urine Ketones Trace, Urine Blood 2+ A, Urine Nitrate Negative, Urine Bilirubin Negative, Urine Urobilinogen 1.0, Ur Leukocyte Esterase Negative, Urine RBC 10-20, Urine WBC Occasional, Ur Squamous Epith Cells Occasional, Ur Transition Epith Cell Occ, Urine Bacteria Trace, Hyaline Casts Occ I & O for Labs for Last 24 Hours: Intake & Output 01/14/24 01/15/24 01/16/24 01/17/24 11:59 11:59 11:59 11:59 Intake Total 1190 / 1190 805 / 805 5320 / 5320 870 / 870 Output Total 0 / 0 200 / 200 200 / 200 700 / 700 Balance 1190 / 1190 605 / 605 5120 / 5120 170 / 170 Weight 197 lb 3.2 oz 194 lb 0.108 oz 190 lb 4 oz 191 lb 11.2 oz Constitutional: Present no acute distress and somnolent (Easily aroused) Respiratory: Present CTA bilaterally and diminished air movement (Bilateral bases posteriorly) Cardiac: Present Reg Rate and Rhythm GI: Present soft; Absent distention or tenderness Extremities: Absent edema (right) or calf tenderness (SCIDS in place) Comment:: Right outer postoperative hip dressing is clean and dry Skin: Present pallor Neuro: Present alert (Easily awakened and seems alert); Absent oriented x 3 Comment:: Speech is somewhat garbled Assessment and Plan *Assessment and plan (1) Fall: Status: Acute Category: Medical Code(s): W19.XXXA - Unspecified fall, initial encounter (2) Subtrochanteric fracture of right femur: Status: Acute Qualifiers: Encounter type: initial encounter Fracture alignment: displaced Fracture type: closed Qualified Code(s): S72.21XA - Displaced subtrochanteric fracture of right femur, initial encounter for closed fracture Category: Medical Code(s): S72.21XA - Displaced subtrochanteric fracture of right femur, initial encounter for closed fracture (3) 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 Category: Surgical Code(s): Z95.810 - Presence of automatic (implantable) cardiac defibrillator (4) Cardiomyopathy: Status: Chronic Qualifiers: Cardiomyopathy type: unspecified Qualified Code(s): I42.9 - Cardiomyopathy, unspecified Category: Medical Code(s): I42.9 - Cardiomyopathy, unspecified (5) Recurrent syncope: Status: Acute Category: Medical Code(s): R55 - Syncope and collapse (6) Hypertension: Status: Chronic Qualifiers: Hypertension type: unspecified Qualified Code(s): I10 - Essential (primary) hypertension Category: Medical Code(s): I10 - Essential (primary) hypertension (7) CAD (coronary artery disease): Status: Chronic Qualifiers: Associated angina: without angina Coronary Disease-Associated Artery/Lesion type: [place] artery [place] vs. transplanted heart: [place] heart Qualified Code(s): I25.10 - Atherosclerotic heart disease of [place] coronary artery without angina pectoris Category: Medical Code(s): I25.10 - Atherosclerotic heart disease of [place] coronary artery without angina pectoris (8) HLD (hyperlipidemia): Status: Chronic Qualifiers: Hyperlipidemia type: mixed hyperlipidemia Qualified Code(s): E78.2 - Mixed hyperlipidemia Category: Medical Code(s): E78.5 - Hyperlipidemia, unspecified (9) H/O coronary artery bypass surgery: Status: Chronic Category: Surgical Code(s): Z95.1 - Presence of aortocoronary bypass graft (10) Anemia: Status: Acute Category: Medical Code(s): D64.9 - Anemia, unspecified (11) Hyponatremia: Status: Acute Category: Medical Code(s): E87.1 - Hypo-osmolality and hyponatremia (12) Postoperative care for cataract of right eye: Status: Acute Category: Medical Code(s): Z48.810 - Encounter for surgical aftercare following surgery on the sense organs; Z98.41 - Cataract extraction status, right eye Plan PT recommended short term rehab placement. Will discuss with Dr. Medley. Dr. Medley entry - Saw patient, agree with above note. Xiao was replaced yesterday after bladder scan show 280 mL's of urine, unclear why this was done. Will remove Xiao now, recheck CBC and BMP this morning. Plans are being made for post hospital care at [place].
[2024-01-17 10:00] LABS: Basophils % 0.2 % (0.1-2.0); Eosinophils # 0.1 K/mm3 (0.0-0.4); Hematocrit 23.9 % (42.0-52.0); Hemoglobin 7.8 g/dL (14.1-18.0); Lymphocytes % 11.4 % (10-50); Mean Corpuscular HGB Conc 32.9 g/dL (31.8-35.4); Mean Corpuscular Volume 100.2 fl (80-94); Mean Platelet Volume 9.3 fl (7.4-10.4); Monocytes # 0.5 K/mm3 (0.1-1.0); Monocytes % 5.5 % (1.7-9.3); Neutrophils # 6.9 K/mm3 (1.8-7.8); Neutrophils % 81.9 % (37.0-80.0); Platelet Count 213 K/mm3 (142-424); Red Blood Count 2.38 M/mm3 (4.60-6.20); Red Cell Distribution Width 13.6 % (11.5-17.5); White Blood Count 8.4 K/mm3 (4.8-10.8)
--- NOTE | 2024-01-17 10:02 | DIET.NUTRFU ---
no BM noted since admit, nursing was notified.
[2024-01-17 10:03] LABS: Chloride 102 mmol/L (98-107); Potassium 3.2 mmoL/L (3.5-5.1); Sodium 129 mmol/L (136-145)
[2024-01-17 10:05] LABS: Blood Urea Nitrogen 23 mg/dl (9-20)
[2024-01-17 10:06] LABS: Anion Gap 6.2 mEq/L (5-15); Calcium 7.6 mg/dl (8.4-10.2); Carbon Dioxide 24 mmol/L (22.0-30.0); Creatinine Clearance Estimated 66 mL/min (50-200); Estimated Glomerular Filt Rate 71 ml/min (>60); GFR (African American) 86 ML/MIN (>60); Glucose 144 mg/dl (74-100)
[2024-01-17 16:00] VITALS: BP 128/53; PULSE 60; RESP 19; TEMP 37.3; O2SAT 95
--- NOTE | 2024-01-17 17:57 | PC.NURSE ---
PT IS SITTING UP IN THE CHAIR. ALERT AND ORIENTED X3. PT HAS SLEPT ON AND OFF T/O THE SHIFT. LUNG SOUNDS CLEAR. ABDOMEN SOFT/NON TENDER WITH ACTIVE BOWEL SOUNDS. DRESSING TO THE RT HIP C/D/I. CATHETER WAS DC'D @ 0845 THIS MORNING. PT WAS BLADDER SCAN @ 1200 WAS 189 ML'S. BLADDER SCAN @ 1700 WAS 228 ML'S. PT ATTEMPTED BUT UNABLE TO VOID IN THE URINAL. NOTIFIED AND HE STATED TO GIVE PT TILL 2100 AND IF HE STILL HAS NOT VOIDED TO REPEAT BLADDER SCAN. WILL CONTINUE TO MONITOR.
[2024-01-17 20:00] VITALS: BP 127/43; PULSE 60; RESP 16; TEMP 36.9; O2SAT 95
[2024-01-17] MEDS: DONEPEZIL 5MG TAB 5 MG PO (20:21)
[2024-01-17] MEDS: ATORVASTATIN 40MG TABLET 40 MG PO (20:21)
[2024-01-17] MEDS: POTASSIUM CHLORIDE 20MEQ TAB 40 MEQ PO (20:21)
[2024-01-17] MEDS: TAMSULOSIN 0.4MG CAPSULE 0.4 MG PO (20:22)
[2024-01-17] MEDS: PANTOPRAZOLE 40MG TABLET 40 MG PO (20:22)
[2024-01-18] VITALS: BP 141/61; PULSE 63; RESP 16; TEMP 36.9; O2SAT 94
--- NOTE | 2024-01-18 00:51 | PC.NURSE ---
Pt still unable to urinate. Bladder scanned pt at 2100 which showed 282ml of urine in bladder. Notified DR. Medley and was told to monitor for urine output and bladder scan again at 0600.
[2024-01-18 04:00] VITALS: BMI 28.2
[2024-01-18 05:03] VITALS: BP 130/53; PULSE 58; RESP 16; TEMP 36.9; O2SAT 91
--- NOTE | 2024-01-18 05:49 | PC.NURSE ---
Pt urinated around 100 ml of bloody urine. About 15 minutes later he urinated dark blood that had thickened as soon as entering urinal. VSS. Provider was notified and was told to wait for morning lab results.
[2024-01-18] MEDS: LEVOTHYROXINE 88MCG (0.088MG) TAB 88 MCG PO (06:42)
[2024-01-18 07:22] LABS: Basophils % 0.2 % (0.1-2.0); Eosinophils # 0.1 K/mm3 (0.0-0.4); Hematocrit 24.2 % (42.0-52.0); Hemoglobin 7.9 g/dL (14.1-18.0); Lymphocytes % 10.6 % (10-50); Mean Corpuscular HGB Conc 32.9 g/dL (31.8-35.4); Mean Corpuscular Hemoglobin 32.7 pg (27.0-31.2); Mean Corpuscular Volume 99.5 fl (80-94); Mean Platelet Volume 9.5 fl (7.4-10.4); Monocytes # 0.7 K/mm3 (0.1-1.0); Monocytes % 7.5 % (1.7-9.3); Neutrophils # 7.5 K/mm3 (1.8-7.8); Neutrophils % 80.8 % (37.0-80.0); Platelet Count 247 K/mm3 (142-424); Red Blood Count 2.43 M/mm3 (4.60-6.20); Red Cell Distribution Width 13.9 % (11.5-17.5); White Blood Count 9.3 K/mm3 (4.8-10.8)
[2024-01-18 07:26] LABS: Anion Gap 5.8 mEq/L (5-15); Blood Urea Nitrogen 27 mg/dl (9-20); Calcium 8.2 mg/dl (8.4-10.2); Carbon Dioxide 27 mmol/L (22.0-30.0); Chloride 102 mmol/L (98-107); Creatinine Clearance Estimated 54 mL/min (50-200); Estimated Glomerular Filt Rate 52 ml/min (>60); GFR (African American) 63 ML/MIN (>60); Glucose 107 mg/dl (74-100); Potassium 3.8 mmoL/L (3.5-5.1); Sodium 131 mmol/L (136-145)
[2024-01-18 08:00] VITALS: BP 113/53; PULSE 63; RESP 18; TEMP 36.9; O2SAT 97
[2024-01-18] MEDS: BISOPROLOL 5MG TABLET 5 MG PO (08:07)
[2024-01-18] MEDS: MEMANTINE 10MG TABLET 10 MG PO (08:07)
[2024-01-18] MEDS: FAMOTIDINE 20MG TABLET 20 MG PO (08:07)
[2024-01-18] MEDS: SERTRALINE 50MG TABLET 25 MG PO (08:07)
[2024-01-18] MEDS: FLUTICASONE PROP 50MCG NASAL SPRAY 16GM 1 SPRAY NS (08:07)
--- NOTE | 2024-01-18 08:16 | P.PN_ITS ---
Subjective *Date: 01/18/24 *Time: 08:38 Interval history: Patient is feeling better today. He denies any pain and was able to sit up in a chair yesterday. He is eating and sleeping well. His catheter was removed and he could urinate but there is a lot of blood in his urine. Medical Exam Vital signs and Labs for Last 24 Hours: Vital Signs Temp Pulse Resp BP Pulse Ox O2 Del Method 01/18/24 06:47 Room Air 01/18/24 05:03 98.4 F 58 L 16 130/53 L 91 L Room Air 01/18/24 05:00 Room Air 01/18/24 03:00 Room Air 01/18/24 00:47 Room Air 01/18/24 00:00 98.4 F 63 16 141/61 H 94 L Room Air 01/17/24 23:00 Room Air 01/17/24 21:00 Room Air 01/17/24 20:00 Room Air 01/17/24 20:00 98.4 F 60 16 127/43 L 95 Room Air 01/17/24 18:32 Room Air 01/17/24 17:00 Room Air 01/17/24 16:00 99.1 F 60 19 128/53 L 95 Room Air 01/17/24 14:37 Room Air 01/17/24 12:39 Room Air 01/17/24 11:00 Room Air Intake and Output 01/17/24 01/18/24 01/18/24 19:59 03:59 11:59 Intake Total 420 / 520 100 / 520 Output Total 100 / 200 100 / 200 Balance 420 / 320 0 / 320 -100 / 320 Intake: Intake, Oral Amount 420 / 520 100 / 520 Output: Output, Urine Amount 100 / 200 100 / 200 Other: Number of Unmeasured Voids 1 0 Weight 201 lb 11.2 oz Patient Weight 01/18/24 11:59 Weight 201 lb 11.2 oz Laboratory Results - last 24 hr 01/17/24 09:40: WBC 8.4, RBC 2.38 L, Hgb 7.8 L, Hct 23.9 L, MCV 100.2 H, MCH 33.0 H, MCHC 32.9, RDW 13.6, Plt Count 213, MPV 9.3, Neut % (Auto) 81.9 H, Lymph % (Auto) 11.4, [place] % (Auto) 5.5, Eos % (Auto) 1.0, Baso % (Auto) 0.2, Neut # (Auto) 6.9, Lymph # (Auto) 1.0, [place] # (Auto) 0.5, Eos # (Auto) 0.1, Baso # (Auto) 0.0, Sodium 129 L, Potassium 3.2 L, Chloride 102, Carbon Dioxide 24, Anion Gap 6.2, BUN 23 H, Creatinine 1.00, Estimated Creat Clear 66, Estimated GFR 71, Est GFR ( Amer) 86, Glucose 144 H, Calcium 7.6 L 01/18/24 06:05: WBC 9.3, RBC 2.43 L, Hgb 7.9 L, Hct 24.2 L, MCV 99.5 H, MCH 32.7 H, MCHC 32.9, RDW 13.9, Plt Count 247, MPV 9.5, Neut % (Auto) 80.8 H, Lymph % (Auto) 10.6, [place] % (Auto) 7.5, Eos % (Auto) 1.0, Baso % (Auto) 0.2, Neut # (Auto) 7.5, Lymph # (Auto) 1.0, [place] # (Auto) 0.7, Eos # (Auto) 0.1, Baso # (Auto) 0.0, Sodium 131 L, Potassium 3.8, Chloride 102, Carbon Dioxide 27, Anion Gap 5.8, BUN 27 H, Creatinine 1.30 H D, Estimated Creat Clear 54, Estimated GFR 52 L, Est GFR ( Amer) 63 D, Glucose 107 H D, Calcium 8.2 L I & O for Labs for Last 24 Hours: Intake & Output 01/15/24 01/16/24 01/17/24 01/18/24 11:59 11:59 11:59 11:59 Intake Total 805 / 805 5320 / 5320 870 / 870 520 / 520 Output Total 200 / 200 200 / 200 900 / 900 200 / 200 Balance 605 / 605 5120 / 5120 -30 / -30 320 / 320 Weight 194 lb 0.108 oz 190 lb 4 oz 191 lb 11.2 oz 201 lb 11.2 oz Constitutional: Present no acute distress Respiratory: Present CTA bilaterally Cardiac: Present Reg Rate and Rhythm GI: Present soft; Absent distention or tenderness Extremities: Present edema (right) Skin: Present intact Neuro: Present alert (Easily awakened and seems alert), awake and oriented x 3 Assessment and Plan *Assessment and plan (1) Fall: Status: Acute Category: Medical Code(s): W19.XXXA - Unspecified fall, initial encounter (2) Subtrochanteric fracture of right femur: Status: Acute Qualifiers: Encounter type: initial encounter Fracture alignment: displaced Fracture type: closed Qualified Code(s): S72.21XA - Displaced subtrochanteric fracture of right femur, initial encounter for closed fracture Category: Medical Code(s): S72.21XA - Displaced subtrochanteric fracture of right femur, initial encounter for closed fracture (3) 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 Category: Surgical Code(s): Z95.810 - Presence of automatic (implantable) cardiac defibrillator (4) Cardiomyopathy: Status: Chronic Qualifiers: Cardiomyopathy type: unspecified Qualified Code(s): I42.9 - Cardiomyopathy, unspecified Category: Medical Code(s): I42.9 - Cardiomyopathy, unspecified (5) Recurrent syncope: Status: Acute Category: Medical Code(s): R55 - Syncope and collapse (6) Hypertension: Status: Chronic Qualifiers: Hypertension type: unspecified Qualified Code(s): I10 - Essential (primary) hypertension Category: Medical Code(s): I10 - Essential (primary) hypertension (7) CAD (coronary artery disease): Status: Chronic Qualifiers: Associated angina: without angina Coronary Disease-Associated Artery/Lesion type: [place] artery [place] vs. transplanted heart: [place] heart Qualified Code(s): I25.10 - Atherosclerotic heart disease of [place] coronary artery without angina pectoris Category: Medical Code(s): I25.10 - Atherosclerotic heart disease of [place] coronary artery without angina pectoris (8) HLD (hyperlipidemia): Status: Chronic Qualifiers: Hyperlipidemia type: mixed hyperlipidemia Qualified Code(s): E78.2 - Mixed hyperlipidemia Category: Medical Code(s): E78.5 - Hyperlipidemia, unspecified (9) H/O coronary artery bypass surgery: Status: Chronic Category: Surgical Code(s): Z95.1 - Presence of aortocoronary bypass graft (10) Anemia: Status: Acute Category: Medical Code(s): D64.9 - Anemia, unspecified (11) Hyponatremia: Status: Acute Category: Medical Code(s): E87.1 - Hypo-osmolality and hyponatremia (12) Gross hematuria: Status: Acute Category: Medical Code(s): R31.0 - Gross hematuria Plan H&H is stable but still low today. Renal function has increased. There is blood in his urine likely from insertion and removal of the huitron. He is able to urinate. Will discuss further care with Dr. Medley. Dr. Medley entry - Saw patient, agree with above note. H/H is low but stable, hematuria is most likely due to traumatic self catheter removal. Will treat with a few days of oral antibiotics to prevent infection. OK for discharge to [place] today.
--- NOTE | 2024-01-18 09:03 | P.DS_ITS ---
General Admission date:: 01/12/24 Discharge date: 01/18/24 HPI HPI HPI: Mr. 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 Patient states he felt fine yesterday prior to falling. He typically uses a walker or a cane to assist with ambulation. He is unsure why he fell exiting the car. He has a long standing history of syncope and has extensive cardiac and neurologic work ups. He has had fewer problems recently after his antihypertensive medication doses were decreased. Evaluation in the ER showed a right hip fracture. Dr. Soriano in Orthopedics was consulted and saw patient in the ER. His note has been reviewed and he is planning for surgery in a few days, with plans to hold patient's aspirin and plavix until after surgery. Hospital Course Hospital Course Hospital Course: The patient was admitted and started on medication for pain. He was seen by Dr. Soriano who wanted to hold his aspirin and Plavix and planned surgery in [address] Soriano took him to the OR on 01/15/2024 and performed a cephalomedullary nailing of the right proximal femur. The patient tolerated the procedure well but was lethargic after the procedure. He did pull his Xiao out postsurgery and there was some trauma and blood. Physical therapy saw the patient and felt he would need short-term rehab. Orthopedics followed the patient and felt he could weight-bear as tolerated. They encouraged ambulation with physical therapy with ambulatory devices. They wanted the patient to have DVT prophylaxis with aspirin 81 mg twice daily for 4 weeks and they wanted him to continue his Plavix. The patient did have his Xiao replaced after a bladder scan showed 280 mL of urine. His Xiao was removed again and he was able to urinate, although the urine was bloody. Labs were rechecked. His H&H did decrease, but stabilized. By 01/17/2024, the patient was much more awake and alert and was stable to be discharged for rehab. He will need to follow-up in the orthopedic office in 2 weeks for staple removal and wound check. Exam Data for Last 24 hours Vital signs and Labs for Last 24 Hours: Temp Pulse Resp BP Pulse Ox O2 Del Method 98.4 F 58 L 16 130/53 L 91 L Room Air 01/18/24 05:03 01/18/24 05:03 01/18/24 05:03 01/18/24 05:03 01/18/24 05:03 01/18/24 06:47 Laboratory Results - last 24 hr 01/17/24 09:40: WBC 8.4, RBC 2.38 L, Hgb 7.8 L, Hct 23.9 L, MCV 100.2 H, MCH 33.0 H, MCHC 32.9, RDW 13.6, Plt Count 213, MPV 9.3, Neut % (Auto) 81.9 H, Lymph % (Auto) 11.4, Real % (Auto) 5.5, Eos % (Auto) 1.0, Baso % (Auto) 0.2, Neut # (Auto) 6.9, Lymph # (Auto) 1.0, Real # (Auto) 0.5, Eos # (Auto) 0.1, Baso # (Auto) 0.0, Sodium 129 L, Potassium 3.2 L, Chloride 102, Carbon Dioxide 24, Anion Gap 6.2, BUN 23 H, Creatinine 1.00, Estimated Creat Clear 66, Estimated GFR 71, Est GFR ( Amer) 86, Glucose 144 H, Calcium 7.6 L 01/18/24 06:05: WBC 9.3, RBC 2.43 L, Hgb 7.9 L, Hct 24.2 L, MCV 99.5 H, MCH 32.7 H, MCHC 32.9, RDW 13.9, Plt Count 247, MPV 9.5, Neut % (Auto) 80.8 H, Lymph % (Auto) 10.6, Real % (Auto) 7.5, Eos % (Auto) 1.0, Baso % (Auto) 0.2, Neut # (Auto) 7.5, Lymph # (Auto) 1.0, Real # (Auto) 0.7, Eos # (Auto) 0.1, Baso # (Auto) 0.0, Sodium 131 L, Potassium 3.8, Chloride 102, Carbon Dioxide 27, Anion Gap 5.8, BUN 27 H, Creatinine 1.30 H D, Estimated Creat Clear 54, Estimated GFR 52 L, Est GFR ( Amer) 63 D, Glucose 107 H D, Calcium 8.2 L I & O for Last 24 hours: Intake & Output 01/15/24 01/16/24 01/17/24 01/18/24 11:59 11:59 11:59 11:59 Intake Total 805 / 805 5320 / 5320 870 / 870 520 / 520 Output Total 200 / 200 200 / 200 900 / 900 200 / 200 Balance 605 / 605 5120 / 5120 -30 / -30 320 / 320 Weight 194 lb 0.108 oz 190 lb 4 oz 191 lb 11.2 oz 201 lb 11.2 oz Narrative: Constitutional Constitutional: no acute distress *Routine HEENT Exam Head: Present normocephalic Eye: Present EOMI and PERRL ENT: Present mucous membranes moist *Routine Neck Exam Neck: Present supple; Absent lymphadenopathy *Routine Respiratory Exam Respiratory: Present CTA bilaterally *Routine Cardiovascular Exam Cardiovascular: Present RRR *Routine Abdominal Exam Abdominal: Present soft and normoactive bowel sounds; Absent tenderness *Routine Rectal Exam Rectal:: deferred *Routine Genitalia Exam Genitalia:: deferred *Routine Extremities Exam Extremities: Absent cyanosis, clubbing or edema Comments: tenderness to palpation along the proximal right femur, right lower extremity externally rotated, normal ROM at ankle *Routine Skin Exam Skin: Present warm; Absent rash *Routine Neurological Exam Neurological: Present alert and oriented X3 Results Data Completed and Pending Labs on day of discharge: Labs from last 24 hours 01/18/24 01/17/24 06:05 09:40 WBC 9.3 8.4 RBC 2.43 L 2.38 L Hgb 7.9 L 7.8 L Hct 24.2 L 23.9 L MCV 99.5 H 100.2 H MCH 32.7 H 33.0 H MCHC 32.9 32.9 RDW 13.9 13.6 Plt Count 247 213 MPV 9.5 9.3 Neut % (Auto) 80.8 H 81.9 H Lymph % (Auto) 10.6 11.4 Real % (Auto) 7.5 5.5 Eos % (Auto) 1.0 1.0 Baso % (Auto) 0.2 0.2 Neut # (Auto) 7.5 6.9 Lymph # (Auto) 1.0 1.0 Real # (Auto) 0.7 0.5 Eos # (Auto) 0.1 0.1 Baso # (Auto) 0.0 0.0 Sodium 131 L 129 L Potassium 3.8 3.2 L Chloride 102 102 Carbon Dioxide 27 24 Anion Gap 5.8 6.2 BUN 27 H 23 H Creatinine 1.30 H D 1.00 Estimated Creat Clear 54 66 Estimated GFR 52 L 71 Est GFR ( Amer) 63 D 86 Glucose 107 H D 144 H Calcium 8.2 L 7.6 L DS: Diagnosis Discharge Diagnosis (1) Fall: Status: Acute Code(s): W19.XXXA - Unspecified fall, initial encounter (2) Subtrochanteric fracture of right femur: Status: Acute Code(s): S72.21XA - Displaced subtrochanteric fracture of right femur, initial encounter for closed fracture Qualifiers: Encounter type: initial encounter Fracture alignment: displaced Fracture type: closed Qualified Code(s): S72.21XA - Displaced subtrochanteric fracture of right femur, initial encounter for closed fracture (3) 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 Code(s): Z95.810 - Presence of automatic (implantable) cardiac defibrillator (4) Cardiomyopathy: Status: Chronic Code(s): I42.9 - Cardiomyopathy, unspecified Qualifiers: Cardiomyopathy type: unspecified Qualified Code(s): I42.9 - Cardiomyopathy, unspecified (5) Recurrent syncope: Status: Acute Code(s): R55 - Syncope and collapse (6) Hypertension: Status: Chronic Code(s): I10 - Essential (primary) hypertension Qualifiers: Hypertension type: unspecified Qualified Code(s): I10 - Essential (primary) hypertension (7) CAD (coronary artery disease): Status: Chronic Code(s): I25.10 - Atherosclerotic heart disease of [place] coronary artery without angina pectoris Qualifiers: Associated angina: without angina Coronary Disease-Associated Artery/Lesion type: [place] artery [place] vs. transplanted heart: [place] heart Qualified Code(s): I25.10 - Atherosclerotic heart disease of [place] coronary artery without angina pectoris (8) HLD (hyperlipidemia): Status: Chronic Code(s): E78.5 - Hyperlipidemia, unspecified Qualifiers: Hyperlipidemia type: mixed hyperlipidemia Qualified Code(s): E78.2 - Mixed hyperlipidemia (9) H/O coronary artery bypass surgery: Status: Chronic Code(s): Z95.1 - Presence of aortocoronary bypass graft (10) Anemia: Status: Acute Code(s): D64.9 - Anemia, unspecified (11) Hyponatremia: Status: Acute Code(s): E87.1 - Hypo-osmolality and hyponatremia (12) Gross hematuria: Status: Acute Code(s): R31.0 - Gross hematuria Meds Home Medications and Allergies Home Medications ?Medication ?Instructions ?Recorded ?Confirmed ?Type ascorbic acid (vitamin C) 1,000 mg 1,000 mg PO DAILY supplement 05/23/18 01/12/24 History tablet omeprazole 20 mg capsule,delayed 20 mg PO DAILY Acid reflux 09/10/18 01/12/24 History release rosuvastatin 20 mg tablet 20 mg PO HS Cholesterol 04/18/19 01/12/24 History tamsulosin 0.4 mg capsule 0.4 mg PO DAILY PROSTATE 04/18/19 01/12/24 History coenzyme Q10 100 mg capsule (Co 100 mg PO DAILY Supplement 09/09/19 01/12/24 History Q-10) levothyroxine 88 mcg tablet 88 mcg PO DAILY 08/29/22 01/12/24 History memantine 10 mg tablet (Namenda) 10 mg PO BID Memory loss #60 tabs 11/07/22 01/12/24 Rx clopidogrel 75 mg tablet 75 mg PO DAILY 11/28/22 01/12/24 History donepezil 5 mg tablet 5 mg PO HS 11/28/22 01/12/24 History bisoprolol fumarate 5 mg tablet 5 mg PO DAILY High Blood Pressure 03/15/23 01/12/24 History diltiazem HCl 90 mg 90 mg PO BID #60 caps 09/27/23 01/12/24 Rx capsule,extended release 12 hr sertraline 25 mg tablet 25 mg PO DAILY 01/14/24 01/14/24 History aspirin 81 mg tablet,delayed 81 mg PO BID Heart health 60 days 01/18/24 01/12/24 Rx release #0 tabs hydrocodone 5 mg-acetaminophen 325 1 tab PO Q8H PRN pain #20 tabs 01/18/24 Rx mg tablet nitrofurantoin 100 mg PO Q12H 5 days #10 caps 01/18/24 Rx monohydrate/macrocrystals 100 mg capsule (Macrobid) sennosides 8.6 mg-docusate sodium 1 tab-cap PO HS #30 tabs 01/18/24 Rx 50 mg tablet (Senna with Docusate Sodium) New Prescriptions to Start Prescriptions: hydrocodone-acetaminophen Dave Medley nitrofurantoin monohyd/m-cryst [Macrobid] Dave Medley sennosides-docusate sodium [Senna with Docusate Sodium] Dave Medley Allergies Allergy/AdvReac Type Severity Reaction Status Date / Time codeine [CODEINE] Allergy Mild NA-NAUSEA/V Verified 12/14/23 09:00 OMITING Discharge Plan Disposition Patient Disposition: Xfer SNF Condition: Fair Discharge Order Discharge Orders: Discharge Order (Routine); Ordered 01/18/24 Ordered By: Dave Medley Follow up Plan Follow up with: Dave Medley MD [Staff Physician] - Enter time for follow up (At [facility]) Layton Soriano DO [Staff Physician] - 02/01/24 9:30 am Prescriptions/Medication Reconciliation: New nitrofurantoin monohyd/m-cryst [Macrobid] 100 mg capsule 100 mg PO Q12H 5 Days Qty: 10 0RF Rx Instructions: must administer with a meal/food hydrocodone-acetaminophen 5-325 mg tablet 1 tab PO Q8H PRN (Reason: pain) Qty: 20 0RF sennosides-docusate sodium [Senna with Docusate Sodium] 8.6-50 mg tablet 1 tab-cap PO HS Qty: 30 0RF Continued memantine [Namenda] 10 mg tablet 10 mg PO BID Qty: 60 11RF diltiazem HCl 90 mg capsule,extended release 12 hr 90 mg PO BID Qty: 60 5RF ascorbic acid (vitamin C) 1,000 mg tablet 1,000 mg PO DAILY omeprazole 20 mg capsule,delayed release(DR/EC) 20 mg PO DAILY coenzyme Q10 [Co Q-10] 100 mg capsule 100 mg PO DAILY levothyroxine 88 mcg tablet 88 mcg PO DAILY Patient Comments: TAKE ONE TABLET BY MOUTH EVERY DAY donepezil 5 mg tablet 5 mg PO HS Patient Comments: TAKE ONE TABLET BY MOUTH EVERY DAY AT BEDTIME clopidogrel 75 mg tablet 75 mg PO DAILY Patient Comments: TAKE ONE TABLET BY MOUTH ONCE DAILY bisoprolol fumarate 5 mg tablet 5 mg PO DAILY tamsulosin 0.4 MG capsule 0.4 mg PO DAILY Patient Comments: TAKE ONE CAPSULE BY MOUTH EVERY DAY rosuvastatin 20 MG tablet 20 mg PO HS Patient Comments: TAKE ONE TABLET BY MOUTH EVERY DAY AT BEDTIME sertraline 25 mg tablet 25 mg PO DAILY Patient Comments: TAKE ONE TABLET BY MOUTH EVERY DAY FOR vasovagal passing OUT Changed aspirin 81 mg tablet,delayed release (DR/EC) 81 mg PO BID 60 Days Qty: 0 0RF Problem Reconciliation Problems Reviewed?: Yes Patient Discharge Instructions ACTIVITY: Continue current activity DIET: continue same diet Patient Instructions: DI for Hip Fracture, DI for Surgical Site Infection, Catheter-Associated Urinary Tract Infection, Posterior Hip Replacement Discharge Instructions Picture Guide Print Language: [place] Providers Primary Care Provider: Provider,Referral Admit Provider: Wilfred Ramirez Attending Provider: Dave Medley
== END 2024-01-18 11:17 | DRG 956 ==
LOC: ER 15:54 → 2ND 17:01
PROVIDERS: Family Medicine; Orthopaedic Surgery; Admitting Provider Internal Medicine Adolescent Medicine; Emergency Provider Emergency Medicine; Visit Provider Family Medicine
PROC: 0QS636Z Reposition Right Upper Femur with Intramedullary Internal Fixation Device, Percutaneous Approach (ICD-10-PCS; principal; 2024-01-15 13:15)
DX: S72.21XA Displaced subtrochanteric fracture of right femur, initial encounter for closed fracture (principal); S37.39XA Other injury of urethra, initial encounter; I42.9 Cardiomyopathy, unspecified; Z95.810 Presence of automatic (implantable) cardiac defibrillator; R55 Syncope and collapse; I10 Essential (primary) hypertension; I25.10 Atherosclerotic heart disease of native coronary artery without angina pectoris; E78.5 Hyperlipidemia, unspecified; Z95.1 Presence of aortocoronary bypass graft; Z79.899 Other long term (current) drug therapy; R31.0 Gross hematuria; X58.XXXA Exposure to other specified factors, initial encounter; Y92.230 Patient room in hospital as the place of occurrence of the external cause; V48.4XXA Person boarding or alighting a car injured in noncollision transport accident, initial encounter
CPT/HCPCS: 36415; 70450; 72125; 73502; 73700; 76000; 80048; 80053; 81001; 85025; 85610; 97162; 97166; 97530; 99285; C1713; C1769; C1776; J0690; J2250; J2270; J2405; J2704; J7030; J7120; S0028

== ENCOUNTER 2024-02-01 09:43 | Outpatient (CLI) | payer MEDICARE, BC, SELFPAY ==
--- NOTE | 2024-02-01 09:47 | XR_ITS ---
FINAL REPORT CLINICAL HISTORY: right femur fx COMPARISON: Right hip 01/12/2024 FINDINGS: Two views of the right femur were obtained. There is an IM elsie and compression screw securing the intertrochanteric fracture of the proximal femur. There is mild varus angulation at the fracture site. Orthopedic hardware is new from the prior study. There are overlying skin radha. There is no acute fracture or dislocation. The joint spaces are well preserved. IMPRESSION: New orthopedic hardware as above. Reviewed, Interpreted and Dictated by Davey Casillas MD Transcribed by Destini Stroud Authenticated and [facility]
== END 2024-02-01 23:59 | disposition home or self-care (01) ==
LOC: RAD 09:45
PROVIDERS: PCP Family Medicine; Visit Provider Physician Assistant Surgical
DX: M79.651 Pain in right thigh (principal); S72.21XA Displaced subtrochanteric fracture of right femur, initial encounter for closed fracture
CPT/HCPCS: 73552

== ENCOUNTER 2024-02-11 14:29 | Outpatient (REF) | payer SELFPAY ==
[2024-02-11 15:06] LABS: Occult Blood,Stool Negative (Negative)
== END 2024-02-11 23:59 | disposition home or self-care (01) ==
LOC: LAB.DROPOF 14:29
PROVIDERS: Visit Provider Family Medicine
DX: D64.9 Anemia, unspecified (principal)
CPT/HCPCS: 82272; G0328

== ENCOUNTER 2024-02-13 10:10 | Outpatient (CLI) | payer MEDICARE, BC, SELFPAY ==
--- NOTE | 2024-02-13 10:15 | XR_ITS ---
FINAL REPORT CLINICAL HISTORY: fx repair follow up COMPARISON: 02/01/2024 FINDINGS: Two views of the right femur were obtained. There is an IM elsie and compression screws securing the comminuted intertrochanteric fracture. Since the previous exam, the overlying skin radha have been removed. The fracture fragments are unchanged in position. IMPRESSION: Postsurgical changes as above. Reviewed, Interpreted and Dictated by Davey Casillas MD Transcribed by Annel Sprague Authenticated and [facility]
== END 2024-02-13 23:59 | disposition home or self-care (01) ==
LOC: RAD 10:12
PROVIDERS: PCP Family Medicine; Visit Provider Physician Assistant
DX: S72.21XA Displaced subtrochanteric fracture of right femur, initial encounter for closed fracture (principal)
CPT/HCPCS: 73552

== ENCOUNTER 2024-02-23 21:52 | Outpatient (CLI) | payer MEDICARE, BC, SELFPAY ==
[2024-02-23 22:07] LABS: Microscopic, Urine URINE MICROSCOPIC (MICROSCOPIC)
[2024-02-23 22:09] LABS: Appearance,Urine CLEAR (Clear); Bilirubin,Urine Negative (Negative); Blood, Urine TRACE-I (Negative); Color,Urine YELLOW (Yellow); Glucose,Urine (UA) Negative (Negative); Ketones,Urine Negative (Negative); Leukocyte Esterase,Urine 3+ (Negative); Nitrate,Urine Negative (Negative); Protein,Urine 1+ (Negative); Specific Gravity, Urine >= 1.030 (1.005-1.030); Urobilinogen,Urine 0.2 EU/dl (0.2)
[2024-02-23 22:23] LABS: Bacteria,Urine 4+ /lpf; RBC,Urine TNTC #/hpf (0-3); WBC,Urine TNTC #/hpf (0-3)
== END 2024-02-23 23:59 | disposition home or self-care (01) ==
LOC: LAB.DROPOF 21:54
PROVIDERS: PCP Family Medicine; Visit Provider Family Medicine
DX: R82.89 Other abnormal findings on cytological and histological examination of urine (principal)
CPT/HCPCS: 81001; 87086

== ENCOUNTER 2024-02-24 18:27 | Outpatient (CLI) | payer MEDICARE, BC, SELFPAY ==
[2024-02-24 19:07] LABS: Microscopic, Urine URINE MICROSCOPIC (MICROSCOPIC)
[2024-02-24 19:13] LABS: Appearance,Urine Turbid (Clear); Bilirubin,Urine Negative (Negative); Blood, Urine 2+ (Negative); Color,Urine YELLOW (Yellow); Glucose,Urine (UA) Negative (Negative); Ketones,Urine Negative (Negative); Leukocyte Esterase,Urine 2+ (Negative); Nitrate,Urine Negative (Negative); Protein,Urine 1+ (Negative); Specific Gravity, Urine >= 1.030 (1.005-1.030); Urobilinogen,Urine 0.2 EU/dl (0.2)
[2024-02-24 19:47] LABS: RBC,Urine 20-50 #/hpf (0-3); WBC,Urine 50-100 #/hpf (0-3)
[2024-02-24 19:48] LABS: Bacteria,Urine Trace /lpf
== END 2024-02-24 23:59 | disposition home or self-care (01) ==
LOC: LAB.DROPOF 18:28
PROVIDERS: PCP Family Medicine; Visit Provider Family Medicine
DX: R82.79 Other abnormal findings on microbiological examination of urine (principal)
CPT/HCPCS: 81001; 87086

== ENCOUNTER 2024-02-28 14:11 | Outpatient (CLI) | payer MEDICARE, BC, SELFPAY | END 2024-02-28 23:59 | disposition home or self-care (01) | LOC: LAB.DROPOF 06-11 13:08 | PROVIDERS: Visit Provider Family Medicine | DX: E87.1 Hypo-osmolality and hyponatremia (principal); N39.0 Urinary tract infection, site not specified | CPT/HCPCS: 87086 ==

== ENCOUNTER 2024-03-01 15:51 | Outpatient (CLI) | payer MEDICARE, BC, SELFPAY ==
[2024-03-01 16:14] LABS: Microscopic,Cath URINE MICROSCOPIC (MICROSCOPIC)
[2024-03-01 16:45] LABS: Appearance,Urine/Cath CLEAR (Clear); Bilirubin,Cath Negative (Negative); Blood, Urine/Cath TRACE-I (Negative); Color,Urine/Cath YELLOW (Yellow); Glucose,Urine/Cath (UA) Negative (Negative); Ketones,Urine/Cath Negative (Negative); Leukocyte Esterase,Cath 3+ (Negative); Nitrate,Cath Negative (Negative); Protein,Urine/Cath 2+ (Negative); Specific Gravity, Urine/Cath 1.025 (1.005-1.030); Urobilinogen,Cath 0.2 EU/dl (0.2)
[2024-03-01 17:49] LABS: Bacteria,Urine/Cath 3+ /lpf; WBC,Urine/Cath TNTC #/hpf (0-3)
== END 2024-03-01 23:59 | disposition home or self-care (01) ==
LOC: LAB.DROPOF 06-11 12:03
PROVIDERS: Visit Provider Family Medicine
DX: N39.0 Urinary tract infection, site not specified (principal)
CPT/HCPCS: 81001; 87086; 87088; 87186

== ENCOUNTER 2024-03-05 08:20 | Outpatient (CLI) | payer MEDICARE, BC, SELFPAY ==
--- NOTE | 2024-03-05 08:26 | XR_ITS ---
FINAL REPORT TECHNIQUE: Pelvis 4 views CLINICAL HISTORY: .possible fx, fall COMPARISON: None FINDINGS: PELVIS: AP and angled inlet views of the pelvis were obtained. There are postoperative changes of internal fixation of a proximal right femoral fracture, which involves the lesser trochanter. Moderate degenerative change of the hips and lower lumbar spine are noted. Vascular calcifications are present in the pelvis. No acute bony abnormality is identified. IMPRESSION: Postoperative changes as described above, without acute bony abnormality identified. Authenticated and [facility]
== END 2024-03-05 23:59 | disposition home or self-care (01) ==
LOC: RAD 08:22
PROVIDERS: PCP Family Medicine; Visit Provider Physician Assistant
DX: S72.001A Fracture of unspecified part of neck of right femur, initial encounter for closed fracture (principal)
CPT/HCPCS: 72190

== ENCOUNTER 2024-04-01 15:12 | Outpatient (CLI) | payer MEDICARE, BC, SELFPAY ==
[2024-04-01 15:32] LABS: Adenovirus F 40/41, stool Not Detected (NotDetected); Astrovirus Not Detected (NotDetected); Campylobacter Not Detected (NotDetected); Cryptosporidium Not Detected (NotDetected); Cyclospora Cayetanesis Not Detected (NotDetected); Entamoeba histolytica Not Detected (NotDetected); Enteroaggregative E coli Not Detected (NotDetected); Enteropathogenic E coli Not Detected (NotDetected); Enterotoxigenic E coli Not Detected (NotDetected); Giardia lamblia Not Detected (NotDetected); Norovirus Not Detected (NotDetected); Plesimonas Shigalloides, PCR Not Detected (NotDetected); Rotavirus A Not Detected (NotDetected); Salmonella, PCR Not Detected (NotDetected); Sapovirus Not Detected (NotDetected); Shiga-like toxin E coli Not Detected (NotDetected); Shigella Enterovasive E coli Not Detected (NotDetected); Vibrio Cholerae Not Detected (NotDetected); Vibrio, PCR Not Detected (NotDetected); Yersinia Entercolitica, PCR Not Detected (NotDetected)
[2024-04-01 19:40] LABS: Clostridium Difficile A/B, PCR Detected (NotDetected)
== END 2024-04-01 23:59 | disposition home or self-care (01) ==
LOC: LAB.DROPOF 15:15
PROVIDERS: PCP Family Medicine; Visit Provider Family Medicine
DX: R19.7 Diarrhea, unspecified (principal)
CPT/HCPCS: 87506

== ENCOUNTER 2024-04-11 11:34 | Outpatient (CLI) | payer MEDICARE, BC, SELFPAY | END 2024-04-11 23:59 | disposition home or self-care (01) | LOC: LAB.DROPOF 11:36 | PROVIDERS: PCP Family Medicine; Visit Provider Family Medicine | DX: R30.0 Dysuria (principal) | CPT/HCPCS: 87086; 87088; 87186 ==

== ENCOUNTER 2024-05-09 14:27 | Outpatient (RCR) | payer MEDICARE, BC, SELFPAY ==
--- NOTE | 2024-05-09 16:45 | HMH.PTOPWND ---
Rehab Outpt Wound Evaluation Rehab OP Wound Evaluation Start: 05/09/24 14:41 Freq: Status: Active Protocol: Document 05/09/24 16:20 PHOKEIRA (Rec: 05/09/24 16:44 PHORNE [id number]) E-signed By Johny Hernandez, PT Subjective/History History History This is the initial PT eval for Jensen Loomis, 84 yowm who presents with c/o B heel wounds x ~ 3 mos and sacral wound x ~ 1 mo. He is accompanied by his significant other who assist with the history due to his baseline cognitive impairments. They report he suffered a fall ~ 4 mos ago with resulting R IT femur fx requiring a R femur IMN. He has been residing in SNF for rehab since being discharged from the hospital. He has suffered B heel pressure injuries from a result of his decreased mobility, His sacral wound is a result of an ongoing diaz with C-Diff causing persistent diarrhea. He also continues to have significantly decreased mobility and transfers overall vs his baseline. He has PMH as follows: Ventricular tachycardia GERD (gastroesophageal reflux disease) BPH (benign prostatic hyperplasia) MCI (mild cognitive impairment ) Renal insufficiency Tear of meniscus of knee Atypical angina Short-term memory loss Short-term memory impairment associated with cognitive decline. 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 Neurocognitive testing inconsistent with clinical correlation. He has multiple risk factors for cardiovascular events therefore vascular dementia is high on the differential diagnosis. Throat cancer Osteoarthritis of right knee Cardiomyopathy Cardiac pacemaker in situ Bradycardia Symptomatic bradycardia Status post placement of implantable loop recorder Dizziness Syncope HLD (hyperlipidemia) HHD (hypertensive heart disease) CAD (coronary artery disease) Subjective Subjective He reports increased pain in B heels and his sacrum 7/10 at rest. He requires MAX A X 1 for stand/pivot transfers to/ from w/c. Wound Eval Wound Sacrum Wound Type Pressure Ulcer Is This a Chronic Wound Yes Wound Staging Stage III Query Text:Stage I - Unbroken, red skin, no blanching. Stage II - Skin broken, superficial skin loss involving epidermis alone or also dermis. Partial loss of skin layers. Stage III - Pressure area involves epidermis, dermis and subcutaneous tissue, full thickness skin loss. Stage IV - Pressure area involves epidermis, subcutaneous tissue, bone and other supportive tissue. Full thickness skin loss with extensive destruction of underlying tissue and structures. Wound Length (cm) 7.0 Wound Width (cm) 10.0 Wound Depth (cm) 0.2 Wound Bed Appearance Beefy Red,Yellow Percentage Granulated (%) 90 Percentage of Slough (%) 10 Wound Margins Description Well Defined Surrounding Tissue Appearance [place],Bright Red Drainage Description Serosanguineous Drainage Amount Small Wound Topical Solution/Irrigant Saline Irrigant Primary Dressing Composite Comment optifoam gentle sacrum Wound Debridement Method Gauze,Mechanical Dressing Change Patient Tolerance Tolerated Well Right Heel Wound Type Pressure Ulcer Is This a Chronic Wound Yes Wound Staging Stage III Query Text:Stage I - Unbroken, red skin, no blanching. Stage II - Skin broken, superficial skin loss involving epidermis alone or also dermis. Partial loss of skin layers. Stage III - Pressure area involves epidermis, dermis and subcutaneous tissue, full thickness skin loss. Stage IV - Pressure area involves epidermis, subcutaneous tissue, bone and other supportive tissue. Full thickness skin loss with extensive destruction of underlying tissue and structures. Wound Length (cm) 1.2 Wound Width (cm) 1.4 Wound Depth (cm) 0.3 Wound Bed Appearance Beefy Red,Yellow Percentage Granulated (%) 75 Percentage of Slough (%) 25 Wound Margins Description Well Defined Surrounding Tissue Appearance [place] Edema Type Pitting Edema Degree 1+ Query Text:1+ Trace, Barely Detectable, Rebound 15-30 seconds 2+ Moderate, Slight Indentation, Rebound 10-20 seconds 3+ Deep, Deeper Indentation, Rebound > 30 seconds 4+ Very Deep, Rebound > 60 seconds Drainage Description Serosanguineous Drainage Amount Small Wound Topical Solution/Irrigant Saline Irrigant Primary Dressing Silver Dressing Comment opticell Ag, optifoam gentle Wound Debridement Method Forceps,Gauze,Mechanical Wound Debridement Amount of Tissue Minimal Removed Dressing Change Patient Tolerance Tolerated Well Left Heel Wound Type Pressure Ulcer Is This a Chronic Wound Yes Wound Staging Stage III Query Text:Stage I - Unbroken, red skin, no blanching. Stage II - Skin broken, superficial skin loss involving epidermis alone or also dermis. Partial loss of skin layers. Stage III - Pressure area involves epidermis, dermis and subcutaneous tissue, full thickness skin loss. Stage IV - Pressure area involves epidermis, subcutaneous tissue, bone and other supportive tissue. Full thickness skin loss with extensive destruction of underlying tissue and structures. Wound Length (cm) 2.3 Wound Width (cm) 2.3 Wound Depth (cm) 0.4 Wound Bed Appearance Dusky Red,Yellow Percentage Granulated (%) 25 Percentage of Slough (%) 75 Wound Margins Description Well Defined Surrounding Tissue Appearance [place] Edema Type Pitting Edema Degree 1+ Query Text:1+ Trace, Barely Detectable, Rebound 15-30 seconds 2+ Moderate, Slight Indentation, Rebound 10-20 seconds 3+ Deep, Deeper Indentation, Rebound > 30 seconds 4+ Very Deep, Rebound > 60 seconds Drainage Description Purulent Drainage Amount Moderate Drainage Odor Slight Odor Dressing Status Changed Wound Topical Solution/Irrigant Saline Irrigant Primary Dressing Silver Dressing Comment optic[employer] [place] Ag, optfoam gentle Wound Debridement Method Forceps,Gauze,Mechanical Wound Debridement Amount of Tissue Minimal Removed Dressing Change Patient Tolerance Tolerated Well Wound Problems/Impairments Impairments Problems/Impairmments Palpation Tenderness,Impaired Range of Motion,Impaired Strength,Impaired Endurance, Impaired Transfers,Impaired Gait Pattern,Impaired Walking, Impaired Standing,Impaired Sitting,Impaired Dressing, Impaired Shower/Bathing, Impaired Household Care,Wound Care Needs,Subjective C/O Pain ,Impaired Self Care/Self Management Prognosis Rehab Potential Good Comment Skilled therapy is indicated to reduce overall wound size and decrease time required to heal pt wounds. Currently his difficulty with transfers and transportation coupled with co -morbid condition may limit the benefits from outpatient wound care vs SNF wound care. Clinical Impression Consistent with Diagnosis No Consistent with L89.6, L89.15 Short Term Goals Number of Weeks 4 Decrease Wound Area Yes: by 25% Correction Goals Number of Weeks 8 Decrease Wound Area Yes: by 75% Outpatient Therapy Plan of Care Treatment Plan May Include ADL/Self Care Education Yes Orthotics/Bracing/Splinting Yes Wound Care Yes Eval/Re-Eval Yes Frequency Times per week 1 Duration Number of Weeks 8 Addendums This patient is a candidate for social No or vocational rehab? Patient/Guardian verbally acknowledges Yes understanding of treatment program and consents to further treatment? Patient/Guardian verbally acknowledges Yes understanding of diagnosis, prognosis and goals for treatment? Eval Complexity PT Charges 72760 - High Complexity PHYSICIAN CERTIFICATION: I certify the specified therapy services for Jensen Loomis are required, authorized, and reviewed every 30 days.
== END 2024-05-09 23:59 | disposition home or self-care (01) ==
LOC: PT 14:27
PROVIDERS: PCP Family Medicine; Visit Provider Family Medicine
DX: S31.000A Unspecified open wound of lower back and pelvis without penetration into retroperitoneum, initial encounter (principal)
CPT/HCPCS: 97163

== ENCOUNTER 2024-05-20 13:04 | Inpatient (IN) | payer MEDICARE, BC, SELFPAY ==
[2024-05-20] VITALS (17 sets, daily range): BP systolic 116–158; BP diastolic 63–92; PULSE 60–64; RESP 13–22; TEMP 36.8–37; O2SAT 95–99; BMI 22.3
--- NOTE | 2024-05-20 12:57 | ED_ITS ---
Discharge Plan Disposition Patient Disposition: Admitted Condition: Serious Clinical Impressions Clinical Impression: Hyperkalemia, Bladder outlet obstruction, Prostate mass, Sepsis without septic shock, Metabolic acidosis, Obstructive uropathy Acute on chronic renal failure Qualifiers: Acute renal failure type: unspecified Chronic kidney disease stage: unspecified stage Qualified Code(s): N17.9 - Acute kidney failure, unspecified Discharge ED Provider: Shana Plummer General Adult HPI <MARYA Ledezma - Last Filed: 05/20/24 18:26> General Chief complaint: Extremity Problem,Nontraumatic Stated complaint: legs Swelling Time Seen by Provider: 05/20/24 13:09 History of Present Illness HPI narrative: Patient presents for evaluation of dependent edema and abnormal lab results. Mr. Loomis is an 84-year-old man admitted to [facility] now. He was admitted after 100-day rehab stay after he fell and broke his hip in December. However patient has not walked since. He has baseline dementia and has had a functional decline prior to his fall but also likely contributing to it as well. He has an additional significant past medical history of coronary artery disease hypertensive heart disease hyperlipidemia coronary artery bypass surgery cardiac pacemaker history of throat cancer successfully treated. It is unknown why patient had labs drawn today however reports are that he had hyperkalemia and worsening renal function from previous labs. I do not have them available to review internally. [facility] He does not have a known history of renal failure in the past. Unfortunately patient is pleasantly confused and due to his dementia I am unable to obtain a reliable history. Patient reports that he does not feel well but cannot quantify it. I did personally attempt to reach his in an attempt to obtain history however she was unavailable initially. Currently patient denies chest pain shortness of breath fever chills hemoptysis hematochezia melena nausea vomiting diarrhea. Related Data Home Medications ?Medication ?Instructions ?Recorded ?Confirmed aspirin 81 mg tablet,delayed 81 mg PO BID 05/20/24 05/20/24 release bisoprolol fumarate 5 mg tablet 5 mg PO DAILY 05/20/24 05/20/24 clopidogrel 75 mg tablet 75 mg PO DAILY 05/20/24 05/20/24 donepezil 5 mg tablet 5 mg PO HS 05/20/24 05/20/24 levothyroxine 88 mcg tablet 88 mcg PO DAILY 05/20/24 05/20/24 memantine 10 mg tablet 10 mg PO BID 05/20/24 05/20/24 omeprazole 20 mg capsule,delayed 20 mg PO DAILY 05/20/24 05/20/24 release rosuvastatin 20 mg tablet 20 mg PO HS 05/20/24 05/20/24 sertraline 25 mg tablet 25 mg PO DAILY 05/20/24 05/20/24 tamsulosin 0.4 mg capsule 0.4 mg PO DAILY 05/20/24 05/20/24 Allergies Allergy/AdvReac Type Severity Reaction Status Date / Time codeine (CODEINE) Allergy Mild NA-NAUSEA/V Verified 03/05/24 09:42 OMITING [facility] <MARYA Ledezma - Last Filed: 05/20/24 18:26> [facility] Disclaimer: The information contained in this section may have been updated after the patient was seen, as this information can be updated by other users. Medical History (Updated 05/20/24 @ 17:41 by Dave Medley MD) Anemia Unable to walk Subtrochanteric fracture of right femur C. difficile colitis Ventricular tachycardia GERD (gastroesophageal reflux disease) BPH (benign prostatic hyperplasia) MCI (mild cognitive impairment) Renal insufficiency Tear of meniscus of knee Atypical angina Short-term memory loss Throat cancer Osteoarthritis of right knee Cardiomyopathy Cardiac pacemaker in situ Bradycardia Symptomatic bradycardia Status post placement of implantable loop recorder Dizziness Syncope HLD (hyperlipidemia) HHD (hypertensive heart disease) CAD (coronary artery disease) Surgical History History of hernia repair History of colonoscopy History of tonsillectomy AICD (automatic cardioverter/defibrillator) present H/O coronary artery bypass surgery Family History Other Coronary artery disease Hypertension Social History Smoking Status: Never smoker alcohol intake: never substance use type: denies use current occupational status: retired Travel in the last 8 weeks: Inside the [place] household members: spouse housing: house current occupational exposures/hazards: No caffeine: Yes physical activity: walking frequency: 5-6 times per week duration: 45-60 minutes/day Have you lived/traveled outside US in past 30 days?: No Contact w/someone who lives/traveled outside US past 30 days?: No Exposure to someone with infectious disease in past 14 days?: No Do you have a fever (greater than 100.4 F or 38 C)?: No Have you tested positive for COVID-19: No Exposed to someone with COVID-19 in past 14 days?: No Do you have a sore throat?: No Do you have a cough?: No Do you have any weakness?: No Do you have any diarrhea?: No Are you experiencing any unusual bleeding?: No Do you have any muscle aches/pain?: No Do you have any abdominal pain?: No Are you experiencing loss of taste or smell?: No Other Medical History Have you received the Flu Vaccine for this season: No Have you received the Pneumonia Vaccine: No <MARYA Ledezma - Last Filed: 05/20/24 18:26> ROS Obtained: Yes Systems reviewed as appropriate & no additional complaints except as documented Physical Exam <MARYA Ledezma - Last Filed: 05/20/24 18:26> General General appearance: alert and in no apparent distress Respiratory Respiratory exam: Present normal lung sounds bilaterally Cardiovascular Cardiovascular exam: Present regular rate, normal heart sounds, +S1 and +S2 Neurological Exam Neurological exam: Present alert and CN II-XII intact; Absent oriented X3 (Person and place but not time and circumstance) Medical Decision Making <MARYA Ledezma - Last Filed: 05/20/24 18:26> Medical Records Medical records reviewed: Yes I reviewed the patient's medical records. Screening: Per USPSTF and CDC recommendations, given the prevalence of disease in our region, it is our hospital?s policy to screen for HIV and viral Hepatitis for all patients aged 18 and over and those with ongoing risk factors. Lopez Inquiry Pt receiving controlled substance: No Vital Signs: 05/20/24 13:04 05/20/24 13:35 05/20/24 13:45 Temperature 98.6 F Temperature Source Oral Pulse Rate 63 61 Pulse Rate [Right] 62 Respiratory Rate 22 17 14 Blood Pressure Blood Pressure [Right Arm] 147/72 H Blood Pressure Mean Blood Pressure Mean [Right Arm] 97 Blood Pressure Source [Right Arm] Automatic Cuff 02 Sat by Pulse Oximetry 99 98 97 Oxygen Delivery Method Room Air 05/20/24 14:00 05/20/24 14:18 05/20/24 14:30 Temperature Temperature Source Pulse Rate 60 62 63 Pulse Rate [Right] Respiratory Rate 18 19 16 Blood Pressure 135/67 147/67 H Blood Pressure [Right Arm] Blood Pressure Mean Blood Pressure Mean [Right Arm] Blood Pressure Source [Right Arm] 02 Sat by Pulse Oximetry 97 98 98 Oxygen Delivery Method 05/20/24 14:45 05/20/24 15:00 05/20/24 15:01 Temperature Temperature Source Pulse Rate 60 Pulse Rate [Right] Respiratory Rate 18 16 Blood Pressure 116/92 H Blood Pressure [Right Arm] Blood Pressure Mean 102 Blood Pressure Mean [Right Arm] Blood Pressure Source [Right Arm] 02 Sat by Pulse Oximetry 97 Oxygen Delivery Method 05/20/24 15:15 05/20/24 15:30 05/20/24 15:31 Temperature Temperature Source Pulse Rate Pulse Rate [Right] Respiratory Rate 13 18 15 Blood Pressure 137/71 Blood Pressure [Right Arm] Blood Pressure Mean Blood Pressure Mean [Right Arm] Blood Pressure Source [Right Arm] 02 Sat by Pulse Oximetry Oxygen Delivery Method 05/20/24 15:45 05/20/24 16:00 05/20/24 16:15 Temperature 98.5 F Temperature Source Pulse Rate 64 Pulse Rate [Right] Respiratory Rate 16 21 20 Blood Pressure 158/77 H 158/77 H Blood Pressure [Right Arm] Blood Pressure Mean Blood Pressure Mean [Right Arm] Blood Pressure Source [Right Arm] 02 Sat by Pulse Oximetry Oxygen Delivery Method Room Air 05/20/24 16:15 05/20/24 16:30 Temperature Temperature Source Pulse Rate Pulse Rate [Right] Respiratory Rate 18 Blood Pressure 149/74 H Blood Pressure [Right Arm] Blood Pressure Mean 117 Blood Pressure Mean [Right Arm] Blood Pressure Source [Right Arm] 02 Sat by Pulse Oximetry Oxygen Delivery Method Lab Data Lab results reviewed: Yes I reviewed the patient's lab results. Lab Results 05/20/24 13:30: WBC 14.4 H, RBC 2.78 L, Hgb 8.1 L, Hct 26.3 L, MCV 94.6 H, MCH 29.1, MCHC 30.8 L, RDW 16.7, Plt Count 319, MPV 10.1, Neut % (Auto) 75.4, Lymph % (Auto) 15.9, [place] % (Auto) 6.1, Eos % (Auto) 1.0, Baso % (Auto) 0.4, Neut # (Auto) 10.9 H, Lymph # (Auto) 2.3, [place] # (Auto) 0.9, Eos # (Auto) 0.1, Baso # (Auto) 0.1, PT 11.0, INR 1.00, Sodium 140, Potassium 5.9 H, Chloride 116 H, C arbon Dioxide 16 L, Anion Gap 13.9, BUN 56 H, Creatinine 3.30 H, Estimated Creat Clear 17, Estimated GFR 18 L*, Est GFR ( Amer) 22 L, Glucose 123 H, C alcium 8.3 L, Phosphorus 5.1 H, Total Bilirubin 0.2, AST 40, ALT 35, Alkaline Phosphatase 112, Troponin I < 0.01, Total Protein 5.7 L, Albumin 2.5 L, Globulin 3.2, Albumin/Globulin Ratio 0.8 L, Procalcitonin 0.287, HCV Ab PAOLO w/Rflx PCR Qn Negative, HIV Ag/Ab Combo Qual Negative 05/20/24 13:32: VBG pH 7.24 L, VBG pCO2 36.0, VBG pO2 47.5 H, VBG HCO3 15.2 L, V BG Total CO2 16.3 L, VBG O2 Saturation 80.4 H, VBG Base Excess -12.2 L, VBG Lactic Acid 1.7 05/20/24 14:30: Urine Color Yellow, Urine Appearance Clear, Urine pH 6.0, Ur Specific [place] 1.025, Urine Protein Negative, Urine Glucose (UA) Negative, Urine Ketones Negative, Urine Blood Negative, Urine Nitrate Negative, Urine Bilirubin Negative, Urine Urobilinogen 0.2, Ur Leukocyte Esterase Negative, Urine RBC None, Urine WBC 3-5, Ur Squamous Epith Cells None, Urine Bacteria Trace 05/20/24 13:30 05/21/24 05:45 Orders (Tests/Meds): ED MEDICATIONS Generic Name Dose Route Start Last Admin Trade Name Freq PRN Reason Stop Dose Admin Acetaminophen 650 mg 05/20/24 17:42 Acetaminophen 325mg Tab PO 06/19/24 17:41 Q6HP PRN Fever or Mild Pain (1-3) Ceftriaxone Sodium 1 gm/ 50 mls @ 100 mls/hr 05/21/24 15:00 Sodium Chloride IV 05/30/24 14:59 Q24H ALICIA Ondansetron HCl 4 mg 05/20/24 17:42 Ondansetron 4mg/2ml Vial IV 06/19/24 17:41 Q8HP PRN Nausea Sodium Chloride 10 ml 05/20/24 19:34 Sodium Chloride 0.9% 10ml Flush Syringe IV 06/19/24 19:33 NEEDED PRN Maintain IV Site Discontinued Medications Generic Name Dose Route Start Last Admin Trade Name Freq PRN Reason Stop Dose Admin Ceftriaxone Sodium 1 gm/ 50 mls @ 100 mls/hr 05/20/24 15:00 05/20/24 15:09 Sodium Chloride IV 05/30/24 14:59 100 mls/hr Q24H ALICIA Administration Sodium Chloride 1,000 mls @ 999 mls/hr 05/20/24 14:59 05/20/24 15:09 Sod Chlor 0.9% 1000ml Bag IV 05/20/24 15:59 999 mls/hr .Q1H1M ONE Administration Sodium Zirconium Cyclosilicate 10 gm 05/20/24 15:44 Lokelma 5gm Packet PO 05/20/24 15:45 ONCE ONE ORDERS Category Date Time Status CT abdomen pelvis wo con Stat Cat Scan 05/20/24 13:34 Completed Chest XR -- portable [XR chest portable] Stat Exams 05/20/24 12:59 Completed CBC w/Auto Diff [Complete Blood Count Auto Diff] Stat Lab 05/20/24 13:30 Completed CMP [Comprehensive Metabolic Panel] Stat Lab 05/20/24 13:30 Completed HIV Combo Stat Lab 05/20/24 13:30 Completed Hepatitis C Ab Qual. W/ RFX Stat Lab 05/20/24 13:30 Completed INR [Prothrombin Time INR] Stat Lab 05/20/24 13:30 Completed Phosphorous Stat Lab 05/20/24 13:30 Completed Procalcitonin Stat Lab 05/20/24 13:30 Completed Troponin I Q3H Lab 05/20/24 18:58 Completed Troponin I Q3H Lab 05/20/24 21:51 Completed Troponin I Stat Lab 05/20/24 13:30 Completed UA [Urinalysis and Microscopic] Stat Lab 05/20/24 14:30 Completed VBG [Venous Blood Gas] Stat RT 05/20/24 13:32 Completed HEART Score History (anamnesis): Slightly suspicious ECG: Non-specific disturbance Age: >65 years Risk factors: Atherosclerosis history Troponin: </= normal limit HEART Score: 5 Medical Decision Narrative: In summary patient is a 84-year-old male who presents to the emergency department for evaluation of abnormal lab results and dependent edema. Patient is hemodynamically stable with a blood pressure 147/72 with a heart rate of 62 in normal sinus rhythm on the bedside monitor respiratory rate of 20 satting at 99% on room air upon arrival, and afebrile at 98.6. Physical exam is remarkable for a well-nourished well-developed unwell appearing 84-year-old gentleman who does not appear to be in acute distress. Breath sounds are clear and equal bilaterally to the bases without adventitious sounds. Abdomen is firm in the lower half with no rebound no rigidity guarding with normal bowel sounds. Patient has some discomfort when palpating the lower abdomen. Patient has left upper extremity lymphedema as well as lymphedema in the bilateral lower extremities of 2+. Patient has palpable pulses in all 4 extremities.. Differential diagnosis includes heart failure versus renal failure versus obstipation versus infection etc. Initial workup will be conducted with hematologic labs plain film chest x-ray CT scan abdomen pelvis urinalysis full respiratory panel.. Initial interventions deferred until workup is more revealing although I did consider Lasix initially patient has no oxygen requirement no increased work of breathing thus deferred for now. Initial workup reviewed by me shows patient has a white count of 14.4 hemoglobin and hematocrit of 8.1 and 26 3 respectively with an absolute neutrophil count of 10.9, INR is 1.0, VBG shows a pH of 7.24 with a pCO2 of 36 and a VBG lactic acid of 1.7, CMP significant for sodium 140 potassium of 5.9 chloride of 116 CO2 of 16 anion gap of 13.9 BUN of 56 creatinine 3.3 and GFR of 18. Glucose 123 calcium of 8.3 when corrected for hypoalbuminemia is 9.5 phosphorus of 5.1 initial troponin of less than 0.01 albumin of 2.5 procalcitonin of 0.287 and a bland catheterized urinalysis. My informal interpretation of his CT scan abdomen pelvis shows significant bilateral ureterohydronephrosis from what appears to be an infiltrative mass arising from the prostate at the bladder neck with a significantly distended bladder that is well above the umbilicus and bladder wall calcifications concerning for malignant spread prior to radiology read. Given his multiple derangements patient was started on Rocephin for possible prostatitis versus cystitis versus pyelonephritis, patient given a gentle 1 L bolus instead of the full sepsis bolus due to his known heart failure and given Lokelma for the hyperkalemia. I was able to get records [facility] jail and trend of his laboratory work shows a progressive worsening of renal function over the month of March from a baseline of normal prior to his fall and hip fracture. Patient is on no nephrotoxic medications and review of his medical record [facility] [place] from the jail. Given this I had interactive discussion with Dr. Medley regarding patient CHEN findings and patient management and he will be admitted for further evaluation and care. <Shana Plummer, DO - Last Filed: 05/21/24 07:09> Vital Signs: 05/20/24 13:04 05/20/24 13:35 05/20/24 13:45 Temperature 98.6 F Temperature Source Oral Pulse Rate 63 61 Pulse Rate [Right] 62 Respiratory Rate 22 17 14 Blood Pressure Blood Pressure [Right Arm] 147/72 H Blood Pressure Mean Blood Pressure Mean [Right Arm] 97 Blood Pressure Source [Right Arm] Automatic Cuff 02 Sat by Pulse Oximetry 99 98 97 Oxygen Delivery Method Room Air 05/20/24 14:00 05/20/24 14:18 05/20/24 14:30 Temperature Temperature Source Pulse Rate 60 62 63 Pulse Rate [Right] Respiratory Rate 18 19 16 Blood Pressure 135/67 147/67 H Blood Pressure [Right Arm] Blood Pressure Mean Blood Pressure Mean [Right Arm] Blood Pressure Source [Right Arm] 02 Sat by Pulse Oximetry 97 98 98 Oxygen Delivery Method 05/20/24 14:45 05/20/24 15:00 05/20/24 15:01 Temperature Temperature Source Pulse Rate 60 Pulse Rate [Right] Respiratory Rate 18 16 Blood Pressure 116/92 H Blood Pressure [Right Arm] Blood Pressure Mean 102 Blood Pressure Mean [Right Arm] Blood Pressure Source [Right Arm] 02 Sat by Pulse Oximetry 97 Oxygen Delivery Method 05/20/24 15:15 05/20/24 15:30 05/20/24 15:31 Temperature Temperature Source Pulse Rate Pulse Rate [Right] Respiratory Rate 13 18 15 Blood Pressure 137/71 Blood Pressure [Right Arm] Blood Pressure Mean Blood Pressure Mean [Right Arm] Blood Pressure Source [Right Arm] 02 Sat by Pulse Oximetry Oxygen Delivery Method 05/20/24 15:45 05/20/24 16:00 05/20/24 16:15 Temperature 98.5 F Temperature Source Pulse Rate 64 Pulse Rate [Right] Respiratory Rate 16 21 20 Blood Pressure 158/77 H 158/77 H Blood Pressure [Right Arm] Blood Pressure Mean Blood Pressure Mean [Right Arm] Blood Pressure Source [Right Arm] 02 Sat by Pulse Oximetry Oxygen Delivery Method Room Air 05/20/24 16:15 05/20/24 16:30 Temperature Temperature Source Pulse Rate Pulse Rate [Right] Respiratory Rate 18 Blood Pressure 149/74 H Blood Pressure [Right Arm] Blood Pressure Mean 117 Blood Pressure Mean [Right Arm] Blood Pressure Source [Right Arm] 02 Sat by Pulse Oximetry Oxygen Delivery Method Lab Data Lab Results 05/20/24 13:30: WBC 14.4 H, RBC 2.78 L, Hgb 8.1 L, Hct 26.3 L, MCV 94.6 H, MCH 29.1, MCHC 30.8 L, RDW 16.7, Plt Count 319, MPV 10.1, Neut % (Auto) 75.4, Lymph % (Auto) 15.9, [place] % (Auto) 6.1, Eos % (Auto) 1.0, Baso % (Auto) 0.4, Neut # (Auto) 10.9 H, Lymph # (Auto) 2.3, [place] # (Auto) 0.9, Eos # (Auto) 0.1, Baso # (Auto) 0.1, PT 11.0, INR 1.00, Sodium 140, Potassium 5.9 H, Chloride 116 H, C arbon Dioxide 16 L, Anion Gap 13.9, BUN 56 H, Creatinine 3.30 H, Estimated Creat Clear 17, Estimated GFR 18 L*, Est GFR ( Amer) 22 L, Glucose 123 H, C alcium 8.3 L, Phosphorus 5.1 H, Total Bilirubin 0.2, AST 40, ALT 35, Alkaline Phosphatase 112, Troponin I < 0.01, Total Protein 5.7 L, Albumin 2.5 L, Globulin 3.2, Albumin/Globulin Ratio 0.8 L, Procalcitonin 0.287, HCV Ab PAOLO w/Rflx PCR Qn Negative, HIV Ag/Ab Combo Qual Negative 05/20/24 13:32: VBG pH 7.24 L, VBG pCO2 36.0, VBG pO2 47.5 H, VBG HCO3 15.2 L, V BG Total CO2 16.3 L, VBG O2 Saturation 80.4 H, VBG Base Excess -12.2 L, VBG Lactic Acid 1.7 05/20/24 14:30: Urine Color Yellow, Urine Appearance Clear, Urine pH 6.0, Ur Specific [place] 1.025, Urine Protein Negative, Urine Glucose (UA) Negative, Urine Ketones Negative, Urine Blood Negative, Urine Nitrate Negative, Urine Bilirubin Negative, Urine Urobilinogen 0.2, Ur Leukocyte Esterase Negative, Urine RBC None, Urine WBC 3-5, Ur Squamous Epith Cells None, Urine Bacteria Trace Orders (Tests/Meds): ED MEDICATIONS Generic Name Dose Route Start Last Admin Trade Name Freq PRN Reason Stop Dose Admin Acetaminophen 650 mg 05/20/24 17:42 Acetaminophen 325mg Tab PO 06/19/24 17:41 Q6HP PRN Fever or Mild Pain (1-3) Ceftriaxone Sodium 1 gm/ 50 mls @ 100 mls/hr 05/21/24 15:00 Sodium Chloride IV 05/30/24 14:59 Q24H ALICIA Ondansetron HCl 4 mg 05/20/24 17:42 Ondansetron 4mg/2ml Vial IV 06/19/24 17:41 Q8HP PRN Nausea Sodium Chloride 10 ml 05/20/24 19:34 Sodium Chloride 0.9% 10ml Flush Syringe IV 06/19/24 19:33 NEEDED PRN Maintain IV Site Discontinued Medications Generic Name Dose Route Start Last Admin Trade Name Freq PRN Reason Stop Dose Admin Ceftriaxone Sodium 1 gm/ 50 mls @ 100 mls/hr 05/20/24 15:00 05/20/24 15:09 Sodium Chloride IV 05/30/24 14:59 100 mls/hr Q24H ALICIA Administration Sodium Chloride 1,000 mls @ 999 mls/hr 05/20/24 14:59 05/20/24 15:09 Sod Chlor 0.9% 1000ml Bag IV 05/20/24 15:59 999 mls/hr .Q1H1M ONE Administration Sodium Zirconium Cyclosilicate 10 gm 05/20/24 15:44 Lokelma 5gm Packet PO 05/20/24 15:45 ONCE ONE ORDERS Category Date Time Status CT abdomen pelvis wo con Stat Cat Scan 05/20/24 13:34 Completed Chest XR -- portable [XR chest portable] Stat Exams 05/20/24 12:59 Completed CBC w/Auto Diff [Complete Blood Count Auto Diff] Stat Lab 05/20/24 13:30 Completed CMP [Comprehensive Metabolic Panel] Stat Lab 05/20/24 13:30 Completed HIV Combo Stat Lab 05/20/24 13:30 Completed Hepatitis C Ab Qual. W/ RFX Stat Lab 05/20/24 13:30 Completed INR [Prothrombin Time INR] Stat Lab 05/20/24 13:30 Completed Phosphorous Stat Lab 05/20/24 13:30 Completed Procalcitonin Stat Lab 05/20/24 13:30 Completed Troponin I Q3H Lab 05/20/24 18:58 Completed Troponin I Q3H Lab 05/20/24 21:51 Completed Troponin I Stat Lab 05/20/24 13:30 Completed UA [Urinalysis and Microscopic] Stat Lab 05/20/24 14:30 Completed VBG [Venous Blood Gas] Stat RT 05/20/24 13:32 Completed ECG Data Tracing #1: I reviewed this ECG and interpreted as documented below: Atrially paced at a ventricular rate of 61 bpm. No acute STEMI. ECG initial impression date: 05/20/24 ECG initial impression time: 13:11 HEART Score HEART Score: 5 Medical Decision Narrative: In summary patient is a 84-year-old male who presents to the emergency department for evaluation of abnormal lab results and dependent edema. Patient is hemodynamically stable with a blood pressure 147/72 with a heart rate of 62 in normal sinus rhythm on the bedside monitor respiratory rate of 20 satting at 99% on room air upon arrival, and afebrile at 98.6. Physical exam is remarkable for a well-nourished well-developed unwell appearing 84-year-old gentleman who does not appear to be in acute distress. Breath sounds are clear and equal bilaterally to the bases without adventitious sounds. Abdomen is firm in the lower half with no rebound no rigidity guarding with normal bowel sounds. Patient has some discomfort when palpating the lower abdomen. Patient has left upper extremity lymphedema as well as lymphedema in the bilateral lower extremities of 2+. Patient has palpable pulses in all 4 extremities.. Differential diagnosis includes heart failure versus renal failure versus obstipation versus infection etc. Initial workup will be conducted with hematologic labs plain film chest x-ray CT scan abdomen pelvis urinalysis full respiratory panel.. Initial interventions deferred until workup is more revealing although I did consider Lasix initially patient has no oxygen requirement no increased work of breathing thus deferred for now. Initial workup reviewed by me shows patient has a white count of 14.4 hemoglobin and hematocrit of 8.1 and 26 3 respectively with an absolute neutrophil count of 10.9, INR is 1.0, VBG shows a pH of 7.24 with a pCO2 of 36 and a VBG lactic acid of 1.7, CMP significant for sodium 140 potassium of 5.9 chloride of 116 CO2 of 16 anion gap of 13.9 BUN of 56 creatinine 3.3 and GFR of 18. Glucose 123 calcium of 8.3 when corrected for hypoalbuminemia is 9.5 phosphorus of 5.1 initial troponin of less than 0.01 albumin of 2.5 procalcitonin of 0.287 and a bland catheterized urinalysis. My informal interpretation of his CT scan abdomen pelvis shows significant bilateral ureterohydronephrosis from what appears to be an infiltrative mass arising from the prostate at the bladder neck with a significantly distended bladder that is well above the umbilicus and bladder wall calcifications concerning for malignant spread prior to radiology read. Given his multiple derangements patient was started on Rocephin for possible prostatitis versus cystitis versus pyelonephritis, patient given a gentle 1 L bolus instead of the full sepsis bolus due to his known heart failure and given Lokelma for the hyperkalemia. I was able to get [facility] and trend of his laboratory work shows a progressive worsening of renal function over the month of March from a baseline of normal prior to his fall and hip fracture. Patient is on no nephrotoxic medications and review of his medical record [facility] jail. Given this I had interactive discussion with Dr. Medley regarding patient CHEN findings and patient management and he will be admitted for further evaluation and care. DO Elian: I was consulted by the PATIENCE, and we discussed the complexity of the problems being addressed. I approved the treatment and management plan for this patient's care in the emergency department, thus performing a substantive portion of the medical decision making. Shana Plummer, DO Critical Care <MARYA Ledezma - Last Filed: 05/20/24 18:26> Critical Care Time Critical Care Time: Yes Attestation: On 05/20/24, the high probability of a clinically significant, sudden or life threatening deterioration of the following system(s) required my full and direct attention, intervention and personal management. The time I documented below is in addition to time spent performing reported procedures but includes the following listed in this critical care notation. Total Time Total Critical Care Time: 35
--- NOTE | 2024-05-20 12:59 | XR_ITS ---
FINAL REPORT CLINICAL HISTORY: Renal failure, volume overload FINDINGS: A single view of the chest was obtained. There is mild cardiomegaly. The patient is status post median sternotomy. A left-sided pacemaker is present. Perihilar scarring is noted. There is no acute infiltrate or edema. There is no pleural effusion or pneumothorax. IMPRESSION: No acute cardiopulmonary process. Reviewed, Interpreted and Dictated by Davey Casillas MD Transcribed by Poly Wilson Authenticated and [facility]
--- NOTE | 2024-05-20 13:09 | ECG_ITS ---
APPROVED REPORT Exam: Resting ECG HR:61 bpm ECG Measurements Heart Rate 61 AXES NC 164 P 79 QRSd 93 QRS 12 QT 402 T 48 QTc 406 Conclusion [employer]LECTRONIC [employer] PACEMAKER Electronically signed by : MIC MCGEE, 05/20/2024 16:32:29
--- NOTE | 2024-05-20 13:34 | CT_ITS ---
FINAL REPORT TECHNIQUE: Axial images through the abdomen and pelvis were performed without contrast. This study was performed with techniques to keep radiation doses as low as reasonably achievable, (ALARA). Individualized dose reduction techniques using automated exposure control or adjustment of mA and/or kV according to the patient's size were employed. CLINICAL HISTORY: Acute renal failure COMPARISON: None FINDINGS: Abdomen: There are small bilateral pleural effusions. Bibasilar scar or atelectasis is noted. There is streak artifact from pacemaker leads. The liver parenchyma is homogeneous. The gallbladder wall appears mildly thickened. There are no gallstones seen. There is a small hiatal hernia. There are calcified granulomas in the spleen. There may be tiny nonobstructing stones in the left renal collecting system. Moderate bilateral hydronephrosis and hydroureter is noted. Hydroureter is seen to the level of a distended urinary bladder which measure 22 cm in craniocaudal dimension. There are multiple small calcified stones in the dependent portion of the urinary bladder with questionable calcification of the wall of the urinary bladder. There is streak artifact arising from right hip prosthesis. Moderate hypertrophic changes from degenerative disc disease are seen throughout the lumbar spine. IMPRESSION: Hydroureter and mostly distended urinary bladder. Findings probably related to bladder outlet obstruction. Bladder stones and possible calcification of the bladder wall. Small pleural effusions. Apparent thickening of the gallbladder wall of uncertain etiology. Gallbladder ultrasound may be of value. Reviewed, Interpreted and Dictated by Davey Casillas MD Transcribed by Destini Stroud Authenticated and [facility]
[2024-05-20 13:39] LABS: Basophils # 0.1 K/mm3 (0-0.2); Basophils % 0.4 % (0.1-2.0); Eosinophils # 0.1 K/mm3 (0.0-0.4); Hematocrit 26.3 % (42.0-52.0); Hemoglobin 8.1 g/dL (14.1-18.0); Lymphocytes # 2.3 K/mm3 (0.7-4.5); Lymphocytes % 15.9 % (10-50); Mean Corpuscular HGB Conc 30.8 g/dL (31.8-35.4); Mean Corpuscular Hemoglobin 29.1 pg (27.0-31.2); Mean Corpuscular Volume 94.6 fl (80-94); Mean Platelet Volume 10.1 fl (7.4-10.4); Monocytes # 0.9 K/mm3 (0.1-1.0); Monocytes % 6.1 % (1.7-9.3); Neutrophils # 10.9 K/mm3 (1.8-7.8); Neutrophils % 75.4 % (37.0-80.0); Platelet Count 319 K/mm3 (142-424); Red Blood Count 2.78 M/mm3 (4.60-6.20); Red Cell Distribution Width 16.7 % (11.5-17.5); White Blood Count 14.4 K/mm3 (4.8-10.8)
[2024-05-20 13:41] LABS: Lactate Venous 1.7 mmol/L (0.4-2.0); VBG Base Excess -12.2 mmol/L (-2.4-2.3); VBG HCO3 15.2 mmol/L (23-30); VBG Oxygen Saturation 80.4 % (50-70); VBG PH 7.24 mmol/L (7.31-7.41); VBG PO2 47.5 mmol/L (28-40); VBG Total CO2 16.3 mmol/L (23-27)
[2024-05-20 13:58] LABS: Albumin Level 2.5 g/dl (3.5-5.0); Chloride 116 mmol/L (98-107); Potassium 5.9 mmoL/L (3.5-5.1); Sodium 140 mmol/L (136-145)
[2024-05-20 14:00] LABS: Alanine Aminotransferase 35 U/L (12-78); Aspartate Amino Transferase 40 U/L (17-59); Blood Urea Nitrogen 56 mg/dl (9-20); Creatinine Clearance Estimated 17 mL/min (50-200); Estimated Glomerular Filt Rate 18 ml/min (>60); GFR (African American) 22 ML/MIN (>60)
[2024-05-20 14:01] LABS: Alkaline Phosphatase 112 U/L (38-126); Bilirubin,Total 0.2 mg/dl (0.2-1.3); Calcium 8.3 mg/dl (8.4-10.2); Carbon Dioxide 16 mmol/L (22.0-30.0); Glucose 123 mg/dl (74-100); Phosphorous 5.1 mg/dl (2.5-4.5); Total Protein,Serum 5.7 g/dl (6.3-8.2)
[2024-05-20 14:02] LABS: Albumin/Globulin Ratio 0.8 (1.1-1.8); Anion Gap 13.9 mEq/L (5-15); Globulin 3.2 g/dL (1.3-3.2)
[2024-05-20 14:34] LABS: Microscopic, Urine URINE MICROSCOPIC (MICROSCOPIC)
[2024-05-20 14:37] LABS: Appearance,Urine CLEAR (Clear); Bilirubin,Urine Negative (Negative); Blood, Urine Negative (Negative); Color,Urine YELLOW (Yellow); Glucose,Urine (UA) Negative (Negative); Ketones,Urine Negative (Negative); Leukocyte Esterase,Urine Negative (Negative); Nitrate,Urine Negative (Negative); Protein,Urine Negative (Negative); Specific Gravity, Urine 1.025 (1.005-1.030); Urobilinogen,Urine 0.2 EU/dl (0.2)
[2024-05-20 14:56] LABS: Bacteria,Urine Trace /lpf
[2024-05-20] MEDS: 0.9 % SODIUM CHLORIDE 1000ML 1,000 ML 999 ML IV (15:09)
[2024-05-20] MEDS: CEFTRIAXONE 1 GM 1 GM in 0.9 % SODIUM CHLORIDE 50 ML IV (15:09)
--- NOTE | 2024-05-20 15:23 | PC.NURSE ---
CONTACTED A OFFICE, DR MONDRAGON NOTIFIED. WILL CALL BACK
--- NOTE | 2024-05-20 15:28 | PC.NURSE ---
MAGUE VELIZ SPEAKING WITH DR MONDRAGON
--- NOTE | 2024-05-20 15:41 | PC.NURSE ---
spoke with household appliances service technician for bed assignment
[2024-05-20 15:43] LABS: HIV Combo NEGATIVE (Negative)
[2024-05-20 15:50] LABS: Hepatitis C Ab Qual. W/ RFX NEGATIVE (Negative)
[2024-05-20 15:53] LABS: Procalcitonin 0.287 ng/mL (0.0-2.0)
[2024-05-20 16:09] LABS: Troponin I < 0.01 ng/ml (0.00-0.034)
--- NOTE | 2024-05-20 16:47 | PC.NURSE ---
Updated Jorge Malagon with admission & dx
--- NOTE | 2024-05-20 17:00 | PC.NURSE ---
arrived by stretcher from ED
--- NOTE | 2024-05-20 17:33 | EXP.ACUTE.PN ---
Subjective *Date: 05/20/24 *Time: 17:33 Interval history: Patient brought to the ER today from [place] due to worsening renal function and elevated potassium. He was found to have bladder outlet obstruction. A huitron catheter was placed and over 2 Liters of urine was drained from his bladder. CT scan is abnormal, see results. Patient has no complaints now, no pain, wants to rest. at bedside. Medical Exam Vital signs and Labs for Last 24 Hours: Vital Signs Temp Pulse Pulse Resp BP BP Pulse Ox 05/20/24 16:30 149/74 H 05/20/24 16:15 18 05/20/24 16:15 98.5 F 64 20 158/77 H 05/20/24 16:00 21 158/77 H 05/20/24 15:45 16 05/20/24 15:31 15 137/71 05/20/24 15:30 18 05/20/24 15:15 13 05/20/24 15:01 116/92 H 05/20/24 15:00 16 05/20/24 14:45 60 18 97 05/20/24 14:30 63 16 147/67 H 98 05/20/24 14:18 62 19 98 05/20/24 14:00 60 18 135/67 97 05/20/24 13:45 61 14 97 05/20/24 13:35 63 17 98 05/20/24 13:04 98.6 F 62 22 147/72 H 99 O2 Del Method 05/20/24 16:30 05/20/24 16:15 05/20/24 16:15 Room Air 05/20/24 16:00 05/20/24 15:45 05/20/24 15:31 05/20/24 15:30 05/20/24 15:15 05/20/24 15:01 05/20/24 15:00 05/20/24 14:45 05/20/24 14:30 05/20/24 14:18 05/20/24 14:00 05/20/24 13:45 05/20/24 13:35 05/20/24 13:04 Room Air Intake and Output 05/20/24 05/20/24 05/20/24 07:59 15:59 23:59 Other: Weight 160 lb Patient Weight 05/20/24 23:59 Weight 160 lb Laboratory Results - last 24 hr 05/20/24 13:30: WBC 14.4 H, RBC 2.78 L, Hgb 8.1 L, Hct 26.3 L, MCV 94.6 H, MCH 29.1, MCHC 30.8 L, RDW 16.7, Plt Count 319, MPV 10.1, Neut % (Auto) 75.4, Lymph % (Auto) 15.9, [place] % (Auto) 6.1, Eos % (Auto) 1.0, Baso % (Auto) 0.4, Neut # (Auto) 10.9 H, Lymph # (Auto) 2.3, [place] # (Auto) 0.9, Eos # (Auto) 0.1, Baso # (Auto) 0.1, PT 11.0, INR 1.00, Sodium 140, Potassium 5.9 H, Chloride 116 H, Carbon Dioxide 16 L, Anion Gap 13.9, BUN 56 H, Creatinine 3.30 H, Estimated Creat Clear 17, Estimated GFR 18 L*, Est GFR ( Amer) 22 L, Glucose 123 H, Calcium 8.3 L, Phosphorus 5.1 H, Total Bilirubin 0.2, AST 40, ALT 35, Alkaline Phosphatase 112, Troponin I < 0.01, Total Protein 5.7 L, Albumin 2.5 L, Globulin 3.2, Albumin/Globulin Ratio 0.8 L, Procalcitonin 0.287, HCV Ab PAOLO w/Rflx PCR Qn Negative, HIV Ag/Ab Combo Qual Negative 05/20/24 13:32: VBG pH 7.24 L, VBG pCO2 36.0, VBG pO2 47.5 H, VBG HCO3 15.2 L, VBG Total CO2 16.3 L, VBG O2 Saturation 80.4 H, VBG Base Excess -12.2 L, VBG Lactic Acid 1.7 05/20/24 14:30: Urine Color Yellow, Urine Appearance Clear, Urine pH 6.0, Ur Specific [place] 1.025, Urine Protein Negative, Urine Glucose (UA) Negative, Urine Ketones Negative, Urine Blood Negative, Urine Nitrate Negative, Urine Bilirubin Negative, Urine Urobilinogen 0.2, Ur Leukocyte Esterase Negative, Urine RBC None, Urine WBC 3-5, Ur Squamous Epith Cells None, Urine Bacteria Trace I & O for Labs for Last 24 Hours: Intake & Output 05/17/24 05/18/24 05/19/24 05/20/24 23:59 23:59 23:59 23:59 Weight 160 lb Constitutional: Present no acute distress Respiratory: Present normal respiratory effort Cardiac: Present Reg Rate and Rhythm GI: Present normal bowel sounds; Absent tenderness Comment:: Huitron in place, draining blood tinged urine Extremities: Present normal inspection and full ROM Skin: Present intact and wounds; Absent erythema Comment:: See photos of sacral wound, heel wounds have dressing in place Neuro: Present Grossly Intact and moves all extremities Assessment and Plan *Assessment and plan (1) Obstructive uropathy: Status: Acute Category: Medical Code(s): N13.9 - Obstructive and reflux uropathy, unspecified (2) Metabolic acidosis: Status: Acute Category: Medical Code(s): E87.20 - Acidosis, unspecified (3) Sepsis without septic shock: Status: Acute Category: Medical Code(s): A41.9 - Sepsis, unspecified organism (4) Prostate mass: Status: Acute Category: Medical Code(s): N42.89 - Other specified disorders of prostate (5) Bladder outlet obstruction: Status: Acute Category: Medical Code(s): N32.0 - Bladder-neck obstruction (6) Hyperkalemia: Status: Acute Category: Medical Code(s): E87.5 - Hyperkalemia (7) Acute on chronic renal failure: Status: Acute Qualifiers: Acute renal failure type: unspecified Chronic kidney disease stage: unspecified stage Qualified Code(s): N17.9 - Acute kidney failure, unspecified; N18.9 - Chronic kidney disease, unspecified Category: Medical Code(s): N17.9 - Acute kidney failure, unspecified; N18.9 - Chronic kidney disease, unspecified (8) C. difficile colitis: Status: Acute Category: Medical Code(s): A04.72 - Enterocolitis due to Clostridium difficile, not specified as recurrent (9) 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 Category: Surgical Code(s): Z95.810 - Presence of automatic (implantable) cardiac defibrillator (10) Cardiomyopathy: Status: Chronic Qualifiers: Cardiomyopathy type: unspecified Qualified Code(s): I42.9 - Cardiomyopathy, unspecified Category: Medical Code(s): I42.9 - Cardiomyopathy, unspecified (11) Hypertension: Status: Chronic Qualifiers: Hypertension type: unspecified Qualified Code(s): I10 - Essential (primary) hypertension Category: Medical Code(s): I10 - Essential (primary) hypertension (12) H/O coronary artery bypass surgery: Status: Chronic Category: Surgical Code(s): Z95.1 - Presence of aortocoronary bypass graft (13) Unable to walk: Status: Acute Category: Medical Code(s): R26.2 - Difficulty in walking, not elsewhere classified (14) Anemia: Status: Acute Category: Medical Code(s): D64.9 - Anemia, unspecified (15) Gross hematuria: Status: Acute Category: Medical Code(s): R31.0 - Gross hematuria Plan Patient admitted for further evaluation and management. H&P to follow. See orders.
[2024-05-20 20:13] LABS: Troponin I < 0.01 ng/ml (0.00-0.034)
[2024-05-20 23:12] LABS: Troponin I < 0.01 ng/ml (0.00-0.034)
--- NOTE | 2024-05-21 03:45 | PC.NURSE ---
84 yo male pt is A/O X1. Pt has denied pain, discomfort or SOA this shift. He has slept soundly most of the shift. Xiao patent to BSD, draining adeq amounts of urine. Early in shift, urine was dark red in color. Throughout the night, urine has now become more concentrated yellow. Pt with 2-3 + pitting edema to BLE. Wound dressings to heels and coccyx C/D/I. Pt has not had any intake this shift. He arouses easily and is able to answer questions but quickly returns to sleep. VSS for pt.
[2024-05-21 04:00] VITALS: BP 157/76; PULSE 67; RESP 16; TEMP 36.4; O2SAT 100; BMI 22.4
[2024-05-21 06:41] LABS: Blood Urea Nitrogen 51 mg/dl (9-20); Calcium 8.3 mg/dl (8.4-10.2); Carbon Dioxide 16 mmol/L (22.0-30.0); Chloride 119 mmol/L (98-107); Creatinine Clearance Estimated 20 mL/min (50-200); Estimated Glomerular Filt Rate 22 ml/min (>60); GFR (African American) 26 ML/MIN (>60); Glucose 79 mg/dl (74-100); Sodium 143 mmol/L (136-145)
[2024-05-21 07:03] LABS: Basophils # 0.1 K/mm3 (0-0.2); Basophils % 0.7 % (0.1-2.0); Eosinophils # 0.2 K/mm3 (0.0-0.4); Eosinophils % 1.9 % (0.1-12.0); Hematocrit 26.4 % (42.0-52.0); Hemoglobin 8.2 g/dL (14.1-18.0); Lymphocytes # 2.2 K/mm3 (0.7-4.5); Lymphocytes % 21.4 % (10-50); Mean Corpuscular HGB Conc 31.1 g/dL (31.8-35.4); Mean Corpuscular Hemoglobin 29.5 pg (27.0-31.2); Mean Platelet Volume 10.4 fl (7.4-10.4); Monocytes # 0.8 K/mm3 (0.1-1.0); Monocytes % 7.8 % (1.7-9.3); Neutrophils % 66.8 % (37.0-80.0); Platelet Count 301 K/mm3 (142-424); Red Blood Count 2.78 M/mm3 (4.60-6.20); Red Cell Distribution Width 16.8 % (11.5-17.5); White Blood Count 10.5 K/mm3 (4.8-10.8)
[2024-05-21 08:00] VITALS: BP 165/96; PULSE 63; RESP 17; TEMP 36.4; O2SAT 100
--- NOTE | 2024-05-21 08:23 | P.HP_ITS ---
History of Present Illness *Admission Date: 05/20/24 *Reason for visit:: Hyperkalemia, acute renal failure, altered mental status. *History of present illness: Mr. Loomis is a [age]-year-old male patient who has been at [place] for rehab with a history of hyperlipidemia, hypertension, GERD, BPH, laryngeal cancer, hypothyroidism, ASCVD status post stent and CABG, C. difficile currently being treated with p.o. vancomycin, and fracture subtrochanteric of the femur with a nailing on 01/15/2024. Patient has had a gradual decline with periodic worsening of mental status and progressive renal failure. He has developed sacral wounds and bilateral heel wounds. He has been felt to be dehydrated with increasing renal failure and has been given several rounds of IV fluids at [facility]. With repeat labs on 05/20/2024 potassium was found to be 6 without creatinine of 3.3. They were unable to start IV fluids on him at [facility] and thus he was sent to the ER for further evaluation and treatment. With evaluation in the emergency room he was found to be afebrile and hemodynamically stable . White blood cell count was elevated at 14,400 with a hemoglobin of 8.1 hematocrit of 26.3. Potassium at this time was 5.9 with a BUN of 56 and a creatinine of 3.3. GFR noted to be at 18. Total protein was low at 5.7 albumin was low at 2.5. With exam abdomen was found to be firm in the lower half with no rebound or rigidity guarding with discomfort in the lower abdomen. Abdominal CT/pelvis showed significant bilateral ureteral hydronephrosis with a significant distended bladder. Patient was started on Rocephin for possible prostatitis and gentle administration of 1 liter of IV fluids instead of full sepsis treatment due to his known heart failure. He was also given Lokelma for his hyperkalemia. CT of abdomen/pelvis results: FINDINGS: Abdomen: There are small bilateral pleural effusions. Bibasilar scar or atelectasis is noted. There is streak artifact from pacemaker leads. The liver parenchyma is homogeneous. The gallbladder wall appears mildly thickened. There are no gallstones seen. There is a small hiatal hernia. There are calcified granulomas in the spleen. There may be tiny nonobstructing stones in the left renal collecting system. Moderate bilateral hydronephrosis and hydroureter is noted. Hydroureter is seen to the level of a distended urinary bladder which measure 22 cm in craniocaudal dimension. There are multiple small calcified stones in the dependent portion of the urinary bladder with questionable calcification of the wall of the urinary bladder. There is streak artifact arising from right hip prosthesis. Moderate hypertrophic changes from degenerative disc disease are seen throughout the lumbar spine. IMPRESSION: Hydroureter and mostly distended urinary bladder. Findings probably related to bladder outlet obstruction. Bladder stones and possible calcification of the bladder wall. Small pleural effusions. Apparent thickening of the gallbladder wall of uncertain etiology. Gallbladder ultrasound may be of value. This a.m. patient denies shortness of breath, chest pain, abdominal pain; he states he has no pain any place. [facility] Disclaimer: The information contained in this section may have been updated after the patient was seen, as this information can be updated by other users. Medical History (Updated 05/21/24 @ 12:03 by Ketty Michelle APRN) History of cardiomyopathy Anemia Unable to walk Subtrochanteric fracture of right femur C. difficile colitis Ventricular tachycardia GERD (gastroesophageal reflux disease) BPH (benign prostatic hyperplasia) MCI (mild cognitive impairment) Renal insufficiency Tear of meniscus of knee Atypical angina Short-term memory loss Throat cancer Osteoarthritis of right knee Cardiomyopathy Cardiac pacemaker in situ Bradycardia Symptomatic bradycardia Status post placement of implantable loop recorder Dizziness Syncope HLD (hyperlipidemia) HHD (hypertensive heart disease) CAD (coronary artery disease) Surgical History History of hernia repair History of colonoscopy History of tonsillectomy AICD (automatic cardioverter/defibrillator) present H/O coronary artery bypass surgery Family History Other Coronary artery disease Hypertension Social History Smoking Status: Never smoker alcohol intake: never substance use type: denies use current occupational status: retired Travel in the last 8 weeks: Inside the [place] household members: spouse housing: house current occupational exposures/hazards: No caffeine: Yes physical activity: walking frequency: 5-6 times per week duration: 45-60 minutes/day Have you lived/traveled outside US in past 30 days?: No Contact w/someone who lives/traveled outside US past 30 days?: No Exposure to someone with infectious disease in past 14 days?: No Do you have a fever (greater than 100.4 F or 38 C)?: No Have you tested positive for COVID-19: No Exposed to someone with COVID-19 in past 14 days?: No Do you have a sore throat?: No Do you have a cough?: No Do you have any weakness?: No Do you have any diarrhea?: No Are you experiencing any unusual bleeding?: No Do you have any muscle aches/pain?: No Do you have any abdominal pain?: No Are you experiencing loss of taste or smell?: No Other Medical History Have you received the Flu Vaccine for this season: Yes Have you received the Pneumonia Vaccine: Yes Review of Systems Constitutional Constitutional: Denies body ache(s), Denies fever(s), Denies headache(s), Reports poor appetite, Reports weakness and Reports weight loss Eyes Eyes: Denies change in vision ENT Ears, Nose, Mouth, and Throat: Denies dizziness, Denies dysphagia, Denies otalgia, Denies headache(s), Denies nasal congestion and Denies sore throat *Cardiovascular Cardiovascular: Denies chest pain and Denies dyspnea *Respiratory Respiratory: Denies chest congestion, Reports cough and Denies dyspnea *Gastrointestinal Gastrointestinal: Denies abdominal pain, Denies constipation, Reports diarrhea, Denies dyspepsia, Denies dysphagia, Reports fecal incontinence, Reports loose stools, Denies melena, Denies nausea and Denies vomiting *Genitourinary Genitourinary: Reports hematuria and Reports urinary incontinence *Musculoskeletal Musculoskeletal: Reports abnormal gait (has not walked since his hip surgery December 2023 i), Reports arthralgias (Right hip) and Reports muscle weakness Integumentary/Breasts Skin/Breast: Reports sores (Sacral and bilateral heels) *Neurologic Neurologic: Reports abnormal gait (has not walked since his hip surgery December 2023 i), Reports confusion, Denies dizziness, Denies headache(s) and Reports weakness Psychiatric Psychiatric: Reports confusion Meds Home Medications and Allergies Home Medications ?Medication ?Instructions ?Recorded ?Confirmed ?Type aspirin 81 mg tablet,delayed 81 mg PO BID 05/20/24 05/20/24 History release bisoprolol fumarate 5 mg tablet 5 mg PO DAILY 05/20/24 05/20/24 History clopidogrel 75 mg tablet 75 mg PO DAILY 05/20/24 05/20/24 History levothyroxine 88 mcg tablet 88 mcg PO DAILY 05/20/24 05/20/24 History memantine 10 mg tablet 10 mg PO BID 05/20/24 05/20/24 History omeprazole 20 mg capsule,delayed 20 mg PO DAILY 05/20/24 05/20/24 History release rosuvastatin 20 mg tablet 20 mg PO HS 05/20/24 05/20/24 History tamsulosin 0.4 mg capsule 0.4 mg PO HS 05/20/24 05/21/24 History Lactobacillus acidophilus 10 10,000 mmu cells PO DAILY 05/21/24 05/21/24 History billion cell capsule (Probiotic) acetaminophen 500 mg tablet 500 mg PO Q6HP PRN Mild Pain 05/21/24 05/21/24 Hi story (Scale Score 1-4) ascorbic acid (vitamin C) 1,000 mg 1 g PO DAILY 05/21/24 05/21/24 History tablet coenzyme Q10 100 mg capsule 100 mg PO DAILY 05/21/24 05/21/24 History diltiazem HCl 90 mg 90 mg PO BID 05/21/24 05/21/24 History capsule,extended release 12 hr donepezil 10 mg tablet 10 mg PO HS 05/21/24 05/21/24 History ferrous sulfate 325 mg (65 mg 325 mg PO DAILY 05/21/24 05/21/24 History iron) tablet hydrocodone 5 mg-acetaminophen 325 1 tab PO Q8HP PRN Moderate Pain 05/21/24 05/21/24 History mg tablet (Scale Score 5-6) ipratropium 0.5 mg-albuterol 3 mg 3 ml inhalation TID 05/21/24 05/21/24 History (2.5 mg base)/3 mL nebulization soln loperamide 2 mg tablet (Imodium 2 mg PO QIDP PRN Diarrhea 05/21/24 05/21/24 History A-D) loratadine 10 mg tablet 10 mg PO DAILY 05/21/24 05/21/24 History mecobalamin (vitamin B12) 1,000 1,000 mcg PO DAILY 05/21/24 05/21/24 History mcg chewable tablet potassium chloride 10 mEq 20 meq PO BID 05/21/24 05/21/24 History tablet,extended release sertraline 50 mg tablet 50 mg PO DAILY 05/21/24 05/21/24 History New Prescriptions to Start Prescriptions: Allergies Allergy/AdvReac Type Severity Reaction Status Date / Time codeine (CODEINE) Allergy Mild NA-NAUSEA/V Verified 03/05/24 09:42 OMITING Exam Data for Last 24 hours Vital signs and Labs for Last 24 Hours: Temp Pulse Resp BP Pulse Ox O2 Del Method 97.6 F 67 16 157/76 H 100 Room Air 05/21/24 04:00 05/21/24 04:00 05/21/24 04:00 05/21/24 04:00 05/21/24 04:00 05/21/24 07:00 Laboratory Results - last 24 hr 05/20/24 13:30: WBC 14.4 H, RBC 2.78 L, Hgb 8.1 L, Hct 26.3 L, MCV 94.6 H, MCH 29.1, MCHC 30.8 L, RDW 16.7, Plt Count 319, MPV 10.1, Neut % (Auto) 75.4, Lymph % (Auto) 15.9, [place] % (Auto) 6.1, Eos % (Auto) 1.0, Baso % (Auto) 0.4, Neut # (Auto) 10.9 H, Lymph # (Auto) 2.3, [place] # (Auto) 0.9, Eos # (Auto) 0.1, Baso # (Auto) 0.1, PT 11.0, INR 1.00, Sodium 140, Potassium 5.9 H, Chloride 116 H, Carbon Dioxide 16 L, Anion Gap 13.9, BUN 56 H, Creatinine 3.30 H, Estimated Creat Clear 17, Estimated GFR 18 L*, Est GFR ( Amer) 22 L, Glucose 123 H, Calcium 8.3 L, Phosphorus 5.1 H, Total Bilirubin 0.2, AST 40, ALT 35, Alkaline Phosphatase 112, Troponin I < 0.01, Total Protein 5.7 L, Albumin 2.5 L, Globulin 3.2, Albumin/Globulin Ratio 0.8 L, Procalcitonin 0.287, HCV Ab PAOLO w/Rflx PCR Qn Negative, HIV Ag/Ab Combo Qual Negative 05/20/24 13:32: VBG pH 7.24 L, VBG pCO2 36.0, VBG pO2 47.5 H, VBG HCO3 15.2 L, VBG Total CO2 16.3 L, VBG O2 Saturation 80.4 H, VBG Base Excess -12.2 L, VBG Lactic Acid 1.7 05/20/24 14:30: Urine Color Yellow, Urine Appearance Clear, Urine pH 6.0, Ur Specific [place] 1.025, Urine Protein Negative, Urine Glucose (UA) Negative, Urine Ketones Negative, Urine Blood Negative, Urine Nitrate Negative, Urine Bilirubin Negative, Urine Urobilinogen 0.2, Ur Leukocyte Esterase Negative, Urine RBC None, Urine WBC 3-5, Ur Squamous Epith Cells None, Urine Bacteria Trace 05/20/24 18:58: Troponin I < 0.01 05/20/24 21:51: Troponin I < 0.01 05/21/24 05:45: WBC 10.5 D, RBC 2.78 L, Hgb 8.2 L, Hct 26.4 L, MCV 95.0 H, MCH 29.5, MCHC 31.1 L, RDW 16.8, Plt Count 301, MPV 10.4, Neut % (Auto) 66.8, Lymph % (Auto) 21.4, [place] % (Auto) 7.8, Eos % (Auto) 1.9, Baso % (Auto) 0.7, Neut # (Auto) 7.0, Lymph # (Auto) 2.2, Hod[place]eman # (Auto) 0.8, Eos # (Auto) 0.2, Baso # (Auto) 0.1, Sodium 143, Chloride 119 H, Carbon Dioxide 16 L, BUN 51 H, Crea tinine 2.80 H, Estimated Creat Clear 20, Estimated GFR 22 L, Est GFR ( Amer) 26 L, Glucose 79 D, Calcium 8.3 L I & O for Last 24 hours: Intake & Output 05/18/24 05/19/24 05/20/24 05/21/24 11:59 11:59 11:59 11:59 Intake Total 0 / 0 Output Total 2300 / 2300 Balance -2300 / -2300 Weight 160 lb 0.008 oz Constitutional Constitutional: no acute distress Comments: Awaken for physical assessment *Routine HEENT Exam Head: Present normocephalic and atraumatic Eye: Present PERRL; Absent conjunctival icterus, scleral injection or conjunctivae pink ENT: Present mucous membranes dry *Routine Neck Exam Neck: Present supple and full ROM *Routine Respiratory Exam Respiratory: Present rhonchi (Scattered and few posteriorly) *Routine Cardiovascular Exam Cardiovascular: Present RRR *Routine Abdominal Exam Abdominal: Present soft and normoactive bowel sounds; Absent tenderness or distended *Routine Rectal Exam Rectal:: deferred *Routine Genitalia Exam Genitalia:: deferred *Routine Extremities Exam Extremities: Present edema; Absent calf tenderness Comments: Minimal bilateral lower extremities; can lift both legs *Routine Skin Exam Skin: Present wounds Comments: Sacral wound-see picture; bilateral heel wounds both 2 to 3 cm *Routine Neurological Exam Neurological: Present alert and moving all extremities; Absent oriented X3 Assessment and Plan *Assessment and plan (1) Obstructive uropathy: Status: Acute Category: Medical Code(s): N13.9 - Obstructive and reflux uropathy, unspecified (2) Metabolic acidosis: Status: Acute Category: Medical Code(s): E87.20 - Acidosis, unspecified (3) Sepsis without septic shock: Status: Acute Category: Medical Code(s): A41.9 - Sepsis, unspecified organism (4) Prostate mass: Status: Acute Category: Medical Code(s): N42.89 - Other specified disorders of prostate (5) Bladder outlet obstruction: Status: Acute Category: Medical Code(s): N32.0 - Bladder-neck obstruction (6) Hyperkalemia: Status: Acute Category: Medical Code(s): E87.5 - Hyperkalemia (7) Acute on chronic renal failure: Status: Acute Qualifiers: Acute renal failure type: unspecified Chronic kidney disease stage: unspecified stage Qualified Code(s): N17.9 - Acute kidney failure, unspecified; N18.9 - Chronic kidney disease, unspecified Category: Medical Code(s): N17.9 - Acute kidney failure, unspecified; N18.9 - Chronic kidney disease, unspecified (8) C. difficile colitis: Status: Acute Category: Medical Code(s): A04.72 - Enterocolitis due to Clostridium difficile, not specified as recurrent (9) 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 Category: Surgical Code(s): Z95.810 - Presence of automatic (implantable) cardiac defibrillator (10) Cardiomyopathy: Status: Chronic Qualifiers: Cardiomyopathy type: unspecified Qualified Code(s): I42.9 - Cardiomyopathy, unspecified Category: Medical Code(s): I42.9 - Cardiomyopathy, unspecified (11) Hypertension: Status: Chronic Qualifiers: Hypertension type: unspecified Qualified Code(s): I10 - Essential (primary) hypertension Category: Medical Code(s): I10 - Essential (primary) hypertension (12) H/O coronary artery bypass surgery: Status: Chronic Category: Surgical Code(s): Z95.1 - Presence of aortocoronary bypass graft (13) Unable to walk: Status: Acute Category: Medical Code(s): R26.2 - Difficulty in walking, not elsewhere classified (14) Anemia: Status: Acute Category: Medical Code(s): D64.9 - Anemia, unspecified (15) Gross hematuria: Status: Acute Category: Medical Code(s): R31.0 - Gross hematuria (16) Sacral wound: Status: Acute Category: Medical Code(s): S31.000A - Unspecified open wound of lower back and pelvis without penetration into retroperitoneum, initial encounter (17) Open wound of heel: Status: Acute Category: Medical Code(s): S91.309A - Unspecified open wound, unspecified foot, initial encounter (18) Protein calorie malnutrition: Status: Acute Category: Medical Code(s): E46 - Unspecified protein-calorie malnutrition Plan Wound and nutritional consults. Monitor labs. Patient to have a speech consult due to coughing after eating. Will also consult PT OT. Will continue with Rocephin pending culture reports. Hemoglobin today is 8.2 with hematocrit of 26.4. White blood cell count 10,500. With blood chemistry showing slightly improved renal function with a BUN of 51 and creatinine of 2.8. Potassium result is pending.
--- NOTE | 2024-05-21 09:11 | P.CONPHA_ITS ---
Pharmacy Intervention Comments: MEDICATION RECONCILIATION COMPLETED ON PATIENT USING [facility] FROM [facility]. -ELI LITTLEJOHN, KARAND
--- NOTE | 2024-05-21 09:11 | HMH.PHAINT1 ---
Pharmacy Intervention Comments: MEDICATION RECONCILIATION COMPLETED ON PATIENT USING MAR FROM [facility]. -ELI LITTLEJOHN, KARAND
--- NOTE | 2024-05-21 09:16 | SW/DCPLANNER ---
Addendum entered by Tawnya Harris 05/23/24 14:25: I have updated Ebonie w/ [facility] that patient will return today. Addendum entered by Tawnya Harris 05/22/24 09:33: I have updated Bennie w/ [facility] will return tomorrow pending no setbacks. Original Note: This patient currently resides at [facility] under private pay. Updated patient information has been faxed to Bennie malave/ Jorge Malagon. Discharge date is unknown at this time. I will continue to follow up w/ Bennie.
[2024-05-21 10:12] LABS: Anion Gap 13.9 mEq/L (5-15); Potassium 5.9 mmoL/L (3.5-5.1)
[2024-05-21 10:23] VITALS: BMI 22.4
--- NOTE | 2024-05-21 10:35 | HMH.PTEV ---
Physical Therapy Evaluation Rehab PT IP Evaluation Start: 05/21/24 09:10 Freq: ONCE Status: Active Protocol: Document 05/21/24 10:23 YONATAN (Rec: 05/21/24 10:35 YONATAN [id number]) Subjective/History History History 84-year-old male patient who has been at [place] for rehab with a history of hyperlipidemia, hypertension, GERD, BPH, laryngeal cancer, hypothyroidism, ASCVD status post stent and CABG, C. difficile currently being treated with p.o. vancomycin, and fracture subtrochanteric of the femur with a nailing on 01/15/2024. Patient has had a gradual decline with periodic worsening of mental status and progressive renal failure. Subjective Subjective Pt reports feeling sleepy, but agrees to mobility assessment . Remains pleasantly confused and alert to person only at this time. Rehab PT IP Eval Objective Appearance Patient Behavior Appropriate Patient Orientation Person Difficulty following instructions none Speech Pattern Clear Ambulation Patient Able to Ambulate No Balance Ability to Arise Able, uses arms to help Sitting Balance Leans or slides in chair Standing Balance Unsteady Dynamic Sitting Balance Ability Poor Dynamic Standing Balance Ability Zero Transfers Bed Transfer Ability Maximum x 2 (75% assist) Chair Transfer Ability Maximum x 2 (75% assist) Sit to Stand Bed Transfer Ability Maximum x 2 (75% assist) Sit to Stand Chair Transfer Ability Maximum x 2 (75% assist) Rehab PT IP prob,goals,plan Problems Date of Evaluation: 05/21/24 PT IP Problems Bed Mobility Rehab Potential Rehab Potential Fair Plan PT Intervention Plan Bed Mobility,Transfers, Therapeutic Exercise PT Plan Frequency Daily Duration LOS Discharge Goals Bed Transfer Ability Maximum x 1 (75% assist) Sit to Stand Chair Transfer Ability Maximum x 1 (75% assist) Discharge Plan PT Discharge Plan Pt is most appropriate for rehab placement vs SNF placement once medically stable for D/C. He was residing at [facility] home prior to adm and primarily requiring w/ c and assistance for all mobility. Skilled inpatient therapy is indicated to address deficits in AROM of all extremities, transfers, and strength. Eval Complexity Eval Charge Codes 76484 - High Complexity PHYSICIAN CERTIFICATION: I certify the specified therapy services for Jensen Loomis are required, authorized, and reviewed every 30 days.
--- NOTE | 2024-05-21 10:35 | HMH.PTWOUND ---
Rehab Inpt Wound Evaluation Rehab IP Wound Evaluation Start: 05/21/24 09:07 Freq: ONCE Status: Active Protocol: Document 05/21/24 10:23 YONATAN (Rec: 05/21/24 10:35 YONATAN [id number]) Rehab PT Wound Assessment Subjective Subjective 84-year-old male patient who has been at [place] for rehab with a history of hyperlipidemia, hypertension, GERD, BPH, laryngeal cancer, hypothyroidism, ASCVD status post stent and CABG, C. difficile currently being treated with p.o. vancomycin, and fracture subtrochanteric of the femur with a nailing on 01/15/2024. Patient has had a gradual decline with periodic worsening of mental status and progressive renal failure. He presents with chronic wounds to B heels and chronic sacrum PI upon admission. Wound Sacrum Wound Type Pressure Ulcer Wound Staging Unstageable Query Text:Stage I - Unbroken, red skin, no blanching. Stage II - Skin broken, superficial skin loss involving epidermis alone or also dermis. Partial loss of skin layers. Stage III - Pressure area involves epidermis, dermis and subcutaneous tissue, full thickness skin loss. Stage IV - Pressure area involves epidermis, subcutaneous tissue, bone and other supportive tissue. Full thickness skin loss with extensive destruction of underlying tissue and structures. Wound Length (cm) 6.0 Wound Width (cm) 8.0 Wound Depth (cm) 0.2 Wound Bed Appearance [place],Yellow Percentage Granulated (%) 50 Percentage of Slough (%) 50 Wound Margins Description Well Defined Surrounding Tissue Appearance [place],Bright Red Wound Drainage Description Yellow Drainage Amount Moderate Packing Type Alginate Primary Dressing Composite Wound Debridement Method Forceps,Gauze,Mechanical Wound Debridement Amount of Tissue Minimal Removed Dressing Change Patient Tolerance Tolerated Well Left Posterior Heel Wound Type Pressure Ulcer Is This a Chronic Wound Yes Wound Staging Stage II Query Text:Stage I - Unbroken, red skin, no blanching. Stage II - Skin broken, superficial skin loss involving epidermis alone or also dermis. Partial loss of skin layers. Stage III - Pressure area involves epidermis, dermis and subcutaneous tissue, full thickness skin loss. Stage IV - Pressure area involves epidermis, subcutaneous tissue, bone and other supportive tissue. Full thickness skin loss with extensive destruction of underlying tissue and structures. Wound Length (cm) 1.0 Wound Width (cm) 1.0 Wound Depth (cm) 0.1 Wound Bed Appearance Yellow Percentage of Eschar (Yellow) (%) 100 Wound Margins Description Well Defined Surrounding Tissue Appearance [place] Primary Dressing Composite Right Posterior Heel Wound Type Pressure Ulcer Is This a Chronic Wound Yes Wound Staging Stage III Query Text:Stage I - Unbroken, red skin, no blanching. Stage II - Skin broken, superficial skin loss involving epidermis alone or also dermis. Partial loss of skin layers. Stage III - Pressure area involves epidermis, dermis and subcutaneous tissue, full thickness skin loss. Stage IV - Pressure area involves epidermis, subcutaneous tissue, bone and other supportive tissue. Full thickness skin loss with extensive destruction of underlying tissue and structures. Wound Length (cm) 2.5 Wound Width (cm) 2.5 Wound Depth (cm) 0.3 Wound Bed Appearance Yellow Percentage of Slough (%) 50 Wound Margins Description Well Defined Surrounding Tissue Appearance [place] Packing Type Alginate Primary Dressing Composite Plan/Recommendation Comment Nsg staff present during evaluation and will perform dressing changes. Continue dressing changes as noted above as needed. Sacral wound will be difficult to address due to pt having persistent diarrhea. Will follow for possible excisional debridement of necrotic tissue as pt condition allows. Eval Complexity Eval Charge Codes 57375 - High Complexity PHYSICIAN CERTIFICATION: I certify the specified therapy services for Jensen Loomis are required, authorized, and reviewed every 30 days.
[2024-05-21] MEDS: PRO-STAT AWC 30ML LIQUID PACKET 30 ML PO ×2 (12:47→20:43)
[2024-05-21] MEDS: CEFTRIAXONE 1 GM 1 GM in 0.9 % SODIUM CHLORIDE 50 ML IV (14:26)
[2024-05-21 16:00] VITALS: BP 149/71; PULSE 61; RESP 17; TEMP 36.6; O2SAT 98
--- NOTE | 2024-05-21 16:35 | HMH.SLDYSPHA ---
Speech & Language Evaluation Speech/Language Dysphagia Evaluation Start: 05/21/24 15:54 Freq: ONCE Status: Active Protocol: Document 05/21/24 15:54 JUDITH (Rec: 05/21/24 16:35 JUDITH [id number]) Co-signed By [facility] Dysphagia Assess/Goals/Plan Assessment Date of Evaluation: 05/21/24 Evaluation Type Initial Certification Assessment/Problems coughing after swallow per MD order Does Patient Qualify for Service Yes Qualify/Failure Comment Based on clinical observations made throughout the clinical bedside swallow evaluation, further skilled speech therapy services are warranted at this time to assess pt's diet tolerance. Recommendations PHYSICIAN CERTIFICATION: The specified therapy services are required, authorized, and reviewed every 30 days. Pt will be seen # times/week 1 for # weeks 4 Diet Recommendations Mechanical Soft Liquid Type Recommendations Normal/Thin SL Swallow Guidelines Alt bite w/sip thru meal, Standard Aspiration Prec.,Eat at slow rate,Oral Care Education,Oral care pre/post meals Dysphagia Swallow Precautions/Strategies Sitting Upright (90 deg), Double Swallow,Small Bites and Sips,Alternate Liquids/Solids Plan Anticipate reaching STG in # weeks 2 Anticipate reaching LTG in # weeks 4 Pt/Guardian verbally ack understanding Yes of dx/prognosis/goals G -code Required No Penitentiary Goals Diet Mechanical soft with Liquids Thin Liquids Education Instructions provided BLUEPRINT DUPLICATOR discussed clinical observations made throughout clinical bedside swallow evaluation, diet recommendations, and compensatory strategies/ aspiration precautions with pt , nursing, and CM, all of which expressed understanding. Pt/Caregiver able to recall information Able to recall/restate Reinforcement needed No Speech & Language HPI History Present Illness Description of Patient Problem BLUEPRINT DUPLICATOR pulled the following information from pt's H&P and chest x-ray: Mr. Loomis is a [age]-year-old male patient who has been at [facility] for rehab with a history of hyperlipidemia, hypertension, GERD, BPH, laryngeal cancer, hypothyroidism, ASCVD status post stent and CABG, C. difficile currently being treated with p.o. vancomycin, and fracture subtrochanteric of the femur with a nailing on 01/15/2024. Patient has had a gradual decline with periodic worsening of mental status and progressive renal failure. He has developed sacral wounds and bilateral heel wounds. He has been felt to be dehydrated with increasing renal failure and has been given several rounds of IV fluids at [facility]. With repeat labs on 05/20/2024 potassium was found to be 6 without creatinine of 3.3. They were unable to start IV fluids on him at [facility] and thus he was sent to the ER for further evaluation and treatment. With evaluation in the emergency room he was found to be afebrile and hemodynamically stable . White blood cell count was elevated at 14,400 with a hemoglobin of 8.1 hematocrit of 26.3. Potassium at this time was 5.9 with a BUN of 56 and a creatinine of 3.3. GFR noted to be at 18. Total protein was low at 5.7 albumin was low at 2.5. With exam abdomen was found to be firm in the lower half with no rebound or rigidity guarding with discomfort in the lower abdomen. Abdominal CT/pelvis showed significant bilateral ureteral hydronephrosis with a significant distended bladder . Patient was started on Rocephin for possible prostatitis and gentle administration of 1 liter of IV fluids instead of full sepsis treatment due to his known heart failure. He was also given Lokelma for his hyperkalemia. Chest x-ray: FINDINGS: A single view of the chest was obtained. There is mild cardiomegaly. The patient is status post median sternotomy. A left-sided pacemaker is present. Perihilar scarring is noted. There is no acute infiltrate or edema. There is no pleural effusion or pneumothorax. Pt/Caregiver Concerns No concerns reported. Rehab Services Assessed Speech therapy Is this evaluation r/t stroke? No Language Primary Language Turkish Therapy History Seen by other SL therapists No General Information General Current Food Consistancy Mechanical Soft,Thin Liquids Dentition Poor Dentition Oxygen Status Room Air Patient Orientation Person Ability to Follow Directions Good Communication Ability No Impairment Dysphagia:Food Presentation Evaluation Food Type Pureed,Mechanical Soft,Liquid, Pudding Pudding Consistency Liquid Response Residual on tongue Dysphagia Evaluation Mechanical Soft Difficulty chewing,Residual on Food Behavior Response tongue Dysphagia Evaluation Summary A clinical bedside swallow evaluation was administered this afternoon with pt sitting upright in bed, on room air, with poor dentition. Pt expressed no concerns to clinician about swallowing difficulties. Bolus presentations administered include ice chips, thin liquid via straw and cup, pudding, puree (applesauce), and mechanical soft (cookie). Pt exhibited no overt s/sx of aspiration throughout evaluation. Pt demonstrated cough after pudding trial. BLUEPRINT DUPLICATOR had pt utilize double swallow on pudding trials, which eliminated pt's cough. Pt demonstrated impulsive subsequent sipping of bolus resulting in cough on thin liquid trial. When taking small sips of thin liquid, pt exhibited no cough and clear vocal quality. Lingual residue observed on pudding and mechanical soft trials. Pt exhibited prolonged mastication and manipulation of bolus on mechanical soft trial. BLUEPRINT DUPLICATOR recommends mechanical soft/thin liquid diet with aspiration precautions including small bites/sips, alt. bites/sips, double swallow, slow rate, and sitting up during/30-60 minutes after meal. BLUEPRINT DUPLICATOR will fu for diet tolerance. Stroke Dysphagia Assessment PHYSICIAN CERTIFICATION: I certify the specified therapy services for Jensen Loomis are required, authorized, and reviewed every 30 days.
--- NOTE | 2024-05-21 17:35 | PC.NURSE ---
Patient was seen for speech eval today. Recommended [facility] soft diet, small bites/sips, alternating bites/sips, and double swallowing
[2024-05-21 20:00] VITALS: BP 145/70; PULSE 68; RESP 18; TEMP 36.5; O2SAT 96
--- NOTE | 2024-05-22 03:41 | PC.NURSE ---
84 yo male pt is A/O X1. Pt has denied pain, discomfort or SOA this shift. He has slept soundly most of the shift. Xiao patent to BSD, draining adeq amounts of dark urine. Early in shift, urine was dark red in color. Pt continues with 2-3 + pitting edema to BLE. IV site to L forearm infiltrated, IV discontinued. Wound dressings to heels and coccyx C/D/I. Pt has not taken any PO fluids this shift. VSS for pt with 02 sats 96 % on RA
[2024-05-22 04:00] VITALS: BP 136/59; PULSE 67; RESP 16; TEMP 36.5; O2SAT 97; BMI 23.3
[2024-05-22 07:06] LABS: Blood Urea Nitrogen 46 mg/dl (9-20); Calcium 8.2 mg/dl (8.4-10.2); Carbon Dioxide 19 mmol/L (22.0-30.0); Chloride 116 mmol/L (98-107); Creatinine Clearance Estimated 28 mL/min (50-200); Estimated Glomerular Filt Rate 30 ml/min (>60); GFR (African American) 37 ML/MIN (>60); Glucose 91 mg/dl (74-100); Sodium 140 mmol/L (136-145)
[2024-05-22 07:11] LABS: Basophils # 0.1 K/mm3 (0-0.2); Basophils % 0.6 % (0.1-2.0); Eosinophils # 0.2 K/mm3 (0.0-0.4); Eosinophils % 2.4 % (0.1-12.0); Hematocrit 22.7 % (42.0-52.0); Hemoglobin 7.1 g/dL (14.1-18.0); Lymphocytes # 2.4 K/mm3 (0.7-4.5); Lymphocytes % 23.3 % (10-50); Mean Corpuscular HGB Conc 31.3 g/dL (31.8-35.4); Mean Corpuscular Volume 92.7 fl (80-94); Mean Platelet Volume 10.5 fl (7.4-10.4); Monocytes # 0.7 K/mm3 (0.1-1.0); Monocytes % 7.2 % (1.7-9.3); Neutrophils # 6.6 K/mm3 (1.8-7.8); Neutrophils % 65.3 % (37.0-80.0); Platelet Count 315 K/mm3 (142-424); Red Blood Count 2.45 M/mm3 (4.60-6.20); Red Cell Distribution Width 16.5 % (11.5-17.5); White Blood Count 10.1 K/mm3 (4.8-10.8)
[2024-05-22 07:15] LABS: Anion Gap 9.5 mEq/L (5-15); Potassium 4.5 mmoL/L (3.5-5.1)
[2024-05-22 08:00] VITALS: BP 118/66; PULSE 62; RESP 16; TEMP 36.3; O2SAT 94
--- NOTE | 2024-05-22 08:37 | EXP.ACUTE.PN ---
Subjective *Date: 05/22/24 *Time: 09:13 Interval history: Patient is lethargic this am. His says he will eat only a few bites. He wakes up and answers a few questions and goes back to sleep. He denies any pain. Medical Exam Vital signs and Labs for Last 24 Hours: Vital Signs Temp Pulse Resp BP Pulse Ox O2 Del Method 05/22/24 06:58 Room Air 05/22/24 05:00 Room Air 05/22/24 04:00 97.7 F 67 16 136/59 L 97 Room Air 05/22/24 03:00 Room Air 05/22/24 01:00 Room Air 05/21/24 22:57 Room Air 05/21/24 21:00 Room Air 05/21/24 20:00 96 Room Air 05/21/24 20:00 97.7 F 68 18 145/70 H 96 Room Air 05/21/24 18:31 Room Air 05/21/24 17:00 Room Air 05/21/24 16:00 97.9 F 61 17 149/71 H 98 05/21/24 15:54 Room Air 05/21/24 15:00 Room Air 05/21/24 13:00 Room Air 05/21/24 11:00 Room Air 05/21/24 09:00 Room Air Intake and Output 05/21/24 05/22/24 05/22/24 19:59 03:59 11:59 Intake Total 360 / 360 Output Total 1000 / 1900 900 / 1900 Balance -640 / -1540 -900 / -1540 Intake: Intake, Oral Amount 360 / 360 Output: Output, Urine Amount 900 / 900 Output, Urine Amount (Catheter) 1000 / 1000 Xiao 1000 / 1000 Other: Number of Unmeasured Voids 0 Number of Bowel Movements 1 Weight 166 lb 11.2 oz Patient Weight 05/22/24 11:59 Weight 166 lb 11.2 oz Laboratory Results - last 24 hr 05/21/24 05:45: Potassium 5.9 H, Anion Gap 13.9 05/22/24 06:33: WBC 10.1, RBC 2.45 L, Hgb 7.1 L, Hct 22.7 L, MCV 92.7, MCH 29.0, MCHC 31.3 L, RDW 16.5, Plt Count 315, MPV 10.5 H, Neut % (Auto) 65.3, Lymph % (Auto) 23.3, [place] % (Auto) 7.2, Eos % (Auto) 2.4, Baso % (Auto) 0.6, Neut # (Auto) 6.6, Lymph # (Auto) 2.4, [place] # (Auto) 0.7, Eos # (Auto) 0.2, Baso # (Auto) 0.1, Sodium 140, Potassium 4.5 D, Chloride 116 H, Carbon Dioxide 19 L, Anion Gap 9.5, BUN 46 H, Creatinine 2.10 H D, Estimated Creat Clear 28, Estimated GFR 30 L, Est GFR ( Amer) 37 L D, Glucose 91, Calcium 8.2 L I & O for Labs for Last 24 Hours: Intake & Output 05/19/24 05/20/24 05/21/24 05/22/24 11:59 11:59 11:59 11:59 Intake Total 240 / 240 360 / 360 Output Total 2300 / 2300 1900 / 1900 Balance -206 / -2060 -1540 / -1540 Weight 159 lb 13.362 oz 166 lb 11.2 oz Constitutional: Present no acute distress Respiratory: Present normal respiratory effort Cardiac: Present Reg Rate and Rhythm GI: Present normal bowel sounds; Absent tenderness Comment:: Xiao in place, draining blood tinged urine Extremities: Present normal inspection and full ROM Skin: Present intact and wounds; Absent erythema Comment:: See photos of sacral wound, heel wounds have dressing in place Neuro: Present Grossly Intact and moves all extremities Assessment and Plan *Assessment and plan (1) Obstructive uropathy: Status: Acute Category: Medical Code(s): N13.9 - Obstructive and reflux uropathy, unspecified (2) Metabolic acidosis: Status: Acute Category: Medical Code(s): E87.20 - Acidosis, unspecified (3) Sepsis without septic shock: Status: Acute Category: Medical Code(s): A41.9 - Sepsis, unspecified organism (4) Prostate mass: Status: Acute Category: Medical Code(s): N42.89 - Other specified disorders of prostate (5) Bladder outlet obstruction: Status: Acute Category: Medical Code(s): N32.0 - Bladder-neck obstruction (6) Hyperkalemia: Status: Acute Category: Medical Code(s): E87.5 - Hyperkalemia (7) Acute on chronic renal failure: Status: Acute Qualifiers: Acute renal failure type: unspecified Chronic kidney disease stage: unspecified stage Qualified Code(s): N17.9 - Acute kidney failure, unspecified; N18.9 - Chronic kidney disease, unspecified Category: Medical Code(s): N17.9 - Acute kidney failure, unspecified; N18.9 - Chronic kidney disease, unspecified (8) C. difficile colitis: Status: Acute Category: Medical Code(s): A04.72 - Enterocolitis due to Clostridium difficile, not specified as recurrent (9) 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 Category: Surgical Code(s): Z95.810 - Presence of automatic (implantable) cardiac defibrillator (10) Cardiomyopathy: Status: Chronic Qualifiers: Cardiomyopathy type: unspecified Qualified Code(s): I42.9 - Cardiomyopathy, unspecified Category: Medical Code(s): I42.9 - Cardiomyopathy, unspecified (11) Hypertension: Status: Chronic Qualifiers: Hypertension type: unspecified Qualified Code(s): I10 - Essential (primary) hypertension Category: Medical Code(s): I10 - Essential (primary) hypertension (12) H/O coronary artery bypass surgery: Status: Chronic Category: Surgical Code(s): Z95.1 - Presence of aortocoronary bypass graft (13) Unable to walk: Status: Acute Category: Medical Code(s): R26.2 - Difficulty in walking, not elsewhere classified (14) Anemia: Status: Acute Category: Medical Code(s): D64.9 - Anemia, unspecified (15) Gross hematuria: Status: Acute Category: Medical Code(s): R31.0 - Gross hematuria (16) Sacral wound: Status: Acute Category: Medical Code(s): S31.000A - Unspecified open wound of lower back and pelvis without penetration into retroperitoneum, initial encounter (17) Open wound of heel: Status: Acute Category: Medical Code(s): S91.309A - Unspecified open wound, unspecified foot, initial encounter (18) Protein calorie malnutrition: Status: Acute Category: Medical Code(s): E46 - Unspecified protein-calorie malnutrition Plan He was seen by speech therapy and PT. PT recommends continued therapy. Creatinine is improving slowly. Potassium has normalized. HGB is down to 7.1. Will discuss with Dr. Medley. Dr. Medley entry - Saw patient, agree with above note. Plan to recheck labs tomorrow. He will likely need outpatient evaluation for a suprapubic catheter.
[2024-05-22 16:00] VITALS: BP 142/60; PULSE 65; RESP 16; TEMP 36.8; O2SAT 94
[2024-05-22] MEDS: CEFTRIAXONE 1 GM 1 GM in 0.9 % SODIUM CHLORIDE 50 ML IV (16:50)
[2024-05-22] MEDS: PANTOPRAZOLE 40MG TABLET 40 MG PO (20:50)
[2024-05-22] MEDS: PRO-STAT AWC 30ML LIQUID PACKET 30 ML PO (20:51)
[2024-05-22] MEDS: DONEPEZIL 10MG TAB 10 MG PO (20:51)
[2024-05-22] MEDS: MEMANTINE 10MG TABLET 10 MG PO (20:51)
[2024-05-22 23:56] VITALS: BP 151/84; PULSE 76; RESP 15; TEMP 36.7; O2SAT 95
[2024-05-23 04:00] VITALS: BP 144/66; PULSE 74; RESP 16; TEMP 36.8; O2SAT 95; BMI 23.1
--- NOTE | 2024-05-23 05:45 | PC.NURSE ---
Pt has remained only alert to self and has tolerated room air. He has remained very lethargic. Xiao catheter has remained in place draining light yellow urine. Dressings over heels and coccyx are c/d/i. Currently asleep with bed alarm in place.
[2024-05-23 07:40] LABS: Basophils # 0.1 K/mm3 (0-0.2); Basophils % 0.8 % (0.1-2.0); Eosinophils # 0.3 K/mm3 (0.0-0.4); Eosinophils % 3.2 % (0.1-12.0); Hematocrit 23.6 % (42.0-52.0); Hemoglobin 7.3 g/dL (14.1-18.0); Lymphocytes # 2.9 K/mm3 (0.7-4.5); Lymphocytes % 28.4 % (10-50); Mean Corpuscular HGB Conc 30.9 g/dL (31.8-35.4); Mean Corpuscular Hemoglobin 28.5 pg (27.0-31.2); Mean Corpuscular Volume 92.2 fl (80-94); Mean Platelet Volume 10.5 fl (7.4-10.4); Monocytes # 0.8 K/mm3 (0.1-1.0); Monocytes % 7.4 % (1.7-9.3); Platelet Count 324 K/mm3 (142-424); Red Blood Count 2.56 M/mm3 (4.60-6.20); Red Cell Distribution Width 16.2 % (11.5-17.5); White Blood Count 10.2 K/mm3 (4.8-10.8)
[2024-05-23 07:49] LABS: Anion Gap 9.1 mEq/L (5-15); Blood Urea Nitrogen 40 mg/dl (9-20); Calcium 7.9 mg/dl (8.4-10.2); Carbon Dioxide 22 mmol/L (22.0-30.0); Chloride 113 mmol/L (98-107); Creatinine Clearance Estimated 32 mL/min (50-200); Estimated Glomerular Filt Rate 36 ml/min (>60); GFR (African American) 44 ML/MIN (>60); Glucose 91 mg/dl (74-100); Potassium 4.1 mmoL/L (3.5-5.1); Sodium 140 mmol/L (136-145)
[2024-05-23 08:00] VITALS: BP 151/68; PULSE 63; RESP 17; TEMP 36.6; O2SAT 94
--- NOTE | 2024-05-23 08:28 | P.PN_ITS ---
Subjective *Date: 05/23/24 *Time: 08:59 Interval history: Patient is feeling a little better today. He is sitting up trying to eat breakfast. He denies any pain. He states he is tired but he thinks he slept last night. Medical Exam Vital signs and Labs for Last 24 Hours: Vital Signs Temp Pulse Resp BP Pulse Ox O2 Del Method 05/23/24 06:48 Room Air 05/23/24 05:00 Room Air 05/23/24 04:00 98.2 F 74 16 144/66 H 95 Room Air 05/23/24 03:00 Room Air 05/23/24 01:00 Room Air 05/22/24 23:56 98.1 F 76 15 151/84 H 95 Room Air 05/22/24 23:00 Room Air 05/22/24 21:00 Room Air 05/22/24 20:00 Room Air 05/22/24 18:40 Room Air 05/22/24 17:00 Room Air 05/22/24 16:00 98.2 F 65 16 142/60 H 94 L Room Air 05/22/24 14:49 Room Air 05/22/24 13:00 Room Air 05/22/24 11:00 Room Air 05/22/24 09:00 Room Air Intake and Output 05/22/24 05/23/24 05/23/24 19:59 03:59 11:59 Intake Total 518 / 518 0 / 518 Output Total 250 / 1800 600 / 1800 950 / 1800 Balance 268 / -1282 -600 / -1282 -950 / -1282 Intake: Intake, Oral Amount 518 / 518 0 / 518 Output: Output, Urine Amount 250 / 1800 600 / 1800 950 / 1800 Other: Number of Unmeasured Voids 0 Number of Bowel Movements 1 Weight 164 lb 12.8 oz Patient Weight 05/23/24 11:59 Weight 164 lb 12.8 oz Laboratory Results - last 24 hr 05/23/24 06:40: Sodium 140, Potassium 4.1, Chloride 113 H, Carbon Dioxide 22, Anion Gap 9.1, BUN 40 H, Creatinine 1.80 H, Estimated Creat Clear 32, Estimated GFR 36 L, Est GFR ( Amer) 44 L, Glucose 91, Calcium 7.9 L I & O for Labs for Last 24 Hours: Intake & Output 01/2005/21/24 05/22/24 05/23/24 11:59 11:59 11:59 11:59 Intake Total 240 / 240 470 / 470 518 / 518 Output Total 2300 / 2300 2150 / 2400 1800 / 1800 Balance -2060 / -206 -1680 / -1930 -1282 / -1282 Weight 159 lb 13.362 oz 166 lb 11.2 oz 164 lb 12.8 oz Constitutional: Present no acute distress Respiratory: Present normal respiratory effort Cardiac: Present Reg Rate and Rhythm GI: Present normal bowel sounds; Absent tenderness Comment:: Xiao in place, draining blood tinged urine Extremities: Present normal inspection and full ROM Skin: Present intact and wounds; Absent erythema Comment:: See photos of sacral wound, heel wounds have dressing in place Neuro: Present Grossly Intact and moves all extremities Assessment and Plan *Assessment and plan (1) Obstructive uropathy: Status: Acute Category: Medical Code(s): N13.9 - Obstructive and reflux uropathy, unspecified (2) Metabolic acidosis: Status: Acute Category: Medical Code(s): E87.20 - Acidosis, unspecified (3) Sepsis without septic shock: Status: Acute Category: Medical Code(s): A41.9 - Sepsis, unspecified organism (4) Prostate mass: Status: Acute Category: Medical Code(s): N42.89 - Other specified disorders of prostate (5) Bladder outlet obstruction: Status: Acute Category: Medical Code(s): N32.0 - Bladder-neck obstruction (6) Hyperkalemia: Status: Acute Category: Medical Code(s): E87.5 - Hyperkalemia (7) Acute on chronic renal failure: Status: Acute Qualifiers: Acute renal failure type: unspecified Chronic kidney disease stage: u nspecified stage Qualified Code(s): N17.9 - Acute kidney failure, unspecified; N18.9 - Chronic kidney disease, unspecified Category: Medical Code(s): N17.9 - Acute kidney failure, unspecified; N18.9 - Chronic kidney disease, unspecified (8) C. difficile colitis: Status: Acute Category: Medical Code(s): A04.72 - Enterocolitis due to Clostridium difficile, not specified as recurrent (9) 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 Category: Surgical Code(s): Z95.810 - Presence of automatic (implantable) cardiac defibrillator (10) Cardiomyopathy: Status: Chronic Qualifiers: Cardiomyopathy type: unspecified Qualified Code(s): I42.9 - Cardiomyopathy, unspecified Category: Medical Code(s): I42.9 - Cardiomyopathy, unspecified (11) Hypertension: Status: Chronic Qualifiers: Hypertension type: unspecified Qualified Code(s): I10 - Essential (primary) hypertension Category: Medical Code(s): I10 - Essential (primary) hypertension (12) H/O coronary artery bypass surgery: Status: Chronic Category: Surgical Code(s): Z95.1 - Presence of aortocoronary bypass graft (13) Unable to walk: Status: Acute Category: Medical Code(s): R26.2 - Difficulty in walking, not elsewhere classified (14) Anemia: Status: Acute Category: Medical Code(s): D64.9 - Anemia, unspecified (15) Gross hematuria: Status: Acute Category: Medical Code(s): R31.0 - Gross hematuria (16) Sacral wound: Status: Acute Category: Medical Code(s): S31.000A - Unspecified open wound of lower back and pelvis without penetration into retroperitoneum, initial encounter (17) Open wound of heel: Status: Acute Category: Medical Code(s): S91.309A - Unspecified open wound, unspecified foot, initial encounter (18) Protein calorie malnutrition: Status: Acute Category: Medical Code(s): E46 - Unspecified protein-calorie malnutrition Plan Renal function continues to improve. Will need to see urology as an outpatient. Awaiting CBC today as HGB was dropping. Dr. Medley entry - Saw patient, agree with above note.
[2024-05-23] MEDS: PRO-STAT AWC 30ML LIQUID PACKET 30 ML PO (09:02)
[2024-05-23] MEDS: BISOPROLOL 5MG TABLET 5 MG PO (09:02)
[2024-05-23] MEDS: MEMANTINE 10MG TABLET 10 MG PO (09:02)
[2024-05-23] MEDS: LEVOTHYROXINE 88MCG (0.088MG) TAB 88 MCG PO (09:02)
[2024-05-23] MEDS: SERTRALINE 50MG TABLET 50 MG PO (09:02)
[2024-05-23 12:00] VITALS: BP 149/71; PULSE 69; RESP 18; TEMP 36.6; O2SAT 96
--- NOTE | 2024-05-23 14:20 | EXP.DC.SUM ---
General Admission date:: 05/20/24 Discharge date: 05/23/24 HPI HPI HPI: Mr. Loomis is a [age]-year-old male patient who has been at [facility] for rehab with a history of hyperlipidemia, hypertension, GERD, BPH, laryngeal cancer, hypothyroidism, ASCVD status post stent and CABG, C. difficile currently being treated with p.o. vancomycin, and fracture subtrochanteric of the femur with a nailing on 01/15/2024. Patient has had a gradual decline with periodic worsening of mental status and progressive renal failure. He has developed sacral wounds and bilateral heel wounds. He has been felt to be dehydrated with increasing renal failure and has been given several rounds of IV fluids at [facility]. With repeat labs on 05/20/2024 potassium was found to be 6 without creatinine of 3.3. They were unable to start IV fluids on him at [facility] and thus he was sent to the ER for further evaluation and treatment. With evaluation in the emergency room he was found to be afebrile and hemodynamically stable . White blood cell count was elevated at 14,400 with a hemoglobin of 8.1 hematocrit of 26.3. Potassium at this time was 5.9 with a BUN of 56 and a creatinine of 3.3. GFR noted to be at 18. Total protein was low at 5.7 albumin was low at 2.5. With exam abdomen was found to be firm in the lower half with no rebound or rigidity guarding with discomfort in the lower abdomen. Abdominal CT/pelvis showed significant bilateral ureteral hydronephrosis with a significant distended bladder. Patient was started on Rocephin for possible prostatitis and gentle administration of 1 liter of IV fluids instead of full sepsis treatment due to his known heart failure. He was also given Lokelma for his hyperkalemia. CT of abdomen/pelvis results: FINDINGS: Abdomen: There are small bilateral pleural effusions. Bibasilar scar or atelectasis is noted. There is streak artifact from pacemaker leads. The liver parenchyma is homogeneous. The gallbladder wall appears mildly thickened. There are no gallstones seen. There is a small hiatal hernia. There are calcified granulomas in the spleen. There may be tiny nonobstructing stones in the left renal collecting system. Moderate bilateral hydronephrosis and hydroureter is noted. Hydroureter is seen to the level of a distended urinary bladder which measure 22 cm in craniocaudal dimension. There are multiple small calcified stones in the dependent portion of the urinary bladder with questionable calcification of the wall of the urinary bladder. There is streak artifact arising from right hip prosthesis. Moderate hypertrophic changes from degenerative disc disease are seen throughout the lumbar spine. IMPRESSION: Hydroureter and mostly distended urinary bladder. Findings probably related to bladder outlet obstruction. Bladder stones and possible calcification of the bladder wall. Small pleural effusions. Apparent thickening of the gallbladder wall of uncertain etiology. Gallbladder ultrasound may be of value. This a.m. patient denies shortness of breath, chest pain, abdominal pain; he states he has no pain any place. Hospital Course Hospital Course Hospital Course: The patient was admitted and wound and nutrition consults were ordered. A speech consult was also ordered due to coughing after eating and PT and OT were consulted. The patient was continued on Rocephin pending culture reports. His renal function did begin improving. He continued to remain lethargic and would only eat small amounts at a time. He denied any pain. Physical therapy recommended continued skilled therapy and speech therapy gave recommendations on his diet as well. His potassium normalized and his hemoglobin decreased. By 05/23/2024, his renal function had continued to improve. His hemoglobin was low but stable. It was felt he could be discharged back to [facility] with an outpatient evaluation with Dr. Andrews, urology in [place], about placing a suprapubic catheter. It was felt he may need a hospice referral in the near future. Exam Data for Last 24 hours Vital signs and Labs for Last 24 Hours: Temp Pulse Resp BP Pulse Ox O2 Del Method 98 F 69 18 149/71 H 96 Room Air 05/23/24 12:00 05/23/24 12:00 05/23/24 12:00 05/23/24 12:00 05/23/24 12:00 05/23/24 13:00 Laboratory Results - last 24 hr 05/23/24 06:40: WBC 10.2, RBC 2.56 L, Hgb 7.3 L, Hct 23.6 L, MCV 92.2, MCH 28.5, MCHC 30.9 L, RDW 16.2, Plt Count 324, MPV 10.5 H, Neut % (Auto) 59.0, Lymph % (Auto) 28.4, [place] % (Auto) 7.4, Eos % (Auto) 3.2, Baso % (Auto) 0.8, Neut # (Auto) 6.0, Lymph # (Auto) 2.9, [place] # (Auto) 0.8, Eos # (Auto) 0.3, Baso # (Auto) 0.1, Sodium 140, Potassium 4.1, Chloride 113 H, Carbon Dioxide 22, Anion Gap 9.1, BUN 40 H, Creatinine 1.80 H, Estimated Creat Clear 32, Estimated GFR 36 L, Est GFR ( Amer) 44 L, Glucose 91, Calcium 7.9 L I & O for Last 24 hours: Intake & Output 05/21/24 05/22/24 05/23/24 05/24/24 11:59 11:59 11:59 11:59 Intake Total 240 / 240 470 / 470 578 / 578 360 / 360 Output Total 2300 / 2300 2150 / 2400 1800 / 1800 Balance -2059 / -2060 -1680 / -1930 -1222 / -1222 360 / 360 Weight 159 lb 13.362 oz 166 lb 11.2 oz 164 lb 12.8 oz Narrative: Constitutional Constitutional: no acute distress Comments: Awaken for physical assessment *Routine HEENT Exam Head: Present normocephalic and atraumatic Eye: Present PERRL; Absent conjunctival icterus, scleral injection or conjunctivae pink ENT: Present mucous membranes dry *Routine Neck Exam Neck: Present supple and full ROM *Routine Respiratory Exam Respiratory: Present rhonchi (Scattered and few posteriorly) *Routine Cardiovascular Exam Cardiovascular: Present RRR *Routine Abdominal Exam Abdominal: Present soft and normoactive bowel sounds; Absent tenderness or distended *Routine Rectal Exam Rectal:: deferred *Routine Genitalia Exam Genitalia:: deferred *Routine Extremities Exam Extremities: Present edema; Absent calf tenderness Comments: Minimal bilateral lower extremities; can lift both legs *Routine Skin Exam Skin: Present wounds Comments: Sacral wound-see picture; bilateral heel wounds both 2 to 3 cm *Routine Neurological Exam Neurological: Present alert and moving all extremities; Absent oriented X3 Results Data Completed and Pending Labs on day of discharge: Labs from last 24 hours 05/23/24 06:40 WBC 10.2 RBC 2.56 L Hgb 7.3 L Hct 23.6 L MCV 92.2 MCH 28.5 MCHC 30.9 L RDW 16.2 Plt Count 324 MPV 10.5 H Neut % (Auto) 59.0 Lymph % (Auto) 28.4 [place] % (Auto) 7.4 Eos % (Auto) 3.2 Baso % (Auto) 0.8 Neut # (Auto) 6.0 Lymph # (Auto) 2.9 [place] # (Auto) 0.8 Eos # (Auto) 0.3 Baso # (Auto) 0.1 Sodium 140 Potassium 4.1 Chloride 113 H Carbon Dioxide 22 Anion Gap 9.1 BUN 40 H Creatinine 1.80 H Estimated Creat Clear 32 Estimated GFR 36 L Est GFR ( Amer) 44 L Glucose 91 Calcium 7.9 L DS: Diagnosis Discharge Diagnosis (1) Obstructive uropathy: Status: Acute Code(s): N13.9 - Obstructive and reflux uropathy, unspecified (2) Metabolic acidosis: Status: Acute Code(s): E87.20 - Acidosis, unspecified (3) Sepsis without septic shock: Status: Acute Code(s): A41.9 - Sepsis, unspecified organism (4) Prostate mass: Status: Acute Code(s): N42.89 - Other specified disorders of prostate (5) Bladder outlet obstruction: Status: Acute Code(s): N32.0 - Bladder-neck obstruction (6) Hyperkalemia: Status: Acute Code(s): E87.5 - Hyperkalemia (7) Acute on chronic renal failure: Status: Acute Code(s): N17.9 - Acute kidney failure, unspecified; N18.9 - Chronic kidney disease, unspecified Qualifiers: Acute renal failure type: unspecified Chronic kidney disease stage: unspecified stage Qualified Code(s): N17.9 - Acute kidney failure, unspecified; N18.9 - Chronic kidney disease, unspecified (8) C. difficile colitis: Status: Acute Code(s): A04.72 - Enterocolitis due to Clostridium difficile, not specified as recurrent (9) 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 Code(s): Z95.810 - Presence of automatic (implantable) cardiac defibrillator (10) Cardiomyopathy: Status: Chronic Code(s): I42.9 - Cardiomyopathy, unspecified Qualifiers: Cardiomyopathy type: unspecified Qualified Code(s): I42.9 - Cardiomyopathy, unspecified (11) Hypertension: Status: Chronic Code(s): I10 - Essential (primary) hypertension Qualifiers: Hypertension type: unspecified Qualified Code(s): I10 - Essential (primary) hypertension (12) H/O coronary artery bypass surgery: Status: Chronic Code(s): Z95.1 - Presence of aortocoronary bypass graft (13) Unable to walk: Status: Acute Code(s): R26.2 - Difficulty in walking, not elsewhere classified (14) Anemia: Status: Acute Code(s): D64.9 - Anemia, unspecified (15) Gross hematuria: Status: Acute Code(s): R31.0 - Gross hematuria (16) Sacral wound: Status: Acute Code(s): S31.000A - Unspecified open wound of lower back and pelvis without penetration into retroperitoneum, initial encounter (17) Open wound of heel: Status: Acute Code(s): S91.309A - Unspecified open wound, unspecified foot, initial encounter (18) Protein calorie malnutrition: Status: Acute Code(s): E46 - Unspecified protein-calorie malnutrition Meds Home Medications and Allergies Home Medications ?Medication ?Instructions ?Recorded ?Confirmed ?Type aspirin 81 mg tablet,delayed 81 mg PO BID 05/20/24 05/20/24 History release bisoprolol fumarate 5 mg tablet 5 mg PO DAILY 05/20/24 05/20/24 History clopidogrel 75 mg tablet 75 mg PO DAILY 05/20/24 05/20/24 History levothyroxine 88 mcg tablet 88 mcg PO DAILY 05/20/24 05/20/24 History memantine 10 mg tablet 10 mg PO BID 05/20/24 05/20/24 History omeprazole 20 mg capsule,delayed 20 mg PO DAILY 05/20/24 05/20/24 History release rosuvastatin 20 mg tablet 20 mg PO HS 05/20/24 05/20/24 History tamsulosin 0.4 mg capsule 0.4 mg PO HS 05/20/24 05/21/24 History Lactobacillus acidophilus 10 10,000 mmu cells PO DAILY 05/21/24 05/21/24 History billion cell capsule (Probiotic) acetaminophen 500 mg tablet 500 mg PO Q6HP PRN Mild Pain 05/21/24 05/21/24 History (Scale Score 1-4) ascorbic acid (vitamin C) 1,000 mg 1 g PO DAILY 05/21/24 05/21/24 History tablet coenzyme Q10 100 mg capsule 100 mg PO DAILY 05/21/24 05/21/24 History diltiazem HCl 90 mg 90 mg PO BID 05/21/24 05/21/24 History capsule,extended release 12 hr donepezil 10 mg tablet 10 mg PO HS 05/21/24 05/21/24 History ferrous sulfate 325 mg (65 mg 325 mg PO DAILY 05/21/24 05/21/24 History iron) tablet ipratropium 0.5 mg-albuterol 3 mg 3 ml inhalation TID 05/21/24 05/21/24 History (2.5 mg base)/3 mL nebulization soln loratadine 10 mg tablet 10 mg PO DAILY 05/21/24 05/21/24 History mecobalamin (vitamin B12) 1,000 1,000 mcg PO DAILY 05/21/24 05/21/24 History mcg chewable tablet potassium chloride 10 mEq 20 meq PO BID 05/21/24 05/21/24 History tablet,extended release sertraline 50 mg tablet 50 mg PO DAILY 05/21/24 05/21/24 History hydrocodone 5 mg-acetaminophen 325 1 tab PO Q8HP PRN Moderate Pain 05/23/24 Rx mg tablet (Scale Score 5-6) #30 tabs New Prescriptions to Start Prescriptions: hydrocodone-acetaminophen Dave Medley Allergies Allergy/AdvReac Type Severity Reaction Status Date / Time codeine (CODEINE) Allergy Mild NA-NAUSEA/V Verified 03/05/24 09:42 OMITING Discharge Plan Disposition Patient Disposition: er [facility] Condition: Serious Discharge Order Discharge Orders: Discharge Order (Routine); Ordered 05/23/24 Ordered By: Dave Medley Follow up Plan Follow up with: Dave Medley MD [Staff Physician] - Enter time for follow up (At [facility]) Rosendo Andrews MD [Referring] - 05/28/24 11:30 am Prescriptions/Medication Reconciliation: Continued aspirin 81 mg tablet,delayed release (DR/EC) 81 mg PO BID clopidogrel 75 mg tablet 75 mg PO DAILY Patient Comments: TAKE ONE TABLET BY MOUTH ONCE DAILY bisoprolol fumarate 5 mg tablet 5 mg PO DAILY Patient Comments: TAKE ONE TABLET BY MOUTH EVERY DAY levothyroxine 88 mcg tablet 88 mcg PO DAILY Patient Comments: TAKE ONE TABLET BY MOUTH EVERY DAY tamsulosin 0.4 mg capsule 0.4 mg PO HS Patient Comments: TAKE ONE CAPSULE BY MOUTH EVERY DAY omeprazole 20 mg capsule,delayed release(DR/EC) 20 mg PO DAILY Patient Comments: TAKE ONE CAPSULE BY MOUTH EVERY DAY rosuvastatin 20 mg tablet 20 mg PO HS Patient Comments: TAKE ONE TABLET BY MOUTH EVERY DAY AT BEDTIME memantine 10 mg tablet 10 mg PO BID Patient Comments: TAKE ONE TABLET BY MOUTH TWICE DAILY FOR memory loss ascorbic acid (vitamin C) 1,000 mg Tablet 1 g PO DAILY ipratropium-albuterol 0.5 mg-3 mg(2.5 mg base)/3 mL Solution For Nebulization 3 ml INHALATION TID donepezil 10 mg Tablet 10 mg PO HS potassium chloride 10 mEq Tablet Extended Release 20 meq PO BID acetaminophen 500 mg Tablet 500 mg PO Q6HP PRN (Reason: Mild Pain (Scale Score 1-4)) ferrous sulfate 325 mg (65 mg iron) Tablet 325 mg PO DAILY diltiazem HCl 90 mg capsule,extended release 12 hr 90 mg PO BID Patient Comments: TAKE ONE CAPSULE BY MOUTH TWICE DAILY sertraline 50 mg Tablet 50 mg PO DAILY loratadine 10 mg Tablet 10 mg PO DAILY coenzyme Q10 100 mg Capsule 100 mg PO DAILY Probiotic 10 billion cell Capsule 10,000 mmu cells PO DAILY mecobalamin (vitamin B12) 1,000 mcg Tablet,Chewable 1,000 mcg PO DAILY hydrocodone-acetaminophen 5-325 mg Tablet 1 tab PO Q8HP PRN (Reason: Moderate Pain (Scale Score 5-6)) Qty: 30 0RF Discontinued loperamide [Imodium A-D] 2 mg Tablet 2 mg PO QIDP PRN (Reason: Diarrhea) Problem Reconciliation Problems Reviewed?: Yes Patient Discharge Instructions ACTIVITY: Continue current activity DIET: continue same diet Patient Instructions: DI for Pressure Injuries, DI for Hyperkalemia, DI for Urinary Retention in Men, DI for Sepsis -- Adult, DI for Overactive Bladder, DI for Clostridioides difficile Infection, Catheter-Associated Urinary Tract Infection Print Language: M[place]ese Providers Primary Care Provider: Dale Pisano Admit Provider: Dave Medley Attending Provider: Dave Medley
--- NOTE | 2024-05-23 15:24 | PC.NURSE ---
REPORT GIVEN TO [facility] NOTIFIED OF NEED OF TRANSPORT
[2024-05-23] MEDS: CEFTRIAXONE 1 GM 1 GM in 0.9 % SODIUM CHLORIDE 50 ML IV (15:44)
== END 2024-05-23 17:22 | DRG 683 ==
LOC: ER 15:43 → 2ND 16:52
PROVIDERS: Physician Assistant; Admitting Provider Family Medicine; Emergency Provider Emergency Medicine; PCP Family Medicine; Visit Provider Family Medicine
DX: N17.9 Acute kidney failure, unspecified (principal); E46 Unspecified protein-calorie malnutrition; N32.0 Bladder-neck obstruction; N13.30 Unspecified hydronephrosis; E87.5 Hyperkalemia; E03.9 Hypothyroidism, unspecified; N40.1 Benign prostatic hyperplasia with lower urinary tract symptoms; E78.5 Hyperlipidemia, unspecified; K44.9 Diaphragmatic hernia without obstruction or gangrene; F03.A0 Unspecified dementia, mild, without behavioral disturbance, psychotic disturbance, mood disturbance, and anxiety; I25.10 Atherosclerotic heart disease of native coronary artery without angina pectoris; I11.9 Hypertensive heart disease without heart failure; D64.9 Anemia, unspecified; K21.9 Gastro-esophageal reflux disease without esophagitis; S31.000A Unspecified open wound of lower back and pelvis without penetration into retroperitoneum, initial encounter; S91.302A Unspecified open wound, left foot, initial encounter; I12.9 Hypertensive chronic kidney disease with stage 1 through stage 4 chronic kidney disease, or unspecified chronic kidney disease; S91.301A Unspecified open wound, right foot, initial encounter; F50.89 Other specified eating disorder; R26.2 Difficulty in walking, not elsewhere classified; Z95.810 Presence of automatic (implantable) cardiac defibrillator; Z79.890 Hormone replacement therapy; Z91.81 History of falling; Z85.21 Personal history of malignant neoplasm of larynx; Z79.02 Long term (current) use of antithrombotics/antiplatelets; Z95.1 Presence of aortocoronary bypass graft; Z79.82 Long term (current) use of aspirin; Z95.5 Presence of coronary angioplasty implant and graft; Z79.899 Other long term (current) drug therapy; Z68.23 Body mass index [BMI] 23.0-23.9, adult; Z74.1 Need for assistance with personal care
CPT/HCPCS: 36415; 51702; 71045; 74176; 80048; 80053; 81001; 82803; 84100; 84145; 84484; 85025; 85610; 86803; 87389; 92610; 93005; 97110; 97163; 99291; J0696; J7030

== ENCOUNTER 2024-11-16 19:07 | Emergency (ER) | payer MEDICARE, BC, SELFPAY ==
--- OUTSIDE RECORDS SUMMARY | 2024-07-30 11:15 | XMS_ITS ---
Author Organization [facility] Address [address] [facility] [address] [place] [phone] Care Team Providers Care Roving Machine Operator Name Role Phone Joelle Pisano Primary Care Provider Soledad Michelle Unavailable [phone] Allergies Allergen (clinical drug ingredient) Drug/Non Drug Allergy documented on EMR Reaction Allergy Type Onset Date Status codeine Codeine Unknown Drug Allergy Active REASON FOR VISIT [facility] [place] [facility] Medications Medication SIG (Take, Route, Frequency, Duration) Notes Start Date End Date Status Donepezil HCl 10 MG TAKE ONE TABLET BY MOUTH EVERY DAY AT BEDTIME Orally at HS Active Memantine HCl 10 MG 1 tablet Orally Two times a day Active dilTIAZem HCl 90 MG 1 Orally bid Active Bisoprolol Fumarate 5 MG 1 tablet Orally Once a day Active EpiCeram - as directed Externally bid and prn bid Active Tamsulosin HCl 0.4 mg TAKE ONE CAPSULE BY MOUTH EVERY DAY Active Synthroid 88 MCG 1 tab(s) orally once a day Active Sertraline HCl 50 MG 1 tab(s) Orally once a day Active Santyl 250 UNIT/GM 1 application Externally Once a day qd with Radha hurtado but paste Active Catheters - as directed huitron cath with routine care Active Potassium Chloride ER 20 MEQ 1 tablet with food Orally Twice a day Active Regular Diet - as directed mechanical soft; Ensure bid fortified foods Active Ipratropium-Albutero l 0.5-2.5 (3) MG/3ML 3 ml as needed Inhalation tid prn Active Calcium Alginate - as directed Externally cleanse wound with NS and apply cream and cover with dry dsg qd Active LORazepam 0.5 MG 1 tablet Orally every 6 hours as needed Not-Taking HYDROcodone-Acetamin ophen 10-325 MG 1 tablet as needed Orally every 4 hrs Active Acetaminophen 500 MG 1 capsule as needed Orally every 6 hrs prn Active Vital Signs Blood pressure systolic 136 mm Hg 07/31/19 25 Blood pressure diastolic 62 mm Hg 025 Heart Rate 62 /min 07/30/2024 Respiratory Rate 17 /min 07/30/2024 Height 71 in 07/30/2024 Weight 127.5 lbs 07/30/2024 BMI 17.78 kg/m2 07/30/2024 Encounters Encounter Location Date Provider Diagnosis Jorge Malagon [address] [place] [address] [address] [place] [phone] 07/30/2024 Soledad Michelle Atherosclerosis of n ative coronary artery without angina pectoris, unspecified whether [place] or transplanted heart I25.10 ; Acute arthritis M19.90 ; Acquired hypothyroidism E03.9 ; BPH (benign prostatic hyperplasia) N40.0 ; Cardiomyopathy, unspecified type I42.9 ; Depression 311 ; 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 ; Memory loss R41.3 ; Bladder outlet obstruction N32.0 ; Wound of sacral region, subsequent encounter S31.000D ; Obstructive uropathy N13.9 ; Closed displaced intertrochanteric fracture of right femur with routine healing S72.141D and Cough R05.9 Assessments Encounter Date Diagnosis (ICD Code) Assessment Notes Treatment Notes Treatment Clinical Notes Section Notes 07/30/2024 Atherosclerosis of [place] coronary artery without angina pectoris, unspecified whether [place] or transplanted heart (ICD-10 - I25.10) 07/30/2024 Acute arthritis (ICD-10 - M19.90) 07/30/2024 Acquired hypothyroidism (ICD-10 - E03.9) 07/30/2024 BPH (benign prostati c hyperplasia) (ICD-10 - N40.0) 07/30/2024 Cardiomyopathy, unspecified type (ICD-10 - I42.9) 07/30/2024 Depression (ICD-10 - 311) 07/30/2024 Other osteoarthritis involving multiple joints (ICD-10 - M15.8) 07/30/2024 Memory loss (ICD-10 - R41.3) 07/30/2024 Bladder outlet obstruction (ICD-10 - N32.0) 07/30/2024 Wound of sacral region, subsequent encounter (ICD-10 - S31.000D) 07/30/2024 Obstructive uropathy (ICD-10 - N13.9) 07/30/2024 Closed displaced intertrochanteric fracture of right femur with routine healing (ICD-10 - S72.141D) 07/30/2024 Cough (ICD-10 - R05.9) 07/30/2024 Other HOSPICE continues to assist; is a DNR Plan Of Treatment Medication Medication Name Sig Start Date Stop Date Notes Donepezil HCl 10 MG TAKE ONE TABLET BY MOUTH EVERY DAY AT BEDTIME Orally at HS Memantine HCl 10 MG 1 tablet Orally Two times a day dilTIAZem HCl 90 MG 1 Orally bid Bisoprolol Fumarate 5 MG 1 tablet Orally Once a day Tamsulosin HCl 0.4 mg TAKE ONE CAPSULE B Y MOUTH EVERY DAY Synthroid 88 MCG 1 tab(s) orally once a day Sertraline HCl 50 MG 1 tab(s) Orally onc e a day Santyl 250 UNIT/GM 1 application Externally Once a day qd with Radha shipley but paste Catheters - as directed huitron cath w ith routine care Potassium Chloride ER 20 MEQ 1 tablet with food Orally Twice a day Regular Diet - as directed mechanica l soft; Ensure bid fortified foods Ipratropium-Albuterol 0.5-2.5 (3) MG/3ML 3 ml as needed Inhalation tid prn Calcium Alginate - as directed Externally cleanse wound with NS and apply cream and cover with dry dsg qd HYDROcodone-Acetaminoph en 10-325 MG 1 tablet as needed Orally every 4 hrs Acetaminophen 500 MG 1 capsule as needed Orally every 6 hrs prn Treatment Notes Assessment Notes Other HOSPICE continues to assist; is a DNR Next Appt Details Follow Up: 4 Weeks,and prn, Reason: Progress Notes * GIL BERMANDOB:1940 (84 yo M)Acc No.[id number]:07/30/2024 Progress Notes Patient: GIL GLOVER Provider: LISA Mario :1940 A ge:84 Y S ex:Male Date:07/30/2024 Address: [address], [place], [id number] Pcp:Joelle Pisano Subjective: * Chief Complaints: * 1 . [facility] [place] [facility]. * HPI: H PI: For routine Care Home visit; chart reviewed and patient examined; see ROS; remainswith HOSPICE. * ROS: R ESPIRATORY: no S hortness of breath. n o C hest pain. n o?Cough. C ARDIOLOGY: no C hest pain. n o L eg edema. n o S hortness of breath. D ERMATOLOGY: wound s acral wound ; bilateral heel wounds healing. ? G ASTROENTEROLOGY: Positive for e ating as usual. n o V omiting. n o D iarrhea. M USCULOSKELETAL: Positive for s tays in bed. U ROLOGY: Positive for f oley catheter. * Medical History: H yperlipidemia, Hypertension, Esophageal Reflux, BPH, Laryngeal Cancer - SCC, [facility]ar [facility], Hypothyroidism, ASCVD - s/p stents/ CABG x 1, Keratoconjunctivitis Sic[place], Covid Vaccine Jun x2, Fx right subtrochanteric femur, C Diff. 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 Russo - 01/28/2019, Pacemaker/ defibrillator/ [facility] 06/24/2020, Percutaneous coronary intervention, stent x 3 at [facility] September 2022, Cephalomedullary proimal femoral nailing/ Dr. Soriano 01/15/2024. * Hospitalization/Major Diagno stic Procedure: H MH with Subtrochanteric Fx right femur with nailing; CAD;cardiomyopathy; hematuria;HTN; anemia; hyponatremia 01/11-01/18/2024. * Family History: F ather: 78 yrs, diagnosed with Heart Disease. M other: 87 yrs, diagnosed with Hypertension. P aternal Grand Father: . P aternal Grand Mother: . Maternal Grand Father: . M aternal Grand Mother: . 3 brother(s) . 3 daughter(s) . . * Social History: C URRENT TOBACCO USE S moking Status: Patient does NOT smoke. C affeine: yes, frequency:daily. Exercise: yes. Home smoke detector use: yes. Marital Status: , , Remarried in 2005. New since last visit: none. Occupation: yes. Past smoking status: no. Occup. exposure: none. Recreational drug use: no. Alcohol: no. Sexually active: yes. Travel ouside [place]: no. * Medications: T aking Regular Diet - - as directed , Notes to Pharmacist: mechanical soft; Ensure bid fortified foods, Taking Potassium Chloride ER 20 MEQ Tablet Extended Release 1 tablet with food Orally Twice a day , Taking EpiCeram - Emulsion as directed Externally bid and prn , Notes to Pharmacist: bid, Taking Catheters - Miscellaneous as directed , Notes to Pharmacist: huitron cath with routine care, Taking Santyl 250 UNIT/GM Ointment 1 application Externally Once a day , Notes to Pharmacist: qd with Radha beasley, Taking Sertraline HCl 50 MG Tablet 1 tab(s) Orally once a day , Taking Synthroid 88 MCG Tablet 1 tab(s) orally once a day , Taking Tamsulosin HCl 0.4 mg Capsule TAKE ONE CAPSULE BY MOUTH EVERY DAY , Taking Bisoprolol Fumarate 5 MG Tablet 1 tablet Orally Once a day , Taking dilTIAZem HCl 90 MG Tablet 1 Orally bid , Taking Memantine HCl 10 MG Tablet 1 tablet Orally Two times a day , Taking Donepezil HCl 10 MG Tablet TAKE ONE TABLET BY MOUTH EVERY DAY AT BEDTIME Orally at HS , Taking Acetaminophen 500 MG Capsule 1 capsule as needed Orally every 6 hrs prn , Taking HYDROcodone-Acetaminophen 10-325 MG Tablet 1 tablet as needed Orally every 4 hrs , Taking Calcium Alginate - Miscellaneous as directed Externally , Notes to Pharmacist: cleanse wound with NS and apply cream and cover with dry dsg qd, Taking Ipratropium-Albuterol 0.5-2.5 (3) MG/3ML Solution 3 ml as needed Inhalation tid prn , Not-Taking LORazepam 0.5 MG Tablet 1 tablet Orally every 6 hours as needed , Medication List reviewed and reconciled with the patient * Allergies: Khari keen. Objective: * Vitals: W t:127.5, Temp:97.9, BP:136/62, HR:62, O2 Sat:99%, Nurse:reviewed/recorded by óscar, Ht: 71, RR:17, BMI:17.78. * Examination: G eneral Examination: General Appearance: NAD, alert; in bed; nursing changing sacral dressing. H eart: RRR. L ungs: CTAB A&P. A bdomen: bowel sounds present, soft and nontender. N eurologic Exam: alert and oriented. S kin: sacral wound with packing; about 10 cm ;edges and surrounding skin without erythema and clean. E xtremities: no leg edema; heel wound healing. Assessment: * Assessment: 1. A therosclerosis of [place] coronary artery without angina pectoris, unspecified whether [place] or transplanted heart - I25.10 (Primary) 2 . A cute arthritis - M19.90 ? 3 . A cquired hypothyroidism - E03.9 4 . B PH (benign prostatic hyperplasia) - N40.0 5 . C ardiomyopathy, unspecified type - I42.9 ?6. D epression - 311 7 . O ther osteoarthritis involving multiple joints - M15.8 8 . M pauline loss - R41.3 9 . B ladder outlet obstruction - N32.0 1 0. W ound of sacral region, subsequent encounter - S31.000D ? 1 1. O bstructive uropathy - N13.9 1 2. C losed displaced intertrochanteric fracture of right femur with routine healing - S72.141D 1 3. C ough - R05.9 Plan: * Treatment: 2. A cquired hypothyroidism Continue Synthroid Tablet, 88 MCG, 1 tab(s), orally, once a day. 3. B PH (benign prostatic hyperplasia) Continue Tamsulosin HCl Capsule, 0.4 mg, TAKE ONE CAPSULE BY MOUTH EVERY DAY. 4. C ardiomyopathy, unspecified type Continue Bisoprolol Fumarate Tablet, 5 MG, 1 tablet, Orally, Once a day; C ontinue dilTIAZem HCl Tablet, 90 MG, 1, Orally, bid. 5. D epression Continue Sertraline HCl Tablet, 50 MG, 1 tab(s), Orally, once a day. 6. O ther osteoarthritis involving multiple joints Continue HYDROcodone-Acetaminophen Tablet, 10-325 MG, 1 tablet as needed, Orally, every 4 hrs. 7. M pauline loss Continue Memantine HCl Tablet, 10 MG, 1 tablet, Orally, Two times a day; C ontinue Donepezil HCl Tablet, 10 MG, TAKE ONE TABLET BY MOUTH EVERY DAY AT BEDTIME, Orally, at HS. 8. W ound of sacral region, subsequent encounter Continue Santyl Ointment, 250 UNIT/GM, 1 application, Externally, Once a day, Notes to Pharmacist: qd with Radha hurtado but paste; C ontinue Calcium Alginate Miscellaneous, -, as directed, Externally, Notes to Pharmacist: cleanse wound with NS and apply cream and cover with dry dsg qd. ? 9. O bstructive uropathy Continue Catheters Miscellaneous, -, as directed, Notes to Pharmacist: huitron cath with routine care. 10. C ough Continue Ipratropium-Albuterol Solution, 0.5-2.5 (3) MG/3ML, 3 ml as needed, Inhalation, tid prn.? 11. O thers Continue Regular Diet -, -, as directed, Notes to Pharmacist: mechanical soft; Ensure bid fortified foods; C ontinue Potassium Chloride ER Tablet Extended Release, 20 MEQ, 1 tablet with food, Orally, Twice a day. Notes: HOSPICE continues to assist; is a DNR * Follow Up: 4 Weeks,and prn * Images: Billing Information: * Visit Code: 29661 subs. level 4. * Procedure Codes: * Electronic signature of Vivi Michelle APRN on 11/16/2024 at 07:11 PM EDT Sign off status: Pending * Provider: LISA Mario Date: 0 07/30/2024 Generated for Augustin mills/Alycia/Kahlil on: 0 11/16/2024 07:11 PM EDT History and Physical Notes * HPI (History of Present Illness) Category Sub-Category Detail Notes Category Not es HPI For routine [facility]; chart reviewed and patient examined; see ROS; remainswith HOSPICE Examination Category Sub-Category Detail Notes Category Not es General Examination Heart: RRR Lungs: CTAB A&P Abdomen: bowel sounds present , soft and nontender Extremities: no leg edema; heel w ound healing General Appearance: NAD, alert; in bed; nursing changing sacral dressing Skin: sacral wound with pa cking; about 10 cm ;edges and surrounding skin without erythema and clean Neurologic Exam: alert and oriented
--- OUTSIDE RECORDS SUMMARY | 2024-08-20 11:00 | XMS_ITS ---
Author Organization [facility] Address [address] [facility] [address] [place] [phone] Care Team Providers Care Subsea Engineer Name Role Phone Joelle Pisano Primary Care Provider Soledad Michelle Unavailable [phone] Allergies Allergen (clinical drug ingredient) Drug/Non Drug Allergy documented on EMR Reaction Allergy Type Onset Date Status codeine Codeine Unknown Drug Allergy Active REASON FOR VISIT [facility] [place] Medications Medication SIG (Take, Route, Frequency, Duration) Notes Start Date End Date Status Memantine HCl 10 MG 1 tablet Orally Two times a day Active Santyl 250 UNIT/GM 1 application Externally Once a day qd with Radha magsteven but paste Active Sertraline HCl 50 MG 1 tab(s) Orally once a day Active Synthroid 88 MCG 1 tab(s) orally once a day Active Tamsulosin HCl 0.4 mg TAKE ONE CAPSULE B Y MOUTH EVERY DAY Active Regular Diet - as directed mechanical soft; Ensure bid fortified foods Active Potassium Chloride ER 20 MEQ 1 tablet with food Orally Twice a day Active Catheters - as directed huitron cath with routine care Active EpiCeram - as directed Externally bid and prn bid Active Calcium Alginate - as directed Externally cleanse wound with NS and apply cream and cover with dry dsg qd Active LORazepam 0.5 MG 1 tablet Orally every 6 hours as needed Active Bisoprolol Fumarate 5 MG 1 tablet Orally Once a day Active dilTIAZem HCl ER 180 MG 1 tablet Orally Once a day Active Ipratropium-Albuterol 0.5-2.5 (3) MG/3ML 3 ml as needed Inhalation tid prn Active Donepezil HCl 10 MG TAKE ONE TABLET BY MOUTH EVERY DAY AT BEDTIME Orally at HS Active Acetaminophen 500 MG 1 capsule as needed Orally every 6 hrs prn Active HYDROcodone-Acetamino phen 10-325 MG 1 tablet as needed Orally every 4 hrs Active Vital Signs Blood pressure systolic 116 mm Hg 08/21/19 25 Blood pressure diastolic 69 mm Hg 025 Heart Rate 61 /min 08/20/2024 Respiratory Rate 17 /min 08/20/2024 Weight 130.2 lbs 08/20/2024 Encounters Encounter Location Date Provider Diagnosis [place] [address] [place] [address] [address] [place] [phone] 08/20/2024 Soledad Michelle Atherosclerosis of n ative coronary artery without angina pectoris, unspecified whether [place] or transplanted heart I25.10 ; Acute arthritis M19.90 ; Acquired hypothyroidism E03.9 ; BPH (benign prostatic hyperplasia) N40.0 ; Cardiomyopathy, unspecified type I42.9 ; Depression 311 ; 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 ; Memory loss R41.3 ; Bladder outlet obstruction N32.0 ; Wound of sacral region, subsequent encounter S31.000D ; Obstructive uropathy N13.9 ; Anxiety F41.9 and Cough R05.9 Assessments Encounter Date Diagnosis (ICD Code) Assessment Notes Treatment Notes Treatment Clinical Notes Section Notes 08/20/2024 Atherosclerosis of [place] coronary artery without angina pectoris, unspecified whether [place] or transplanted heart (ICD-10 - I25.10) 08/20/2024 Acute arthritis (ICD-10 - M19.90) 08/20/2024 Acquired hypothyroidism (ICD-10 - E03.9) 08/20/2024 BPH (benign prostatic hyperplasia) (ICD-10 - N40.0) 08/20/2024 Cardiomyopathy, unspecified type (ICD-10 - I42.9) 08/20/2024 Depression (ICD-10 - 311) 08/20/2024 Other osteoarthritis involving multiple joints (ICD-10 - M15.8) 08/20/2024 Memory loss (ICD-10 - R41.3) 08/20/2024 Bladder outlet obstruction (ICD-10 - N32.0) 08/20/2024 Wound of sacral region, subsequent encounter (ICD-10 - S31.000D) 08/20/2024 Obstructive uropathy (ICD-10 - N13.9) 08/20/2024 Anxiety (ICD-10 - F41.9) nurses state Ativan helps; if anxious is usually at night 08/20/2024 Cough (ICD-10 - R05.9) 08/20/2024 Other continue with comfort measures; continue with HOSPICE Plan Of Treatment Medication Medication Name Sig Start Date Stop Date Notes Memantine HCl 10 MG 1 tablet Orally Two times a day Santyl 250 UNIT/GM 1 application Externally Once a day qd with Radha reanna shipley but paste Sertraline HCl 50 MG 1 tab(s) Orally onc e a day Synthroid 88 MCG 1 tab(s) orally once a day Tamsulosin HCl 0.4 mg TAKE ONE CAPSULE B Y MOUTH EVERY DAY Regular Diet - as directed mechanica l soft; Ensure bid fortified foods Potassium Chloride ER 20 MEQ 1 tablet with food Orally Twice a day Catheters - as directed huitron cath w ith routine care Calcium Alginate - as directed Externally cleanse wound with NS and apply cream and cover with dry dsg qd LORazepam 0.5 MG 1 tablet Orally ever y 6 hours as needed Bisoprolol Fumarate 5 MG 1 tablet Orally Once a day dilTIAZem HCl ER 180 MG 1 tablet Orally Once a day Ipratropium-Albuterol 0.5-2.5 (3) MG/3ML 3 ml as needed Inhalation tid prn Donepezil HCl 10 MG TAKE ONE TABLET BY MOUTH EVERY DAY AT BEDTIME Orally at HS Acetaminophen 500 MG 1 capsule as needed Orally every 6 hrs prn HYDROcodone-Acetaminoph en 10-325 MG 1 tablet as needed Orally every 4 hrs Treatment Notes Assessment Notes Anxiety nurses state Ativan helps; if anxious is usually at night Other continue with comfor t measures; continue with HOSPICE Next Appt Details Follow Up: 2 Months,and prn, Reason: Progress Notes * BERMANGIL AREVALODOB:1940 (84 yo M)Acc No.[id number]:08/20/2024 Progress Notes Patient: GIL GLOVER Provider: LISA Mario :1940 A ge:84 Y S ex:Male Date:08/20/2024 Address:[address], [place], [id number] Pcp:Joelle Pisano Subjective: * Chief Complaints: * 1 . [facility]. * HPI: H PI: For routine Shelter visit; chart reviewed and patient examined; see ROS; pt to have a pinning ceremony by 08/22/2024; HOSPICE continues to be in attendance. * ROS: R ESPIRATORY: no S hortness of breath. n o C hest pain. ? C ARDIOLOGY: no C hest pain. n o L eg edema. D ERMATOLOGY: wound w ound care is ongoing with some healing noted. ? G ASTROENTEROLOGY: Positive for e ating as usual. n o V omiting. n o D iarrhea. M USCULOSKELETAL: Positive for u sually does not get OOB. s ystem review obtained from nursing and documentation; pt did not awake during visit/exam. * Medical History: H yperlipidemia, Hypertension, Esophageal [...] 1/ Dr. Russo - 01/28/2019, Pacemaker/ defibrillator/ [facility] 06/24/2020, Percutaneous coronary intervention, stent x 3 at [facility] September 2022, Cephalomedullary proimal femoral nailing/ Dr. Soriano 01/15/2024. * Hospitalization/Major Diagno stic Procedure: H MH with Subtrochanteric Fx right femur with nailing; CAD;cardiomyopathy; hematuria;HTN; anemia; hyponatremia 01/11-01/18/2024. * Family History: F ather: 78 yrs, diagnosed with Heart Disease. M other: 87 yrs, diagnosed with Hypertension. P aternal Grand Father: . P aternal Grand Mother: . Maternal Grand Father: . M atemiri Grand Mother: . 3 brother(s) . 3 [...] ouside [place]: no. * Medications: T aking dilTIAZem HCl ER 180 MG Tablet Extended Release 24 Hour 1 tablet Orally Once a day , Taking Catheters - Miscellaneous as directed , [...] tablet Orally Once a day , Taking Memantine HCl 10 MG Tablet [...] ml as needed Inhalation tid prn , Taking Regular Diet - - as directed , Notes to Pharmacist: mechanical soft; Ensure bid fortified foods, Taking Potassium Chloride ER 20 MEQ Tablet Extended Release 1 tablet with food Orally Twice a day , Taking EpiCeram - Emulsion as directed Externally bid and prn , Notes to Pharmacist: bid, Taking LORazepam 0.5 MG Tablet 1 tablet Orally every 6 hours as needed , Discontinued dilTIAZem HCl 90 MG Tablet 1 Orally bid , Medication List reviewed and reconciled with the patient * Allergies: C odeine. Objective: * Vitals: W t:130.2, Temp:98.3, BP: 169/75, 125/62, 128/66,116/69, HR:61, O2 Sat:100%, Nurse:reviewed/recorded by óscar, RR:17. * Examination: G eneral Examination: General Appearance: NAD; exam completed without awakeniing patient. H eart: RRR. L ungs: clear to auscultation bilaterally. A bdomen:? bowel sounds present, soft. N eurologic Exam: sleeping. E xtremities: no leg edema. Assessment: * Assessment: 1. A therosclerosis of [place] coronary artery without angina pectoris, unspecified whether [place] or transplanted heart - I25.10 (Primary) 2 [...] O bstructive uropathy - N13.9 1 2. A nxiety - F41.9 ? 1 3. C ough - R05.9 Plan: [...] Once a day; C ontinue dilTIAZem HCl ER Tablet Extended Release 24 Hour, 180 MG, 1 tablet, Orally, Once a day. 5. D epression Continue Sertraline HCl Tablet, [...] day, Notes to Pharmacist: qd with Radha bryant but paste; C ontinue Calcium Alginate Miscellaneous, -, as directed, Externally, Notes to Pharmacist: cleanse wound with NS and apply cream and cover with dry dsg qd. ? 9. O bstructive uropathy Continue Catheters Miscellaneous, -, as directed, Notes to Pharmacist: huitron cath with routine care. 10. A nxiety Continue LORazepam Tablet, 0.5 MG, 1 tablet, Orally, every 6 hours as needed. Notes: nurses state Ativan helps; if anxious is usually at night 11. C ough Continue Ipratropium-Albuterol Solution, 0.5-2.5 (3) MG/3ML, 3 ml as needed, Inhalation, tid prn.? 12. O thers Continue Regular Diet -, -, as directed, Notes to Pharmacist: mechanical soft; Ensure bid fortified foods; C ontinue Potassium Chloride ER Tablet Extended Release, 20 MEQ, 1 tablet with food, Orally, Twice a day. Notes: continue with comfort measures; continue with HOSPICE * Follow Up: 2 Months,and prn * Images: Billing Information: * Visit Code: 17569 subs. level 4. * Procedure Codes: * Electronic signature of Vivi Michelle APRN on 11/16/2024 at 07:11 PM EDT Sign off status: Pending * Provider: LISA Mario Date: 0 08/20/2024 Generated for Augustin mills/Alycia/Kahlil on: 0 11/16/2024 07:11 PM EDT History and Physical Notes * HPI (History of Present Illness) Category Sub-Category Detail Notes Category Not es HPI For routine [facility] visit; chart reviewed and patient examined; see ROS; pt to have a pinning ceremony by 08/22/2024; HOSPICE continues to be in attendance Examination Category Sub-Category Detail Notes Category Not es General Examination Heart: RRR Lungs: clear to auscultatio n bilaterally Abdomen: bowel sounds present , soft Extremities: no leg edema General Appearance: NAD; exam completed without awakeniing patient Neurologic Exam: sleeping
--- OUTSIDE RECORDS SUMMARY | 2024-09-17 20:00 | XMS_ITS | Encounter Summary ---
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 This section includes the names of all active insurance providers for the patient. Insurance Provider Type of Coverage Plan Name Start of Policy Coverage End of Policy Coverage Group Number Member ID Insurance Provider's Telephone Number Policy Dong's Name Patient's Relationship to Policy Dong [place] F Mar 31, 2016 [id number] KINA BERMANES PATIENT MEDICARE (WNR) MEDICARE (M) PART B Mar 01, 2008 PART B [id number] KINA BERMAN RLES PATIENT MEDICARE (WNR) MEDICARE (M) PART B Mar 01, 2008 PART B [id number] KINA BERMAN RLES PATIENT MEDICARE (WNR) MEDICARE (M) PART A Dec 31, 2003 PART A [id number] KINA BERMAN RLES PATIENT MEDICARE (WNR) MEDICARE (M) PART A Dec 31, 2003 PART A [id number] BERMAN,KINA RLES PATIENT MEDICARE PART D (WNR) MEDICARE (M) PART D May 01, 2017 PART D [id number] KINA BERMAN PATIENT Selected Encounter This section includes the information on record at ID for the Encounter. Date/Time Encounter Type Encounter Description Reason Pro vider Source September 18, 2024 12:00 AM Outpatient Encounter EVENT (HISTORICAL) IHE Encounter Template Text not used by ID Social History: Smoking Status (Most current) and Tobacco Use (All prior to encounter date) This section includes the most current, and the historical, smoking and tobacco- related health factors from the ID facility where the Encounter took place. Current Smoking Status This section includes the most current smoking, or tobacco-related health factor, from the ID facility where the Encounter took place. Date/Time Current Smoking Status Comment Kalyan ity Oct 28, 2020 10:00 AM VA-TOBACCO FORMER USER [facility] Tobacco Use History This section includes a history of the smoking, or tobacco-related health factors, that were collected on or before the date of the Encounter. The data comes from the ID facility where the Encounter took place. Date/Time Smoking Status/Tobacco Use Comment F acility Oct 28, 2020 10:00 AM VA-TOBACCO QUIT 15 YRS OR MORE [facility] Oct 18, 2019 03:20 PM VA-TOBACCO FORMER USER [facility] Oct 18, 2019 03:20 PM VA-TOBACCO QUIT 15 YRS OR MORE [facility] Jul 10, 2018 10:30 AM VA-TOBACCO FORMER USER [facility] Jul 10, 2018 10:30 AM VA-TOBACCO QUIT 15 YRS OR MORE [facility] Jul 12, 2017 09:15 AM V9 QUIT TOBACCO >7 YEARS AGO [facility] Jul 12, 2016 08:59 AM V9 QUIT TOBACCO >7 YEARS AGO [facility] Jul 13, 2015 09:02 AM V9 QUIT TOBACCO >7 YEARS AGO [facility] May 14, 2014 07:26 AM V9 QUIT TOBACCO >7 YEARS AGO [facility] May 14, 2014 07:26 AM V9 TOBACCO OFFERED [facility] May 31, 2013 01:36 PM V9 QUIT TOBACCO >[facility] May 17, 2012 11:34 AM V9 QUIT TOBACCO >7 YEARS AGO [facility]
--- OUTSIDE RECORDS SUMMARY | 2024-09-18 06:37 | XMS_ITS | Continuity of Care Document ---
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 It does not include entries that were removed or entered in error. 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) Active Condition [facility] Elevated PSA Active Condition [facility] Gastroesophageal reflux disease (SNOMED CT 688784429) Active Condition [facility] History of adenomatous polyp of colon Active Condition [facility] History of malignant neoplasm of larynx Active Condition [facility] Hyperlipidemia Active Condition [facility] Impotence of organic origin (ICD-9-CM 607.84) Active Condition [facility] Malignant tumor of larynx (SNOMED CT 707111199) Active Condition [facility] Diagnosis: ICD-10-CM H90.3 Sensorineural hearing loss, bilateral Active Diagnosis [facility] Medications Combined list of outpatient medications from [facility] and [facility] facilities.Medications provided include 1) outpatient medications from the last 15 months, and 2) patient-reported medications. Medication Details Route Status Patient Instructions Prescription Expires Prescription Number Last Dispense Date Ordering Provider Order Date Order Qty Source ASPIRIN 81MG TAB,EC TAKE ONE TABLET BY MOUTH DAILY ORAL ACTIVE BANG SCHULTE 2018 [facility] ESTEMORY [facility] CYCLOSPORIN E 0.05% (PF) EMULSION,OP H,0.4ML 1 DROP EYE(S) TWICE A DAY OPHTHA LMIC ACTIVE [facility] 2012 [place] [facility] FLUTICASONE PROPIONATE 50MCG/SPRAY SOLN,NASAL, 16GM USE 1 PUFF EACH NOSTRIL IN NOSE TWICE A DAY NASAL ACTIVE GAVINO,[facility] [place] [facility] FOLIC ACID 1MG TAB TAKE ONE TABLET BY MOUTH EVERY MORNING ORAL ACTIVE GAVINO,[facility] 2012 [place] [facility] LEVOTHYROXI NE NA 88MCG TAB (SYNTHROID) TAKE ONE TABLET BY MOUTH DAILY ORAL ACTIVE BANG SCHULTE IN [facility] 2015 [place] [facility] LOSARTAN 25MG TAB TAKE ONE TABLET BY MOUTH DAILY ORAL ACTIVE BANG SCHULTE IN [facility] 2018 [place] [facility] MULTIVITAMI NS W/MINERALS CAP/TAB TAKE ONE TABLET BY MOUTH DAILY ORAL ACTIVE GAVINO,[facility] 2012 [place] [facility] NITROGLYCER IN 2.5MG CAP,SA TAKE 1 CAPSULE BY MOUTH DIRECTED ORAL ACTIVE GAVINO,[facility] 2012 [place] [facility] OMEGA-3-ACI D ETHYL ESTERS 1000MG CAP,ORAL TAKE 2 CAPSULES BY MOUTH TWICE A DAY ORAL ACTIVE GAVINO,[facility] 2012 [place] [facility] OMEPRAZOLE 20MG CAP,EC TAKE 1 CAPSULE BY MOUTH DAILY ORAL ACTIVE GAVINO,[facility] 2012 [place] [facility] ROSUVASTATI N CA 40MG TAB TAKE ONE-HALF TABLET BY MOUTH AT BEDTIME ORAL ACTIVE GAVINO,[facility] [place] [facility] SILDENAFIL CITRATE 100MG TAB TAKE ONE TABLET BY MOUTH DIRECTED ORAL ACTIVE GAVINO,[facility] [address] [place] [facility] TAMSULOSIN HCL 0.4MG CAP TAKE 1 CAPSULE BY MOUTH DAILY ORAL ACTIVE [facility]AVINO,[facility] 2012 [place] [facility] Immunizations Combined list of available immunizations from the Department of Defense and Veterans Affairs facilities. Immunization Series Date Given Administered By Site Reaction Lot Number CVX Code Drug Superintendent Quarry Status Comments Source COVID-19 (MODERNA), MRNA, LNP-S, PF, 100 MCG/0.5 ML DOSE 2 2020 207 complet ed [place] [facility] COVID-19 (MODERNA), MRNA, LNP-S, PF, 100 MCG/0.5 ML DOSE 1 2020 207 complet ed [place] [facility] INFLUENZA, UNSPECIFIED FORMULATION 2019 88 complet ed [place] [facility] INFLUENZA, SEASONAL, INJECTABLE 2017 141 complet ed [place] [facility] INFLUENZA A & B (HISTORICAL) 2016 88 complet ed [place] [facility] INFLUENZA A & B (HISTORICAL) 2015 88 complet ed [place] [facility] [id number] (HISTORICAL) 2015 133 complet ed [place] [facility] INFLUENZA A & B (HISTORICAL) 2014 88 complet ed [place] [facility] INFLUENZA A & B (HISTORICAL) 2013 88 complet ed [place] [facility] INFLUENZA A & B (HISTORICAL) 2013 88 complet ed [place] [facility] PNEUMOCOCCAL, UNSPECIFIED FORMULATION 2012 109 complet ed [place] [facility] TD(ADULT) UNSPECIFIED FORMULATION 2012 NONE 139 complet ed Completed Series, TDAP given IM in left deltoid [id number] a exp 05/25/14 [place] [facility] TDAP (HISTORICAL) 2012 115 complet ed [place] [facility] INFLUENZA A & B (HISTORICAL) 2011 88 complet ed [place] [facility] Encounters Combined list of: 1) Encounters from Department of Veterans Affairs facilities going backup to the last 18 months, not all VA inpatient encounters are included; 2) Encounters from the Department of Defense facilities going backup to 280 months. Location Location Details Encounter Type Encounter Number Reason For Visit Attending Provider ADM Date DC Date Status Disposition Source [facility] HEARING AID EXAM BOTH EARS [id number] Diagnos is: ICD-10- CM H90.3 Sensori neural hearing loss, JOSE ANTONIO AdamsBRENT Burak 09/07 [place] [facility] Outpatient Encounter [id number] 09/19 [place] HEARING AID FITTING/CH ECKING [id number] Diagnos is: ICD-10- CM H90.3 Sensori neural hearing loss, JOSE ANTONIO Adams 10/03 [place] [facility] Outpatient Encounter [id number] 11/26 [place] Outpatient Encounter [id number] 09/18 [place] [facility] Outpatient Encounter [id number] 09/18 [place] [facility] Social History Combined list of available smoking, tobacco, and other social history from Department of Defense and [facility] Affairs facilities. Social History Type Response Date Comment Sourc e Tobacco smoking status NHIS VA-TOBACCO FORMER USER 10/28/2020 [facility] History of tobacco use [place]-TOBACCO QUIT 15 YRS OR MORE 10/28/2020 [facility] History of tobacco use [place]-TOBACCO QUIT 15 YRS OR MORE 10/18/2019 [facility] History of tobacco use VA-TOBACCO FORMER USER 07/10/2018 [facility] History of tobacco use V9 QUIT TOBACCO >7 YEARS AGO 07/12/2017 [facility] History of tobacco use V9 QUIT TOBACCO >7 YEARS AGO 07/12/2016 [facility] History of tobacco use V9 QUIT TOBACCO >7 YEARS AGO 07/13/2015 [facility] History of tobacco use V9 QUIT TOBACCO >7 YEARS AGO 05/14/2014 [facility] History of tobacco use V9 QUIT TOBACCO >7 YEARS AGO [facility] of tobacco use V9 QUIT TOBACCO >7 YEARS AGO [facility]17[facility]
--- OUTSIDE RECORDS SUMMARY | 2024-09-18 06:37 | XMS_ITS | Encounter Summary ---
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 Name Role Phone PENNIE SCHULTE Primary Care [...] PLAN F Mar 31, 2016 KYSUPWP [id number] KINA BERMANES PATIENT MEDICARE (WNR) MEDICARE (M) PART B Mar 01, 2008 PART B [id number] KINA BERMANES PATIENT MEDICARE (WNR) MEDICARE (M) PART B Mar 01, 2008 PART B [id number] KINA BERMANES PATIENT MEDICARE (WNR) MEDICARE (M) PART A Dec 31, 2003 PART A [id number] KINA BERMANES PATIENT MEDICARE (WNR) MEDICARE (M) PART A Dec 31, 2003 PART A [id number] BERMAN,KINA RLES PATIENT MEDICARE PART D (WNR) MEDICARE (M) PART D May 01, 2017 PART D [id number] KINA BERMAN PATIENT Selected Encounter This section includes the information on record at DC for the Encounter. Date/Time Encounter Type Encounter Description Reason Pro vider Source September 18, 2024 10:37 AM Outpatient Encounter TELEPHONE/MEDICINE IHE Encounter Template Text not used by VA Social History: Smoking Status (Most current) and Tobacco Use (All prior to encounter date) This section includes the most current, and the historical, smoking and tobacco- related health factors from the DC facility where the Encounter took place. Current Smoking Status This section includes the most current smoking, or tobacco-related health factor, from the DC facility where the Encounter took place. Date/Time Current Smoking Status Comment Facil ity Oct 28, 2020 10:00 AM VA-TOBACCO FORMER USER [facility] Tobacco Use History This section includes a history of the smoking, or tobacco-related health factors, that were collected on or before the date of the Encounter. The data comes from the DC facility where the Encounter took place. Date/Time Smoking Status/Tobacco Use Comment F acility Oct 28, 2020 10:00 AM VA-TOBACCO QUIT 15 YRS OR MORE [facility] Oct 18, 2019 03:20 PM VA-TOBACCO FORMER USER [facility] Oct 18, 2019 03:20 PM VA-TOBACCO QUIT 15 YRS OR MORE [facility] Jul 10, 2018 10:30 AM VA-TOBACCO FORMER USER [facility] Jul 10, 2018 10:30 AM VA-TOBACCO QUIT 15 YRS OR MORE [facility] Jul 12, 2017 09:15 AM V9 QUIT TOBACCO >7 YEARS AGO [facility] Jul 12, 2016 08:59 AM V9 QUIT TOBACCO >7 YEARS AGO [facility] Jul 13, 2015 09:02 AM V9 QUIT TOBACCO >7 YEARS AGO [facility] May 14, 2014 07:26 AM V9 QUIT TOBACCO >7 YEARS AGO [facility] May 14, 2014 07:26 AM V9 TOBACCO OFFERED [facility] May 31, 2013 01:36 PM V9 QUIT TOBACCO >7 YEARS AGO [facility] May 17, 2012 11:34 AM V9 QUIT TOBACCO >7 YEARS AGO [facility] Encounter Notes: All associated encounter notes This section contains the clinical notes associated to the Encounter. Date/Time Encounter Note(s) Provider Source September 18, 2024 10:37 AM ADMINISTRATIVE NOT E: LOCAL TITLE: [facility] ADMINISTRATIVE NOTE STANDARD TITLE: ADMINISTRATIVE NOTE DATE OF NOTE: SEPTEMBER 18, 2024@10:37 ENTRY DATE: SEPTEMBER 18, 2024@10:37:15 AUTHOR: NICHELLE POLANCO COSIGNER: URGENCY: STATUS: COMPLETED Toxic Exposure Screening: Attempts to contact /caregiver to perform BETTE: Contact type attempted: Telephone, unable to leave message - number listed in CPRS is no longer in service on this day. /justine/ ESTEFANI Haque, DOMENICAS HUEYN 9 [facility] Physician Acid Maker Signed: 09/18/2024 10:37 NICHELLE POLANCO-[facility]
--- OUTSIDE RECORDS SUMMARY | 2024-10-22 12:15 | XMS_ITS ---
Author Organization [facility] Address [address] [facility] [address] [phone] Care Team Providers Care Librarian Head Name Role Phone Joelle Pisano Primary Care Provider Soledad Michelle Unavailable [phone] Allergies Allergen (clinical drug ingredient) Drug/Non Drug Allergy documented on EMR Reaction Allergy Type Onset Date Status codeine Codeine Unknown Drug Allergy Active REASON FOR VISIT [facility] VISIT Medications Medication SIG (Take, Route, Frequency, Duration) Notes Start Date End Date Status Tamsulosin HCl 0.4 mg TAKE ONE CAPSULE BY MOUTH EVERY DAY Active Synthroid 88 MCG 1 tab(s) orally once a day Active Potassium Chloride ER 20 MEQ 1 tablet with food Orally daily Active EpiCeram - as directed Externally bid and prn butt crem bid Active Ensure - 180ml Orally twice a day Active Bisoprolol Fumarate 5 MG 1 tablet Orally Once a day Active Ipratropium-Albuterol 0.5-2.5 (3) MG/3ML 3 ml as needed Inhalation tid prn Active dilTIAZem HCl ER 180 MG 1 tablet Orally Once a day Active Calcium Alginate - as directed Externally cleanse wound with NS and apply cream and cover with dry dsg qd Active Memantine HCl 10 MG 1 tablet Orally Two times a day Active Sertraline HCl 50 MG 1 tab(s) Orally once a day Active HYDROcodone-Acetaminop hen 10-325 MG 1 tablet as needed Orally every 4 hrs As needed Active Donepezil HCl 10 MG TAKE ONE TABLET BY MOUTH EVERY DAY AT BEDTIME Orally at HS Active Acetaminophen 500 MG 1 capsule as needed Orally every 6 hrs prn Active Catheters - as directed huitron cath with routine care Active Regular Diet - as directed mechanical soft; Ensure bid fortified foods Active Vital Signs Blood pressure systolic 109 mm Hg 10/23/19 25 Blood pressure diastolic 69 mm Hg 025 Heart Rate 65 /min 10/22/2024 Respiratory Rate 18 /min 10/22/2024 Weight 145.3 lbs 10/22/2024 Encounters Encounter Location Date Provider Diagnosis Jorge Malagon [address] [place] [address] [address] [place] [phone] 10/22/2024 Soledad Michelle HTN (hypertension) I 10 ; Acquired hypothyroidism E03.9 ; BPH (benign prostatic hyperplasia) N40.0 ; MCI (mild cognitive impairment) with memory loss G31.84 ; Atherosclerosis of ute coronary artery without angina pectoris, unspecified whether ute or transplanted heart I25.10 ; Cardiomyopathy, unspecified type I42.9 ; Depression 311 ; 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 ; Memory loss R41.3 ; Bladder outlet obstruction N32.0 ; Wound of sacral region, subsequent encounter S31.000D ; Obstructive uropathy N13.9 ; Anxiety F41.9 and Cough R05.9 Assessments Encounter Date Diagnosis (ICD Code) Assessment Notes Treatment Notes Treatment Clinical Notes Section Notes 10/22/2024 HTN (hypertension) (ICD-10 - I10) 10/22/2024 Acquired hypothyroidism (ICD-10 - E03.9) 10/22/2024 BPH (benign prostatic hyperplasia) (ICD-10 - N40.0) 10/22/2024 MCI (mild cognitive impairment) with memory loss (ICD-10 - G31.84) 10/22/2024 Atherosclerosis of ute coronary artery without angina pectoris, unspecified whether ute or transplanted heart (ICD-10 - I25.10) 10/22/2024 Cardiomyopathy, unspecified type (ICD-10 - I42.9) 10/22/2024 Depression (ICD-10 - 311) 10/22/2024 Other osteoarthritis involving multiple joints (ICD-10 - M15.8) 10/22/2024 Memory loss (ICD-10 - R41.3) 10/22/2024 Bladder outlet obstruction (ICD-10 - N32.0) 10/22/2024 Wound of sacral region, subsequent encounter (ICD-10 - S31.000D) To cleanse with NS or wound still cleaner qd with application of calcium alginate with silver and cover with 1/2 ABD and Island dressing; Prostat 30 cc qd 10/22/2024 Obstructive uropathy (ICD-10 - N13.9) 10/22/2024 Anxiety (ICD-10 - F41.9) nurses state Ativan helps; if anxious is usually at night 10/22/2024 Cough (ICD-10 - R05.9) 10/22/2024 Other pt currently not on anxiety med ; continue with HOSPICE care and comfort measures Plan Of Treatment Medication Medication Name Sig Start Date Stop Date Notes Tamsulosin HCl 0.4 mg TAKE ONE CAPSULE B Y MOUTH EVERY DAY Synthroid 88 MCG 1 tab(s) orally once a day Potassium Chloride ER 20 MEQ 1 tablet with food Orally daily EpiCeram - as directed External ly bid and prn butt crem bid Bisoprolol Fumarate 5 MG 1 tablet Orally Once a day LORazepam 0.5 MG 1 tablet Orally ever y 6 hours as needed Ipratropium-Albuterol 0.5-2.5 (3) MG/3ML 3 ml as needed Inhalation tid prn dilTIAZem HCl ER 180 MG 1 tablet Orally Once a day Calcium Alginate - as directed Externally cleanse wound with NS and apply cream and cover with dry dsg qd Santyl 250 UNIT/GM 1 application Externally Once a day qd with Radha shipley but paste Memantine HCl 10 MG 1 tablet Orally Two times a day Sertraline HCl 50 MG 1 tab(s) Orally onc e a day HYDROcodone-Acetaminop hen 10-325 MG 1 tablet as needed Orally every 4 hrs Donepezil HCl 10 MG TAKE ONE TABLET BY MOUTH EVERY DAY AT BEDTIME Orally at HS Catheters - as directed huitron cath w ith routine care Treatment Notes Assessment Notes Wound of sacral region, subs equent encounter To cleanse with NS or wound still cleaner qd w ith application of calcium alginate with silver and cover with 1/2 ABD and Island dressing; Prostat 30 cc qd Anxiety nurses state Ativan helps; if anxious is usually at night Other pt currently not on anxiety med ; continue with HOSPICE care and comfort measures Next Appt Details Follow Up: 2 Months,and prn, Reason: Progress Notes * ESTHER BERMAN:1940 (84 yo M)Acc No.[id number]:10/22/2024 Progress Notes Patient: GIL GLOVER Provider: LISA Mario :1940 A ge:84 Y S ex:Male Date:10/22/2024 Address: [address] , [place], [id number] Pcp:Joelle Pisano Subjective: * Chief Complaints: * 1 . [facility] VISIT. * HPI: H PI: f For routine Custodial visit; chart reviewed and patient examined; see ROS; ROJELIO continues in attendance. * ROS: R ESPIRATORY: no S hortness of breath. n o C hest pain. n o?Chest congestion. n o C ough. C ARDIOLOGY: no C hest pain. n o S hortness of breath. ? D ERMATOLOGY: wound s acral wound continues with slow healing; left wound heel is healed;right heel wound with small scab. G ASTROENTEROLOGY: Positive for a s per nursing: continues to not eat much; does drink supplements. n o V omiting. n o D iarrhea. M USCULOSKELETAL: Positive for d oes not get OOB; does not want to get OOB.? U ROLOGY: Positive for c ontinues with huitron cath for urinary retention and wound healing. * Medical History: H yperlipidemia, Hypertension, Esophageal [...] Percutaneous coronary intervention, stent x 3 at [facility] September 2022, Cephalomedullary proimal femoral nailing/ Dr. [...] ouside US: no. * Medications: T aking Ensure - Liquid 180ml Orally twice a day , Taking Catheters - Miscellaneous as directed , Notes to Pharmacist: huitron cath with routine care, Taking Sertraline HCl 50 MG Tablet 1 tab(s) Orally once a day , Taking Synthroid 88 MCG Tablet 1 tab(s) orally once a day , Taking Tamsulosin HCl 0.4 mg Capsule TAKE ONE CAPSULE BY MOUTH EVERY DAY , Taking Memantine HCl 10 MG Tablet 1 tablet Orally Two times a day , Taking Donepezil HCl 10 MG Tablet TAKE ONE TABLET BY MOUTH EVERY DAY AT BEDTIME Orally at HS , Taking Acetaminophen 500 MG Capsule 1 capsule as needed Orally every 6 hrs prn , Taking HYDROcodone-Acetaminophen 10-325 MG Tablet 1 tablet as needed Orally every 4 hrs As needed, Taking Calcium Alginate - Miscellaneous cleanse wound and then apply Externally daily , Notes to Pharmacist: cleanse wound with NS and apply cream and cover with dry dsg qd, Taking Bisoprolol Fumarate 5 MG Tablet 1 tablet Orally Once a day , Taking dilTIAZem HCl ER 180 MG Tablet Extended Release 24 Hour 1 tablet Orally Once a day , Taking Ipratropium-Albuterol 0.5-2.5 (3) MG/3ML Solution 3 ml as needed Inhalation tid prn , Taking Regular Diet - - as directed , Notes to Pharmacist: mechanical soft; Ensure bid fortified foods, Taking Potassium Chloride ER 20 MEQ Tablet Extended Release 1 tablet with food Orally daily , Taking EpiCeram - Emulsion as directed Externally bid and prn , Notes to Pharmacist: butt crem bid, Discontinued Santyl 250 UNIT/GM Ointment 1 application Externally Once a day , Notes to Pharmacist: qd with Radha hobbs paste, Discontinued LORazepam 0.5 MG Tablet 1 tablet Orally every 6 hours as needed * Allergies: C odeine. Objective: * Vitals: W t: 145.3, Temp: 97.7, BP: 109/69, HR: 65, O2 Sat: 96%, Nurse: reviewed/recorded by guy, RR: 18. * P ast Orders: L ab:CMP (Order Date - 08/29/2024) (Collection Date & Time - 08/28/2024) Value Reference Range CALCIUM 9.3 glucose 101 bun/creat 30/1.2 sodium 132 potassium 4.8 chloride 98 CO2 26 SGOT 16 SGPT 12 alk phos 104 Total Protein 6 Albumin 3.1 total bili 0.17 L ab:UA (Order Date - 09/16/2024) (Collection Date & Time - 09/15/2024 03:58 PM) Result: Abnormal, Culture Pending * Examination: G eneral Examination: General Appearance: S leeping initially; awakens easily; NAD. H eart: R RR. L ungs: C TAB A&P. A bdomen: b owel sounds present, soft and nontender. N eurologic Exam: a lert. E xtremities: n o leg edema. ? Assessment: * Assessment: 1. A therosclerosis of ute coronary artery without angina pectoris, unspecified whether ute or transplanted heart - I25.10 (Primary) 2 . H TN (hypertension) - I10 ? 3 . A cquired hypothyroidism - E03.9 4 . B PH (benign prostatic hyperplasia) - N40.0 5 . M CI (mild cognitive impairment) with memory loss - G31.84 6 . C ardiomyopathy, unspecified type - I42.9 7 . D epression - 311 8 . O ther osteoarthritis involving multiple joints - M15.8 9 . M pauline loss - R41.3 1 0. B ladder outlet obstruction - N32.0 1 1. W ound of sacral region, subsequent encounter - S31.000D 1 2.?Obstructive uropathy - N13.9 1 3. A nxiety - F41.9 1 4. C ough - R05.9 Plan: * Treatment: 2. B PH (benign prostatic hyperplasia) Continue Tamsulosin HCl Capsule, 0.4 mg, TAKE ONE CAPSULE BY MOUTH EVERY DAY. 3. C ardiomyopathy, unspecified type Continue Bisoprolol Fumarate Tablet, 5 MG, 1 tablet, Orally, Once a day; C ontinue dilTIAZem HCl ER Tablet Extended Release 24 Hour, 180 MG, 1 tablet, Orally, Once a day. 4. D epression Continue Sertraline HCl Tablet, 50 MG, 1 tab(s), Orally, once a day. 5. O ther osteoarthritis involving multiple joints Continue HYDROcodone-Acetaminophen Tablet, 10-325 MG, 1 tablet as needed, Orally, every 4 hrs As needed, Refills 0. 6. M pauline loss Continue Memantine HCl Tablet, 10 MG, 1 tablet, Orally, Two times a day; C ontinue Donepezil HCl Tablet, 10 MG, TAKE ONE TABLET BY MOUTH EVERY DAY AT BEDTIME, Orally, at HS. 7. W ound of sacral region, subsequent encounter Stop Santyl Ointment, 250 UNIT/GM, 1 application, Externally, Once a day, Notes to Pharmacist: qd with Radha hurtado but paste; C ontinue Calcium Alginate Miscellaneous, -, as directed, Externally, Notes to Pharmacist: cleanse wound with NS and apply cream and cover with dry dsg qd; C ontinue EpiCeram Emulsion, -, as directed, Externally, bid and prn, Notes to Pharmacist: butt crem bid.? Notes: To cleanse with NS or wound still cleaner qd with application of calcium alginate with silver and cover with 1/2 ABD and Island dressing; Prostat 30 cc qd 8. O bstructive uropathy Continue Catheters Miscellaneous, -, as directed, Notes to Pharmacist: huitron cath with routine care. 9. A nxiety Stop LORazepam Tablet, 0.5 MG, 1 tablet, Orally, every 6 hours as needed. Notes: nurses state Ativan helps; if anxious is usually at night 10. C ough Continue Ipratropium-Albuterol Solution, 0.5-2.5 (3) MG/3ML, 3 ml as needed, Inhalation, tid prn.? 11. O thers Continue Potassium Chloride ER Tablet Extended Release, 20 MEQ, 1 tablet with food, Orally, daily.? Notes: pt currently not on anxiety med ; continue with HOSPICE care and comfort measures * Follow Up: 2 Months,and prn * Images: Billing Information: * Visit Code: 02528 subs. level 4. * Procedure Codes: * Electronic signature of Vivi Michelle APRN on 11/16/2024 at 07:11 PM EDT Sign off status: Pending * Provider: LISA Mario Date: 0 10/22/2024 Generated for Augustin mills/Alycia/Kahlil on: 0 11/16/2024 07:11 PM EDT History and Physical Notes * Examination Category Sub-Category Detail Notes Category Not es General Examination Heart: RRR Lungs: CTAB A&P Abdomen: bowel sounds present , soft and nontender Extremities: no leg edema General Appearance: Sleeping initially; awakens easily; NAD Neurologic Exam: alert
--- NOTE | 2024-11-16 19:05 | HMH.EDGENADL ---
Discharge Plan Disposition Chief Complaint: Urogenital-Male Prescriptions Prescriptions: No Action aspirin 81 mg tablet,delayed release (DR/EC) 81 mg PO BID clopidogrel 75 mg tablet 75 mg PO DAILY Patient Comments: TAKE ONE TABLET BY MOUTH ONCE DAILY bisoprolol fumarate 5 mg tablet 5 mg PO DAILY Patient Comments: TAKE ONE TABLET BY MOUTH EVERY DAY levothyroxine 88 mcg tablet 88 mcg PO DAILY Patient Comments: TAKE ONE TABLET BY MOUTH EVERY DAY tamsulosin 0.4 mg capsule 0.4 mg PO HS Patient Comments: TAKE ONE CAPSULE BY MOUTH EVERY DAY omeprazole 20 mg capsule,delayed release(DR/EC) 20 mg PO DAILY Patient Comments: TAKE ONE CAPSULE BY MOUTH EVERY DAY rosuvastatin 20 mg tablet 20 mg PO HS Patient Comments: TAKE ONE TABLET BY MOUTH EVERY DAY AT BEDTIME memantine 10 mg tablet 10 mg PO BID Patient Comments: TAKE ONE TABLET BY MOUTH TWICE DAILY FOR memory loss ascorbic acid (vitamin C) 1,000 mg Tablet 1 g PO DAILY ipratropium-albuterol 0.5 mg-3 mg(2.5 mg base)/3 mL Solution For Nebulization 3 ml INHALATION TID donepezil 10 mg Tablet 10 mg PO HS potassium chloride 10 mEq Tablet Extended Release 20 meq PO BID acetaminophen 500 mg Tablet 500 mg PO Q6HP PRN (Reason: Mild Pain (Scale Score 1-4)) ferrous sulfate 325 mg (65 mg iron) Tablet 325 mg PO DAILY diltiazem HCl 90 mg capsule,extended release 12 hr 90 mg PO BID Patient Comments: TAKE ONE CAPSULE BY MOUTH TWICE DAILY sertraline 50 mg Tablet 50 mg PO DAILY loratadine 10 mg Tablet 10 mg PO DAILY coenzyme Q10 100 mg Capsule 100 mg PO DAILY Probiotic 10 billion cell Capsule 10,000 mmu cells PO DAILY mecobalamin (vitamin B12) 1,000 mcg Tablet,Chewable 1,000 mcg PO DAILY hydrocodone-acetaminophen 5-325 mg Tablet 1 tab PO Q8HP PRN (Reason: Moderate Pain (Scale Score 5-6)) Qty: 30 0RF Referrals Follow up/Referrals: Provider,Referral, MD [Primary Care Provider, Medical] - See instructions Instructions Patient Instructions: DI for Urinary Tract Infection (UTI), DI for Urinary Tract Infection in Children Print Language Print Language: Portuguese Discharge ED Provider: An Lam General Adult [facility] General Chief complaint: Urogenital-Male Stated complaint: Jorge Malagon was unsuccessful w/ huitron replacement Time Seen by Provider: 11/16/24 19:12 History of Present Illness HPI narrative: Patient is an 84-year-old gentleman who is currently in hospice care at a nursing facility who presented to the emergency department after his Huitron catheter was removed and I do not be able to be replaced. Is attempted to be replaced multiple times at the nursing facility and therefore was sent here to the emergency department. Family is at bedside and they state that patient has had the catheter multiple times. Patient was recently placed into a nursing facility after he fell and broke his hip in March. Patient has been at the nursing facility since that time. Patient has been having cognitive and physical decline over the last several weeks. At this time, they are not wishing to do any medical interventions to prolong his care given that he is currently in hospice. Related Data Home Medications ?Medication ?Instructions ?Recorded ?Confirmed aspirin 81 mg tablet,delayed 81 mg PO BID 05/20/24 05/20/24 release bisoprolol fumarate 5 mg tablet 5 mg PO DAILY 05/20/24 05/20/24 clopidogrel 75 mg tablet 75 mg PO DAILY 05/20/24 05/20/24 levothyroxine 88 mcg tablet 88 mcg PO DAILY 05/20/24 05/20/24 memantine 10 mg tablet 10 mg PO BID 05/20/24 05/20/24 omeprazole 20 mg capsule,delayed 20 mg PO DAILY 05/20/24 05/20/24 release rosuvastatin 20 mg tablet 20 mg PO HS 05/20/24 05/20/24 tamsulosin 0.4 mg capsule 0.4 mg PO 05/20/24 05/21/24 Lactobacillus acidophilus 10 10,000 mmu cells PO DAILY 05/21/24 05/21/24 billion cell capsule (Probiotic) acetaminophen 500 mg tablet 500 mg PO Q6HP PRN Mild Pain 05/21/24 05/21/24 (Scale Score 1-4) ascorbic acid (vitamin C) 1,000 mg 1 g PO DAILY 05/21/24 05/21/24 tablet coenzyme Q10 100 mg capsule 100 mg PO DAILY 05/21/24 05/21/24 diltiazem HCl 90 mg 90 mg PO BID 05/21/24 05/21/24 capsule,extended release 12 hr donepezil 10 mg tablet 10 mg PO HS 05/21/24 05/21/24 ferrous sulfate 325 mg (65 mg 325 mg PO DAILY 05/21/24 05/21/24 iron) tablet ipratropium 0.5 mg-albuterol 3 mg 3 ml inhalation TID 05/21/24 05/21/24 (2.5 mg base)/3 mL nebulization soln loratadine 10 mg tablet 10 mg PO DAILY 05/21/24 05/21/24 mecobalamin (vitamin B12) 1,000 1,000 mcg PO DAILY 05/21/24 05/21/24 mcg chewable tablet potassium chloride 10 mEq 20 meq PO BID 05/21/24 05/21/24 tablet,extended release sertraline 50 mg tablet 50 mg PO DAILY 05/21/24 05/21/24 Previous Rx's ?Medication ?Instructions ?Recorded hydrocodone 5 mg-acetaminophen 325 1 tab PO Q8HP PRN Moderate Pain 05/23/24 mg tablet (Scale Score 5-6) #30 tabs Allergies Allergy/AdvReac Type Severity Reaction Status Date / Time codeine (CODEINE) Allergy Mild NA-NAUSEA/V Verified 03/05/24 09:42 OMITING PFSH PFS Disclaimer: The information contained in this section may have been updated after the patient was seen, as this information can be updated by other users. Medical History (Updated 05/27/24 @ 00:00 by Background Daemon) Sepsis without septic shock History of cardiomyopathy Anemia Unable to walk Subtrochanteric fracture of right femur C. difficile colitis Ventricular tachycardia GERD (gastroesophageal reflux disease) BPH (benign prostatic hyperplasia) MCI (mild cognitive impairment) Renal insufficiency Tear of meniscus of knee Atypical angina Short-term memory loss Throat cancer Osteoarthritis of right knee Cardiomyopathy Cardiac pacemaker in situ Bradycardia Symptomatic bradycardia Status post placement of implantable loop recorder Dizziness Syncope HLD (hyperlipidemia) HHD (hypertensive heart disease) CAD (coronary artery disease) Surgical History (Updated 05/27/24 @ 00:00 by Background Daemon) History of hernia repair History of colonoscopy History of tonsillectomy AICD (automatic cardioverter/defibrillator) present H/O coronary artery bypass surgery Family History Other Coronary artery disease Hypertension Social History Smoking Status: Former smoker alcohol intake: never substance use type: denies use current occupational status: retired Travel in the last 8 weeks?: Inside the [place] household members: spouse housing: house current occupational exposures/hazards: No caffeine: Yes physical activity: walking frequency: 5-6 times per week duration: 45-60 minutes/day Have you lived/traveled outside [place] in past 30 days?: No Contact w/someone who lives/traveled outside [place] past 30 days?: No Exposure to someone with infectious disease in past 14 days?: No Do you have a fever (greater than 100.4 F or 38 C)?: No Have you tested positive for COVID-19?: No Exposed to someone with COVID-19 in past 14 days?: No Do you have a sore throat?: No Do you have a cough?: No Do you have any weakness?: No Do you have any diarrhea?: No Are you experiencing any unusual bleeding?: No Do you have any muscle aches/pain?: No Do you have any abdominal pain?: No Are you experiencing loss of taste or smell?: No Other Medical History Have you received the Flu Vaccine for this season: No Have you received the Pneumonia Vaccine: No ROS Obtained: Yes All systems reviewed & no additional complaints except as documented and Yes Systems reviewed as appropriate & no additional complaints except as documented Physical Exam General General appearance: alert and in no apparent distress Head Head exam: atraumatic, normocephalic and normal inspection Eye Eye exam: Present normal appearance, PERRL and EOMI; Absent scleral icterus ENT ENT exam: Present normal exam and normal external ear exam Neck Neck exam: Present normal inspection and full ROM Chest Chest inspection: Present normal inspection and symmetric chest wall rise Respiratory Respiratory exam: Present normal lung sounds bilaterally; Absent respiratory distress or wheezes Cardiovascular Cardiovascular exam: Present regular rate, normal rhythm and normal heart sounds Abdominal Exam Abdominal exam: Present soft and distention; Absent tenderness, guarding or rebound Extremities Exam Extremities exam: Present normal inspection and full ROM Back Exam Back exam: Present normal inspection and full ROM Neurological Exam Neurological exam: Present alert and oriented X3 Psychiatric Psychiatric exam: Present normal affect and normal mood Skin Skin exam: Present warm and dry Medical Decision Making Medical Records Screening: Per USPSTF and CDC recommendations, given the prevalence of disease in our region, it is our hospital?s policy to screen for HIV and viral Hepatitis for all patients aged 18 and over and those with ongoing risk factors. Lopez Inquiry Pt receiving controlled substance: No Vital Signs: 11/16/24 19:08 11/16/24 19:12 11/16/24 19:30 Temperature 97.9 F Temperature Source Oral Pulse Rate 59 L 59 L Pulse Rate [Right] 59 L Respiratory Rate 18 Blood Pressure 132/62 121/57 L Blood Pressure [Right Arm] 132/62 Blood Pressure Mean 85 86 Blood Pressure Mean [Right Arm] 85 02 Sat by Pulse Oximetry 95 95 96 Oxygen Delivery Method Room Air 11/16/24 20:01 Temperature Temperature Source Pulse Rate 61 Pulse Rate [Right] Respiratory Rate Blood Pressure 117/64 Blood Pressure [Right Arm] Blood Pressure Mean 81 Blood Pressure Mean [Right Arm] 02 Sat by Pulse Oximetry 96 Oxygen Delivery Method Lab Data Lab results reviewed: Yes I reviewed the patient's lab results. Lab Results 11/16/24 20:12: Urine Color Yellow, Urine Appearance Slightly cloudy, Urine pH 8.0, Ur Specific [place] 1.020, Urine Protein 2+ A, Urine Glucose (UA) Negative, Urine Ketones Negative, Urine Blood 2+ A, Urine Nitrate Negative, Urine Bilirubin Negative, Urine Urobilinogen 0.2, Ur Leukocyte Esterase 3+ A, Urine RBC 10-20, Urine WBC Tntc, Ur Squamous Epith Cells 3-5, Urine Bacteria 4+ Orders (Tests/Meds): ORDERS Category Date Time Status UA [Urinalysis and Microscopic] Stat Lab 11/16/24 20:12 Completed Urine Culture Stat Micro 11/16/24 20:12 Received Medical Decision Narrative: Patient is an 84-year-old gentleman who presented to the emergency department from his nursing facility after his Huitron catheter was removed and unable to be replaced. On arrival, patient was hemodynamically stable with unremarkable vital signs. Patient appeared tired but was interactive able to respond to questions. Differential includes but not limited to: Accidental removal of Huitron, urinary tract infection, urinary obstruction, electrolyte abnormalities, amongst others. Patient's Huitron catheter was able to be replaced in the emergency department with return of urine. No concern for urinary obstruction at this time. Urine was sent and looked grossly contaminated. I did discuss treating the patient's urinary tract infection with antibiotics and after long discussion with the patient's at bedside who is patient's medical power of cosmetology teacher, she wished to not do any antibiotics or other interventions to prolong his care. At this time, per their wishes, patient was not given antibiotics. At this time, patient was stable and appropriate for transfer back to his nursing facility. Critical Care Critical Care Time Critical Care Time: No
[2024-11-16 19:08] VITALS: BP 132/62; PULSE 59; O2SAT 95
--- OUTSIDE RECORDS SUMMARY | 2024-11-16 19:11 | XMS_ITS ---
Author Name Auto Generated, Auto Generated Organization [facility] ators Address [address] [place] [address] Phone [phone] Care Team Providers Care Machine Operator Packaging Name Role Phone Francine Bennett Unavailable [phone] Dave Medley Unavailable [phone] Krish Marina Unavailable [phone] Functional Status No Results Mental Status No Results Allergies and Intolerances Name Onset Date Reaction Severity codeine (Allergy) MonMay 28 15:01:00 EST 2024 Encounters Program Name Primary Diagnosis Admission Date/Time Dis charge Date/Time Home-based Hospice Hypertensive heart disease without heart failure MonMay 27 19:00:00 EST 2024 Medications Medication Directions Start Date End Date LORazepam 0.5 mg tablet 1 Tablet Oral IN N Every 6 Hours Indication: anxiety restlessness renew q 14 monNov 14 00:00:00 EDT 2024 Saline Solution 20 Milliliter Irriga te PRN Indication: irrigate f/c 20-30+ prn prn stopped up MonNov 14 00:00:00 EDT 2024 LORazepam 0.5 mg tablet 1 Tablet Oral IN N Every 6 Hours Indication: anxiety restlessness, renew 14 monOct 31 00:00:00 EDT 2024Nov 14 14:36:00 EDT 2024 LORazepam 0.5 mg tablet 1 Tablet Oral IN N Every 6 Hours Indication: anxiety, restlessness, reeval MonOct 08 00:00:00 EDT 2024Oct 31 12:51:00 EDT 2024 LORazepam 0.5 mg tablet 1 Tablet Oral IN N Every 6 Hours Indication: anxiety restlessness, MonSeptember 20 00:00:00 EDT 2024Oct 08 14:33:00 EDT 2024 cefdinir 300 mg capsule 1 Capsule Oral 2 Times Daily for 7 Days Indication: resp infection MonSeptember 16 00:00:00 EDT 2024September 22 23:59:00 EDT 2024 potassium chloride ER 20 mEq tablet,extended release 1 Tablet Oral 1 Time Daily Indication: potassium supplement MonAugust 29 00:00:00 EDT 2024 LORazepam 0.5 mg tablet 1 Tablet Oral IN N Every 6 Hours Indication: anxiety restlessness, renewed x 14 days then reeval MonAug 13 00:00:00 EDT 2024September 03 16:17:00 EDT 2024 dilTIAZem ER (XR/XT) 180 mg capsule,extended release 24 hr, controlled 1 Capsule Oral 1 Time Daily Indication: heart diseaseMonAug 21 00:00:00 EDT 2024 ipratropium 0.5 mg-albuteroL 3 mg (2.5 mg base)/3 mL nebulization soln 3 Milliliter Inhalation PRN 3 Times Daily Indication: soa / congestion MonJul 23 00:00:00 EDT 2024 LORazepam 0.5 mg tablet 1 Tablet Oral IN N Every 6 Hours for 14 Days Indication: anxiety restlessness, MonJul 16 00:00:00 EDT 2024Jul 29 23:59:00 EDT 2024 SeroqueL 25 mg tablet 1 Tablet Oral PRN Every 6 Hours Indication: restlessness MonJul 12 00:00:00 EDT 2024Jul 16 15:54:00 EDT 2024 Debord 10 mg-325 mg tablet 1 Tablet Oral PRN Every 4 Hours Indication: pain/soa MonJun 17 00:00:00 EST 2024 aspirin 81 mg tablet,delayed release 1 Tablet Oral 1 Time Daily Indication: heart MonJun 13 00:00:00 EST 2024Jun 19 15:48:00 EST 2024 acetaminophen 500 mg tablet 1 Tablet Oral PRN Every 6 Hours Indication: pain, fever no more 3000 mg in 24 hr period MonMay 28 00:00:00 EST 2024 ascorbic acid (vitamin C) 1,000 mg tablet 1 Tablet Oral 1 Time Daily Indication: supplement MonMay 28 00:00:00 EST 2024Jun 19 15:48:00 EST 2024 aspirin 81 mg tablet,delayed release 1 Tablet Oral 2 Times Daily Indication: heart disease MonMay 28 00:00:00 EST 2024 Madhuri Jun 13 21:00:00 EST 2024 bisoprolol fumarate 5 mg tablet 1 Tablet Oral 1 Time Daily Indication: hypertension hold if heart rate less 60, spb less 100 dbp less 60 MonMay 28 00:00:00 EST 2024 clopidogreL 75 mg tablet 1 Tablet Oral 1 Time Daily Indication: heart disease MonMay 28 00:00:00 EST 2024Jun 19 15:48:00 EST 2024 coenzyme Q10 100 mg capsule 1 Capsule Oral 1 Time Daily Indication: hyperlipidemia MonMay 28 00:00:00 EST 2024Jun 19 15:48:00 EST 2024 dilTIAZem ER 90 mg capsule,extended release 12 hr 1 Capsule Oral 2 Times Daily Indication: HTN Hold puse less 60, sbp less 100 dbp less 60 MonMay 28 00:00:00 EST 2024 donepeziL 10 mg tablet 1 Tablet Oral Aft er Meals Indication: memory oss MonMay 28 00:00:00 EST 2024 ferrous sulfate 325 mg (65 mg iron) tablet 1 Tablet Oral 1 Time Daily Indication: anemia MonMay 28 00:00:00 EST 2024Jun 19 15:48:00 EST 2024 levothyroxine 88 mcg tablet 1 Tablet Oral 1 Time Daily Indication: hypothyroidism MonMay 28 00:00:00 EST 2024 ipratropium 0.5 mg-albuteroL 3 mg (2.5 mg base)/3 mL nebulization soln 3 Milliliter Inhalation 3 Times Daily Indication: cough / congestion MonMay 28 00:00:00 EST 2024Aug 06 14:14:00 EDT 2024 loratadine 10 mg tablet 1 Tablet Oral 1 Time Daily Indication: allergies MonMay 28 00:00:00 EST 2024Jun 19 15:48:00 EST 2024 mecobalamin (vitamin B12) 1,000 mcg chewable tablet 1 Tablet Oral 1 Time Daily Indication: suplement MonMay 28 00:00:00 EST 2024Jun 19 15:48:00 EST 2024 memantine 10 mg tablet 1 Tablet Oral 2 T imes Daily Indication: memory loss MonMay 28 00:00:00 EST 2024 omeprazole 20 mg capsule,delayed release 1 Capsule Oral 1 Time Daily Indication: gerd MonMay 28 00:00:00 EST 2024Jun 19 15:48:00 EST 2024 potassium chloride ER 10 mEq tablet,extended release 1 Tablet Oral 2 Times Daily Indication: potassium supplement MonMay 28 00:00:00 EST 2024August 29 16:04:00 EDT 2024 Probiotic 10 billion cell capsule 1 Capsule Oral 1 Time Daily Indication: GI health MonMay 28 00:00:00 EST 2024Jun 19 15:48:00 EST 2024 rosuvastatin 20 mg tablet 1 Tablet Oral Hour Of Sleep Indication: hyperlipidemia MonMay 28 00:00:00 EST 2024Jun 19 15:48:00 EST 2024 sertraline 50 mg tablet 1 Tablet Oral 1 Time Daily Indication: mood/ depression MonMay 28 00:00:00 EST 2024 Flomax 0.4 mg capsule 1 Capsule Oral Pablo r Of Sleep Indication: prostrate disorder MonMay 28 00:00:00 EST 2024 Debord 5 mg-325 mg tablet 1 Tablet Oral P RN Every 8 Hours Indication: pain/soa MonMay 28 00:00:00 EST 2024Jun 17 17:39:00 EST 2024 lactulose 10 gram/15 mL oral solution 30 Milliliter Oral PRN 1 Time Daily Indication: constipation if no BM in 72 hrs MonMay 28 00:00:00 EST 2024 Milk of Magnesia 400 mg/5 mL oral suspension 30 Milliliter Oral PRN 1 Time Daily Indication: constipation if no results from lactulose within 24 hrs MonMay 28 00:00:00 EST 2024 bisacodyL 10 mg rectal suppository 1 Suppository Rectal PRN 1 Time Daily Indication: constipation if no results from MOM approx 12 hrs after given MonMay 28 00:00:00 EST 2024 Fleet Enema 19 gram-7 gram/118 mL 118 Milliliter Rectal PRN 1 Time Daily Indication: constipation if no results from sp, in approx 2 hrs MonMay 28 00:00:00 EST 2024 SantyL 250 unit/gram topical ointment 1 Application Topical 1 Time Daily Indication: apply to coccyx area necrotic daily and prn MonMay 28 00:00:00 EST 2024Jul 16 15:55:00 EDT 2024 Problems No Known Problems Social History Social History Observation Description Date Smoking Status Former smoker MonMay 27 00:00 :00 EST 2024 Sex Male MonJan 06 00:00 :00 EDT 193 Vital Signs Vital Sign Measurement Date Systolic blood pressure 122 mm[Hg] MonSeptember 24 05:20:00 EDT 2024 Diastolic blood pressure 60 mm[Hg] MonSeptember 24 05:20:00 EDT 2024 Respiratory rate 20 /min MonSeptember 24 05:2 0:00 EDT 2024 Heart rate 72 /min MonSeptember 24 05:20 :00 EDT 2024 Systolic blood pressure 124 mm[Hg] MonJul 12 06:12:00 EDT 2024 Diastolic blood pressure 72 mm[Hg] MonJul 12 06:12:00 EDT 2024 Respiratory rate 22 /min MonJul 12 06:1 2:00 EDT 2024 Heart rate 82 /min MonJul 12 06:12 :00 EDT 2024 Systolic blood pressure 118 mm[Hg] MonAug 27 05:21:00 EDT 2024 Diastolic blood pressure 62 mm[Hg] MonAug 27 05:21:00 EDT 2024 Respiratory rate 20 /min MonAug 27 05:2 1:00 EDT 2024 Heart rate 72 /min MonAug 27 05:21 :00 EDT 2024 Systolic blood pressure 108 mm[Hg] MonJun 11 03:01:00 EST 2024 Diastolic blood pressure 60 mm[Hg] MonJun 11 03:01:00 EST 2024 Respiratory rate 20 /min MonJun 11 03:0 1:00 EST 2024 Heart rate 72 /min MonJun 11 03:01 :00 EST 2024 Systolic blood pressure 118 mm[Hg] MonJul 30 04:51:00 EDT 2024 Diastolic blood pressure 64 mm[Hg] MonJul 30 04:51:00 EDT 2024 Respiratory rate 18 /min MonJul 30 04:5 1:00 EDT 2024 Heart rate 68 /min MonJul 30 04:51 :00 EDT 2024 Body weight 143.4 [lb_av] MonSeptember 03 06:35 :00 EDT 2024 Systolic blood pressure 122 mm[Hg] MonSeptember 03 06:35:00 EDT 2024 Diastolic blood pressure 70 mm[Hg] MonSeptember 03 06:35:00 EDT 2024 Respiratory rate 20 /min MonSeptember 03 06:3 5:00 EDT 2024 Heart rate 76 /min MonSeptember 03 06:35 :00 EDT 2024 Systolic blood pressure 132 mm[Hg] MonOct 17 05:27:00 EDT 2024 Diastolic blood pressure 72 mm[Hg] MonOct 17 05:27:00 EDT 2024 Respiratory rate 20 /min MonOct 17 05:2 7:00 EDT 2024 Heart rate 60 /min MonOct 17 05:27 :00 EDT 2024 Body weight 148.3 [lb_av] MonJun 04 06:45 :00 EST 2024 Systolic blood pressure 122 mm[Hg] MonJun 04 06:45:00 EST 2024 Diastolic blood pressure 60 mm[Hg] MonJun 04 06:45:00 EST 2024 Respiratory rate 20 /min MonJun 04 06:4 5:00 EST 2024 Heart rate 68 /min MonJun 04 06:45 :00 EST 2024 Systolic blood pressure 108 mm[Hg] MonAug 13 04:50:00 EDT 2024 Diastolic blood pressure 60 mm[Hg] MonAug 13 04:50:00 EDT 2024 Respiratory rate 20 /min MonAug 13 04:5 0:00 EDT 2024 Heart rate 72 /min MonAug 13 04:50 :00 EDT 2024 Systolic blood pressure 118 mm[Hg] MonAug 20 05:05:00 EDT 2024 Diastolic blood pressure 68 mm[Hg] MonAug 20 05:05:00 EDT 2024 Respiratory rate 20 /min MonAug 20 05:0 5:00 EDT 2024 Heart rate 72 /min MonAug 20 05:05 :00 EDT 2024 Systolic blood pressure 132 mm[Hg] MonNov 14 03:50:00 EDT 2024 Diastolic blood pressure 80 mm[Hg] MonNov 14 03:50:00 EDT 2024 Respiratory rate 20 /min MonNov 14 03:5 0:00 EDT 2024 Heart rate 72 /min MonNov 14 03:50 :00 EDT 2024 Systolic blood pressure 108 mm[Hg] MonJun 25 03:55:00 EST 2024 Diastolic blood pressure 52 mm[Hg] MonJun 25 03:55:00 EST 2024 Respiratory rate 20 /min MonJun 25 03:5 5:00 EST 2024 Heart rate 72 /min MonJun 25 03:55 :00 EST 2024 Systolic blood pressure 108 mm[Hg] MonJul 09 05:24:00 EDT 2024 Diastolic blood pressure 58 mm[Hg] MonJul 09 05:24:00 EDT 5 Respiratory rate 16 /min MonJul 09 05:2 4:00 EDT 2024 Heart rate 76 /min MonJul 09 05:24 :00 EDT 5 Systolic blood pressure 128 mm[Hg] MonJun 18 02:45:00 EST 2024 Diastolic blood pressure 60 mm[Hg] MonJun 18 02:45:00 EST 2024 Respiratory rate 20 /min MonJun 18 02:4 5:00 EST 2024 Heart rate 76 /min MonJun 18 02:45 :00 EST 2024 Systolic blood pressure 128 mm[Hg] MonSeptember 17 05:00:00 EDT 2024 Diastolic blood pressure 62 mm[Hg] MonSeptember 17 05:00:00 EDT 2024 Respiratory rate 20 /min MonSeptember 17 05:0 0:00 EDT 2024 Heart rate 72 /min MonSeptember 17 05:00 :00 EDT 2024 Systolic blood pressure 126 mm[Hg] MonOct 01 03:58:00 EDT 2024 Diastolic blood pressure 68 mm[Hg] MonOct 01 03:58:00 EDT 2024 Respiratory rate 18 /min MonOct 01 03:5 8:00 EDT 2024 Heart rate 76 /min MonOct 01 03:58 :00 EDT 2024 Systolic blood pressure 122 mm[Hg] MonAug 06 04:00:00 EDT 2024 Diastolic blood pressure 60 mm[Hg] MonAug 06 04:00:00 EDT 2024 Respiratory rate 20 /min MonAug 06 04:0 0:00 EDT 2024 Heart rate 72 /min MonAug 06 04:00 :00 EDT 2024 Body weight 161.6 [lb_av] MonMay 28 05:00 :00 EST 2024 Systolic blood pressure 132 mm[Hg] MonMay 28 05:00:00 EST 2024 Diastolic blood pressure 60 mm[Hg] MonMay 28 05:00:00 EST 2024 Respiratory rate 20 /min MonMay 28 05:0 0:00 EST 2024 Heart rate 72 /min MonMay 28 05:00 :00 EST 2024 Respiratory rate 20 /min MonOct 03 03:5 3:00 EDT 2024 Body weight 145.3 [lb_av] MonOct 08 03:45 :00 EDT 2024 Systolic blood pressure 112 mm[Hg] MonOct 08 03:45:00 EDT 2024 Diastolic blood pressure 70 mm[Hg] MonOct 08 03:45:00 EDT 2024 Respiratory rate 20 /min MonOct 08 03:4 5:00 EDT 2024 Heart rate 72 /min MonOct 08 03:45 :00 EDT 2024 Body weight 138.4 [lb_av] MonNov 05 03:15 :00 EDT 2024 Systolic blood pressure 104 mm[Hg] MonNov 05 03:15:00 EDT 2024 Diastolic blood pressure 64 mm[Hg] MonNov 05 03:15:00 EDT 2024 Respiratory rate 20 /min MonNov 05 03:1 5:00 EDT 2024 Heart rate 72 /min MonNov 05 03:15 :00 EDT 2024 Systolic blood pressure 112 mm[Hg] MonJul 02 05:25:00 EST 2024 Diastolic blood pressure 52 mm[Hg] MonJul 02 05:25:00 EST 2024 Respiratory rate 20 /min MonJul 02 05:2 5:00 EST 2024 Heart rate 72 /min MonJul 02 05:25 :00 EST 2024 Systolic blood pressure 102 mm[Hg] MonOct 29 03:50:00 EDT 2024 Diastolic blood pressure 60 mm[Hg] MonOct 29 03:50:00 EDT 2024 Respiratory rate 20 /min MonOct 29 03:5 0:00 EDT 2024 Heart rate 72 /min MonOct 29 03:50 :00 EDT 2024 Systolic blood pressure 110 mm[Hg] MonOct 22 04:32:00 EDT 2024 Diastolic blood pressure 68 mm[Hg] MonOct 22 04:32:00 EDT 2024 Respiratory rate 18 /min MonOct 22 04:3 2:00 EDT 2024 Heart rate 66 /min MonOct 22 04:32 :00 EDT 2024 Systolic blood pressure 110 mm[Hg] MonJul 16 04:55:00 EDT 2025 Respiratory rate 20 /min MonJul 16 04:5 5:00 EDT 2024 Heart rate 76 /min MonJul 16 04:55 :00 EDT 2024 Diastolic blood pressure mm[Hg] MonJul 16 04:55:00 EDT 2024 Systolic blood pressure 102 mm[Hg] MonOct 24 04:30:00 EDT 2024 Diastolic blood pressure 52 mm[Hg] MonOct 24 04:30:00 EDT 2024 Respiratory rate 20 /min MonOct 24 04:3 0:00 EDT 2024 Heart rate 72 /min MonOct 24 04:30 :00 EDT 2024 Systolic blood pressure 122 mm[Hg] MonJul 23 05:16:00 EDT 2024 Diastolic blood pressure 60 mm[Hg] MonJul 23 05:16:00 EDT 2024 Respiratory rate 20 /min MonJul 23 05:1 6:00 EDT 2024 Heart rate 72 /min MonJul 23 05:16 :00 EDT 2024 Systolic blood pressure 112 mm[Hg] MonSeptember 10 05:30:00 EDT 2024 Diastolic blood pressure 76 mm[Hg] MonSeptember 10 05:30:00 EDT 2024 Respiratory rate 20 /min MonSeptember 10 05:3 0:00 EDT 2024 Heart rate 72 /min MonSeptember 10 05:30 :00 EDT 2024 Reason for Referral
[2024-11-16 19:12] VITALS: BP 132/62; PULSE 59; RESP 18; TEMP 36.6; O2SAT 95; BMI 17.7
--- OUTSIDE RECORDS SUMMARY | 2024-11-16 19:12 | XMS_ITS | Clinical Summary ---
Author Organization [facility] Address [address] [place] [address] Phone Care Team Providers Care Production Supervisor Trainee Name Role Phone Unavailable Primary Care Provider Unavailabl e Allergies No known active allergies Medications sertraline (ZOLOFT) 25 mg Oral Tablet Take 25 mg by mouth daily. Active Donepezil (ARICEPT) 23 mg Oral Tablet Take 25 mg by mouth nightly. Active tamsulosin (FLOMAX) 0.4 mg Oral Capsule Take 0.4 mg by mouth daily. Active rosuvastatin (CRESTOR) 20 mg Oral Tablet Take 20 mg by mouth daily. Active Omeprazole 20 mg Oral Tablet, Delayed Release (E.C.) Take 20 mg by mouth. Active fish oil OTC (OMEGA-3 DHA-EPA 300 MG) 300-1,000 mg Oral Capsule, Delayed Release(E.C.) Take by mouth daily. Active memantine (NAMENDA) 10 mg Oral Tablet Take 10 mg by mouth 2 times daily. Active LEVOthyroxine (SYNTHROID) 88 mcg Oral Tablet Take 88 mcg by mouth daily. Active fluticasone propionate (FLONASE) 50 mcg/actuation Nasl Clare, Suspension by Nasal route 2 times daily. Active dilTIAZem 60 mg Oral Capsule, Sust. Release 12 hr Take 180 mg by mouth 2 times daily. Active Coenzyme Q10 100 mg Oral Capsule Take 100 mg by mouth. Active clopidogreL (PLAVIX) 75 mg Oral Tablet Take 75 mg by mouth daily. Active metoprolol succinate (TOPROL-XL) 25 mg Oral Tablet Sustained Release 24 hr Take 5 mg by mouth daily. Reported 5 mg Active aspirin 81 mg Oral Tablet, Delayed Release (E.C.) Take 81 mg by mouth daily. Active Surgical History Surgery Date Site/Laterality Comments CARDIAC SURGERY Social History Tobacco Use Types Packs/Day Years Used Date Smoking Tobacco: Former Cigarettes Tobacco Cessation:Counseling Given: Not Answered Alcohol Use Standard Drinks/Week Comments Yes 0 (1 standard drink = 0.6 oz pur e alcohol) Sex and Gender Information Value Date Recorded Sex Assigned at Not on file Legal Sex Male 3:11 PM EST Gender Identity Not on file Sexual Orientation Not on file Obstetrics History Last Filed Vital Signs Vital Sign Reading Time Taken Comments Blood Pressure 126/54 05/01/2023 4:00 PM EST Pulse 60 05/01/2023 4:23 PM EST Temperature 36.5 C (97.7 F) 05/01/2023 3:18 PM EST Respiratory Rate 14 05/01/2023 4:23 PM EST Oxygen Saturation 92% 05/01/2023 4:23 PM EST Inhaled Oxygen Concentration - - Weight 83.9 kg (185 lb) 05/01/2023 3:19 PM EST Height 180.3 cm (5' 11 ) 05/01/2023 3:19 PM EST Body Mass Index 25.8 05/01/2023 3:19 PM EST Plan of Treatment Health Maintenance Due Date Last Done Comments Wellness Exam Medicare 1943 Zoster (1 of 2) 1989 RSV or 60+ (1 - 1-dose 75+ series) 2014 Pneumococcal Vaccine 50+ (2 of 2 - PCV20 or PCV21) 07/12/2016 07/13/2015 DTaP/TDaP/Td (3 - Td or Tdap) 05/17/2022 05/17/2012, 05/13/2012 COVID-19 Vaccine ( season) 2023 01/20/2021, 06/03/2020, 05/06/2020 Influenza Vaccine (#1) 2024 3, 02/01/2021, 01/20/2020, Additional history exists Hepatitis B Vaccine Aged Out No longe r eligible based on patient's age to complete this topic Meningococcal B Vaccine Aged Out No l onger eligible based on patient's age to complete this topic Insurance MEDICARE [place] PART A [place] B MEDICARE SUPPLEMENT MEDICARE [place] B MEDIC[place] SUPPLEMENT
--- OUTSIDE RECORDS SUMMARY | 2024-11-16 19:12 | XMS_ITS ---
Author Organization Unknown [facility] Start Date Provider Encounter for Check-up [id number] [facility]
--- OUTSIDE RECORDS SUMMARY | 2024-11-16 19:12 | XMS_ITS | Clinical Summary ---
Author Organization Healthcare Address [address] [place] [address] Care Team Providers Care Hog Buyer Name Role Phone Dale Pisano MD Primary Care Provider [phone] Family History Medical History Relation Name Comments Heart attack Father Transient ischemic attack Mother Relation Name Status Comments Father Mother Social History Tobacco Use Types Packs/Day Years Used Date Smoking Tobacco: Former Alcohol Use Standard Drinks/Week Comments Yes 0 (1 standard drink = 0.6 oz pur e alcohol) Sex and Gender Information Value Date Recorded Sex Assigned at Not on file Legal Sex Male 8:23 PM EDT Gender Identity Not on file Sexual Orientation Not on file Last Filed Vital Signs Vital Sign Reading Time Taken Comments Blood Pressure 192/98 10/17/2022 9:25 AM EDT Pulse 60 10/17/2022 9:25 AM EDT Temperature - - Respiratory Rate - - Oxygen Saturation - - Inhaled Oxygen Concentration - - Weight 79.4 kg (175 lb) 10/17/2022 9:25 AM EDT Height 180.3 cm (5' 11 ) 10/17/2022 9:25 AM EDT Body Mass Index 24.41 10/17/2022 9:25 AM EDT Plan of Treatment Health Maintenance Due Date Last Done Comments [facility]-Depression Screening 1940 [facility]-Infant/Child/Adol SDOH Screenings 1940 [facility]- SDOH Screenings 1957 [facility]-Adult SDOH Screenings 1957 [facility]-Zoster Vaccines (1 of 2) 1989 [facility]-RSV Vaccine: 60+ Years or (1 - 1-dose 75+ series) 2014 [facility]-Pneumococcal Vaccine: 50+ Years (2 of 2 - PPSV23) 07/12/2016 07/13/2015, 05/17/2012 [facility]-DTaP,Tdap,and Td Vaccines (3 - Td or Tdap) 05/17/2022 05/17/2012, 05/13/2012 [id number] Vaccine (4 - season) 2023 01/20/2021, 06/03/2020, 05/06/2020 [facility]-Influenza Vaccine (#1) 12/30/202402/01, 01/30/2020, 01/20/2020, Additional history exists HPV Vaccines Aged Out No longer eligi ble based on patient's age to complete this topic [facility]-HIB Vaccines Aged Out No longer e ligible based on patient's age to complete this topic [facility]-Hepatitis A Vaccines Aged Out No longer eligible based on patient's age to complete this topic [facility]-IPV Vaccines Aged Out No longer e ligible based on patient's age to complete this topic [facility]-Rotavirus Vaccines Aged Out No lo nger eligible based on patient's age to complete this topic Insurance MEDICARE Care Teams Hog Buyer Relationship Specialty Start Date End Date Dale Pisano MD [address] [place] [id number] PCP - General 09/11/20
--- OUTSIDE RECORDS SUMMARY | 2024-11-16 19:13 | XMS_ITS | Patient Health Record ---
[facility] Organization [facility] Address [address] [place] [id number] Care Team Providers Care Glass Designer Name Role Phone Joelle Pisano Primary Care Provider [phone] Jasmyne Dave Unavailable [phone] Soledad Michelle Unavailable [phone] Allergies Allergen (clinical drug ingredient) Drug/Non Drug Allergy documented on EMR Reaction Allergy Type Onset Date Status codeine Codeine Unknown Drug Allergy Active Results Component Value Reference Range Notes H-BMP Reviewed date:05/22/2024 09:09:17 AM Interpretation: Performing Lab: Notes/Report: NA 140 136-145 mmol/L K 4.5 3.5-5.1 mmoL/L Delta: 5.9 on 05/21/24 CL 116 98-107 mmol/L CO2 19 22.0-30.0 mmol/L GAP 9.5 5-15 mEq/L BUN 46 9-20 mg/dl CREATT 2.10 0.66-1.25 mg/dl Delta: 2.80 on 05/21/24 CRCLE 28 50-200 mL/min GFRAA 37 >60 ML/MIN Delta: 26 on 05/21/24 EGFR 30 >60 ml/min GLU 91 74-100 mg/dl CA 8.2 8.4-10.2 mg/dl H-Urinalysis (cathed specime n) Reviewed date:03/04/2024 02:02:54 PM Interpretation:Jess 3+, wbc tntc, bact 3+ Performing Lab: Notes/Report: UCOLCATH YELLOW Yellow UAPPCATH CLEAR Clear UPHCATH 6.0 5.0-8.5 USGCATH 1.025 1.005-1.030 UPROCATH 2+ Negative UGLUCATH Negative Negative UKETCATH Negative Negative UBLDCATH TRACE-I Negative UNITCATH Negative Negative UBILCATH Negative Negative UUROCATH 0.2 0.2 EU/dl ULEUCATH 3+ Negative UMICUCATH URINE MICROSCOPIC MICROSCOPIC URBCCATH 3-5 0-3 # /hpf UWBCCATH TNTC 0-3 #/hpf USQEPICATH 3-5 0-5 #/hpf UBACTCATH 3+ None /lpf H-Urine Culture and Sensitiv ity Reviewed date:03/04/2024 02:02:54 PM Interpretation: Performing Lab: Notes/Report: H-CBC Reviewed date:05/21/2024 09:34:54 AM Interpretation: Performing Lab: Notes/Report: WBC 10.5 4.8-10.8 K/mm3 Delta: 14.4 o n 05/20/24-1330 RBC 2.78 4.60-6.20 M/mm3 HGB 8.2 14.1-18.0 g/dL HCT 26.4 42.0-52.0 % MCV 95.0 80-94 fl MCH 29.5 27.0-31.2 pg MCHC 31.1 31.8-35.4 g/dL RDW 16.8 11.5-17.5 % PLT 301 142-424 K/mm3 MPV 10.4 7.4-10.4 fl NE% 66.8 37.0-80.0 % LY% 21.4 10-50 % MO% 7.8 1.7-9.3 % EO% 1.9 0.1-12.0 % BA% 0.7 0.1-2.0 % NE# 7.0 1.8-7.8 K/mm3 LY# 2.2 0.7-4.5 K/mm3 MO# 0.8 0.1-1.0 K/mm3 EO# 0.2 0.0-0.4 K/mm3 BA# 0.1 0-0.2 K/mm3 H-CBC Reviewed date:05/22/2024 09:09:18 AM Interpretation: Performing Lab: Notes/Report: WBC 10.1 4.8-10.8 K/mm3 RBC 2.45 4.60-6.20 M/mm3 HGB 7.1 14.1-18.0 g/dL HCT 22.7 42.0-52.0 % MCV 92.7 80-94 fl MCH 29.0 27.0-31.2 pg MCHC 31.3 31.8-35.4 g/dL RDW 16.5 11.5-17.5 % PLT 315 142-424 K/mm3 MPV 10.5 7.4-10.4 fl NE% 65.3 37.0-80.0 % LY% 23.3 10-50 % MO% 7.2 1.7-9.3 % EO% 2.4 0.1-12.0 % BA% 0.6 0.1-2.0 % NE# 6.6 1.8-7.8 K/mm3 LY# 2.4 0.7-4.5 K/mm3 MO# 0.7 0.1-1.0 K/mm3 EO# 0.2 0.0-0.4 K/mm3 BA# 0.1 0-0.2 K/mm3 H-BMP Reviewed date:05/23/2024 08:42:50 AM Interpretation: Performing Lab: Notes/Report: NA 140 136-145 mmol/L K 4.1 3.5-5.1 mmoL/L CL 113 98-107 mmol/L CO2 22 22.0-30.0 mmol/L GAP 9.1 5-15 mEq/L BUN 40 9-20 mg/dl CREATT 1.80 0.66-1.25 mg/dl CRCLE 32 50-200 mL/min GFRAA 44 >60 ML/MIN EGFR 36 >60 ml/min GLU 91 74-100 mg/dl CA 7.9 8.4-10.2 mg/dl H-CBC Reviewed date:01/15/2024 09:24:04 AM Interpretation: Performing Lab: Notes/Report: WBC 9.9 4.8-10.8 K/mm3 Delta: 7.2 on 01/12/24-1501 RBC 3.07 4.60-6.20 M/mm3 HGB 9.9 14.1-18.0 g/dL HCT 30.7 42.0-52.0 % MCV 100.1 80-94 fl MCH 32.2 27.0-31.2 pg MCHC 32.2 31.8-35.4 g/dL RDW 13.8 11.5-17.5 % PLT 180 142-424 K/mm3 MPV 9.1 7.4-10.4 fl NE% 77.8 37.0-80.0 % LY% 14.0 10-50 % MO% 7.6 1.7-9.3 % EO% 0.4 0.1-12.0 % BA% 0.3 0.1-2.0 % NE# 7.7 1.8-7.8 K/mm3 LY# 1.4 0.7-4.5 K/mm3 MO# 0.8 0.1-1.0 K/mm3 EO# 0.0 0.0-0.4 K/mm3 BA# 0.0 0-0.2 K/mm3 H-UA Reviewed date:01/17/2024 09:59:42 AM Interpretation: Performing Lab: Notes/Report: Method to collect specimen catheterized collection UCOL YELLOW Yellow UAPP CLEAR Clear UPH 6.0 5.0-8.5 USG 1.025 1.005-1.030 UPRO 1+ Negative UGLU Negative Negative UKET TRACE Negative UBLD 2+ Negative UNIT Negative Negative UBIL Negative Negative UURO 1.0 0.2 EU/dl ULEU Negative Negative UMICU URINE MICROSCOPIC MICROSCOPIC URBC 10-20 0-3 #/hpf UWBC Occasional 0-3 #/hpf USQEPI Occasional 0-5 #/hpf UTREPI OCC 0-3 #/lpf UBACT Trace NONE /lpf UHYALC OCC 0 #/lpf CMP Reviewed date:04/08/2024 08:47:36 AM Interpretation:GFR 58 Performing Lab: Notes/Report: GFR 58 CALCIUM 8.6 glucose 108 bun/creat 24/1.2 sodium 133 potassium 4.6 chloride 97 CO2 28 SGOT 39 SGPT 18 alk phos 101 Total Protein 5.7 Albumin 3.2 total bili 0.24 H-CBC Reviewed date:05/23/2024 09:09:42 AM Interpretation: Performing Lab: Notes/Report: WBC 10.2 4.8-10.8 K/mm3 RBC 2.56 4.60-6.20 M/mm3 HGB 7.3 14.1-18.0 g/dL HCT 23.6 42.0-52.0 % MCV 92.2 80-94 fl MCH 28.5 27.0-31.2 pg MCHC 30.9 31.8-35.4 g/dL RDW 16.2 11.5-17.5 % PLT 324 142-424 K/mm3 MPV 10.5 7.4-10.4 fl NE% 59.0 37.0-80.0 % LY% 28.4 10-50 % MO% 7.4 1.7-9.3 % EO% 3.2 0.1-12.0 % BA% 0.8 0.1-2.0 % NE# 6.0 1.8-7.8 K/mm3 LY# 2.9 0.7-4.5 K/mm3 MO# 0.8 0.1-1.0 K/mm3 EO# 0.3 0.0-0.4 K/mm3 BA# 0.1 0-0.2 K/mm3 CMP Reviewed date:09/02/2024 04:58:56 PM Interpretation: Performing Lab: Notes/Report: CALCIUM 9.3 glucose 101 bun/creat 30/1.2 sodium 132 potassium 4.8 chloride 98 CO2 26 SGOT 16 SGPT 12 alk phos 104 Total Protein 6 Albumin 3.1 total bili 0.17 H-UA Reviewed date:02/26/2024 08:39:35 AM Interpretation: Performing Lab: Notes/Report: UCOL YELLOW Yellow UAPP Turbid Clear UPH 6.0 5.0-8.5 USG >= 1.030 1.005-1.030 UPRO 1+ Negative UGLU Negative Negative UKET Negative Negative UBLD 2+ Negative UNIT Negative Negative UBIL Negative Negative UURO 0.2 0.2 EU/dl ULEU 2+ Negative UMICU URINE MICROSCOPIC MICROSCOPIC URBC 20-50 0-3 #/hpf UWBC 50-100 0-3 #/hpf USQEPI None 0-5 #/hpf UBACT Trace NONE /lpf H-Urine Culture and Sensitiv ity Reviewed date:02/26/2024 08:37:59 AM Interpretation:Multiple organisms, suggests contamination Performing Lab: Notes/Report: CUU Multiple organisms, suggests contamination. H-UA Reviewed date:02/26/2024 08:39:21 AM Interpretation: Performing Lab: Notes/Report: UCOL YELLOW Yellow UAPP CLEAR Clear UPH 6.0 5.0-8.5 USG >= 1.030 1.005-1.030 UPRO 1+ Negative UGLU Negative Negative UKET Negative Negative UBLD TRACE-I Negative UNIT Negative Negative UBIL Negative Negative UURO 0.2 0.2 EU/dl ULEU 3+ Negative UMICU URINE MICROSCOPIC MICROSCOPIC URBC TNTC 0-3 #/hpf UWBC TNTC 0-3 #/hpf USQEPI 3-5 0-5 #/hpf UBACT 4+ NONE /lpf H-Urine Culture and Sensitiv ity Reviewed date:02/26/2024 08:39:01 AM Interpretation: Performing Lab: Notes/Report: CUU Multiple organisms, suggests contamination. CBC Reviewed date:02/02/2024 01:15:17 PM Interpretation: Performing Lab: Notes/Report: H-Occult Blood, Stool Reviewed date:02/12/2024 09:31:10 AM Interpretation:Negative Performing Lab: Notes/Report: OB Negative Negative BMP Reviewed date:05/14/2024 09:25:53 AM Interpretation: Performing Lab: Notes/Report: sodium 134 potassium 5 chloride 106 CO2 13 glucose 121 BUN/CR 39/2.4 calcium 8.6 WBC 10.28 RBC 3.38 Hgb 9.9 Hct 30.9 MCV 91.4 MCH 29.3 MCHC 32 platlets [id number] % Granulocytes 74.1 %Lymphocytes 17.9 %monocytes 4.7 H-Diarrhea 6-11 Panel, Cdiff PCR Reviewed date:04/02/2024 08:59:08 AM Interpretation: Performing Lab: Notes/Report: AEROMONAS Not Detected NotDetected CAMPYLOBACTER Not Detected NotDetected CLOSTR DIFFICIL Detected NotDetected NOTIFICATION RESULT Results called to: DR. SMILEY on 04/01/24 at 1940 By Duke Cabrera MLT PLESIOMONAS Not Detected NotDetected SALMONELLA, PCR Not Detected NotDetected YERSINIA Not Detected NotDetected VIBRIO, PCR Not Detected NotDetected VIBRIO CHOLERAE Not Detected NotDetected ECOLI (EAEC) Not Detected NotDetected ECOLI (EPEC) Not Detected NotDetected ECOLI (ETEC) Not Detected NotDetected SHIGATOXIN Not Detected NotDetected ECOLI O157 Not Detected NotDetected SHIG-INVAS ECOL Not Detected NotDetected CRYPTO Not Detected NotDetected CYCLOSPORA Not Detected NotDetected EHISTOLYTICA Not Detected NotDetected GIARDIA Not Detected NotDetected ADENO STOOL Not Detected NotDetected ASTROVIRUS Not Detected NotDetected NOROVIRUS Not Detected NotDetected ROTOVIRUS A Not Detected NotDetected SAPOVIRUS Not Detected NotDetected X ray : Chest Reviewed date:05/09/2024 12:49:07 PM Interpretation: Performing Lab: Notes/Report: H-Urine Culture and Sensitiv ity Reviewed date:03/01/2024 04:55:16 PM Interpretation: Performing Lab: Notes/Report: CUU Multiple organisms, suggests contamination. H-CBC Reviewed date:01/18/2024 08:16:31 AM Interpretation: Performing Lab: Notes/Report: WBC 9.3 4.8-10.8 K/mm3 RBC 2.43 4.60-6.20 M/mm3 HGB 7.9 14.1-18.0 g/dL HCT 24.2 42.0-52.0 % MCV 99.5 80-94 fl MCH 32.7 27.0-31.2 pg MCHC 32.9 31.8-35.4 g/dL RDW 13.9 11.5-17.5 % PLT 247 142-424 K/mm3 MPV 9.5 7.4-10.4 fl NE% 80.8 37.0-80.0 % LY% 10.6 10-50 % MO% 7.5 1.7-9.3 % EO% 1.0 0.1-12.0 % BA% 0.2 0.1-2.0 % NE# 7.5 1.8-7.8 K/mm3 LY# 1.0 0.7-4.5 K/mm3 MO# 0.7 0.1-1.0 K/mm3 EO# 0.1 0.0-0.4 K/mm3 BA# 0.0 0-0.2 K/mm3 H-CBC Reviewed date:01/17/2024 10:10:41 AM Interpretation: Performing Lab: Notes/Report: WBC 8.4 4.8-10.8 K/mm3 RBC 2.38 4.60-6.20 M/mm3 HGB 7.8 14.1-18.0 g/dL HCT 23.9 42.0-52.0 % MCV 100.2 80-94 fl MCH 33.0 27.0-31.2 pg MCHC 32.9 31.8-35.4 g/dL RDW 13.6 11.5-17.5 % PLT 213 142-424 K/mm3 MPV 9.3 7.4-10.4 fl NE% 81.9 37.0-80.0 % LY% 11.4 10-50 % MO% 5.5 1.7-9.3 % EO% 1.0 0.1-12.0 % BA% 0.2 0.1-2.0 % NE# 6.9 1.8-7.8 K/mm3 LY# 1.0 0.7-4.5 K/mm3 MO# 0.5 0.1-1.0 K/mm3 EO# 0.1 0.0-0.4 K/mm3 BA# 0.0 0-0.2 K/mm3 H-BMP Reviewed date:01/15/2024 09:24:04 AM Interpretation: Performing Lab: Notes/Report: NA 131 136-145 mmol/L K 3.8 3.5-5.1 mmoL/L CL 103 98-107 mmol/L CO2 27 22.0-30.0 mmol/L GAP 4.8 5-15 mEq/L BUN 24 9-20 mg/dl CREATT 1.00 0.66-1.25 mg/dl Delta: 1.40 on 01/12/24 CRCLE 68 50-200 mL/min GFRAA 86 >60 ML/MIN Delta: 58 on 01/12/24 EGFR 71 >60 ml/min GLU 114 74-100 mg/dl CA 8.3 8.4-10.2 mg/dl H-BMP Reviewed date:01/17/2024 02:10:56 PM Interpretation: Performing Lab: Notes/Report: NA 129 136-145 mmol/L K 3.2 3.5-5.1 mmoL/L CL 102 98-107 mmol/L CO2 24 22.0-30.0 mmol/L GAP 6.2 5-15 mEq/L BUN 23 9-20 mg/dl CREATT 1.00 0.66-1.25 mg/dl CRCLE 66 50-200 mL/min GFRAA 86 >60 ML/MIN EGFR 71 >60 ml/min GLU 144 74-100 mg/dl CA 7.6 8.4-10.2 mg/dl H-BMP Reviewed date:01/18/2024 08:16:31 AM Interpretation: Performing Lab: Notes/Report: NA 131 136-145 mmol/L K 3.8 3.5-5.1 mmoL/L CL 102 98-107 mmol/L CO2 27 22.0-30.0 mmol/L GAP 5.8 5-15 mEq/L BUN 27 9-20 mg/dl CREATT 1.30 0.66-1.25 mg/dl Delta: 1.00 on 01/17/24 CRCLE 54 50-200 mL/min GFRAA 63 >60 ML/MIN Delta: 86 on 01/17/24 EGFR 52 >60 ml/min GLU 107 74-100 mg/dl Delta: 144 on 01/17/24 CA 8.2 8.4-10.2 mg/dl M-Urine Culture(cathed speci men) Reviewed date:03/04/2024 02:02:54 PM Interpretation:enterococcus faecalis Performing Lab: Notes/Report: [facility] ORGANISM 1: Enteroco ccus faecalis RX CELESTE: R- Resistant S- Susceptible I- Intermediate * Not on [facility] CUUCA RX CELESTE: R- Resistant S- Susceptible I- Intermediate * Not on [facility] CUUCATH RX CELESTE: R- Resistant S- Susceptible I- Intermediate * Not on [facility] Enterococcus faecali s: REACTION RX CELESTE: R- Resistant S- Susceptible I- Intermediate * Not on [facility] Ampicillin 1 S RX CELESTE: R- Resistant S- Susceptible I- Intermediate * Not on [facility] Daptomycin 2 S RX CELESTE: R- Resistant S- Susceptible I- Intermediate * Not on [facility] Penicillin 4 S RX CELESTE: R- Resistant S- Susceptible I- Intermediate * Not on [facility] CUUCATH Tetracycline >8 R RX CELESTE: R- Resistant S- Susceptible I- Intermediate * Not on [facility] CUUCATH Vancomycin <=0.5 S RX CELESTE: R- Resistant S- Susceptible I- Intermediate * [facility] CUUCATH RX CELESTE: R- Resistant S- Susceptible I- Intermediate * [facility] CBC Reviewed date:04/08/2024 08:44:02 AM Interpretation:H/H 9.09/26; WBC 11.37; plt ct [id number] Performing Lab: Notes/Report: H/H 9.09/26; WBC 11.37; plt ct [id number] BMP Reviewed date:05/03/2024 03:02:10 PM Interpretation: Performing Lab: Notes/Report: X ray : Abdomen Series Reviewed date:05/11/2024 02:57:29 PM Interpretation: Performing Lab: Notes/Report: BMP Reviewed date:05/20/2024 01:13:45 PM Interpretation: Performing Lab: Notes/Report: sodium 140 potassium 6.6 chloride 115 CO2 15 glucose 140 BUN/CR 55/3.3 calcium 8.4 WBC 13.85 RBC 2.83 Hgb 8.2 Hct 26.3 MCV 92.9 MCH 29 MCHC 31.2 platlets [id number] H-BMP Reviewed date:05/21/2024 10:20:45 AM Interpretation: Performing Lab: Notes/Report: NA 143 136-145 mmol/L K 5.9 3.5-5.1 mmoL/L CL 119 98-107 mmol/L CO2 16 22.0-30.0 mmol/L GAP 13.9 5-15 mEq/L BUN 51 9-20 mg/dl CREATT 2.80 0.66-1.25 mg/dl CRCLE 20 50-200 mL/min GFRAA 26 >60 ML/MIN EGFR 22 >60 ml/min GLU 79 74-100 mg/dl Delta: 123 on 05/20/24-1330 CA 8.3 8.4-10.2 mg/dl UA Reviewed date:09/18/2024 02:12:39 PM Interpretation:Abnormal, Culture Pending Performing Lab: Notes/Report: Abnormal, Culture Pending H-Urine Culture and Sensitiv ity Reviewed date:04/16/2024 08:29:55 AM Interpretation:Abnormal Performing Lab: Notes/Report: [facility] ORGANISM 1: Klebsiel la pneumoniae RX CELESTE: R- Resistant S- Susceptible I- Intermediate * Not on [facility] RX CELESTE: R- Resistant S- Susceptible I- Intermediate * [facility] [place] Count >100,000 RX CELESTE: R- Resistant S- Susceptible I- Intermediate * Not on [facility] RX CELESTE: R- Resistant S- Susceptible I- Intermediate * [facility] RX CEELSTE: R- Resistant S- Susceptible I- Intermediate * Not on [facility] RX CELESTE: R- Resistant S- Susceptible I- Intermediate * Not on [facility] CUU ORGANISM 2: Escheric hia coli RX CELESTE: R- Resistant S- Susceptible I- Intermediate * Not on [facility] RX CELESTE: R- Resistant S- Susceptible I- Intermediate * [facility] [place] Count >100,000 RX CELESTE: R- Resistant S- Susceptible I- Intermediate * Not on [facility] RX CELESTE: R- Resistant S- Susceptible I- Intermediate * [facility]: R- Resistant S- Susceptible I- Intermediate * Not on [facility] RX CELESTE: R- Resistant S- Susceptible I- Intermediate * [facility]: R- Resistant S- Susceptible I- Intermediate * Not on [facility] RX CELESTE: R- Resistant S- Susceptible I- Intermediate * Not on [facility] Klebsiella pneumonia e: REACTION RX CELESTE: R- Resistant S- Susceptible I- Intermediate * Not on [facility] RX CELESTE: R- Resistant S- Susceptible I- Intermediate * Not on [facility] Amikacin <=8 S RX CELESTE: R- Resistant S- Susceptible I- Intermediate * Not on [facility] RX CELESTE: R- Resistant S- Susceptible I- Intermediate * [facility] Amp[facility] 8 R RX CELESTE: R- Resistant S- Susceptible I- Intermediate * Not on [facility] RX CELESTE: R- Resistant S- Susceptible I- Intermediate * Not on [facility] Aztreonam <=2 S RX CELESTE: R- Resistant S- Susceptible I- Intermediate * Not on [facility] RX CELESTE: R- Resistant S- Susceptible I- Intermediate * [facility] Cefepime 2 S RX CELESTE: R- Resistant S- Susceptible I- Intermediate * Not on [facility] RX CELESTE: R- Resistant S- Susceptible I- Intermediate * [facility] Ceftazid[facility] <=2 S RX CELESTE: R- Resistant S- Susceptible I- Intermediate * Not on [facility] RX CELESTE: R- Resistant S- Susceptible I- Intermediate * [facility] Ceftriaxone <=1 S RX CELESTE: R- Resistant S- Susceptible I- Intermediate * Not on [facility] RX CELESTE: R- Resistant S- Susceptible I- Intermediate * Not on [facility] Ciprofloxacin <=0.25 S RX CELESTE: R- Resistant S- Susceptible I- Intermediate * Not on [facility] RX CELESTE: R- Resistant S- Susceptible I- Intermediate * Not on [facility] Ertapenem <=0.25 S RX CELESTE: R- Resistant S- Susceptible I- Intermediate * Not on [facility] RX CELESTE: R- Resistant S- Susceptible I- Intermediate * [facility] Gentamicin <=2 S RX CELESTE: R- Resistant S- Susceptible I- Intermediate * Not on [facility] RX CELESTE: R- Resistant S- Susceptible I- Intermediate * Not on [facility] Levofloxacin <=0.5 S RX CELESTE: R- Resistant S- Susceptible I- Intermediate * Not on [facility] RX CELESTE: R- Resistant S- Susceptible I- Intermediate * Not on [facility] Meropenem <=0.5 S RX CELESTE: R- Resistant S- Susceptible I- Intermediate * Not on [facility] RX CELESTE: R- Resistant S- Susceptible I- Intermediate * Not on [facility] Nitrofurantoin >64 R RX CELESTE: R- Resistant S- Susceptible I- Intermediate * Not on [facility] RX CELESTE: R- Resistant S- Susceptible I- Intermediate * [facility] Tetracycline <=2 S RX CELESTE: R- Resistant S- Susceptible I- Intermediate * Not on [facility] RX CELESTE: R- Resistant S- Susceptible I- Intermediate * Not on [facility] Tobramycin <=2 S RX CELESTE: R- Resistant S- Susceptible I- Intermediate * Not on [facility] RX CELESTE: R- Resistant S- Susceptible I- Intermediate * [facility] Trimethoprim/Sulfame thox azole <=0.5/9.5 S RX CELESTE: R- Resistant S- Susceptible I- Intermediate * Not on [facility] RX CELESTE: R- Resistant S- Susceptible I- Intermediate * [facility] Piperacillin/Tazobac blackburn <=2/4 S RX CELESTE: R- Resistant S- Susceptible I- Intermediate * Not on [facility] RX CELESTE: R- Resistant S- Susceptible I- Intermediate * [facility] RX CELESTE: R- Resistant S- Susceptible I- Intermediate * Not on [facility] RX CELESTE: R- Resistant S- Susceptible I- Intermediate * [facility] Escherichia coli: REACTION RX CELESTE: R- Resistant S- Susceptible I- Intermediate * Not on [facility] RX CELESTE: R- Resistant S- Susceptible I- Intermediate * [facility] Amikacin <=8 S RX CELESTE: R- Resistant S- Susceptible I- Intermediate * Not on [facility] RX CELESTE: R- Resistant S- Susceptible I- Intermediate * [facility] Ampicillin <=4 S RX CELESTE: R- Resistant S- Susceptible I- Intermediate * Not on [facility] RX CELESTE: R- Resistant S- Susceptible I- Intermediate * [facility] Aztreonam <=2 S RX CELESTE: R- Resistant S- Susceptible I- Intermediate * Not on [facility] RX CELESTE: R- Resistant S- Susceptible I- Intermediate * [facility] Cefepime <=1 S RX CELESTE: R- Resistant S- Susceptible I- Intermediate * Not on [facility] RX CELESTE: R- Resistant S- Susceptible I- Intermediate * [facility] Ceftazidime <=2 S RX CELESTE: R- Resistant S- Susceptible I- Intermediate * Not on [facility] RX CELESTE: R- Resistant S- Susceptible I- Intermediate * Not on [facility] Ceftriaxone <=1 S RX CELESTE: R- Resistant S- Susceptible I- Intermediate * Not on [facility] RX CELESTE: R- Resistant S- Susceptible I- Intermediate * [facility] Ciprofloxacin <=0.25 S RX CELESTE: R- Resistant S- Susceptible I- Intermediate * Not on [facility] RX CELESTE: R- Resistant S- Susceptible I- Intermediate * [facility] Ertapenem 0.5 S RX CELESTE: R- Resistant S- Susceptible I- Intermediate * Not on [facility] RX CELESTE: R- Resistant S- Susceptible I- Intermediate * [facility] Gentamicin <=2 S RX CELESTE: R- Resistant S- Susceptible I- Intermediate * Not on [facility] RX CELESTE: R- Resistant S- Susceptible I- Intermediate * Not on [facility] Levofloxacin <=0.5 S RX CELESTE: R- Resistant S- Susceptible I- Intermediate * Not on [facility] RX CELESTE: R- Resistant S- Susceptible I- Intermediate * [facility] Meropenem <=0.5 S RX CELESTE: R- Resistant S- Susceptible I- Intermediate * Not on [facility] RX CELESTE: R- Resistant S- Susceptible I- Intermediate * Not on [facility] Nitrofurantoin <=16 S RX CELESTE: R- Resistant S- Susceptible I- Intermediate * Not on [facility] RX CELESTE: R- Resistant S- Susceptible I- Intermediate * [facility] Tetracycline <=2 S RX CELESTE: R- Resistant S- Susceptible I- Intermediate * Not on [facility] RX CELESTE: R- Resistant S- Susceptible I- Intermediate * [facility] Tobramycin <=2 S RX CELESTE: R- Resistant S- Susceptible I- Intermediate * Not on [facility] RX CELESTE: R- Resistant S- Susceptible I- Intermediate * [facility] Trimethoprim/Sulfame thox azole <=0.5/9.5 S RX CELETSE: R- Resistant S- Susceptible I- Intermediate * Not on [facility] RX CELESTE: R- Resistant S- Susceptible I- Intermediate * Not on [facility] Piperacillin/Tazobac blackburn <=2/4 S RX CELESTE: R- Resistant S- Susceptible I- Intermediate * Not on [facility] RX CELESTE: R- Resistant S- Susceptible I- Intermediate * Not on [facility] CUU RX CELESTE: R- Resistant S- Susceptible I- Intermediate * Not on [facility] RX CELESTE: R- Resistant S- Susceptible I- Intermediate * Not on [facility] Medications Medication SIG (Take, Route, Frequency, Duration) Notes Start Date End Date Status Bisoprolol Fumarate 5 MG 1 tablet Orally Once a day Active Ipratropium-Albuterol 0.5-2.5 (3) MG/3ML 3 ml as needed Inhalation tid prn Active dilTIAZem HCl ER 180 MG 1 tablet Orally Once a day Active Tamsulosin HCl 0.4 mg TAKE ONE CAPSULE BY MOUTH EVERY DAY Active Acetaminophen 500 MG 1 capsule as needed Orally every 6 hrs prn Active Catheters - as directed huitron cath with routine care Active Synthroid 88 MCG 1 tab(s) orally once a day Active Memantine HCl 10 MG 1 tablet Orally Two times a day Active Potassium Chloride ER 20 MEQ 1 tablet with food Orally daily Active Sertraline HCl 50 MG 1 tab(s) Orally once a day Active EpiCeram - as directed Externally bid and prn butt crem bid Active HYDROcodone-Acetaminop hen 10-325 MG 1 tablet as needed Orally every 4 hrs As needed Active Donepezil HCl 10 MG TAKE ONE TABLET BY MOUTH EVERY DAY AT BEDTIME Orally at HS Active Ensure - 180ml Orally twice a day Active Regular Diet - as directed mechanical soft; Ensure bid fortified foods Active Calcium Alginate - as directed Externally cleanse wound with NS and apply cream and cover with dry dsg qd Active Immunizations Vaccine Route Administration Date Status Comme nts COVID 19 Moderna IM Intramuscular 06/03/2020 Administered COVID 19 Moderna Unknown 01/20/2021 Administered Fluzone High Dose (65yr and older) Unknown 01/20/2020 Administered Fluzone High Dose (65yr and older) Unknown 02/14/2023 Administered xAdministration of injection IM Intramuscular 05/11/2009 Administered Problems Problem Type SNOMED Code ICD Code Onset Dates Problem Status W/U Status Risk Notes Problem Gastroesophageal reflux disease (487974220) GERD (gastroesophageal reflux disease) (K21.9) Active confirmed Problem Essential hypertension (98645236) Essential (primary) hypertension (I10) Active confirmed Problem Hypertension (93606394) HTN (hypertension) (I10) Active confirmed Problem Hyperlipidemia (66716316) Hyperlipidemia (E78.5) Active confirmed Problem Rhinitis (35442826) Rhinitis (J31.0) Active con firmed Problem Anxiety (89903795) Anxiety (F41.9) Active confi rmed Problem Sciatic nerve lesion (600849480) Piriformis syndrome of left side (G57.02) Active confirmed Problem Renal failure (74764072) Renal failure (N19) Active confirmed Problem Benign prostatic hyperplasia (061326988) BPH (benign prostatic hyperplasia) (N40.0) Active confirmed Problem Memory loss (12034693) Memory loss (R41.3) Active confirmed Problem Mixed hyperlipidemia (878724021) Mixed hyperlipidemia (E78.2) Active confirmed Problem Male erectile disorder (368180730) Male erectile disorder (N52.9) Active confirmed Problem Acquired hypothyroidism (872520320) Acquired hypothyroidism (E03.9) Active confirmed Problem Osteoarthritis of multiple joints (819022803) Other osteoarthritis involving multiple joints (M15.8) Active confirmed Problem Atherosclerotic heart disease of [place] coronary artery without angina pectoris (473540903494396) Coronary artery disease involving [place] coronary artery of [place] heart without angina pectoris (I25.10) Active confirmed Problem History of circulatory system disease (863011762) Hx of arteriosclerotic cardiovascular disease (Z86.79) Active confirmed Problem Sacroiliitis (60674121) Sacroiliitis (M46.1) Active confirmed Problem Osteoarthritis of knee (878365733) Primary osteoarthritis of left knee (M17.12) Active confirmed Problem Hyperlipidaemia (34172308) Hyperlipidemia, unspecified hyperlipidemia type (E78.5) Active confirmed Problem Dyslipidemia (165415936) Dyslipidemia (E78.5) Active confirmed Problem Stented coronary artery (854107815) Stented coronary artery (Z95.5) Active confirmed Problem Pressure injury of sacral region of back (disorder) (188154134) Sacral decubitus ulcer (L89.159) Active confirmed Problem Heel ulceration (L97.409) Active confirmed Problem Atherosclerotic heart disease of [place] coronary artery without angina pectoris (132793001934677) Atherosclerosis of [place] coronary artery without angina pectoris, unspecified whether [place] or transplanted heart (I25.10) Active confirmed Problem Lower urinary tract symptoms due to benign prostatic hypertrophy (27417734557681) Benign prostatic hyperplasia with lower urinary tract symptoms (N40.1) Active confirmed Problem Acute arthritis (93502843) Acute arthritis (M19.90) Active confirmed Problem Cardiomyopathy (23309290) Cardiomyopathy, unspecified type (I42.9) Active confirmed Problem Short-term memory loss (297101490) Short-term memory loss (R41.3) Active confirmed Problem Arthritis of right knee (5695273867782684) Arthritis of right knee (M17.11) Active confirmed Problem History of malignant neoplasm of larynx (220058706) Hx of laryngeal cancer (Z85.21) Active confirmed Problem Renal failure syndrome (88090668) Renal failure, unspecified chronicity (N19) Active confirmed Problem Hypertensive heart disease without congestive heart failure (88587502) Hypertensive heart disease, unspecified whether heart failure present (I11.9) Active confirmed Problem Obstructive uropathy (0041736) Obstructive uropathy (N13.9) Active confirmed Problem Mild cognitive disorder (834715243) MCI (mild cognitive impairment) (G31.84) Active confirmed Problem Automatic implantable cardiac defibrillator in situ (700828374) AICD (automatic cardioverter/defib rillator) present (Z95.810) Active confirmed Problem Amnesia (81642877) Memory change s (R41.3) Active confirmed Problem Mild cognitive disorder (570320840) 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) Active confirmed Problem Anemia (264417218) Acute anemia (D64.9) Active confirmed Vital Signs Heart Rate 65 /min 10/22/2024 Respiratory Rate 18 /min 10/22/2024 Blood pressure diastolic 69 mm Hg 10/22/2024 Height 71 in 07/30/2024 Blood pressure systolic 109 mm Hg 10/22/2024 Weight 145.3 lbs 10/22/2024 BMI 17.78 kg/m2 07/30/2024 Encounters Encounter Location Date Provider Diagnosis [address] [place] [phone] 01/30/2024 Soledad Michelle AICD (automatic cardioverter/defibrillato r) present Z95.810 ; Cardiomyopathy, unspecified type I42.9 ; Essential (primary) hypertension I10 ; Atherosclerosis of [place] coronary artery without angina pectoris, unspecified whether [place] or transplanted heart I25.10 ; Hyperlipidemia, unspecified hyperlipidemia type E78.5 ; Acute anemia D64.9 ; Hyponatremia E87.1 ; MCI (mild cognitive impairment) G31.84 ; Dyslipidemia E78.5 ; Displaced intertrochanteric fracture of right femur, subsequent encounter for closed fracture with routine healing S72.141D ; After care Z51.89 ; Fall, subsequent encounter W19.XXXD ; Acute arthritis M19.90 ; Acquired hypothyroidism E03.9 ; BPH (benign prostatic hyperplasia) N40.0 ; GERD (gastroesophageal reflux disease) K21.9 ; Chronic constipation K59.09 and Depression [address] [place], [place] [id number] 02/13/2024 Soledad Michelle AICD (automatic cardioverter/defibrillato r) present Z95.810 ; Cardiomyopathy, unspecified type I42.9 ; Essential (primary) hypertension I10 ; Atherosclerosis of [place] coronary artery without angina pectoris, unspecified whether [place] or transplanted heart I25.10 ; Hyperlipidemia, unspecified hyperlipidemia type E78.5 ; Acute anemia D64.9 ; MCI (mild cognitive impairment) G31.84 ; Displaced intertrochanteric fracture of right femur, subsequent encounter for closed fracture with routine healing S72.141D ; After care Z51.89 ; Fall, subsequent encounter W19.XXXD ; Acute arthritis M19.90 ; Acquired hypothyroidism E03.9 ; BPH (benign prostatic hyperplasia) N40.0 ; GERD (gastroesophageal reflux disease) K21.9 ; Chronic constipation K59.09 and Depression [address] [place] [phone] 02/27/2024 Soledad Michelle AICD (automatic cardioverter/defibrillato r) present Z95.810 ; Cardiomyopathy, unspecified type I42.9 ; Essential (primary) hypertension I10 ; Atherosclerosis of [place] coronary artery without angina pectoris, unspecified whether [place] or transplanted heart I25.10 ; Hyperlipidemia, unspecified hyperlipidemia type E78.5 ; Acute anemia D64.9 ; MCI (mild cognitive impairment) G31.84 ; Displaced intertrochanteric fracture of right femur, subsequent encounter for closed fracture with routine healing S72.141D ; After care Z51.89 ; Acute arthritis M19.90 ; Acquired hypothyroidism E03.9 ; BPH (benign prostatic hyperplasia) N40.0 ; GERD (gastroesophageal reflux disease) K21.9 ; Chronic constipation K59.09 and Depression [address] [place] [id number] 03/12/2024 Soledad Michelle AICD (automatic cardioverter/defibrillato r) present Z95.810 ; Cardiomyopathy, unspecified type I42.9 ; Essential (primary) hypertension I10 ; Atherosclerosis of [place] coronary artery without angina pectoris, unspecified whether [place] or transplanted heart I25.10 ; Hyperlipidemia, unspecified hyperlipidemia type E78.5 ; Acute anemia D64.9 ; MCI (mild cognitive impairment) G31.84 ; Displaced intertrochanteric fracture of right femur, subsequent encounter for closed fracture with routine healing S72.141D ; After care Z51.89 ; Acute arthritis M19.90 ; Acquired hypothyroidism E03.9 ; BPH (benign prostatic hyperplasia) N40.0 ; GERD (gastroesophageal reflux disease) K21.9 ; Chronic constipation K59.09 and Depression [address] [place], [place] [id number] 04/30/2024 Soledad Michelle C. difficile colitis A04.72 [address] [place], [place] [id number] 05/07/2024 Soledad Michelle C. difficile colitis A04.72 ; Renal failure N19 and Cough R05.9 [address] [place], [place] [id number] 06/11/2024 Soledad Michelle Obstructive uropathy N13.9 ; Prostate mass N42.89 ; Bladder outlet obstruction N32.0 ; Renal failure, unspecified chronicity N19 ; Acute anemia D64.9 ; Cough R05.9 ; Cardiomyopathy, unspecified type I42.9 ; AICD (automatic cardioverter/defibrillato r) present Z95.810 ; Atherosclerosis of [place] coronary artery without angina pectoris, unspecified whether [place] or transplanted heart I25.10 ; Hyperlipidemia, unspecified hyperlipidemia type E78.5 ; Displaced intertrochanteric fracture of right femur, subsequent encounter for closed fracture with routine healing S72.141D ; Acute arthritis M19.90 ; Acquired hypothyroidism E03.9 ; BPH (benign prostatic hyperplasia) N40.0 ; GERD (gastroesophageal reflux disease) K21.9 ; Depression 311 ; Sneezing R06.7 ; Sacral decubitus ulcer L89.159 ; Heel ulceration L97.409 and Memory loss R41.[address] [place] [id number] 06/25/2024 Soledad Michelle Atherosclerosis of n ative coronary artery without angina pectoris, unspecified whether [place] or transplanted heart I25.10 ; Acute arthritis M19.90 ; Acquired hypothyroidism E03.9 ; BPH (benign prostatic hyperplasia) N40.0 ; Cardiomyopathy, unspecified type I42.9 ; After care Z51.89 ; Depression 311 ; 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 ; Memory loss R41.3 ; Bladder outlet obstruction N32.0 ; Wound of sacral region, subsequent encounter S31.000D ; Unspecified open wound, unspecified foot, subsequent encounter S91.309D ; Obstructive uropathy N13.9 ; Closed displaced intertrochanteric fracture of right femur with routine healing S72.141D and Cough R05.[address] [place] [phone] 07/09/2024 Soledad Michelle Atherosclerosis of n ative coronary artery without angina pectoris, unspecified whether [place] or transplanted heart I25.10 ; Acute arthritis [...] with routine healing S72.141D and Cough R05.9 [place] [address] [id number] 07/16/2024 Soledad Michelle Atherosclerosis of n ative coronary artery without angina pectoris, unspecified whether [place] or transplanted heart I25.10 ; Acute arthritis [...] of right femur with routine healing S72.141D ; Cough R05.9 and Anxiety F41.[address] [place] [id number] 07/23/2024 Soledad Michelle Atherosclerosis of n ative coronary artery without angina pectoris, unspecified whether [place] or transplanted heart I25.10 ; Acute arthritis [...] of right femur with routine healing S72.141D ; Cough R05.9 and Anxiety F41.[address] [place] [id number] 07/30/2024 Soledad Michelle Atherosclerosis of n ative coronary artery without angina pectoris, unspecified whether [place] or transplanted heart I25.10 ; Acute arthritis [...] with routine healing S72.141D and Cough R05.[address] [place] [id number] 08/20/2024 Soledad Michelle Atherosclerosis of n ative coronary artery without angina pectoris, unspecified whether [place] or transplanted heart I25.10 ; Acute arthritis M19.90 ; Acquired hypothyroidism E03.9 ; BPH (benign prostatic hyperplasia) N40.0 ; Cardiomyopathy, unspecified type I42.9 ; Depression 311 ; 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 ; Memory loss R41.3 ; Bladder outlet obstruction N32.0 ; Wound of sacral region, subsequent encounter S31.000D ; Obstructive uropathy N13.9 ; Anxiety F41.9 and Cough R05.[address] [place], [place] [id number] 10/22/2024 Soledad Michelle HTN (hypertension) I 10 ; Acquired hypothyroidism E03.9 ; BPH (benign prostatic hyperplasia) N40.0 ; MCI (mild cognitive impairment) with memory loss G31.84 ; Atherosclerosis of [place] coronary artery without angina pectoris, unspecified whether [place] or transplanted heart I25.10 ; Cardiomyopathy, unspecified type I42.9 ; Depression 311 ; 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 ; Memory loss R41.3 ; Bladder outlet obstruction N32.0 ; Wound of sacral region, subsequent encounter S31.000D ; Obstructive uropathy N13.9 ; Anxiety F41.9 and Cough R05.9 [facility] [address] [place], [place] [id number] 01/17/2024 Dave [place] [facility] [address] [place], [place] [id number] 02/01/2024 Soledad Michelle [facility] [address] [place], [place] [id number] 02/13/2024 Joelle Pisano After care Z51.89 [facility] [address] [place], [place] [id number] 02/26/2024 Dave [place] [facility] [address] [place], [place] [id number] 03/01/2024 Dave [place] [facility] [address] [place], [place] [id number] 03/04/2024 Adve Jim [place] [facility] [address] [place], [place] [id number] 03/18/2024 Dave [place] [facility] [address] [place], [place] [id number] 04/01/2024 Soledad Michelle [facility] [address] [place] [id number] 04/02/2024 Soledad Michelle [facility] [address] [place] [id number] 04/04/2024 R Donte Norris [facility] [address] [place] [id number] 04/05/2024 Dave Jim [place] [facility] [address] [place] [id number] 04/12/2024 Dave [place] [facility] [address] [place] [id number] 04/16/2024 Dave [place] [facility] [address] [place], [place] [id number] 04/25/2024 Dave [place] [facility] [address] [place] [id number] 05/02/2024 Soledad Michelle [facility] [address] [place] [id number] 05/03/2024 Dave [place] [facility] [address] [place] [id number] 05/08/2024 Soledad Michelle [facility] [address] [place] [id number] 05/13/2024 R Donte Norris [facility] [address] [place] [id number] 05/13/2024 Soledad Michelle [facility] [address] [place] [id number] 05/14/2024 Dave [place] [facility] [address] [place] [id number] 05/20/2024 Dave [place] [facility] [address] [place] [id number] 05/27/2024 R Donte Smithfleet [facility] [address] [place] [id number] 05/27/2024 Dave [place] [facility] [address] [place] [id number] 05/28/2024 R Donte Winstoneet [facility] [address] [place] [id number] 06/17/2024 Dave Jim [place] Displaced intertrochanteric fracture of right femur, subsequent encounter for closed fracture with routine healing S72.141D [facility] [address] [place] [id number] 06/19/2024 Dave Jim [place] Acute anemia D64.9 ; Atherosclerosis of [place] coronary artery without angina pectoris, unspecified whether [place] or transplanted heart I25.10 ; Acute arthritis M19.90 ; Sneezing R06.7 ; GERD (gastroesophageal reflux disease) K21.9 and Hyperlipidemia, unspecified hyperlipidemia type E78.5 [facility] [address] [place] [id number] 06/25/2024 Dave Jim [place] [facility] [address] [place] [id number] 07/15/2024 Dave Jim [place] [facility] [address] [place] [id number] 08/13/2024 Dave [place] [facility] [address] [place] [id number] 09/16/2024 Dave [place] [facility] [address] [place] [id number] 09/19/2024 Dave [place] [facility] [address] [place] [id number] 09/20/2024 Dave [place] Anxiety F41.9 [facility] [address] [place], [place] [id number] 11/15/2024 Dave Jim Falls Assessments Encounter Date Diagnosis (ICD Code) Assessment Notes Treatment Notes Treatment Clinical Notes Section Notes 06/17/2024 Displaced intertrochanteric fracture of right femur, subsequent encounter for closed fracture with routine healing (ICD-10 - S72.141D) 05/07/2024 Renal failure (ICD-1 0 - N19) 05/07/2024 C. difficile colitis (ICD-10 - A04.72) continue with vanc for recurring C diff with longer duration and taper; continue with fluid encouragement. lab results pending; will add probiotic 04/30/2024 C. difficile colitis (ICD-10 - A04.72) will restart vanc for recurring C diff with longer duration and taper;ges; will add Lomotil for frequent stools; PO fluids encouraged; will do CBC and CMP; disc senoside 03/12/2024 Cardiomyopathy, unspecified type (ICD-10 - I42.9) 03/12/2024 AICD (automatic cardioverter/defibril lator) present (ICD-10 - Z95.810) 02/13/2024 After care (ICD-10 - Z51.89) 02/13/2024 Cardiomyopathy, unspecified type (ICD-10 - I42.9) 02/13/2024 AICD (automatic cardioverter/defibril lator) present (ICD-10 - Z95.810) 01/30/2024 Cardiomyopathy, unspecified type (ICD-10 - I42.9) 01/30/2024 AICD (automatic cardioverter/defibril lator) present (ICD-10 - Z95.810) 10/22/2024 HTN (hypertension) (ICD-10 - I10) 09/20/2024 Anxiety (ICD-10 - F41.9) 08/20/2024 Atherosclerosis of [place] coronary artery without angina pectoris, unspecified whether [place] or transplanted heart (ICD-10 - I25.10) 08/20/2024 Acute arthritis (ICD-10 - M19.90) 07/30/2024 Acute arthritis (ICD-10 - M19.90) 07/30/2024 Atherosclerosis of [place] coronary artery without angina pectoris, unspecified whether [place] or transplanted heart (ICD-10 - I25.10) 07/23/2024 Atherosclerosis of [place] coronary artery without angina pectoris, unspecified whether [place] or transplanted heart (ICD-10 - I25.10) 07/23/2024 Acute arthritis (ICD-10 - M19.90) 07/16/2024 Atherosclerosis of [place] coronary artery without angina pectoris, unspecified whether [place] or transplanted heart (ICD-10 - I25.10) 07/16/2024 Acute arthritis (ICD-10 - M19.90) 07/09/2024 Atherosclerosis of [place] coronary artery without angina pectoris, unspecified whether [place] or transplanted heart (ICD-10 - I25.10) 07/09/2024 Acute arthritis (ICD-10 - M19.90) 06/25/2024 Atherosclerosis of [place] coronary artery without angina pectoris, unspecified whether [place] or transplanted heart (ICD-10 - I25.10) 06/25/2024 Acute arthritis (ICD-10 - M19.90) 06/19/2024 Acute anemia (ICD-10 - D64.9) 06/11/2024 Obstructive uropathy (ICD-10 - N13.9) continue with hiutron cath with routine care 02/27/2024 Cardiomyopathy, unspecified type (ICD-10 - I42.9) 02/27/2024 AICD (automatic cardioverter/defibril lator) present (ICD-10 - Z95.810) 06/11/2024 Prostate mass (ICD-1 0 - N42.89) 02/27/2024 Essential (primary) hypertension (ICD-10 - I10) 06/19/2024 Atherosclerosis of [place] coronary artery without angina pectoris, unspecified whether [place] or transplanted heart (ICD-10 - I25.10) 06/25/2024 Acquired hypothyroidism (ICD-10 - E03.9) 07/09/2024 Acquired hypothyroidism (ICD-10 - E03.9) 07/16/2024 Acquired hypothyroidism (ICD-10 - E03.9) 07/23/2024 Acquired hypothyroidism (ICD-10 - E03.9) 08/20/2024 Acquired hypothyroidism (ICD-10 - E03.9) 07/30/2024 Acquired hypothyroidism (ICD-10 - E03.9) 10/22/2024 Acquired hypothyroidism (ICD-10 - E03.9) 01/30/2024 Essential (primary) hypertension (ICD-10 - I10) 02/13/2024 Essential (primary) hypertension (ICD-10 - I10) 03/12/2024 Essential (primary) hypertension (ICD-10 - I10) 05/07/2024 Cough (ICD-10 - R05.9) ariana start duoneTX 03/12/2024 Atherosclerosis of [place] coronary artery without angina pectoris, unspecified whether [place] or transplanted heart (ICD-10 - I25.10) 02/13/2024 Atherosclerosis of [place] coronary artery without angina pectoris, unspecified whether [place] or transplanted heart (ICD-10 - I25.10) 01/30/2024 Atherosclerosis of [place] coronary artery without angina pectoris, unspecified whether [place] or transplanted heart (ICD-10 - I25.10) 10/22/2024 BPH (benign prostati c hyperplasia) (ICD-10 - N40.0) 08/20/2024 BPH (benign prostati c hyperplasia) (ICD-10 - N40.0) 07/30/2024 BPH (benign prostati c hyperplasia) (ICD-10 - N40.0) 07/23/2024 BPH (benign prostati c hyperplasia) (ICD-10 - N40.0) 07/16/2024 BPH (benign prostati c hyperplasia) (ICD-10 - N40.0) 07/09/2024 BPH (benign prostati c hyperplasia) (ICD-10 - N40.0) 06/25/2024 BPH (benign prostati c hyperplasia) (ICD-10 - N40.0) 06/19/2024 Acute arthritis (ICD-10 - M19.90) 06/11/2024 Bladder outlet obstruction (ICD-10 - N32.0) 02/27/2024 Atherosclerosis of [place] coronary artery without angina pectoris, unspecified whether [place] or transplanted heart (ICD-10 - I25.10) 02/27/2024 Hyperlipidemia, unspecified hyperlipidemia type (ICD-10 - E78.5) 06/11/2024 Renal failure, unspecified chronicity (ICD-10 - N19) 06/19/2024 Sneezing (ICD-10 - R06.7) 07/09/2024 Cardiomyopathy, unspecified type (ICD-10 - I42.9) 06/25/2024 Cardiomyopathy, unspecified type (ICD-10 - I42.9) 07/16/2024 Cardiomyopathy, unspecified type (ICD-10 - I42.9) 07/23/2024 Cardiomyopathy, unspecified type (ICD-10 - I42.9) 07/30/2024 Cardiomyopathy, unspecified type (ICD-10 - I42.9) 08/20/2024 Cardiomyopathy, unspecified type (ICD-10 - I42.9) 10/22/2024 MCI (mild cognitive impairment) with memory loss (ICD-10 - G31.84) 01/30/2024 Hyperlipidemia, unspecified hyperlipidemia type (ICD-10 - E78.5) 02/13/2024 Hyperlipidemia, unspecified hyperlipidemia type (ICD-10 - E78.5) 03/12/2024 Hyperlipidemia, unspecified hyperlipidemia type (ICD-10 - E78.5) 03/12/2024 Acute anemia (ICD-10 - D64.9) 02/13/2024 Acute anemia (ICD-10 - D64.9) 01/30/2024 Acute anemia (ICD-10 - D64.9) ariana do anemia studies to include stool for OB ariana start Iron 10/22/2024 Atherosclerosis of [place] coronary artery without angina pectoris, unspecified whether [place] or transplanted heart (ICD-10 - I25.10) 08/20/2024 Depression (ICD-10 - 311) 07/30/2024 Depression (ICD-10 - 311) 07/16/2024 Depression (ICD-10 - 311) 07/23/2024 Depression (ICD-10 - 311) 06/25/2024 After care (ICD-10 - Z51.89) 07/09/2024 Depression (ICD-10 - 311) 06/19/2024 GERD (gastroesophageal reflux disease) (ICD-10 - K21.9) 06/11/2024 Acute anemia (ICD-10 - D64.9) 02/27/2024 Acute anemia (ICD-10 - D64.9) 02/27/2024 MCI (mild cognitive impairment) (ICD-10 - G31.84) frequent reorientation 06/11/2024 Cough (ICD-10 - R05.9) ariana start duoneTX 06/19/2024 Hyperlipidemia, unspecified hyperlipidemia type (ICD-10 - E78.5) 06/25/2024 Depression (ICD-10 - 311) 07/23/2024 Other osteoarthritis involving multiple joints (ICD-10 - M15.8) 07/16/2024 Other osteoarthritis involving multiple joints (ICD-10 - M15.8) 07/09/2024 Other osteoarthritis involving multiple joints (ICD-10 - M15.8) 07/30/2024 Other osteoarthritis involving multiple joints (ICD-10 - M15.8) 08/20/2024 Other osteoarthritis involving multiple joints (ICD-10 - M15.8) 10/22/2024 Cardiomyopathy, unspecified type (ICD-10 - I42.9) 01/30/2024 Hyponatremia (ICD-10 - E87.1) 02/13/2024 MCI (mild cognitive impairment) (ICD-10 - G31.84) frequent reorientation 03/12/2024 MCI (mild cognitive impairment) (ICD-10 - G31.84) frequent reorientation 02/13/2024 Displaced intertrochanteric fracture of right femur, subsequent encounter for closed fracture with routine healing (ICD-10 - S72.141D) remains NWB ; continues with PT for uper body strengthening 03/12/2024 Displaced intertrochanteric fracture of right femur, subsequent encounter for closed fracture with routine healing (ICD-10 - S72.141D) see ortho note 01/30/2024 MCI (mild cognitive impairment) (ICD-10 - G31.84) frequent reorientation 10/22/2024 Depression (ICD-10 - 311) 08/20/2024 Memory loss (ICD-10 - R41.3) 07/30/2024 Memory loss (ICD-10 - R41.3) 07/09/2024 Memory loss (ICD-10 - R41.3) 07/23/2024 Memory loss (ICD-10 - R41.3) 07/16/2024 Memory loss (ICD-10 - R41.3) 06/25/2024 Other osteoarthritis involving multiple joints (ICD-10 - M15.8) 06/11/2024 Cardiomyopathy, unspecified type (ICD-10 - I42.9) 02/27/2024 Displaced intertrochanteric fracture of right femur, subsequent encounter for closed fracture with routine healing (ICD-10 - S72.141D) remains NWB ; continues with PT for uper body strengthening 06/11/2024 Atherosclerosis of [place] coronary artery without angina pectoris, unspecified whether [place] or transplanted heart (ICD-10 - I25.10) 06/11/2024 AICD (automatic cardioverter/defibril lator) present (ICD-10 - Z95.810) 02/27/2024 After care (ICD-10 - Z51.89) To continue with PT; pt continues to be NWB 07/09/2024 Bladder outlet obstruction (ICD-10 - N32.0) 06/25/2024 Memory loss (ICD-10 - R41.3) 07/23/2024 Bladder outlet obstruction (ICD-10 - N32.0) 07/16/2024 Bladder outlet obstruction (ICD-10 - N32.0) 08/20/2024 Bladder outlet obstruction (ICD-10 - N32.0) 07/30/2024 Bladder outlet obstruction (ICD-10 - N32.0) 10/22/2024 Other osteoarthritis involving multiple joints (ICD-10 - M15.8) 01/30/2024 Dyslipidemia (ICD-10 - E78.5) 03/12/2024 After care (ICD-10 - Z51.89) To continue with PT 02/13/2024 After care (ICD-10 - Z51.89) To continue with PT; pt continues to be NWB 02/13/2024 Fall, subsequent encounter (ICD-10 - W19.XXXD) 03/12/2024 Acute arthritis (ICD-10 - M19.90) 01/30/2024 Displaced intertrochanteric fracture of right femur, subsequent encounter for closed fracture with routine healing (ICD-10 - S72.141D) 10/22/2024 Memory loss (ICD-10 - R41.3) 08/20/2024 Wound of sacral region, subsequent encounter (ICD-10 - S31.000D) 07/30/2024 Wound of sacral region, subsequent encounter (ICD-10 - S31.000D) 07/16/2024 Wound of sacral region, subsequent encounter (ICD-10 - S31.000D) 07/23/2024 Wound of sacral region, subsequent encounter (ICD-10 - S31.000D) 07/09/2024 Wound of sacral region, subsequent encounter (ICD-10 - S31.000D) 06/25/2024 Bladder outlet obstruction (ICD-10 - N32.0) 06/11/2024 Hyperlipidemia, unspecified hyperlipidemia type (ICD-10 - E78.5) 02/27/2024 Acute arthritis (ICD-10 - M19.90) 02/27/2024 Acquired hypothyroidism (ICD-10 - E03.9) 06/11/2024 Displaced intertrochanteric fracture of right femur, subsequent encounter for closed fracture with routine healing (ICD-10 - S72.141D) see ortho note 07/09/2024 Obstructive uropathy (ICD-10 - N13.9) 06/25/2024 Wound of sacral region, subsequent encounter (ICD-10 - S31.000D) 07/23/2024 Obstructive uropathy (ICD-10 - N13.9) 07/16/2024 Obstructive uropathy (ICD-10 - N13.9) 07/30/2024 Obstructive uropathy (ICD-10 - N13.9) 08/20/2024 Obstructive uropathy (ICD-10 - N13.9) 10/22/2024 Bladder outlet obstruction (ICD-10 - N32.0) 01/30/2024 After care (ICD-10 - Z51.89) To continue with PT; pt continues to be NWB 03/12/2024 Acquired hypothyroidism (ICD-10 - E03.9) 02/13/2024 Acute arthritis (ICD-10 - M19.90) 02/13/2024 Acquired hypothyroidism (ICD-10 - E03.9) 03/12/2024 BPH (benign prostati c hyperplasia) (ICD-10 - N40.0) 01/30/2024 Fall, subsequent encounter (ICD-10 - W19.XXXD) 10/22/2024 Wound of sacral region, subsequent encounter (ICD-10 - S31.000D) To cleanse with NS or wound die cleaner qd with application of calcium alginate with silver and cover with 1/2 ABD and Island dressing; Prostat 30 cc qd 08/20/2024 Anxiety (ICD-10 - F41.9) nurses state Ativan helps; if anxious is usually at night 07/30/2024 Closed displaced intertrochanteric fracture of right femur with routine healing (ICD-10 - S72.141D) 07/16/2024 Closed displaced intertrochanteric fracture of right femur with routine healing (ICD-10 - S72.141D) 07/09/2024 Closed displaced intertrochanteric fracture of right femur with routine healing (ICD-10 - S72.141D) 07/23/2024 Closed displaced intertrochanteric fracture of right femur with routine healing (ICD-10 - S72.141D) 06/25/2024 Unspecified open wound, unspecified foot, subsequent encounter (ICD-10 - S91.309D) 02/27/2024 BPH (benign prostati c hyperplasia) (ICD-10 - N40.0) 06/11/2024 Acute arthritis (ICD-10 - M19.90) 02/27/2024 GERD (gastroesophageal reflux disease) (ICD-10 - K21.9) 07/09/2024 Cough (ICD-10 - R05.9) 06/25/2024 Obstructive uropathy (ICD-10 - N13.9) 06/11/2024 Acquired hypothyroidism (ICD-10 - E03.9) 07/23/2024 Cough (ICD-10 - R05.9) changed TX to prn 07/16/2024 Cough (ICD-10 - R05.9) 07/30/2024 Cough (ICD-10 - R05.9) 08/20/2024 Cough (ICD-10 - R05.9) 10/22/2024 Obstructive uropathy (ICD-10 - N13.9) 01/30/2024 Acute arthritis (ICD-10 - M19.90) 03/12/2024 GERD (gastroesophageal reflux disease) (ICD-10 - K21.9) 02/13/2024 BPH (benign prostati c hyperplasia) (ICD-10 - N40.0) 02/13/2024 GERD (gastroesophageal reflux disease) (ICD-10 - K21.9) 03/12/2024 Chronic constipation (ICD-10 - K59.09) bowel protocol 01/30/2024 Acquired hypothyroidism (ICD-10 - E03.9) 10/22/2024 Anxiety (ICD-10 - F41.9) nurses state Ativan helps; if anxious is usually at night 07/16/2024 Anxiety (ICD-10 - F41.9) nurses state Ativan helps 07/23/2024 Anxiety (ICD-10 - F41.9) nurses state Ativan helps; if anxious is usually at night 06/11/2024 BPH (benign prostati c hyperplasia) (ICD-10 - N40.0) 06/25/2024 Closed displaced intertrochanteric fracture of right femur with routine healing (ICD-10 - S72.141D) 02/27/2024 Chronic constipation (ICD-10 - K59.09) bowel protocol 02/27/2024 Depression (ICD-10 - 311) 06/25/2024 Cough (ICD-10 - R05.9) 06/11/2024 GERD (gastroesophageal reflux disease) (ICD-10 - K21.9) 10/22/2024 Cough (ICD-10 - R05.9) 01/30/2024 BPH (benign prostati c hyperplasia) (ICD-10 - N40.0) 03/12/2024 Depression (ICD-10 - 311) 02/13/2024 Chronic constipation (ICD-10 - K59.09) bowel protocol 02/13/2024 Depression (ICD-10 - 311) 01/30/2024 GERD (gastroesophageal reflux disease) (ICD-10 - K21.9) 06/11/2024 Depression (ICD-10 - 311) 06/11/2024 Sneezing (ICD-10 - R06.7) 01/30/2024 Chronic constipation (ICD-10 - K59.09) 01/30/2024 Depression (ICD-10 - 311) 06/11/2024 Sacral decubitus ulcer (ICD-10 - L89.159) position change as tolerated 06/11/2024 Heel ulceration (ICD-10 - L97.409) 06/11/2024 Memory loss (ICD-10 - R41.3) 10/22/2024 Other pt currently no t on anxiety med ; continue with HOSPICE care and comfort measures 06/11/2024 Other continue with comfort care; continue with Hospice care 07/30/2024 Other HOSPICE continues to assist; is a DNR 05/07/2024 Other will discuss with Dr. Medley when lab results reported 03/12/2024 Other regular diet with fortified foods and magic cup at dinner 08/20/2024 Other continue with comfort measures; continue with HOSPICE 07/23/2024 Other pt prefers not to get OOB; continues with HOSPICE; Maintain all comfort measures 02/27/2024 Other FU with orthope d 03/05/2024; continues to be NWB to RLE 07/09/2024 Other continue with comfort care; continue with HOSPICE 07/16/2024 Other HOSPICE continues to help with his care 06/25/2024 Other Pt remains with HOSPICE for end of life care; Pacer/defibrilla tor to be inactivated ; continue with all comfort care Plan Of Treatment No Information Insurance Providers Payer Name Payer Address Payer Phone Subscriber Number Group Number Insured Name Patient Relationship to Insured Coverage Start Date Coverage End Date MEDICARE PART B [address] [address] [place] [id number] GIL BERMAN Self - patient is the insured [employer] [address] [place] [address] [id number] GIL BERMAN Self - patient is the insured Medications Administered Medication Instructions Date of Administration Dosage Notes Depo- Medrol 40 mg/ml 11/28/2005 1.5 mL Depo- Medrol 40 mg/ml 09/21/2022 1.5 mL Dexamethasone 04/20/2006 1 mL Dexamethasone 09/27/2022 1 mL Medical (General) History Medical History History ICD Code Hyperlipidemia Hypertension Esophageal Reflux BPH Laryngeal Cancer - [facility] Hypothyroidism 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 Russo - 01/28/2019 Pacemaker/ defibrillator/ [place] 06/24 Percutaneous coronary intervention, sten t x 3 at [facility] September 2022 Cephalomedullary proimal femoral nailing / Dr. Soriano 01/15/2024 Hospitalization History Reason Date(Month/Year) [facility] with Subtrochanteric Fx right femur with nailing; CAD;cardiomyopathy; hematuria;HTN; anemia; hyponatremia 01/11-01/18/2024
--- NOTE | 2024-11-16 19:22 | PC.NURSE ---
Notified Hospice call center of PT condition. Call center stated if we do not hear anything within 15 minutes to call again.
--- NOTE | 2024-11-16 19:26 | PC.NURSE ---
Notified Kim press smith helper nurse of PT transfer to [facility] ED.
[2024-11-16 19:30] VITALS: BP 121/57; PULSE 59; O2SAT 96
[2024-11-16 20:01] VITALS: BP 117/64; PULSE 61; O2SAT 96
[2024-11-16 20:24] LABS: Microscopic, Urine URINE MICROSCOPIC (MICROSCOPIC)
[2024-11-16 20:25] LABS: Bilirubin,Urine Negative (Negative); Color,Urine YELLOW (Yellow); Glucose,Urine (UA) Negative (Negative); Ketones,Urine Negative (Negative); Leukocyte Esterase,Urine 3+ (Negative); PH,Urine 8.0 (5.0-8.5); Protein,Urine 2+ (Negative); Specific Gravity, Urine 1.020 (1.005-1.030); Urobilinogen,Urine 0.2 EU/dl (0.2)
--- NOTE | 2024-11-16 20:26 | PC.NURSE ---
called out for information r/t PT transfer back to [facility]. Notified of awaiting on lab results. had no other concerns at this time.
[2024-11-16 20:41] LABS: Bacteria,Urine 4+ /lpf; WBC,Urine TNTC #/hpf (0-3)
--- NOTE | 2024-11-16 21:05 | PC.NURSE ---
Jorge Malagon called x2 r/t report. No answer.
--- NOTE | 2024-11-16 21:10 | PC.NURSE ---
Report given to ABIGAIL Arevalo.
--- NOTE | 2024-11-16 21:14 | PC.NURSE ---
PT family notified of PT dx, Family declined abx. Techs notified of PT need for pt xfer to [place]. Tech stated they notified EMS.
--- NOTE | 2024-11-16 21:22 | PC.NURSE ---
Emptied PT cath bag. 300 CC of thick, yellow, foul smelling drainage. 600 CC of dark yellow thinner fluid.
[2024-11-16 21:36] VITALS: BP 110/65; PULSE 73; RESP 16; O2SAT 95
[2024-11-16 21:59] VITALS: BP 111/62; PULSE 72; RESP 16; TEMP 37.2; O2SAT 94
--- NOTE | 2024-11-16 22:14 | PC.NURSE ---
EMS here for xfer back to facility, EMS recieved another call to respond to. PT remains in room 9. Fmaily no longer at bed side.
--- NOTE | 2024-11-16 22:15 | PC.NURSE ---
PER ABIGAIL allen FSBS of 75 treated with Apple Juice.
--- NOTE | 2024-11-19 09:24 | PC.NURSE ---
Urine culture results reviewed by Dr. Arce. No new orders received at this time.
== END 2024-11-16 22:43 | disposition hospice, inpatient (51) ==
PROVIDERS: Emergency Provider Student in an Organized Health Care Education/Training Program
DX: T83.9XXA Unspecified complication of genitourinary prosthetic device, implant and graft, initial encounter (principal)
CPT/HCPCS: 51702; 81001; 87086; 87088; 87186; 99283